=== PATIENT | female | born 1940 | race Caucasian/White ===

== ENCOUNTER 2016-02-19 09:56 | Inpatient (IN) | payer OTHER, MEDICARE ==
[2016-02-19] VITALS (7 sets, daily range): BP systolic 153–192; BP diastolic 74–114; PULSE 82–99; RESP 17–20; TEMP 97.8–99; O2SAT 95–99
[~2016-02-19] VITALS: Ht 162.6 cm; Wt 103.8 kg
[~2016-02-19 09:56] MED LIST: PRED20 PO; VENTAER INH; ZITHTAB PO
[2016-02-19 10:18] LABS: AUTOMATED NEUTROPHIL # 9.8 TH/MM3 (1.8-7.7); BASOPHIL # 0.1 TH/MM3 (0-0.2); BASOPHIL % 0.6 % (0.0-2.0); EOSINOPHIL # 0.1 TH/MM3 (0-0.4); EOSINOPHIL % 1.2 % (0.0-4.0); HEMO FLAGS DIFF FINAL; LYMPH % 13.6 % (9.0-44.0); LYMPHOCYTE # 1.7 TH/MM3 (1.0-4.8); MEAN CELL VOLUME 92.3 FL (80.0-100.0); MEAN CORPUSCULAR HEMOGLOBIN 31.3 PG (27.0-34.0); MONO % 6.6 % (0.0-8.0); PLATELET COUNT 241 TH/MM3 (150-450); RED BLOOD COUNT 4.45 MIL/MM3 (4.00-5.30); RED CELL DISTRIBUTION WIDTH 13.1 % (11.6-17.2); WHITE BLOOD COUNT 12.6 TH/MM3 (4.0-11.0)
[2016-02-19 10:37] LABS: AMPHETAMINE, URINE NEG (NEG); BARBITURATES, URINE NEG (NEG); COCAINE, URINE NEG (NEG)
[2016-02-19 10:38] LABS: ANION GAP 8 MEQ/L (5-15); BLOOD UREA NITROGEN 20 MG/DL (7-18); CHLORIDE 100 MEQ/L (98-107); GLOMERULAR FILTRATION RATE 37 ML/MIN (>89); POTASSIUM 3.7 MEQ/L (3.5-5.1); SODIUM (NA) 138 MEQ/L (136-145)
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
[2016-02-19] MEDS ORDERED: SODIUM CHLOR 0.9% 1000 ML INJ 1,000 ML IV ONE (11:15)
[2016-02-19 19:44] LABS: BACTERIA, URINE RARE /hpf; BLOOD, URINE NEG (NEG); COMMENT (UR) CULT NOT INDICATED; CULTURE IF INDICATED CULT NOT INDICATED; GLUCOSE,URINE NEG (NEG); KETONE, URINE NEG (NEG); MUCUS URINE FEW /lpf (OCC); NITRITE,URINE NEG (NEG); SQUAMOUS EPITHELIAL CELL URINE <1 /hpf (0-5); URINE COLOR YELLOW (YELLW/STRAW)
[2016-02-19] MEDS ORDERED: diphenhydrAMINE HCL 50 MG/ML VIAL IM PRN (21:30)
[2016-02-19] MEDS ORDERED: ALUMINUM/MAGNESIUM/SIMETH 30 ML CUP PO PRN (21:30)
[2016-02-19] MEDS: QUEtiapine FUMARATE 25 MG TAB PO SCH (21:30)
[2016-02-19] MEDS ORDERED: LORazepam 2 MG/ML VIAL - age > 65 yrs IM PRN (21:30)
[2016-02-19] MEDS ORDERED: MAGNESIUM HYDROXIDE SUSP 30 ML CUP PO PRN (21:30)
[2016-02-19] MEDS ORDERED: diphenhydrAMINE HCL 50 MG/ML VIAL - HS PRN IM (21:30)
[2016-02-20 00:03] VITALS: BP 156/69; PULSE 87; RESP 20
[2016-02-20 00:35] VITALS: BP 162/95; PULSE 91; RESP 17; TEMP 97.9; O2SAT 97
[2016-02-20] MEDS: traZODone HCL 50 MG TAB PO PRN (01:27)
[2016-02-20] MEDS: LORazepam 0.5 MG TAB age > 65 yrs PO PRN ×2 (01:27→15:59)
[2016-02-20 06:14] VITALS: BP 186/98; PULSE 89; RESP 16; TEMP 97.1
[2016-02-20 08:25] LABS: ANION GAP 11 MEQ/L (5-15); BICARBONATE 28.3 MEQ/L (21.0-32.0); BLOOD UREA NITROGEN 17 MG/DL (7-18); CHLORIDE 101 MEQ/L (98-107); FREE T4 1.09 NG/DL (0.76-1.46); GLOMERULAR FILTRATION RATE 44 ML/MIN (>89); LDL CHOLESTEROL 96 MG/DL (0-99); POTASSIUM 3.5 MEQ/L (3.5-5.1); SODIUM (NA) 140 MEQ/L (136-145)
[2016-02-20] MEDS: QUEtiapine FUMARATE 25 MG TAB PO SCH ×2 (09:15→21:52)
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
[2016-02-20 10:50] LABS: HEMOGLOBIN A1a 0.6 %; HEMOGLOBIN A1b 0.8 %; HEMOGLOBIN Ao 84.7 %; HEMOGLOBIN F 1.1 %; HEMOGLOBIN LA1C 2.1 %; HEMOGLOBIN P3 4.1 %
[2016-02-20] MEDS ORDERED: cloNIDine HCL 0.1 MG TAB PO PRN (13:30)
[2016-02-20 13:58] VITALS: BP 157/89; PULSE 66; TEMP 98.7; O2SAT 96
--- NOTE | 2016-02-20 15:19 | PD.CONS ---
HPI Service [facility] Consult Requested By Psychiatric services Reason for Consult Assistance with medical management of multiple issues including hypertension Primary Care Physician No Primary Care Physician Diagnoses: History of Present Illness This 75-year-old female patient with past medical history which includes chronic kidney disease, hypertension and arthritis. Patient is currently in inpatient psychiatric center we have been consulted for assistance with medical management including hypertension. Patient appears to be an unreliable historian (somewhat confused and tangential in speech ) therefore information gathered from patient as well as prior computerized charting. Patient's only complaint is that she has, "rattles," in her chest and is having and, "can't breathe." Vital signs are stable and oxygen saturation 96-97% on room air. There are scattered wheezes and bibasilar crackles noted on exam. White blood cell count 12.6 MAXIMUM TEMPERATURE 99.0. And blood pressure is noted to be elevated. Patient reports she takes no home medications. Patient denies nausea vomiting diarrhea constipation fevers chills or chest pain. Review of Systems Constitutional: DENIES: Fever, Chills Respiratory: DENIES: Cough, Shortness of breath Cardiovascular: DENIES: Chest pain Gastrointestinal: DENIES: Abdominal pain, Nausea, Vomiting Other All other systems reviewed and negative except as mentioned above and in history of present illness Past Family Social History Allergies: Coded Allergies: Abilify (Verified Allergy, Severe, 02/19/16) Antivert (Verified Allergy, Severe, 02/19/16) Aspirin (Verified Allergy, Severe, 02/19/16) Flagyl (Verified Allergy, Severe, Diarrhea, 02/19/16) Nonsteroidal Anti-Inflammatory Agts (Verified Allergy, Severe, 02/19/16) Penicillin (Verified Allergy, Severe, REDNESS, SWELLING, 02/19/16) Saccharin (Verified Allergy, Severe, 02/19/16) Sulfa (Verified Allergy, Severe, DISTURBS KIDNEY FUNCTION, 02/19/16) Tetracycline (Verified Allergy, Severe, NAUSEA & VOMITING, 02/19/16) Past Medical History chronic kidney disease, hypertension and arthritis Past Surgical History Appendectomy, bilateral knee replacement, tonsillectomy Reported Medications Denies taking any medications on daily basis Family History Denies family medical history including diabetes hypertension kidney disease heart disease or cancer Social History Patient denies tobacco use or illicit drug use or EtOH use Chart review reports patient quit smoking in 1980 Physical Exam Vital Signs Vital Signs Date Time Temp Pulse Resp B/P Pulse Ox O2 Delivery O2 Flow Rate FiO2 02/20/16 13:58 98.7 66 157/89 96 02/20/16 06:14 97.1 89 16 186/98 02/20/16 00:35 97.9 91 17 162/95 97 02/20/16 00:35 97.9 91 17 162/95 97 02/20/16 00:03 87 20 156/69 02/19/16 22:33 86 19 163/74 95 Room Air 02/19/16 21:14 98.5 88 20 192/89 98 Room Air 02/19/16 18:15 92 18 168/88 Room Air Physical Exam GENERAL: This is an obese, 75-year-old female patient appears to be confused. In no apparent distress. SKIN: No rashes, ecchymoses or lesions. Cool and dry. HEAD: Atraumatic. Normocephalic. No temporal or scalp tenderness. EYES: Extraocular motions intact. No scleral icterus. No injection or drainage. ENT: Nose without bleeding, purulent drainage or septal hematoma. Throat without erythema, tonsillar hypertrophy or exudate. Uvula midline. Airway patent. NECK: Trachea midline. No JVD or lymphadenopathy. Supple, nontender, no meningeal signs. CARDIOVASCULAR: Regular rate and rhythm without murmurs, gallops, or rubs. RESPIRATORY: Scattered wheezes throughout with bibasilar crackles GASTROINTESTINAL: Abdomen soft, non-tender, nondistended. No hepato-splenomegaly , or palpable masses. No guarding. MUSCULOSKELETAL: Trace bilateral edema No calf tenderness. Negative Homans sign bilaterally. NEUROLOGICAL: Awake and alert, but confused. Motor and sensory grossly within normal limits. 4 out of 5 muscle strength in all muscle groups. Tangential speech. Laboratory Laboratory Tests Test 02/20/16 06:32 Sodium Level 140 Potassium Level 3.5 Chloride Level 101 Carbon Dioxide Level 28.3 Anion Gap 11 Blood Urea Nitrogen 17 Creatinine 1.20 Estimat Glomerular Filtration 44 Rate Random Glucose 113 Hemoglobin A1c 5.8 Calcium Level 8.3 Phosphorus Level 3.5 Magnesium Level 2.0 Triglycerides Level 125 Cholesterol Level 167 LDL Cholesterol 96 HDL Cholesterol 46.0 Cholesterol/HDL Ratio 3.63 Vitamin B12 Level GREATER THAN 2000 25-Hydroxy Vitamin D Total 31.2 Free Thyroxine 1.09 Thyroid Stimulating Hormone 1.720 3rd Gen Result Diagram: 02/19/16 1005 02/20/16 0632 Assessment and Plan Assessment and Plan This 75-year-old female patient with past medical history which includes chronic kidney disease, hypertension and arthritis. Patient is currently in inpatient psychiatric center we have been consulted for assistance with medical management including hypertension. Patient appears to be an unreliable historian (somewhat confused and tangential in speech ) therefore information gathered from patient as well as prior computerized charting. Patient's only complaint is that she has, "rattles," in her chest and is having and, "can't breathe." Posttraumatic stress disorder/depression- management per psychiatric team Congestion/shortness of breath- with leukocytosis 12.6 Do nebs every 6 hours while awake and as needed Chest x-ray Patient was discharged from emergency department on 02/17/2016 with a prescription for azithromycin is unclear whether patient has taken this prescription or not Will start azithromycin by mouth Hypertension Clonidine as needed Norvasc 10 mg daily Continue to monitor blood pressure Chronic kidney disease- appears stable for nephrotoxins DVT prophylaxis patient is ambulatory Discussed POC with patient Written by Yazmin Blevins, acting as scribe for Dr. Gordon on 02/20/16 at 15:17. The documentation accurately reflects the work performed [id number] by me on 02/20/16 at 15:17. Yazmin Blevins Feb 20, 2016 15:19 Delgado Gordon MD Feb 21, 2016 16:23
[2016-02-20] MEDS ORDERED: AZITHROMYCIN 250 MG TAB PO ONE (15:30)
[2016-02-20] MEDS: amLODIPine BESYLATE 5 MG TAB PO SCH (15:59)
--- NOTE | 2016-02-20 16:14 | RADRPT ---
EXAM DATE/TIME: 02/20/2016 15:20 [place] COMPARISON: CHEST SINGLE AP, February 12, 2016, 22:19. INDICATIONS : Congestion. MEDICAL HISTORY : None. SURGICAL HISTORY : None. ENCOUNTER: Initial ACUITY: 1 day PAIN SCORE: 0/10 LOCATION: Bilateral chest FINDINGS: The heart is enlarged. The pulmonary vascular pattern is normal. Bibasilar streakiness is noted con sistent with atelectasis and/or developing infiltrates. Clinical correlation is recommended. Degene rative changes and scoliosis of the thoracic spine are noted. Degenerative changes are noted involvi ng the shoulders bilaterally. CONCLUSION: 1. Bibasilar streakiness consistent with atelectasis and/or developing infiltrates. Clinical correla tion is recommended. 2. Cardiomegaly. 3. Degenerative changes and scoliosis of the thoracic spine. 4. Degenerative changes involving the shoulders bilaterally. Yong Alicea MD on February 20, 2016 at 16:02 Board Certified Radiologist. This report was verified electronically.
[2016-02-20] MEDS: diphenhydrAMINE HCL 50 MG CAP PO PRN (18:25)
[2016-02-20 18:31] VITALS: BP 156/80; PULSE 77; RESP 18; TEMP 98.4; O2SAT 96
[2016-02-20] MEDS: RESP: ALBUTEROL 2.5 MG/IPRATROPIUM 0.5 MG NEB (SCH) NEB (21:35)
--- NOTE | 2016-02-20 22:50 | HHI.PR ---
Addendum to Inpatient Note Addendum Reason: Additional Documentation Additional Information A bedbug was found in the patient's belongings and I was asked to come see the bug and correctly identify it and to look at the patient's skin. I examined the bug and it does appear to be a bedbug though the time of expiration is difficult for me to estimate - it does not engorged though at the time of my exam. The patient was seen in her room. She was initially sleeping. When I started asking her about bedbugs, she started to itch her scalp and her chest. She also was noted to be picking at a tiny excoriated lesion on the dorsal surface of her right arm near her wrist. I did look at her arms, face, lower legs, and scalp and do not see anything consistent with bedbug bites. The patient reports that she did have an infestation in her apartment about 6 months to a year ago but she hired a pesticide company that specializes in bedbug treatment to treat her home and she states they go rid of the infestation though it was quite expensive for her and her family. Contact isolation has been ordered for now as a precaution. I will add PRN Benadryl to be given as needed for pruritis and our medical team will continue to follow during this hospitalization. . Mally Rader Feb 20, 2016 22:50
[2016-02-21] MEDS: RESP: ALBUTEROL 2.5 MG/IPRATROPIUM 0.5 MG NEB (PRN) NEB (01:46)
[2016-02-21] MEDS: diphenhydrAMINE HCL 50 MG CAP PO PRN ×2 (03:32→18:36)
[2016-02-21 06:00] VITALS: BP 187/90; PULSE 81; RESP 18; TEMP 96.6; O2SAT 97
[2016-02-21] MEDS: amLODIPine BESYLATE 5 MG TAB PO SCH (09:00)
[2016-02-21] MEDS: QUEtiapine FUMARATE 25 MG TAB PO SCH ×2 (09:00→21:15)
[2016-02-21] MEDS: LORazepam 0.5 MG TAB age > 65 yrs PO PRN (09:11)
[2016-02-21] MEDS: RESP: ALBUTEROL 2.5 MG/IPRATROPIUM 0.5 MG NEB (SCH) NEB ×3 (09:25→20:15)
[2016-02-21] MEDS ORDERED: PNEUMOCOCCAL POLYVALENT INJ 25 MCG/0.5 ML SYR IM ONE (10:00)
[2016-02-21] MEDS ORDERED: INFLUENZA VIRUS VACCINE (QUADRIVALENT) 0.5 ML SYR IM ONE (10:00)
--- NOTE | 2016-02-21 11:03 | HHI.PYPN ---
Subjective Remarks Patient was seen and discussed with the staff electrical engineer. Patient claimed that she has been feeling anxious nervous able to breathe but not as smoothly as she used to. She denied any active auditory or visual hallucinations. She was mildly guarded and suspicious. She denied any suicidal ideation intentions or plan. She was encouraged to participate in all the therapeutic activity on the floor. No side effects were complained she is compliant in taking medication. Review of Systems Psychiatric: COMPLAINS OF: Anxiety, Mood changes, Depression, Delusions Other Review of systems same as that of 02/20/16 Objective Alert: Yes [place]: Person, Place, Situation Mood: Anxious, Depressed Affect: Restricted Memory Intact: Recent (mildly impaired), Comment Hallucinations: Other (patient denies any active auditory or visual hallucinations) Delusions: Yes Delusion Type: Paranoid Suicidal: Ideation (denied any suicidal ideation intentions or plan) Homicidal: Ideation (denies) Insight/Judgement Fair Remarks Attention and concentration improving. Gait normal. Language normal. Fund of knowledge average Vitals/IOs Vital Signs Date Time Temp Pulse Resp B/P Pulse Ox O2 Delivery O2 Flow Rate FiO2 02/21/16 06:00 96.6 81 18 187/90 97 02/19/16 22:33 Room Air Assessment & Plan Problem List: (1) Post-traumatic stress disorder, chronic ICD Code: F43.12 (2) Depression ICD Code: F32.9 Assessment & Plan Estimated LOS: days Justification for Cont. Inpt. Monitoring of the medication and stabilization on the medication Request HC Surrog/Guard Advoc?: No Problem Qualifiers (1) Depression: Lamont Rueda MD Feb 21, 2016 11:03
--- NOTE | 2016-02-21 16:27 | HHI.PR ---
Subjective Remarks Follow for shortness of breath Patient still coughing, shortness of breath better, afebrile. She says that duo nebs are helping. Patient is found to have a bedbug last night, has been complaining of itching. Objective Vitals Vital Signs Date Time Temp Pulse Resp B/P Pulse Ox O2 Delivery O2 Flow Rate FiO2 02/21/16 06:00 96.6 81 18 187/90 97 02/20/16 18:31 98.4 77 18 156/80 96 Result Diagram: 02/19/16 1005 02/20/16 0632 Objective Remarks Not in distress PERRL, pink conjunctiva without injection, anicteric Normal rate and regular rhythm, no murmurs gallops or rubs appreciated. Occasional rhonchi, occasional wheezing, no crackles. Abdomen soft, nontender. Extremities without clubbing, cyanosis, or edema. No rash of generalized distribution. Skin is warm and dry. Moves extremities, awake, alert. Oriented to place and person A/P Assessment and Plan This 75-year-old female patient with past medical history which includes chronic kidney disease, hypertension and arthritis. Patient is currently in inpatient psychiatric center we have been consulted for assistance with medical management including hypertension. Patient appears to be an unreliable historian (somewhat confused and tangential in speech ) therefore information gathered from patient as well as prior computerized charting. Patient's only complaint is that she has, "rattles," in her chest and is having and, "can't breathe." Posttraumatic stress disorder/depression- management per psychiatric team Congestion/shortness of breath- with leukocytosis 12.6 Do nebs every 6 hours while awake and as needed Chest x-ray shows bibasilar streakiness, possible pneumonia versus CHF. She says DuoNeb's has been helping. Continue duo nebs, continue azithromycin, check BNP. Recheck CBC and BMP. Bedbug infestation-witnessed bug infestation personally by me and Shilpi, continue antihistamines as needed. Hypertension Clonidine as needed Norvasc 10 mg daily Continue to monitor blood pressure Chronic kidney disease- appears stable for nephrotoxins DVT prophylaxis patient is ambulatory Discussed POC with patient Delgado Gordon MD Feb 21, 2016 16:27
[2016-02-21] MEDS: AZITHROMYCIN 250 MG TAB PO SCH (17:15)
[2016-02-21 20:06] VITALS: BP 130/80; PULSE 81; RESP 18; TEMP 97.6; O2SAT 97
[2016-02-21] MEDS: diphenhydrAMINE HCL 50 MG CAP - HS PRN PO (21:18)
[2016-02-22] MEDS: RESP: ALBUTEROL 2.5 MG/IPRATROPIUM 0.5 MG NEB (PRN) NEB (04:50)
[2016-02-22] MEDS: ACETAMINOPHEN 325 MG TAB PO PRN (05:29)
[2016-02-22 05:49] VITALS: BP 152/72; PULSE 82; RESP 18; TEMP 98.1; O2SAT 94
[2016-02-22 08:20] LABS: AUTOMATED NEUTROPHIL # 8.2 TH/MM3 (1.8-7.7); BASOPHIL # 0.1 TH/MM3 (0-0.2); BASOPHIL % 0.5 % (0.0-2.0); EOSINOPHIL # 0.4 TH/MM3 (0-0.4); EOSINOPHIL % 3.4 % (0.0-4.0); HEMATOCRIT 37.1 % (35.0-46.0); LYMPH % 15.4 % (9.0-44.0); LYMPHOCYTE # 1.8 TH/MM3 (1.0-4.8); MEAN CELL VOLUME 93.3 FL (80.0-100.0); MEAN CORPUSCULAR HGB CONC 34.3 % (32.0-36.0); MONO % 11.9 % (0.0-8.0); NEUT % 68.8 % (16.0-70.0); PLATELET COUNT 228 TH/MM3 (150-450); RED BLOOD COUNT 3.97 MIL/MM3 (4.00-5.30); RED CELL DISTRIBUTION WIDTH 12.9 % (11.6-17.2); WHITE BLOOD COUNT 11.9 TH/MM3 (4.0-11.0)
[2016-02-22 08:24] LABS: HEMO FLAGS AUTO DIFF
[2016-02-22 08:51] LABS: BICARBONATE 27.2 MEQ/L (21.0-32.0); POTASSIUM 3.7 MEQ/L (3.5-5.1)
[2016-02-22] MEDS: amLODIPine BESYLATE 5 MG TAB PO SCH (08:57)
[2016-02-22] MEDS: QUEtiapine FUMARATE 25 MG TAB PO SCH ×3 (08:58→17:03)
[2016-02-22] MEDS: RESP: ALBUTEROL 2.5 MG/IPRATROPIUM 0.5 MG NEB (SCH) NEB ×3 (09:04→19:43)
[2016-02-22 09:41] LABS: PLATELET ESTIMATE SMEAR NORMAL (NORMAL); PLATELET MORPHOLOGY NORMAL (NORMAL); SCAN/DIFF AUTO DIFF CONFIRMED
--- NOTE | 2016-02-22 10:12 | HHI.PYPN ---
Subjective Remarks Patient was seen and discussed with the staff attorney. Patient reported that she has been sleeping okay. Feels frustrated staying in the room but could be reassured. Patient denied any active auditory or visual hallucinations. Denied any suicidal ideation intentions or plan. No behavior or management problem reported she is compliant in taking medication no side effects were complained. Continue with the same treatment Review of Systems Psychiatric: COMPLAINS OF: Mood changes, Depression Other Review of system same as that of 02/20/16 Objective Alert: Yes [place]: Person, Place, Situation Mood: Anxious, Depressed, Other (frustrated) Affect: Restricted Memory Intact: Recent (mildly impaired), Comment Hallucinations: Other (patient denies any active auditory or visual hallucinations) Delusions: Yes Delusion Type: Paranoid Suicidal: Ideation (denied any suicidal ideation intentions or plan) Homicidal: Ideation (denies) Insight/Judgement Fair to limited Remarks Attention and concentration improving. Language normal gait normal fund of knowledge average Labs Test 02/22/16 07:05 White Blood Count 11.9 TH/MM3 Red Blood Count 3.97 MIL/MM3 Hemoglobin 12.7 GM/DL Hematocrit 37.1 % Mean Corpuscular Volume 93.3 FL Mean Corpuscular Hemoglobin 32.0 PG Mean Corpuscular Hemoglobin 34.3 % Concent Red Cell Distribution Width 12.9 % Platelet Count 228 TH/MM3 Mean Platelet Volume 8.1 FL Neutrophils (%) (Auto) 68.8 % Lymphocytes (%) (Auto) 15.4 % Monocytes (%) (Auto) 11.9 % Eosinophils (%) (Auto) 3.4 % Basophils (%) (Auto) 0.5 % Neutrophils # (Auto) 8.2 TH/MM3 Lymphocytes # (Auto) 1.8 TH/MM3 Monocytes # (Auto) 1.4 TH/MM3 Eosinophils # (Auto) 0.4 TH/MM3 Basophils # (Auto) 0.1 TH/MM3 CBC Comment AUTO DIFF Differential Comment AUTO DIFF CONFIRMED Platelet Estimate NORMAL Platelet Morphology Comment NORMAL Red Cell Morphology Comment NORMAL Sodium Level 136 MEQ/L Potassium Level 3.7 MEQ/L Chloride Level 99 MEQ/L Carbon Dioxide Level 27.2 MEQ/L Anion Gap 10 MEQ/L Blood Urea Nitrogen 17 MG/DL Creatinine 1.24 MG/DL Estimat Glomerular Filtration 42 ML/MIN Rate Random Glucose 122 MG/DL Calcium Level 8.8 MG/DL B-Type Natriuretic Peptide 24 PG/ML Vitals/IOs Vital Signs Date Time Temp Pulse Resp B/P Pulse Ox O2 Delivery O2 Flow Rate FiO2 02/22/16 05:49 98.1 82 18 152/72 94 02/19/16 22:33 Room Air Assessment & Plan Problem List: (1) Post-traumatic stress disorder, chronic ICD Code: F43.12 (2) Depression ICD Code: F32.9 Assessment & Plan Estimated LOS: days Justification for Cont. Inpt. Monitoring of the medication and stabilization on the medication to improve the mood Request HC Surrog/Guard Advoc?: No Problem Qualifiers (1) Depression: Lamont Rueda MD Feb 22, 2016 10:12
--- NOTE | 2016-02-22 14:50 | HHI.PR ---
Subjective Remarks Follow for shortness of breath Cough improving now has occasional dry cough. Shortness of breath better, afebrile. Diminished bilateral bases no wheezes rhonchi or rales appreciated on auscultation Blood pressure remains elevated patient denies headache visual changes Objective Vitals Vital Signs Date Time Temp Pulse Resp B/P Pulse Ox O2 Delivery O2 Flow Rate FiO2 02/22/16 05:49 98.1 82 18 152/72 94 02/21/16 20:06 97.6 81 18 130/80 97 Result Diagram: 02/22/16 0705 02/22/16 0705 Imaging Chest x-ray reviewed by myself as well as Dr. Riely- bibasilar streaking noted Last Impressions Chest X-Ray 02/20/16 0000 Signed Impressions: Service Date/Time: Saturday, February 20, 2016 15:20 - CONCLUSION: 1. Bibasilar streakiness consistent with atelectasis and/or developing infiltrates. Clinical correlation is recommended. 2. Cardiomegaly. 3. Degenerative changes and scoliosis of the thoracic spine. 4. Degenerative changes involving the shoulders bilaterally. Yong Alicea MD Objective Remarks GENERAL: This is an obese, 75-year-old female patient appears to be confused. In no apparent distress. SKIN: No rashes, ecchymoses or lesions. Cool and dry. HEAD: Atraumatic. Normocephalic. No temporal or scalp tenderness. EYES: Extraocular motions intact. No scleral icterus. No injection or drainage. ENT: Nose without bleeding, purulent drainage or septal hematoma. Throat without erythema, tonsillar hypertrophy or exudate. Uvula midline. Airway patent. NECK: Trachea midline. No JVD or lymphadenopathy. Supple, nontender, no meningeal signs. CARDIOVASCULAR: Regular rate and rhythm without murmurs, gallops, or rubs. RESPIRATORY: Diminished bilateral bases no wheezes rhonchi or rales appreciated GASTROINTESTINAL: Abdomen soft, non-tender, nondistended No guarding. MUSCULOSKELETAL: Trace bilateral edema No calf tenderness. Negative Homans sign bilaterally. NEUROLOGICAL: Awake and alert, but confused. Motor and sensory grossly within normal limits. 4 out of 5 muscle strength in all muscle groups. A/P Assessment and Plan This 75-year-old female patient with past medical history which includes chronic kidney disease, hypertension and arthritis. Patient is currently in inpatient psychiatric center we have been consulted for assistance with medical management including hypertension. Posttraumatic stress disorder/depression- management per psychiatric team Congestion/shortness of breath- with leukocytosis improving Bronchitis versus early pneumonia Do nebs every 6 hours while awake and as needed Chest x-ray 02/21/2016 shows bibasilar streakiness Continue duo nebs, continue azithromycin, BNP 24 Bedbug infestation- no further bedbug was identified no evidence of bedbug bites will continue antihistamines as needed for itching. Hypertension- continues to be elevated Clonidine as needed Increase Norvasc to 10 mg daily Continue to monitor blood pressure Chronic kidney disease- appears stable for nephrotoxins DVT prophylaxis patient is ambulatory Discussed POC with patient Written by Yazmin Blevins, acting as scribe for Dr. Riley on 02/22/16 at 14:49. The documentation accurately reflects the work performed [id number] by me on 02/22/16 at 1449 Yazmin Blevins Feb 22, 2016 14:50 Obie Riley MD Feb 22, 2016 15:43
[2016-02-22] MEDS: AZITHROMYCIN 250 MG TAB PO SCH (15:26)
[2016-02-22 20:00] VITALS: BP 145/80; PULSE 99; RESP 17; TEMP 97.4; O2SAT 95
[2016-02-23 06:14] VITALS: BP 147/71; PULSE 90; RESP 18; TEMP 97.6; O2SAT 97
[2016-02-23] MEDS: QUEtiapine FUMARATE 25 MG TAB PO SCH ×3 (09:06→17:14)
[2016-02-23] MEDS: RESP: ALBUTEROL 2.5 MG/IPRATROPIUM 0.5 MG NEB (SCH) NEB ×3 (09:15→19:56)
--- NOTE | 2016-02-23 11:17 | HHI.PYPN ---
Subjective Remarks Patient was seen and discussed with the director of staff development. Patient stays in her room because of her bed bug. She complains of not being able to breed properly patient denied any crying spell or feeling depressed or patient denied any suicidal ideation intentions or plan. Her thoughts were organized. No behavior or management problem reported. Continue with the same treatment Review of Systems Psychiatric: COMPLAINS OF: Mood changes Other Review of systems same as that of 02/20/16 Objective Alert: Yes [place]: Person, Place, Situation Mood: Anxious, Depressed, Other (frustrated) Affect: Restricted Memory Intact: Recent (mildly impaired), Comment Hallucinations: Other (patient denies any active auditory or visual hallucinations) Delusions: Yes Delusion Type: Paranoid Suicidal: Ideation (denied any suicidal ideation intentions or plan) Homicidal: Ideation (denies) Insight/Judgement Fair to limited Vitals/IOs Vital Signs Date Time Temp Pulse Resp B/P Pulse Ox O2 Delivery O2 Flow Rate FiO2 02/23/16 06:14 97.6 90 18 147/71 97 02/19/16 22:33 Room Air Intake and Output 02/22/16 02/22/16 02/23/16 08:00 16:00 00:00 Intake Total 240 ml Balance 240 ml Assessment & Plan Problem List: (1) Post-traumatic stress disorder, chronic ICD Code: F43.12 (2) Depression ICD Code: F32.9 Assessment & Plan Estimated LOS: days Justification for Cont. Inpt. Monitoring of the medication and titrating the medication. Request HC Surrog/Guard Advoc?: No Problem Qualifiers (1) Depression: Lamont Rueda MD Feb 23, 2016 11:17
[2016-02-23] MEDS: AZITHROMYCIN 250 MG TAB PO SCH (15:48)
[2016-02-23 18:34] VITALS: BP 170/81; PULSE 100; RESP 18; TEMP 97.2; O2SAT 95
[2016-02-23 19:55] VITALS: BP 164/66; PULSE 95
[2016-02-23] MEDS: traZODone HCL 50 MG TAB PO PRN (21:16)
[2016-02-23] MEDS: LORazepam 0.5 MG TAB age > 65 yrs PO PRN (21:16)
[2016-02-24 06:05] VITALS: BP 150/87; PULSE 87; RESP 18; TEMP 98.3
[2016-02-24] MEDS: RESP: ALBUTEROL 2.5 MG/IPRATROPIUM 0.5 MG NEB (SCH) NEB ×3 (08:00→21:29)
[2016-02-24] MEDS: QUEtiapine FUMARATE 25 MG TAB PO SCH ×3 (08:30→17:25)
--- NOTE | 2016-02-24 09:47 | HHI.PYPN ---
Subjective Remarks Patient was seen and discussed with the billing and accounting staff assistant. Patient claimed that she has been feeling little better but still has difficulty breathing and feels frustrated. Patient denied any active auditory or visual hallucinations. She is not rambling. No behavior or management problem reported. She is in isolation because of bed bug. Patient denied any crying spell. Denied any suicidal ideation intentions or plan. Continue with the same treatment. Review of Systems Psychiatric: COMPLAINS OF: Mood changes, Depression Other Review of systems same as that of 02/20/16 Objective Alert: Yes [place]: Person, Place, Situation Mood: Anxious, Depressed, Other (frustrated) Affect: Restricted Memory Intact: Recent (mildly impaired), Comment Hallucinations: Other (patient denies any active auditory or visual hallucinations) Delusions: Yes Delusion Type: Paranoid Suicidal: Ideation (denied any suicidal ideation intentions or plan) Homicidal: Ideation (denies) Insight/Judgement Fair Remarks Attention and concentration improving. Gait normal. Language normal. Fund of knowledge average Vitals/IOs Vital Signs Date Time Temp Pulse Resp B/P Pulse Ox O2 Delivery O2 Flow Rate FiO2 02/24/16 06:05 98.3 87 18 150/87 02/23/16 18:34 95 Assessment & Plan Problem List: (1) Post-traumatic stress disorder, chronic ICD Code: F43.12 (2) Depression ICD Code: F32.9 Assessment & Plan Estimated LOS: days Justification for Cont. Inpt. Titrating and monitoring of the medication to stabilize patient's condition Request HC Surrog/Guard Advoc?: No Problem Qualifiers (1) Depression: Lamont Rueda MD Feb 24, 2016 09:47
[2016-02-24] MEDS: AZITHROMYCIN 250 MG TAB PO SCH (16:00)
[2016-02-24 19:44] VITALS: BP 140/70; PULSE 92; RESP 18; TEMP 98.9; O2SAT 95
[2016-02-24] MEDS: LORazepam 0.5 MG TAB age > 65 yrs PO PRN (21:02)
[2016-02-24] MEDS: traZODone HCL 50 MG TAB PO PRN (21:03)
[2016-02-25 05:31] VITALS: BP 155/96; PULSE 90; RESP 18; TEMP 98.5; O2SAT 96
[2016-02-25] MEDS: RESP: ALBUTEROL 2.5 MG/IPRATROPIUM 0.5 MG NEB (SCH) NEB ×3 (07:57→20:56)
--- NOTE | 2016-02-25 08:56 | HHI.PYPN ---
Subjective Remarks Patient was seen and discussed with the staff software engineer. Patient is feeling little better and able to breathe little better. No behavior or management problem reported. Patient tends to isolate and keeps to herself in her room. She was encouraged to participate in all the therapeutic activity on the floor. Patient denied any side effect. She slept fairly well. Denied any suicidal ideation intentions or plan or any auditory or visual hallucinations. Continue with the same treatment Review of Systems Psychiatric: COMPLAINS OF: Mood changes, Depression Other Review of system same as that of 02/20/16 Objective Alert: Yes [place]: Person, Place, Situation Mood: Anxious, Depressed, Other (frustrated) Affect: Restricted Memory Intact: Recent (mildly impaired), Comment Hallucinations: Other (patient denies any active auditory or visual hallucinations) Delusions: Yes Delusion Type: Paranoid Suicidal: Ideation (denied any suicidal ideation intentions or plan) Homicidal: Ideation (denies) Insight/Judgement Fair to limited Remarks Attention and concentration improving gait normal. Language normal. Fund of knowledge average Vitals/IOs Vital Signs Date Time Temp Pulse Resp B/P Pulse Ox O2 Delivery O2 Flow Rate FiO2 02/25/16 05:31 98.5 90 18 155/96 96 Assessment & Plan Problem List: (1) Post-traumatic stress disorder, chronic ICD Code: F43.12 (2) Depression ICD Code: F32.9 Assessment & Plan Estimated LOS: days Justification for Cont. Inpt. Needs to be monitored and titrated the medication prior to discharge to stabilize the patient Request HC Surrog/Guard Advoc?: No Problem Qualifiers (1) Depression: Lamont Rueda MD Feb 25, 2016 08:56
[2016-02-25] MEDS: QUEtiapine FUMARATE 25 MG TAB PO SCH ×3 (09:10→17:15)
[2016-02-25] MEDS: METOPROLOL TARTRATE 25 MG TAB PO SCH ×2 (11:48→20:39)
--- NOTE | 2016-02-25 15:05 | HHI.PR ---
Subjective Remarks Follow-up hypertension. Patient denies headache, dizziness, chest pain shortness breath. States she has sore throat and wants to go to social to get ice cream. Discussed with RN Objective Vitals Vital Signs Date Time Temp Pulse Resp B/P Pulse Ox O2 Delivery O2 Flow Rate FiO2 02/25/16 05:31 98.5 90 18 155/96 96 02/24/16 19:44 98.9 92 18 140/70 95 Result Diagram: 02/22/16 0705 02/22/16 0705 Objective Remarks GENERAL: This is an obese, 75-year-old female patient appears to be confused. In no apparent distress. SKIN: No rashes, ecchymoses or lesions. Cool and dry. HEAD: Atraumatic. Normocephalic. No temporal or scalp tenderness. EYES: Extraocular motions intact. No scleral icterus. No injection or drainage. ENT: Nose without bleeding, purulent drainage or septal hematoma. Throat without erythema, tonsillar hypertrophy or exudate. Uvula midline. Airway patent. No evidence of infection NECK: Trachea midline. No JVD or lymphadenopathy. Supple, nontender, no meningeal signs. CARDIOVASCULAR: Regular rate and rhythm without murmurs, gallops, or rubs. RESPIRATORY: Diminished bilateral bases no wheezes rhonchi or rales appreciated GASTROINTESTINAL: Abdomen soft, non-tender, nondistended No guarding. MUSCULOSKELETAL: Trace bilateral edema No calf tenderness. Negative Homans sign bilaterally. NEUROLOGICAL: Awake and alert, but confused. Motor and sensory grossly within normal limits. 4 out of 5 muscle strength in all muscle groups. A/P Assessment and Plan This 75-year-old female patient with past medical history which includes chronic kidney disease, hypertension and arthritis. Patient is currently in inpatient psychiatric center we have been consulted for assistance with medical management including hypertension. Posttraumatic stress disorder/depression- management per psychiatric team Congestion/shortness of breath- with leukocytosis improving Bronchitis versus early pneumonia Do nebs every 6 hours while awake and as needed Chest x-ray 02/21/2016 shows bibasilar streakiness Continue duo nebs, continue azithromycin, BNP 24 02/24. Clinically improved Bedbug infestation- no further bedbug was identified no evidence of bedbug bites will continue antihistamines as needed for itching. Clinically improved Hypertension- continues to be elevated Clonidine as needed Increase Norvasc to 10 mg daily Continue to monitor blood pressure 02/24. Add Lopressor 25 mg twice a day and monitor response Chronic kidney disease- appears stable for nephrotoxins DVT prophylaxis patient is ambulatory Obie Riley MD Feb 25, 2016 15:05
[2016-02-25] MEDS: AZITHROMYCIN 250 MG TAB PO SCH (17:15)
[2016-02-25] MEDS: LORazepam 0.5 MG TAB age > 65 yrs PO PRN (18:32)
[2016-02-25 19:33] VITALS: BP 144/81; PULSE 68; RESP 18; TEMP 98.2; O2SAT 99
[2016-02-25] MEDS: traZODone HCL 50 MG TAB PO PRN (20:39)
[2016-02-25] MEDS: diphenhydrAMINE HCL 50 MG CAP PO PRN (20:52)
[2016-02-25] MEDS: ACETAMINOPHEN 325 MG TAB PO PRN (20:52)
[2016-02-26] MEDS: RESP: ALBUTEROL 2.5 MG/IPRATROPIUM 0.5 MG NEB (PRN) NEB (00:15)
[2016-02-26 06:14] VITALS: BP 126/68; PULSE 60; RESP 18; TEMP 97.8; O2SAT 98
[2016-02-26] MEDS: RESP: ALBUTEROL 2.5 MG/IPRATROPIUM 0.5 MG NEB (SCH) NEB ×3 (07:39→20:00)
[2016-02-26] MEDS: QUEtiapine FUMARATE 25 MG TAB PO SCH ×3 (08:31→17:03)
[2016-02-26] MEDS: METOPROLOL TARTRATE 25 MG TAB PO SCH ×3 (08:31→21:38)
--- NOTE | 2016-02-26 14:11 | HHI.PYPN ---
Subjective Remarks Patient seen in room with nurse Awilda, patient calm pleasant with me though somewhat superficial in an awake childish with minimization of her behaviors. Otherwise patient does denies suicidality homicidality voices or visions. Throughout continue treatment no change Review of Systems Other No change since 02/19 Objective Alert: Yes [place]: Person, Place, Situation Mood: Anxious, Depressed, Other (frustrated) Affect: Restricted Memory Intact: Recent (mildly impaired), Comment Hallucinations: Other (patient denies any active auditory or visual hallucinations) Delusions: Yes Delusion Type: Paranoid Suicidal: Ideation (denied any suicidal ideation intentions or plan) Homicidal: Ideation (denies) Insight/Judgement Very poor Vitals/IOs Vital Signs Date Time Temp Pulse Resp B/P Pulse Ox O2 Delivery O2 Flow Rate FiO2 02/26/16 06:14 97.8 60 18 126/68 98 Assessment & Plan Problem List: (1) Post-traumatic stress disorder, chronic ICD Code: F43.12 (2) Depression ICD Code: F32.9 Assessment & Plan Estimated LOS: days patient continues somewhat sad though superficial and silly suppressing some of her feelings. For now continue treatment Justification for Cont. Inpt. Patient will decompensate at a lower level of care Discharge Planning To be determined Request HC Surrog/Guard Advoc?: No Problem Qualifiers (1) Depression: Satnam Johnson MD Feb 26, 2016 14:11
[2016-02-26 18:14] VITALS: BP 105/66; PULSE 79; RESP 16; TEMP 98.5; O2SAT 99
[2016-02-26] MEDS: traZODone HCL 50 MG TAB PO PRN (21:38)
[2016-02-27 06:02] VITALS: BP 115/66; PULSE 53; RESP 18; TEMP 97.8; O2SAT 99
[2016-02-27] MEDS: QUEtiapine FUMARATE 25 MG TAB PO SCH ×3 (08:24→17:09)
[2016-02-27] MEDS: METOPROLOL TARTRATE 25 MG TAB PO SCH (08:24)
[2016-02-27] MEDS: RESP: ALBUTEROL 2.5 MG/IPRATROPIUM 0.5 MG NEB (SCH) NEB ×3 (09:40→20:14)
--- NOTE | 2016-02-27 13:27 | HHI.PR ---
Subjective Remarks Follow-up hypertension. Denies headache, dizziness, nausea, chest pain and shortness of breath. Vital signs reviewed episode of bradycardia heart rate 53. EKG reviewed with no QT prolongation. Discussed with RN Objective Vitals Vital Signs Date Time Temp Pulse Resp B/P Pulse Ox O2 Delivery O2 Flow Rate FiO2 02/27/16 06:02 97.8 53 18 115/66 99 02/26/16 18:14 98.5 79 16 105/66 99 Imaging Last Impressions Chest X-Ray 02/20/16 0000 Signed Impressions: Service Date/Time: Saturday, February 20, 2016 15:20 - CONCLUSION: 1. Bibasilar streakiness consistent with atelectasis and/or developing infiltrates. Clinical correlation is recommended. 2. Cardiomegaly. 3. Degenerative changes and scoliosis of the thoracic spine. 4. Degenerative changes involving the shoulders bilaterally. Yong Alicea MD Objective Remarks GENERAL: This is an obese, 75-year-old female patient appears to be confused. In no apparent distress. SKIN: No rashes, ecchymoses or lesions. Cool and dry. HEAD: Atraumatic. Normocephalic. No temporal or scalp tenderness. EYES: Extraocular motions intact. No scleral icterus. No injection or drainage. ENT: Nose without bleeding, purulent drainage or septal hematoma. Throat without erythema, tonsillar hypertrophy or exudate. Uvula midline. Airway patent. No evidence of infection NECK: Trachea midline. No JVD or lymphadenopathy. Supple, nontender, no meningeal signs. CARDIOVASCULAR: Regular rate and rhythm without murmurs, gallops, or rubs. RESPIRATORY: Diminished bilateral bases no wheezes rhonchi or rales appreciated GASTROINTESTINAL: Abdomen soft, non-tender, nondistended No guarding. MUSCULOSKELETAL: Trace bilateral edema No calf tenderness. Negative Homans sign bilaterally. NEUROLOGICAL: Awake and alert, but confused. Motor and sensory grossly within normal limits. 4 out of 5 muscle strength in all muscle groups. Nonfocal A/P Assessment and Plan This 75-year-old female patient with past medical history which includes chronic kidney disease, hypertension and arthritis. Patient is currently in inpatient psychiatric center we have been consulted for assistance with medical management including hypertension. Posttraumatic stress disorder/depression- management per psychiatric team Congestion/shortness of breath- with leukocytosis improving Bronchitis versus early pneumonia Duonebs every 6 hours while awake and as needed Chest x-ray 02/21/2016 shows bibasilar streakiness. BNP 24. Status post Zithromax. Clinically improved. Bedbug infestation- no further bedbug was identified no evidence of bedbug bites will continue antihistamines as needed for itching. Clinically improved Hypertension-improving on Norvasc and Lopressor. Sinus bradycardia on Lopressor. EKG reviewed with no QT prolongation. Asymptomatic. We'll continue to monitor patient also on psychotropics. Chronic kidney disease- appears stable for nephrotoxins DVT prophylaxis patient is ambulatory Discharge Planning Patient medically stable. We'll sign off Obie Riley MD Feb 27, 2016 13:27
[2016-02-27] MEDS ORDERED: METO25TA3 PO (13:28)
[2016-02-27] MEDS ORDERED: AMLO10 PO (13:28)
--- NOTE | 2016-02-27 14:05 | HHI.PYPN ---
Subjective Remarks Patient was seen and case discussed with nursing. Patient is pleasant but confused. Tangential thought process. She took a shower earlier impressed the [facility] asking nurses what she should do in the shower. She is concerned that family does not like her want to speak with her. Insight is poor into admission and denies having had suicidal thoughts. Compliant with medications Objective Alert: Yes [place]: Person, Place, Situation Mood: Anxious, Depressed, Other (frustrated) Affect: Restricted Memory Intact: Recent (mildly impaired), Comment Hallucinations: Other (patient denies any active auditory or visual hallucinations) Delusions: Yes Delusion Type: Paranoid Suicidal: Ideation (denied any suicidal ideation intentions or plan) Homicidal: Ideation (denies) Insight/Judgement Poor Vitals/IOs Vital Signs Date Time Temp Pulse Resp B/P Pulse Ox O2 Delivery O2 Flow Rate FiO2 02/27/16 06:02 97.8 53 18 115/66 99 Assessment & Plan Problem List: (1) Post-traumatic stress disorder, chronic ICD Code: F43.12 (2) Depression ICD Code: F32.9 Assessment & Plan Continue current treatment plan Justification for Cont. Inpt. Patient will decompensate in a less restrictive setting Request HC Surrog/Guard Advoc?: No Problem Qualifiers (1) Depression: Be Torre DO Feb 27, 2016 14:05
--- NOTE | 2016-02-27 14:50 | EKG ---
Date Performed: 02/27/2016 Time Performed: 08:45:47 PTAGE: 75 years EKG: ECTOPIC ATRIAL BRADYCARDIA Since previous tracing, no significant change noted ABNORMAL RHY THM ECG PREVIOUS TRACING : 02/17/2016 12.36 DOCTOR: Manuel Steen Interpretating Date/Time 02/27/2016 14:48:20
[2016-02-27] MEDS: MENTHOL LOZENGE SUCK-ON PRN (21:00)
[2016-02-27 21:22] VITALS: BP 122/65; PULSE 67; RESP 17; TEMP 97.2
[2016-02-28] MEDS: LORazepam 0.5 MG TAB age > 65 yrs PO PRN (01:54)
[2016-02-28] MEDS: ACETAMINOPHEN 325 MG TAB PO PRN (01:55)
[2016-02-28] MEDS: RESP: ALBUTEROL 2.5 MG/IPRATROPIUM 0.5 MG NEB (PRN) NEB ×3 (02:55→07:16)
[2016-02-28] MEDS: MENTHOL LOZENGE SUCK-ON PRN (03:00)
[2016-02-28 05:50] VITALS: BP 149/81; PULSE 59; RESP 18; TEMP 97.4; O2SAT 97
--- NOTE | 2016-02-28 08:38 | HHI.PYPN ---
Subjective Remarks Patient seen in day room with nurse Awilda, chart review, patient calm pleasant this morning did vaguely remember me from eye contact with her 2 days ago, patient compliant medications, does denies suicidality of voices. For now continue treatment Review of Systems Other No change since 02/19 Objective Alert: Yes [place]: Person, Place, Situation Mood: Anxious, Depressed, Other (frustrated) Affect: Restricted Memory Intact: Recent (mildly impaired), Comment Hallucinations: Other (patient denies any active auditory or visual hallucinations) Delusions: Yes Delusion Type: Paranoid Suicidal: Ideation (denied any suicidal ideation intentions or plan) Homicidal: Ideation (denies) Insight/Judgement Poor Vitals/IOs Vital Signs Date Time Temp Pulse Resp B/P Pulse Ox O2 Delivery O2 Flow Rate FiO2 02/28/16 05:50 97.4 59 18 149/81 97 Assessment & Plan Problem List: (1) Post-traumatic stress disorder, chronic ICD Code: F43.12 (2) Depression ICD Code: F32.9 Assessment & Plan Estimated LOS: days patient continue somewhat depressed and isolating, compliant medications, for now continue treatment no change Justification for Cont. Inpt. At this time patient was really decompensate and placed in the lower level of care Discharge Planning To be determined Request HC Surrog/Guard Advoc?: No Problem Qualifiers (1) Depression: Satnam Johnson MD Feb 28, 2016 08:37
[2016-02-28] MEDS: METOPROLOL TARTRATE 25 MG TAB PO SCH ×2 (09:05→20:53)
[2016-02-28] MEDS: QUEtiapine FUMARATE 25 MG TAB PO SCH ×3 (09:06→17:23)
[2016-02-28 18:12] VITALS: BP 124/60; PULSE 57; RESP 17; TEMP 97.6; O2SAT 97
[2016-02-28] MEDS: traZODone HCL 50 MG TAB PO PRN (23:49)
[2016-02-29 06:35] VITALS: BP_SYST 111; BP_SYST 138; BP_DIAS 66; BP_DIAS 74; PULSE 59; PULSE 66; RESP 16; RESP 18; TEMP 97.5; TEMP 97.8; O2SAT 99
[2016-02-29 09:00] VITALS: PULSE 64
[2016-02-29] MEDS: METOPROLOL TARTRATE 25 MG TAB PO SCH ×2 (09:03→17:41)
[2016-02-29] MEDS: QUEtiapine FUMARATE 25 MG TAB PO SCH ×3 (09:03→17:25)
[2016-02-29] MEDS: RESP: ALBUTEROL 2.5 MG/IPRATROPIUM 0.5 MG NEB (PRN) NEB (16:46)
[2016-02-29 17:13] VITALS: BP 132/72; PULSE 70; RESP 18; TEMP 98
[2016-02-29 18:36] VITALS: BP 126/59; PULSE 56; RESP 18; TEMP 98.3; O2SAT 99
--- NOTE | 2016-02-29 19:13 | HHI.PYPN ---
Subjective Remarks Patient seen, chart reviewed, case discussed with staff Patient reports nausea, constant feeling of wanting to vomit, and a sore throat. She says her sleep is good her appetite is good and her Ah and SI are improved She is attending groups and activities and talking to her peers. She is compliant with medications and denies medication side effects Review of Systems Ears, nose, mouth, throat: COMPLAINS OF: Throat pain Gastrointestinal: COMPLAINS OF: Nausea Psychiatric: COMPLAINS OF: Anxiety, Confusion, Mood changes, Depression Other otherwise 10 point ROS is negative Objective Alert: Yes [place]: Person, Place, Situation Mood: Anxious, Depressed, Other (frustrated) Affect: Restricted Memory Intact: Recent (mildly impaired), Comment Hallucinations: Other (patient denies any active auditory or visual hallucinations) Delusions: Yes Delusion Type: Paranoid Suicidal: Ideation (denied any suicidal ideation intentions or plan) Homicidal: Ideation (denies) Insight/Judgement poor Vitals/IOs Vital Signs Date Time Temp Pulse Resp B/P Pulse Ox O2 Delivery O2 Flow Rate FiO2 02/29/16 18:36 98.3 56 18 126/59 99 Assessment & Plan Problem List: (1) Post-traumatic stress disorder, chronic Assessment & Plan: sleep is improving ICD Code: F43.12 (2) Depression Assessment & Plan: improving on meds without side effects ICD Code: F32.9 Assessment & Plan Estimated LOS: days Justification for Cont. Inpt. risk for decompensation Request HC Surrog/Guard Advoc?: No Problem Qualifiers (1) Depression: Lina Lima MD Feb 29, 2016 19:13
[2016-02-29] MEDS: diphenhydrAMINE HCL 50 MG CAP - HS PRN PO (21:36)
[2016-03-01 06:06] VITALS: BP 128/64; PULSE 57; RESP 18; TEMP 97.8; O2SAT 97
[2016-03-01] MEDS: LORazepam 0.5 MG TAB age > 65 yrs PO PRN (06:48)
[2016-03-01] MEDS: MENTHOL LOZENGE SUCK-ON PRN (06:52)
[2016-03-01] MEDS: QUEtiapine FUMARATE 25 MG TAB PO SCH ×3 (09:00→18:00)
[2016-03-01] MEDS: METOPROLOL TARTRATE 25 MG TAB PO SCH ×2 (09:00→21:32)
--- NOTE | 2016-03-01 19:17 | HHI.PYPN ---
Subjective Remarks Patient seen, chart reviewed, case discussed with staff Patient has a rash on her face, and consult to hospitalist was placed nausea improved continues to be up for meals and activities and groups continues to appear to be tolerating meds Mood and anxiety continue to improve Review of Systems Psychiatric: COMPLAINS OF: Anxiety, Confusion, Mood changes, Depression Other otherwise 10 point ROS is negative Objective Alert: Yes [place]: Person, Place, Situation Mood: Anxious, Depressed, Other (frustrated) Affect: Restricted Memory Intact: Recent (mildly impaired), Comment Hallucinations: Other (patient denies any active auditory or visual hallucinations) Delusions: Yes Delusion Type: Paranoid Suicidal: Ideation (denied any suicidal ideation intentions or plan) Homicidal: Ideation (denies) Insight/Judgement poor Vitals/IOs Vital Signs Date Time Temp Pulse Resp B/P Pulse Ox O2 Delivery O2 Flow Rate FiO2 03/01/16 06:06 97.8 57 18 128/64 97 Assessment & Plan Problem List: (1) Post-traumatic stress disorder, chronic ICD Code: F43.12 (2) Depression Assessment & Plan: improving and tolerating meds ICD Code: F32.9 Assessment & Plan Estimated LOS: days Justification for Cont. Inpt. risk of deteriorating Request HC Surrog/Guard Advoc?: No Problem Qualifiers (1) Depression: Lina Lima MD Mar 01, 2016 19:17
[2016-03-01 19:43] VITALS: BP 147/75; PULSE 92; RESP 18; TEMP 97.9
[2016-03-02 06:09] VITALS: BP 113/68; PULSE 57; RESP 16; TEMP 97.9
[2016-03-02] MEDS: QUEtiapine FUMARATE 25 MG TAB PO SCH ×4 (08:09→20:50)
[2016-03-02] MEDS: METOPROLOL TARTRATE 25 MG TAB PO SCH ×2 (08:09→20:50)
--- NOTE | 2016-03-02 11:09 | HHI.PYPN ---
Subjective Remarks Patient was seen and discussed with the staffing operations manager. Patient complains of pain in her hip and feels frustrated for being here she wants to go home as soon as she can but reportedly patient sometimes becomes disorganized and keeps to herself in her room. Patient denied any active auditory or visual hallucinations. Denied any suicidal ideation intentions or plan. She is she was encouraged to participate in all the therapeutic activity. Continue with the same treatment Review of Systems Psychiatric: COMPLAINS OF: Anxiety, Mood changes, Depression Other Review of system same as that of 02/20/16 Objective Alert: Yes [place]: Person, Place, Situation Mood: Anxious, Depressed, Other (frustrated) Affect: Restricted Memory Intact: Recent (mildly impaired), Comment Hallucinations: Other (patient denies any active auditory or visual hallucinations) Delusions: Yes Delusion Type: Other (patient keeps to herself) Suicidal: Ideation (denied any suicidal ideation intentions or plan) Homicidal: Ideation (denies) Insight/Judgement Fair Vitals/IOs Vital Signs Date Time Temp Pulse Resp B/P Pulse Ox O2 Delivery O2 Flow Rate FiO2 03/02/16 06:09 97.9 57 16 113/68 03/01/16 06:06 97 Assessment & Plan Problem List: (1) Post-traumatic stress disorder, chronic ICD Code: F43.12 (2) Depression ICD Code: F32.9 Assessment & Plan Estimated LOS: days Justification for Cont. Inpt. Patient will probably decompensate in a lesser restrictive environment in the lower level of care. And patient needs to be monitored for is for her medication adjustment Request HC Surrog/Guard Advoc?: No Problem Qualifiers (1) Depression: Lamont Rueda MD Mar 02, 2016 11:09
--- NOTE | 2016-03-02 16:37 | HHI.PR ---
Subjective Remarks Reconsult for rash on face Patient noted to have seborrheic dermatitis and T-zone area on the face. Appears to be asymptomatic Patient denies chest pain shortness of breath nausea vomiting diarrhea constipation in fact patient offers no complaints. Objective Vitals Vital Signs Date Time Temp Pulse Resp B/P Pulse Ox O2 Delivery O2 Flow Rate FiO2 03/02/16 06:09 97.9 57 16 113/68 03/01/16 19:43 97.9 92 18 147/75 Objective Remarks GENERAL: This is an obese, 75-year-old female patient appears to be confused. In no apparent distress. SKIN: T-zone of the face noted to have flaking skin with erythematous base consistent with seborrheic dermatitis HEAD: Atraumatic. Normocephalic. No temporal or scalp tenderness. EYES: Extraocular motions intact. No scleral icterus. No injection or drainage. ENT: Nose without bleeding, purulent drainage or septal hematoma. Throat without erythema, tonsillar hypertrophy or exudate. Uvula midline. Airway patent. NECK: Trachea midline. No JVD or lymphadenopathy. Supple, nontender, no meningeal signs. CARDIOVASCULAR: Regular rate and rhythm without murmurs, gallops, or rubs. RESPIRATORY: Diminished bilateral bases GASTROINTESTINAL: Abdomen soft, non-tender, nondistended. No hepato-splenomegaly , or palpable masses. No guarding. MUSCULOSKELETAL: Trace bilateral edema No calf tenderness. Negative Homans sign bilaterally. NEUROLOGICAL: Awake and alert, but confused. Motor and sensory grossly within normal limits. 4 out of 5 muscle strength in all muscle groups. A/P Assessment and Plan This 75-year-old female patient with past medical history which includes chronic kidney disease, hypertension and arthritis. Patient is currently in inpatient psychiatric center we have been consulted for assistance with medical management including hypertension. Posttraumatic stress disorder/depression- management per psychiatric team Seborrheic dermatitis Start low-dose hydrocortisone cream twice a day Congestion/shortness of breath-resolved Bronchitis versus early pneumonia- resolved Bedbug infestation- no further bedbug was identified no evidence of bedbug bites Hypertension- Clonidine as needed Continue Norvasc to 10 mg daily Continue to monitor blood pressure Chronic kidney disease- appears stable avoid nephrotoxins DVT prophylaxis patient is ambulatory Discussed POC with patient Written by Yazmin Blevins, acting as scribe for Dr. Gordon on 03/02/16 at 16:36. The documentation accurately reflects the work performed [id number] by me on 03/02/16 at 16:36 Yazmin Blevins Mar 02, 2016 16:36 Delgado Gordon MD Mar 03, 2016 15:26
[2016-03-02] MEDS: HYDROCORTISONE 0.5% CREAM 30 GM TOPICAL SCH (17:02)
[2016-03-02 18:17] VITALS: BP 127/64; PULSE 58; RESP 12; TEMP 98.1; O2SAT 99
[2016-03-03 05:22] VITALS: BP 146/88; PULSE 53; RESP 16; TEMP 98.2; O2SAT 97
[2016-03-03] MEDS: HYDROCORTISONE 0.5% CREAM 30 GM TOPICAL SCH ×2 (06:00→18:00)
[2016-03-03] MEDS: QUEtiapine FUMARATE 25 MG TAB PO SCH ×4 (09:11→21:45)
[2016-03-03] MEDS: METOPROLOL TARTRATE 25 MG TAB PO SCH ×2 (09:11→21:45)
--- NOTE | 2016-03-03 14:12 | HHI.PR ---
Subjective Remarks Follow up: rash on face face seborrheic dermatitis improving Patient denies chest pain shortness of breath nausea vomiting diarrhea constipation in fact patient offers no complaints. Objective Vitals Vital Signs Date Time Temp Pulse Resp B/P Pulse Ox O2 Delivery O2 Flow Rate FiO2 03/03/16 05:22 98.2 53 16 146/88 97 03/02/16 18:17 98.1 58 12 127/64 99 Objective Remarks GENERAL: This is an obese, 75-year-old female patient appears to be confused. In no apparent distress. SKIN: T-zone of the face noted to have flaking skin with erythematous base consistent with seborrheic dermatitis- improving HEAD: Atraumatic. Normocephalic. No temporal or scalp tenderness. EYES: Extraocular motions intact. No scleral icterus. No injection or drainage. ENT: Nose without bleeding, purulent drainage or septal hematoma. Throat without erythema, tonsillar hypertrophy or exudate. Uvula midline. Airway patent. NECK: Trachea midline. No JVD or lymphadenopathy. Supple, nontender, no meningeal signs. CARDIOVASCULAR: Regular rate and rhythm without murmurs, gallops, or rubs. RESPIRATORY: Diminished bilateral bases GASTROINTESTINAL: Abdomen soft, non-tender, nondistended. No hepato-splenomegaly , or palpable masses. No guarding. MUSCULOSKELETAL: Trace bilateral edema No calf tenderness. Negative Homans sign bilaterally. NEUROLOGICAL: Awake and alert. Motor and sensory grossly within normal limits. 4-5 out of 5 muscle strength in all muscle groups. A/P Assessment and Plan This 75-year-old female patient with past medical history which includes chronic kidney disease, hypertension and arthritis. Patient is currently in inpatient psychiatric center we have been consulted for assistance with medical management including hypertension. Posttraumatic stress disorder/depression- management per psychiatric team Seborrheic dermatitis continue low-dose hydrocortisone cream twice a day for a total of 14 days Congestion/shortness of breath-resolved Bronchitis versus early pneumonia- resolved Bedbug infestation- no further bedbug was identified no evidence of bedbug bites Hypertension- Clonidine as needed Continue Norvasc to 10 mg daily Continue to monitor blood pressure Chronic kidney disease- appears stable avoid nephrotoxins DVT prophylaxis patient is ambulatory Patient appears medically stable will sign off. If further assistance is needed or if patient's condition changes reconsult. Discussed POC with patient Written by Yazmin Blevins, acting as scribe for Dr. Gordon on 03/03/16 at 14:12. The documentation accurately reflects the work performed [id number] by me on 03/03/16 at 14:12 Yazmin Blevins Mar 03, 2016 14:12 Delgado Gordon MD Mar 03, 2016 15:36
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
[2016-03-03 19:30] VITALS: BP 126/73; PULSE 55; RESP 18; TEMP 98.2; O2SAT 99
[2016-03-03] MEDS: ACETAMINOPHEN 325 MG TAB PO PRN (21:45)
[2016-03-04] MEDS: HYDROCORTISONE 0.5% CREAM 30 GM TOPICAL SCH ×2 (05:54→18:00)
[2016-03-04 06:16] VITALS: BP 164/77; PULSE 50; RESP 18; TEMP 97.5; O2SAT 96
[2016-03-04] MEDS: QUEtiapine FUMARATE 25 MG TAB PO SCH ×4 (08:59→21:20)
[2016-03-04] MEDS: METOPROLOL TARTRATE 25 MG TAB PO SCH ×2 (09:00→21:20)
--- NOTE | 2016-03-04 12:36 | HHI.PYPN ---
Subjective Remarks Patient seen and examined with nursing staff. Chart reviewed. Case discussed with nursing staff who reports patient has been pleasant but somewhat somatic, in particular complaining of back pain. For me today, the patient reports that her back pain is improved after she got a shot of some sort of medication yesterday. Today she is complaining of a patch of dry skin in her right preauricular area, and I do see that she has some hydrocortisone cream prescribed for this. Psychiatrically, patient is in good spirits and denies any SI, HI or AVH. She denies any side effects from medications. Review of Systems Other Except as above, no physical complaints today. Objective Alert: Yes [place]: Person, Place Mood: Calm Affect: Blunted Memory Intact: Comment (not assessed) Hallucinations: Other (again denies audiovisual hallucinations) Delusions: No Delusion Type: Other (no evident delusional material) Suicidal: Ideation (Denies SI) Homicidal: Ideation (Denies HI) Insight/Judgement Fair Remarks No motoric abnormalities noted Labs Labs reviewed. No new labs Vitals/IOs Vital Signs Date Time Temp Pulse Resp B/P Pulse Ox O2 Delivery O2 Flow Rate FiO2 03/04/16 06:16 97.5 50 18 164/77 96 Assessment & Plan Problem List: (1) Post-traumatic stress disorder, chronic ICD Code: F43.12 (2) Depression ICD Code: F32.9 Assessment & Plan Continue current psychotropics as ordered. Appreciate hospitalist clinical services consultant input. Continue other medications and care as ordered. Justification for Cont. Inpt. Risk for decompensation Discharge Planning Per Dr. Rueda. 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
[2016-03-04 18:00] VITALS: BP 149/78; PULSE 87; RESP 18; TEMP 97.8; O2SAT 99
[2016-03-05] MEDS: HYDROCORTISONE 0.5% CREAM 30 GM TOPICAL SCH ×2 (06:29→17:46)
[2016-03-05 06:32] VITALS: BP 130/79; PULSE 54; RESP 18; TEMP 97.6; O2SAT 98
[2016-03-05] MEDS: METOPROLOL TARTRATE 25 MG TAB PO SCH ×2 (08:25→21:05)
[2016-03-05] MEDS: QUEtiapine FUMARATE 25 MG TAB PO SCH ×4 (08:25→21:06)
--- NOTE | 2016-03-05 15:24 | HHI.PYPN ---
Subjective Remarks Patient seen and examined and case discussed with nursing staff. Chart reviewed. On my examination today, patient reports she feels "tired. It's boring here." Mood is fair. She denies any AVH. Denies side effects from medications. Review of Systems Other No physical complaints today Objective Alert: Yes [place]: Person, Place Mood: Calm Affect: Blunted (remains a little blunted) Memory Intact: Comment (not formally assessed) Hallucinations: Other (no AVH) Delusions: No Delusion Type: Other (no delusions) Suicidal: Ideation (no SI) Homicidal: Ideation (no HI) Insight/Judgement Fair Remarks No motor abnormalities noted Labs Labs reviewed. No new labs. Vitals/IOs Vital Signs Date Time Temp Pulse Resp B/P Pulse Ox O2 Delivery O2 Flow Rate FiO2 03/05/16 06:32 97.6 54 18 130/79 98 Assessment & Plan Problem List: (1) Post-traumatic stress disorder, chronic ICD Code: F43.12 (2) Depression ICD Code: F32.9 Assessment & Plan Continue current psychotropics as ordered. Continue other medications and care as ordered. Justification for Cont. Inpt. Risk for decompensation Discharge Planning Per Dr. 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
[2016-03-05 20:00] VITALS: BP 178/89; PULSE 84; RESP 18; TEMP 97.2; O2SAT 99
[2016-03-06 05:38] VITALS: BP 130/65; PULSE 53; RESP 16; TEMP 97.8; O2SAT 98
[2016-03-06] MEDS: HYDROCORTISONE 0.5% CREAM 30 GM TOPICAL SCH ×2 (06:12→17:43)
[2016-03-06 06:19] VITALS: BP 130/65; PULSE 53; RESP 16; TEMP 97.8; O2SAT 98
[2016-03-06] MEDS: METOPROLOL TARTRATE 25 MG TAB PO SCH ×2 (09:09→20:41)
[2016-03-06] MEDS: QUEtiapine FUMARATE 25 MG TAB PO SCH ×4 (09:09→20:42)
[2016-03-06] MEDS: ACETAMINOPHEN 325 MG TAB PO PRN (12:22)
[2016-03-06] MEDS: traZODone HCL 50 MG TAB PO PRN (20:42)
[2016-03-06 21:35] VITALS: BP 114/50; PULSE 50; RESP 17; TEMP 98.4; O2SAT 100
[2016-03-07] MEDS: HYDROCORTISONE 0.5% CREAM 30 GM TOPICAL SCH ×2 (06:00→08:42)
[2016-03-07 06:22] VITALS: BP_SYST 158; BP_SYST 161; BP_DIAS 58; BP_DIAS 72; PULSE 81; RESP 18; TEMP 97.4; O2SAT 98
[2016-03-07] MEDS: METOPROLOL TARTRATE 25 MG TAB PO SCH ×2 (08:41→20:25)
[2016-03-07] MEDS: QUEtiapine FUMARATE 25 MG TAB PO SCH ×4 (08:41→20:25)
--- NOTE | 2016-03-07 11:45 | HHI.PYPN ---
Subjective Remarks Patient was seen and discussed with the staff auditor. Patient claimed that she has been feeling somewhat depressed or bored being here. But she has no place to go to she is homeless. She has been sleeping okay. She denied any auditory or visual hallucinations. No side effects were complained. She is compliant in taking medication and participating in all the treatment activity Review of Systems Except as stated in HPI: all other systems reviewed are Neg Psychiatric: COMPLAINS OF: Mood changes, Depression Objective Alert: Yes [place]: Person, Place, Situation Mood: Calm, Depressed Affect: Blunted (remains a little blunted) Memory Intact: Comment (not formally assessed but seems mildly impaired for the recent events) Hallucinations: Other (no AVH) Delusions: No Delusion Type: Other (no delusions) Suicidal: Ideation (no SI) Homicidal: Ideation (no HI) Insight/Judgement Fair to limited Vitals/IOs Vital Signs Date Time Temp Pulse Resp B/P Pulse Ox O2 Delivery O2 Flow Rate FiO2 03/07/16 06:22 97.4 81 18 158/72 98 161/58 Assessment & Plan Problem List: (1) Post-traumatic stress disorder, chronic ICD Code: F43.12 (2) Depression ICD Code: F32.9 Assessment & Plan Estimated LOS: days Justification for Cont. Inpt. 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
[2016-03-07 20:00] VITALS: BP 152/78; PULSE 88; RESP 18; TEMP 97.7
[2016-03-07] MEDS: diphenhydrAMINE HCL 50 MG CAP - HS PRN PO (20:25)
[2016-03-07] MEDS: traZODone HCL 50 MG TAB PO PRN (20:26)
[2016-03-08 05:59] VITALS: BP 145/89; PULSE 52; RESP 16; TEMP 97.2; O2SAT 99
[2016-03-08] MEDS: HYDROCORTISONE 0.5% CREAM 30 GM TOPICAL SCH ×2 (06:00→18:52)
[2016-03-08] MEDS: METOPROLOL TARTRATE 25 MG TAB PO SCH ×2 (08:43→20:30)
[2016-03-08] MEDS: QUEtiapine FUMARATE 25 MG TAB PO SCH ×4 (08:43→20:30)
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
[2016-03-08 18:55] VITALS: BP 130/61; PULSE 54; RESP 16; TEMP 99.1; O2SAT 95
[2016-03-09 05:44] VITALS: BP 139/69; PULSE 50; RESP 16; TEMP 97.4; O2SAT 97
[2016-03-09] MEDS: HYDROCORTISONE 0.5% CREAM 30 GM TOPICAL SCH ×2 (06:11→17:11)
[2016-03-09] MEDS: METOPROLOL TARTRATE 25 MG TAB PO SCH ×2 (09:03→20:41)
[2016-03-09] MEDS: QUEtiapine FUMARATE 25 MG TAB PO SCH ×4 (09:03→20:41)
--- NOTE | 2016-03-09 11:21 | HHI.PYPN ---
Subjective Remarks Patient was seen and discussed with the waitstaff. Patient claimed that she has been feeling better. And now she wants to go to an [facility]. supervisor ship maintenance services are assisting her in finding an appropriate place to stay. No behavior or management problem reported. Continue with the same treatment Review of Systems Except as stated in HPI: all other systems reviewed are Neg Psychiatric: COMPLAINS OF: Mood changes, Depression Objective Alert: Yes [place]: Person, Place, Situation Mood: Calm, Depressed Affect: Blunted (remains a little blunted) Memory Intact: Comment (not formally assessed but seems mildly impaired for the recent events) Hallucinations: Other (no AVH) Delusions: No Delusion Type: Other (no delusions) Suicidal: Ideation (no SI) Homicidal: Ideation (no HI) Insight/Judgement Limited to fair Vitals/IOs Vital Signs Date Time Temp Pulse Resp B/P Pulse Ox O2 Delivery O2 Flow Rate FiO2 03/09/16 05:44 97.4 50 16 139/69 97 Assessment & Plan Problem List: (1) Post-traumatic stress disorder, chronic ICD Code: F43.12 (2) Depression ICD Code: F32.9 Assessment & Plan Estimated LOS: days Justification for Cont. Inpt. 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
[2016-03-09 19:42] VITALS: BP 117/72; PULSE 78; RESP 17; TEMP 98.5; O2SAT 97
[2016-03-10] MEDS: diphenhydrAMINE HCL 50 MG CAP - HS PRN PO (01:29)
[2016-03-10 06:11] VITALS: BP 166/79; PULSE 68; RESP 16; TEMP 97.3; O2SAT 96
[2016-03-10] MEDS: HYDROCORTISONE 0.5% CREAM 30 GM TOPICAL SCH ×2 (06:27→15:59)
[2016-03-10] MEDS: METOPROLOL TARTRATE 25 MG TAB PO SCH ×2 (09:11→21:24)
[2016-03-10] MEDS: QUEtiapine FUMARATE 25 MG TAB PO SCH ×4 (09:11→21:24)
--- NOTE | 2016-03-10 11:32 | HHI.PYPN ---
Subjective Remarks Patient was seen and discussed with the nursing staff development coordinator. Patient reported that she has been doing fine she was somewhat upset about her room getting flooded and she was out of the room for time being but she could be reassured. No behavior or management problem reported. Patient is compliant in taking medication. Patient hopes that she will find an RESIDENTIAL to go to and willing to take the medication and follow-up as an outpatient. No side effects were complained from the medication. Continue with the same treatment Review of Systems Except as stated in HPI: all other systems reviewed are Neg Psychiatric: COMPLAINS OF: Depression Objective Alert: Yes [place]: Person, Place, Situation Mood: Calm, Depressed Affect: Blunted (remains a little blunted) Memory Intact: Comment (not formally assessed but seems mildly impaired for the recent events) Hallucinations: Other (no AVH) Delusions: No Delusion Type: Other (no delusions) Suicidal: Ideation (no SI) Homicidal: Ideation (no HI) Insight/Judgement Limited Vitals/IOs Vital Signs Date Time Temp Pulse Resp B/P Pulse Ox O2 Delivery O2 Flow Rate FiO2 03/10/16 06:11 97.3 68 16 166/79 96 Assessment & Plan Problem List: (1) Post-traumatic stress disorder, chronic ICD Code: F43.12 (2) Depression ICD Code: F32.9 Assessment & Plan Estimated LOS: days Justification for Cont. Inpt. 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
[2016-03-10 19:02] VITALS: BP 118/65; PULSE 49; RESP 17; TEMP 97.4; O2SAT 96
[2016-03-10] MEDS: traZODone HCL 50 MG TAB PO PRN (21:24)
[2016-03-11] MEDS: LORazepam 0.5 MG TAB age > 65 yrs PO PRN (04:08)
[2016-03-11] MEDS: HYDROCORTISONE 0.5% CREAM 30 GM TOPICAL SCH ×2 (06:06→17:20)
[2016-03-11 06:19] VITALS: BP 164/81; PULSE 70; RESP 16; TEMP 98.2; O2SAT 98
[2016-03-11] MEDS: METOPROLOL TARTRATE 25 MG TAB PO SCH ×2 (09:00→20:53)
[2016-03-11] MEDS: QUEtiapine FUMARATE 25 MG TAB PO SCH ×4 (09:00→20:54)
[2016-03-11 19:49] VITALS: BP 146/67; PULSE 68; RESP 16; TEMP 99.4; O2SAT 99
--- NOTE | 2016-03-11 21:53 | HHI.PYPN ---
Subjective Remarks Pt seen and discussed with staff. Pt is agitated and upset because of staff suggesting that she engage in hygiene activities today. She perseverates on this and becomes increasingly agitated. Self -care and insight are poor. No SI/ HI Objective Alert: Yes [place]: Person, Place, Date, Situation Mood: Agitated, Anxious Affect: Labile Memory Intact: Comment (not formally assessed but seems mildly impaired for the recent events) Hallucinations: Other (no AVH) Delusions: No Delusion Type: Other (no delusions) Suicidal: Ideation (no SI) Homicidal: Ideation (no HI) Insight/Judgement poor Vitals/IOs Vital Signs Date Time Temp Pulse Resp B/P Pulse Ox O2 Delivery O2 Flow Rate FiO2 03/11/16 19:49 99.4 68 16 146/67 99 Assessment & Plan Problem List: (1) Post-traumatic stress disorder, chronic ICD Code: F43.12 (2) Depression ICD Code: F32.9 Assessment & Plan Continue current tx plan. Estimated LOS: days Justification for Cont. Inpt. impairment in social functioning and risk of decompensating. 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
[2016-03-12] MEDS: HYDROCORTISONE 0.5% CREAM 30 GM TOPICAL SCH ×2 (06:00→17:13)
[2016-03-12 06:08] VITALS: BP 119/65; PULSE 51; RESP 18; TEMP 97.5
[2016-03-12] MEDS: QUEtiapine FUMARATE 25 MG TAB PO SCH ×4 (09:21→21:18)
[2016-03-12] MEDS: METOPROLOL TARTRATE 25 MG TAB PO SCH ×2 (09:21→21:17)
[2016-03-12] MEDS: LORazepam 0.5 MG TAB age > 65 yrs PO PRN (17:13)
--- NOTE | 2016-03-12 19:09 | HHI.PYPN ---
Subjective Remarks Pt seen and discussed with staff. Pt remains anxious with poor ADLs. She has been isolative to room. No SI/HI. No medications side effects. Objective Alert: Yes [place]: Person, Place, Date, Situation Mood: Anxious Affect: Labile Memory Intact: Comment (fair) Hallucinations: Other (no AVH) Delusions: No Delusion Type: Other (no delusions) Suicidal: Ideation (no SI) Homicidal: Ideation (no HI) Insight/Judgement poor Vitals/IOs Vital Signs Date Time Temp Pulse Resp B/P Pulse Ox O2 Delivery O2 Flow Rate FiO2 03/12/16 06:08 97.5 51 18 119/65 03/11/16 19:49 99 Assessment & Plan Problem List: (1) Post-traumatic stress disorder, chronic ICD Code: F43.12 (2) Depression ICD Code: F32.9 Assessment & Plan Continue current tx plan.Estimated LOS: days Justification for Cont. Inpt. 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
[2016-03-12 19:40] VITALS: BP 122/70; PULSE 100; RESP 18; TEMP 97.3; O2SAT 99
[2016-03-12] MEDS: traZODone HCL 50 MG TAB PO PRN (21:17)
[2016-03-13] MEDS: HYDROCORTISONE 0.5% CREAM 30 GM TOPICAL SCH ×2 (06:17→17:42)
[2016-03-13 06:29] VITALS: BP 113/63; PULSE 80; RESP 17; TEMP 98.1
[2016-03-13] MEDS: METOPROLOL TARTRATE 25 MG TAB PO SCH ×2 (09:04→21:19)
[2016-03-13] MEDS: QUEtiapine FUMARATE 25 MG TAB PO SCH ×4 (09:04→21:19)
--- NOTE | 2016-03-13 11:32 | HHI.PYPN ---
Subjective Remarks Patient was seen and discussed with the staff assistant. No behavior or management problem reported. Patient tends to isolate herself and stays in her room. Patient denied any active auditory or visual hallucinations. But she seems to have problem with her place to stay. And would like to go to an [facility]. Patient denied any suicidal ideation intentions or plan. We will request social security assessor to assist in finding an SHERICE. Continue with the same treatment Review of Systems Except as stated in HPI: all other systems reviewed are Neg Psychiatric: COMPLAINS OF: Anxiety, Mood changes, Depression Objective Alert: Yes [place]: Person, Place, Date, Situation Mood: Anxious, Depressed, Other (worried about future and not having place to go to) Affect: Labile Memory Intact: Comment (fair) Hallucinations: Other (no AVH) Delusions: No Delusion Type: Other (no delusions) Suicidal: Ideation (no SI) Homicidal: Ideation (no HI) Insight/Judgement Limited Remarks Concentration and attention normal. Gait normal. Language normal. Fund of knowledge average Vitals/IOs Vital Signs Date Time Temp Pulse Resp B/P Pulse Ox O2 Delivery O2 Flow Rate FiO2 03/13/16 06:29 98.1 80 17 113/63 03/12/16 19:40 99 Assessment & Plan Problem List: (1) Post-traumatic stress disorder, chronic ICD Code: F43.12 (2) Depression ICD Code: F32.9 Assessment & Plan Estimated LOS: days Justification for Cont. Inpt. 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
[2016-03-13 19:46] VITALS: BP 131/75; PULSE 61; RESP 17; TEMP 98.7; O2SAT 100
[2016-03-13] MEDS: diphenhydrAMINE HCL 50 MG CAP PO PRN (21:19)
[2016-03-13] MEDS: traZODone HCL 50 MG TAB PO PRN (21:19)
[2016-03-14 06:16] VITALS: BP 115/64; PULSE 51; RESP 16; TEMP 97.8; O2SAT 97
[2016-03-14] MEDS: HYDROCORTISONE 0.5% CREAM 30 GM TOPICAL SCH ×2 (06:40→17:55)
[2016-03-14] MEDS: QUEtiapine FUMARATE 25 MG TAB PO SCH ×4 (08:44→20:24)
[2016-03-14] MEDS: METOPROLOL TARTRATE 25 MG TAB PO SCH ×2 (09:00→20:24)
[2016-03-14] MEDS: ACETAMINOPHEN 325 MG TAB PO PRN ×2 (10:01→17:52)
--- NOTE | 2016-03-14 11:59 | HHI.PYPN ---
Subjective Remarks Patient was seen and discussed with the staff toxicologist. Patient reported that she has been having some back pain and feels tired and wants to be left alone. No behavior or management problem reported. Denied any auditory or visual hallucinations or any paranoia or suicidal ideation intentions or plan. Awaiting for an SHERICE. Continue with the same treatment mental health social worker to assist Review of Systems Except as stated in HPI: all other systems reviewed are Neg Psychiatric: COMPLAINS OF: Mood changes, Depression Objective Alert: Yes [place]: Person, Place, Date, Situation Mood: Anxious, Depressed, Other (worried about future and not having place to go to) Affect: Labile Memory Intact: Comment (fair) Hallucinations: Other (no AVH) Delusions: No Delusion Type: Other (no delusions) Suicidal: Ideation (no SI) Homicidal: Ideation (no HI) Insight/Judgement Fair to limited Vitals/IOs Vital Signs Date Time Temp Pulse Resp B/P Pulse Ox O2 Delivery O2 Flow Rate FiO2 03/14/16 06:16 97.8 51 16 115/64 97 Assessment & Plan Problem List: (1) Post-traumatic stress disorder, chronic ICD Code: F43.12 (2) Depression ICD Code: F32.9 Assessment & Plan Estimated LOS: days Justification for Cont. Inpt. 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
[2016-03-14 19:43] VITALS: BP 146/75; PULSE 66; RESP 16; TEMP 98.3; O2SAT 95
[2016-03-15 05:37] VITALS: BP 144/69; PULSE 62; RESP 16; TEMP 97.6; O2SAT 99
[2016-03-15] MEDS: HYDROCORTISONE 0.5% CREAM 30 GM TOPICAL SCH ×2 (06:00→08:49)
[2016-03-15] MEDS: METOPROLOL TARTRATE 25 MG TAB PO SCH ×2 (08:47→21:00)
[2016-03-15] MEDS: QUEtiapine FUMARATE 25 MG TAB PO SCH ×4 (08:48→21:08)
[2016-03-15] MEDS: ACETAMINOPHEN 325 MG TAB PO PRN (11:23)
--- NOTE | 2016-03-15 11:54 | HHI.PYPN ---
Subjective Remarks Patient was seen and discussed with the staff weapons officer. Patient claimed that she has been doing okay. Sometimes she gets confused regarding how she ended up in the hospital and she was explained. She denies any active auditory or visual hallucinations. Denied any paranoid delusion at this time. Denied any suicidal ideation intentions or plan. No behavior or management problem reported. Patient tends to isolate herself and keeps to herself. She was encouraged to participate in all the therapeutic activity. caseworker protective services are looking into finding an appropriate SHERICE for her. Continue with same treatment Review of Systems Except as stated in HPI: all other systems reviewed are Neg Psychiatric: COMPLAINS OF: Anxiety, Confusion, Mood changes, Depression Objective Alert: Yes [place]: Person, Place, Date, Situation Mood: Anxious, Depressed, Other (worried about future and not having place to go to) Affect: Labile Memory Intact: Recent (mildly impaired), Comment (mildly impaired for recent events) Hallucinations: Other (no AVH) Delusions: No Delusion Type: Other (no delusions) Suicidal: Ideation (no SI) Homicidal: Ideation (no HI) Insight/Judgement Limited Vitals/IOs Vital Signs Date Time Temp Pulse Resp B/P Pulse Ox O2 Delivery O2 Flow Rate FiO2 03/15/16 05:37 97.6 62 16 144/69 99 Assessment & Plan Problem List: (1) Post-traumatic stress disorder, chronic ICD Code: F43.12 (2) Depression ICD Code: F32.9 Assessment & Plan Estimated LOS: days Justification for Cont. Inpt. 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
[2016-03-15 18:45] VITALS: BP 112/58; PULSE 59; RESP 16; TEMP 98.1; O2SAT 98
[2016-03-16] MEDS: diphenhydrAMINE HCL 50 MG CAP PO PRN (04:14)
[2016-03-16 06:03] VITALS: BP 131/85; PULSE 65; RESP 20; TEMP 97.9
[2016-03-16] MEDS: ACETAMINOPHEN 325 MG TAB PO PRN ×2 (06:03→08:17)
[2016-03-16] MEDS: QUEtiapine FUMARATE 25 MG TAB PO SCH ×4 (08:18→20:43)
[2016-03-16] MEDS: METOPROLOL TARTRATE 25 MG TAB PO SCH ×2 (08:18→20:43)
--- NOTE | 2016-03-16 10:57 | HHI.PYPN ---
Subjective Remarks Patient was seen and discussed with the staffing branch manager. Patient reported that she has been feeling somewhat hopeful about finding an appropriate place. She is somewhat concerned and worried about her finances but could be reassured. She tends to isolate herself and keeps to herself in her room but no behavior or management problem reported. Denied any suicidal ideation intentions of plan. Denied any active auditory or visual hallucinations. Continue with the same treatment. medical services manager to assist in finding an appropriate place for patient Review of Systems Except as stated in HPI: all other systems reviewed are Neg Psychiatric: COMPLAINS OF: Mood changes, Depression Objective Alert: Yes [place]: Person, Place, Date, Situation Mood: Anxious, Depressed, Other (worried about future and not having place to go to) Affect: Labile Memory Intact: Recent (mildly impaired), Comment (mildly impaired for recent events) Hallucinations: Other (no AVH) Delusions: No Delusion Type: Other (no delusions) Suicidal: Ideation (no SI) Homicidal: Ideation (no HI) Insight/Judgement Limited to fair Vitals/IOs Vital Signs Date Time Temp Pulse Resp B/P Pulse Ox O2 Delivery O2 Flow Rate FiO2 03/16/16 06:03 97.9 65 20 131/85 03/15/16 18:45 98 Assessment & Plan Problem List: (1) Post-traumatic stress disorder, chronic ICD Code: F43.12 (2) Depression ICD Code: F32.9 Assessment & Plan Estimated LOS: days Justification for Cont. Inpt. 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
[2016-03-16 19:20] VITALS: BP 117/77; PULSE 92; RESP 18; TEMP 98.7; O2SAT 95
[2016-03-17] MEDS: ACETAMINOPHEN 325 MG TAB PO PRN ×3 (02:35→09:19)
[2016-03-17 06:21] VITALS: BP 124/67; PULSE 51; RESP 19; TEMP 96.9
[2016-03-17] MEDS: METOPROLOL TARTRATE 25 MG TAB PO SCH ×2 (09:00→20:16)
[2016-03-17] MEDS: QUEtiapine FUMARATE 25 MG TAB PO SCH ×4 (09:18→20:15)
--- NOTE | 2016-03-17 11:25 | HHI.PYPN ---
Subjective Remarks Patient was seen and discussed with the staff toxicologist. Patient denied any active auditory or visual hallucinations. No behavior or management problem reported. Denied any suicidal ideation intentions or plan. director human services are assisting her in finding an appropriate place. Patient is willing to follow-up as an outpatient upon discharge. Review of Systems Except as stated in HPI: all other systems reviewed are Neg Psychiatric: COMPLAINS OF: Confusion, Mood changes, Depression Objective Alert: Yes [place]: Person, Place, Date, Situation Mood: Anxious, Depressed, Other (worried about future and not having place to go to) Affect: Labile Memory Intact: Recent (mildly impaired), Comment (mildly impaired for recent events) Hallucinations: Other (no AVH) Delusions: No Delusion Type: Other (no delusions) Suicidal: Ideation (no SI) Homicidal: Ideation (no HI) Insight/Judgement Limited Vitals/IOs Vital Signs Date Time Temp Pulse Resp B/P Pulse Ox O2 Delivery O2 Flow Rate FiO2 03/17/16 06:21 96.9 51 19 124/67 03/16/16 19:20 95 Assessment & Plan Problem List: (1) Post-traumatic stress disorder, chronic ICD Code: F43.12 (2) Depression ICD Code: F32.9 Assessment & Plan Estimated LOS: days Justification for Cont. Inpt. 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
[2016-03-17 19:46] VITALS: BP 112/64; PULSE 53; RESP 17; TEMP 97; O2SAT 97
[2016-03-17] MEDS: traZODone HCL 50 MG TAB PO PRN (20:17)
[2016-03-18 05:42] VITALS: BP 134/67; PULSE 58; RESP 16; TEMP 97.8; O2SAT 95
[2016-03-18] MEDS: QUEtiapine FUMARATE 25 MG TAB PO SCH ×4 (08:36→23:03)
[2016-03-18] MEDS: METOPROLOL TARTRATE 25 MG TAB PO SCH (09:00)
--- NOTE | 2016-03-18 14:40 | HHI.PYPN ---
Subjective Remarks Patient was seen and case discussed with nursing. Patient is pleasant and cooperative with exam. Says she is taking "a day off." Implying that she signed day in bed. Denies suicidal ideations thought or plan. No psychosis elicited. Patient is feeling depressed because she feels that other patients get preferential treatment Objective Alert: Yes [place]: Person, Place, Date, Situation Mood: Anxious, Depressed, Other (worried about future and not having place to go to) Affect: Labile Memory Intact: Recent (mildly impaired), Comment (mildly impaired for recent events) Hallucinations: Other (no AVH) Delusions: No Delusion Type: Other (no delusions) Suicidal: Ideation (no SI) Homicidal: Ideation (no HI) Insight/Judgement Poor Vitals/IOs Vital Signs Date Time Temp Pulse Resp B/P Pulse Ox O2 Delivery O2 Flow Rate FiO2 03/18/16 05:42 97.8 58 16 134/67 95 Assessment & Plan Problem List: (1) Post-traumatic stress disorder, chronic ICD Code: F43.12 (2) Depression ICD Code: F32.9 Assessment & Plan Continue current treatment plan Justification for Cont. Inpt. 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
[2016-03-18 19:09] VITALS: BP 145/75; PULSE 83; RESP 16; O2SAT 95
[2016-03-18] MEDS ORDERED: PILL SPLITTER OTHER PRN (22:30)
[2016-03-18] MEDS: METOPROLOL TARTRATE 50 MG TAB PO SCH (23:04)
[2016-03-18] MEDS: traZODone HCL 50 MG TAB PO PRN (23:04)
[2016-03-19 05:11] VITALS: BP 127/65; PULSE 56; RESP 16; O2SAT 98
[2016-03-19] MEDS: QUEtiapine FUMARATE 25 MG TAB PO SCH ×4 (09:00→21:10)
[2016-03-19] MEDS: METOPROLOL TARTRATE 50 MG TAB PO SCH ×2 (10:16→21:48)
[2016-03-19 11:58] VITALS: BP 147/75; PULSE 61; RESP 17
--- NOTE | 2016-03-19 13:58 | HHI.PYPN ---
Subjective Remarks Patient was seen and case discussed with nursing. Patient is more oppositional today. She refuses to have her bed claiming there is nothing to do here. Refuses the activity suggested to her. Compliant with her medications. Poor insight into admission and her mental health. Objective Alert: Yes [place]: Person, Place, Date, Situation Mood: Anxious, Depressed, Other (worried about future and not having place to go to) Affect: Labile Memory Intact: Recent (mildly impaired), Comment (mildly impaired for recent events) Hallucinations: Other (no AVH) Delusions: No Delusion Type: Other (no delusions) Suicidal: Ideation (no SI) Homicidal: Ideation (no HI) Insight/Judgement Poor Vitals/IOs Vital Signs Date Time Temp Pulse Resp B/P Pulse Ox O2 Delivery O2 Flow Rate FiO2 03/19/16 11:58 61 17 147/75 03/19/16 05:11 98 03/18/16 05:42 97.8 Assessment & Plan Problem List: (1) Post-traumatic stress disorder, chronic ICD Code: F43.12 (2) Depression ICD Code: F32.9 Assessment & Plan Continue current treatment plan Justification for Cont. Inpt. 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
[2016-03-19 18:52] VITALS: BP 152/72; PULSE 62; RESP 18; O2SAT 95
[2016-03-19 21:53] VITALS: BP 147/65; PULSE 75; RESP 17; TEMP 98.2; O2SAT 95
[2016-03-20 06:26] VITALS: BP 123/71; PULSE 55; RESP 20; TEMP 97.3; O2SAT 97
[2016-03-20] MEDS: METOPROLOL TARTRATE 50 MG TAB PO SCH ×2 (09:00→22:00)
[2016-03-20] MEDS: QUEtiapine FUMARATE 25 MG TAB PO SCH ×4 (09:27→21:07)
--- NOTE | 2016-03-20 12:42 | HHI.PYPN ---
Subjective Remarks Patient was seen and case discussed with nursing. Patient remains seclusive to bed if she has been all weekend just claims she gets out of bed for meals. She was offered various activities but refuses to go to [place]. Patient claims that others treat her differently. Gives vague examples of other patients getting bananas her not getting a banana. Mood is depressed but denies suicidal ideations thought or plan. Compliant with medications. Confused about where she will be discharged Objective Alert: Yes [place]: Person, Place, Date, Situation Mood: Anxious, Depressed, Other (worried about future and not having place to go to) Affect: Labile Memory Intact: Recent (mildly impaired), Comment (mildly impaired for recent events) Hallucinations: Other (no AVH) Delusions: No Delusion Type: Other (no delusions) Suicidal: Ideation (no SI) Homicidal: Ideation (no HI) Insight/Judgement Poor Vitals/IOs Vital Signs Date Time Temp Pulse Resp B/P Pulse Ox O2 Delivery O2 Flow Rate FiO2 03/20/16 06:26 97.3 55 20 123/71 97 Assessment & Plan Problem List: (1) Post-traumatic stress disorder, chronic ICD Code: F43.12 (2) Depression ICD Code: F32.9 Assessment & Plan Continue current treatment plan Justification for Cont. Inpt. 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
[2016-03-20 19:13] VITALS: BP 140/70; PULSE 64; RESP 17; TEMP 98; O2SAT 97
[2016-03-21] MEDS: QUEtiapine FUMARATE 25 MG TAB PO SCH ×2 (08:34→12:58)
[2016-03-21] MEDS: METOPROLOL TARTRATE 50 MG TAB PO SCH (09:00)
--- NOTE | 2016-03-21 11:22 | HHI.DS ---
Psychiatry Discharge Summary Inpatient Psychiatric care?: Yes Advance Directive: No Reason Not Provided: patient refused Mental Health AdvanceDirective: No Health Care Proxy: No Admission Admission Date Feb 19, 2016 at 21:20 Admission Diagnosis: (1) Post-traumatic stress disorder, chronic ICD Code: F43.12 GAF Score: 45 Brief History This is a 75-year-old white female who came to the emergency room not feeling well was not able to breathe and thought that she was going to she was complaining of sore throat and cough she also was depressed anxious and smiling or laughing inappropriately. Her thought processes were disorganized and she was rambling. She did not even remember coming to the hospital in the emergency room. She claimed that she was being treated badly she was afraid of dying and she wanted people to fix her. this morning she claimed that she has been feeling okay. Denied any active suicidal and/or homicidal ideation intentions or plan. Denied any auditory or visual hallucinations. But she has been feeling depressed as she has no contact with her family and she became somewhat tearful when she was talking about family. No behavior or management problem reported. She was willing to take the medication and she remembered that the Zoloft was very effective for her in the past. Tobacco Use In Past 30 Days: No Tobacco Past 30 Days Alcohol Use: Never Hospital Course Patient was started on supportive treatment. Patient remained somewhat isolated and in her room most of the time. But no behavior or management problem reported. Patient denied any suicidal ideation intentions or plan. Denied any auditory or visual hallucinations. She wanted to go back to her apartment and willing to take the medication and follow-up as an outpatient at that point arrangements were made for her to be discharged Results Blood Pressure 140 / 70 Vital Signs Date Time Temp Pulse Resp B/P Pulse Ox O2 Delivery O2 Flow Rate FiO2 03/20/16 19:13 98.0 64 17 140/70 97 Please see the EMR Summary of Major Lab Results Nothing significant Summary of Procedures None Imaging Last Impressions Chest X-Ray 02/20/16 0000 Signed Impressions: Service Date/Time: Saturday, February 20, 2016 15:20 - CONCLUSION: 1. Bibasilar streakiness consistent with atelectasis and/or developing infiltrates. Clinical correlation is recommended. 2. Cardiomegaly. 3. Degenerative changes and scoliosis of the thoracic spine. 4. Degenerative changes involving the shoulders bilaterally. Yong Alicea MD Pending results at discharge: No Medications # of Antipsychotic meds at D/C: 1 Appropriate >1 Antipsych meds?: 2 Approp Antipsych med options 1 - Minimum of three failed multiple trials of monotherapy. Discharge Discharge Date: Mar 21, 2016 Discharge Diagnosis: (1) Post-traumatic stress disorder, chronic Diagnosis: [place] ICD Code: F43.12 Mental Status Exam at Disch Patient was alert oriented 2 cooperative casually dressed. Her speech was clear without any evidence of loose associations or flights of ideas. She denied any suicidal ideation intentions or plan. Denied any active auditory or visual hallucinations. He was willing to take the medication and follow-up as an outpatient and want to go back to her apartment. Pt Condition on Discharge: Stable Discharge Disposition: Discharge Home Discharge Instructions Diet Instructions: As Tolerated, No Restrictions Activities you can perform: Regular-No Restrictions Scheduled Appointment: Trevor Hong Discharge Time <= 30 minutes Discharge/Advance Care Plan Health Problems: (1) Post-traumatic stress disorder, chronic (2) Depression Goals to promote your health * To prevent worsening of your condition and complications * To maintain your health at the optimal level Directions to meet your goals Take your medications as prescribed Follow your dietary instruction Follow activity as directed Keep your appointments as scheduled Take your immunizations and boosters as scheduled If your symptoms worsen call your PCP, if no PCP go to Urgent Care Center or Emergency Room For 25/09 questions related to your inpatient stay or results of tests pending at discharge, please contact Dr. Lamont Rueda at Smoking is Dangerous to Your Health. Avoid second hand smoking Lamont Rueda MD Mar 21, 2016 11:22
[2016-03-21] MEDS ORDERED: QUET1TAB7 PO (11:24)
== END 2016-03-21 15:15 | disposition home or self-care (01) | DRG 882 ==
LOC: NEPC 09:56 → NEDA 21:20 → H260 02-20 00:35
PROVIDERS: ADMIT Psychiatry & Neurology Psychiatry; ATTEND Psychiatry & Neurology Psychiatry
DX: F43.12 Post-traumatic stress disorder, chronic (principal); J18.9 Pneumonia, unspecified organism; F33.2 Major depressive disorder, recurrent severe without psychotic features; R00.1 Bradycardia, unspecified; I12.9 Hypertensive chronic kidney disease with stage 1 through stage 4 chronic kidney disease, or unspecified chronic kidney disease; B88.8 Other specified infestations; J40 Bronchitis, not specified as acute or chronic; F43.9 Reaction to severe stress, unspecified; M19.90 Unspecified osteoarthritis, unspecified site; N18.9 Chronic kidney disease, unspecified; Z96.653 Presence of artificial knee joint, bilateral; H91.91 Unspecified hearing loss, right ear; L21.9 Seborrheic dermatitis, unspecified; Z23 Encounter for immunization
CPT/HCPCS: 71010; 80048; 80061; 80301; 80320; 81001; 82306; 82607; 83036; 83735; 83880; 84100; 84439; 84443; 85025; 90686; 90732; 93005; 94640; 94664; 96360; G0479; J7030; Q0163; Q2038

== ENCOUNTER 2016-03-23 17:31 | Emergency (ER) | payer MEDICARE, OTHER ==
[~2016-03-23] VITALS: Ht 165.1 cm; Wt 95.0 kg
[~2016-03-23 17:31] MED LIST changes: +AMLO10 PO; +METO25TA3 PO; -PRED20 PO; +QUET1TAB7 PO; -VENTAER INH; -ZITHTAB PO
[2016-03-23 17:33] VITALS: BP 146/83; PULSE 67; RESP 15; TEMP 98.2; O2SAT 97
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
[2016-03-23 22:38] VITALS: BP 145/80; PULSE 105; RESP 15; O2SAT 97
[2016-03-23 23:11] LABS: BASOPHIL # 0.1 TH/MM3 (0-0.2); BASOPHIL % 0.5 % (0.0-2.0); EOSINOPHIL # 0.3 TH/MM3 (0-0.4); EOSINOPHIL % 2.1 % (0.0-4.0); HEMATOCRIT 40.3 % (35.0-46.0); HEMO FLAGS DIFF FINAL; LYMPH % 17.5 % (9.0-44.0); LYMPHOCYTE # 2.3 TH/MM3 (1.0-4.8); MEAN CELL VOLUME 91.9 FL (80.0-100.0); MEAN CORPUSCULAR HEMOGLOBIN 31.3 PG (27.0-34.0); NEUT % 68.9 % (16.0-70.0); PLATELET COUNT 197 TH/MM3 (150-450); RED BLOOD COUNT 4.39 MIL/MM3 (4.00-5.30); RED CELL DISTRIBUTION WIDTH 12.3 % (11.6-17.2)
[2016-03-23 23:19] LABS: BLOOD, URINE NEG (NEG); COMMENT (UR) CULTURE INDICATED; CULTURE IF INDICATED CULTURE INDICATED; GLUCOSE,URINE NEG (NEG); HYALINE CAST, URINE 1 /lpf (RARE); KETONE, URINE TRACE mg/dL (NEG); NITRITE,URINE NEG (NEG); PH, URINE 6.5 (5.0-8.5); SQUAMOUS EPITHELIAL CELL URINE <1 /hpf (0-5); URINE COLOR LIGHT-YELLOW (YELLW/STRAW)
[2016-03-23 23:22] LABS: AMPHETAMINE, URINE NEG (NEG); BARBITURATES, URINE NEG (NEG); COCAINE, URINE NEG (NEG)
[2016-03-23 23:25] LABS: ALKALINE PHOSPHATASE 65 U/L (45-117); TOTAL BILIRUBIN ADULT 1.2 MG/DL (0.2-1.0)
[2016-03-23 23:26] LABS: ALT (GPT) 18 U/L (10-53); ANION GAP 12 MEQ/L (5-15); AST (GOT) 34 U/L (15-37); BICARBONATE 22.6 MEQ/L (21.0-32.0); BLOOD UREA NITROGEN 18 MG/DL (7-18); CHLORIDE 100 MEQ/L (98-107); GLOMERULAR FILTRATION RATE 38 ML/MIN (>89); SODIUM (NA) 135 MEQ/L (136-145)
[2016-03-23 23:28] LABS: POTASSIUM 3.8 MEQ/L (3.5-5.1)
[2016-03-23] MEDS ORDERED: CIPROFLOXACIN 400 MG PREMIX 200 ML IV ONE (23:30)
[2016-03-23] MEDS ORDERED: CIPROFLOXACIN 500 MG TAB PO ONE (23:45)
--- NOTE | 2016-03-23 23:57 | RADRPT ---
EXAM DATE/TIME: 03/23/2016 23:41 [place] COMPARISON: CT BRAIN W/O CONTRAST, December 08, 2012, 18:25. INDICATIONS : Altered mental status. RADIATION DOSE: 42.53 CTDIvol (mGy) MEDICAL HISTORY : Hypertension. SURGICAL HISTORY : None. ENCOUNTER: Initial ACUITY: 1 day PAIN SCALE: 0/10 LOCATION: cranial TECHNIQUE: Multiple contiguous axial images were obtained of the head. Using automated exposure control and adj ustment of the mA and/or kV according to patient size, radiation dose was kept as low as reasonably a chievable to obtain optimal diagnostic quality images. FINDINGS: There is no evidence for intracranial hemorrhage, mass effect, mass lesions, or edema. The visualize d bony structures appear intact. Moderate degree of brain atrophy is seen. Moderate periventricular white matter changes are seen nonspecific mostly consistent with chronic small vessel ischemic change s. There are no signs of acute infarction for technique. CONCLUSION: Chronic and small vessel ischemic changes without any evidence for acute hemorrhage o r mass effect. Roque Hunt MD on March 23, 2016 at 23:54 Board Certified Radiologist. This report was verified electronically.
[2016-03-24] MEDS ORDERED: CIPR-9 PO (00:07)
[2016-03-24 05:52] VITALS: BP 144/98; PULSE 98; RESP 15; O2SAT 96
[2016-03-24 09:00] VITALS: BP 130/72; PULSE 76; RESP 16; TEMP 97.8; O2SAT 99
--- NOTE | 2016-03-24 13:23 | MB ---
cc: KARISHMA MORA DATE OF CONSULTATION: 03/24/2016 REASON FOR CONSULTATION: This is a 75-year-old white female known to me from before because she was recently discharged from the inpatient psychiatry please see the old record for the detail. The patient came back to the emergency room for probably urinary tract infection and was talking in a rambling fashion and she was sent to psychiatry for evaluation. She has a history of PTSD and depression and has been taking Seroquel but not sure whether she has been taking it or not we will make sure that she does. She denies any suicidal and/or homicidal ideation, intentions or plans. No behavior or management problem reported. She is pleasant at times because of her age. She has become forgetful and has trouble finding words but other than that she is willing to follow up as an outpatient. MENTAL STATUS EXAM This is a 75-year-old white female who was alert, oriented x2, cooperative, casually dressed. Her speech was at times circumstantial but without any evidence of loose association. Her mood was described as feeling okay and wanting to go home. Her affect was labile. She denied any active and/or passive suicidal and/or homicidal ideation, intentions or plans. Denied any auditory or visual hallucinations. Denies any paranoia at this time she seems to be of low average intelligence with poor recent memory and concentration. Her insight is limited and her judgment seems to be okay on hypothetical situation. Rule out early dementia, history of Posttraumatic stress disorder, at the present time the patient is not [place] ACTable. We will make sure that she followed up as an outpatient. We might suggest maybe home health nurse to visit and follow up with the outpatient psychiatrist. She may continue taking her medication. Karishma Rios /12:22 PM /12:30 PM
== END 2016-03-24 14:27 | disposition home or self-care (01) ==
LOC: NEPC 17:31 → NEPJ 03-24 14:27
DX: F29 Unspecified psychosis not due to a substance or known physiological condition (principal); F43.10 Post-traumatic stress disorder, unspecified; F32.9 Major depressive disorder, single episode, unspecified; I10 Essential (primary) hypertension; N39.0 Urinary tract infection, site not specified
CPT/HCPCS: 70450; 80053; 80307; 80320; 81001; 84443; 85025; 87086

== ENCOUNTER 2016-04-21 14:27 | Emergency (ER) | payer OTHER ==
[~2016-04-21] VITALS: Ht 175.3 cm; Wt 115.0 kg
[~2016-04-21 14:27] MED LIST changes: +CIPR-9 PO
[2016-04-21 14:30] VITALS: BP 130/76; PULSE 84; RESP 16; TEMP 98.2; O2SAT 95
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
[2016-04-21] MEDS ORDERED: ACETAMINOPHEN 500 MG CPLT PO ONE (17:45)
[2016-04-21 18:47] VITALS: BP 164/111; PULSE 55; RESP 17; O2SAT 98
== END 2016-04-21 21:11 | disposition home or self-care (01) ==
LOC: NEPC 14:27
DX: J02.9 Acute pharyngitis, unspecified (principal)
CPT/HCPCS: 87081; 87880; 99283

== ENCOUNTER 2016-06-22 07:16 | Inpatient (IN) | payer OTHER, MEDICARE ==
[~2016-06-22] VITALS: Ht 165.1 cm; Wt 102.2 kg
[2016-06-22 07:22] VITALS: BP 167/85; PULSE 76; RESP 18; TEMP 98; O2SAT 97
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
[2016-06-22 08:01] LABS: AUTOMATED NEUTROPHIL # 10.1 TH/MM3 (1.8-7.7); BASOPHIL # 0.1 TH/MM3 (0-0.2); BASOPHIL % 0.5 % (0.0-2.0); EOSINOPHIL # 0.3 TH/MM3 (0-0.4); HEMO FLAGS DIFF FINAL; LYMPH % 13.1 % (9.0-44.0); LYMPHOCYTE # 1.7 TH/MM3 (1.0-4.8); MEAN CELL VOLUME 87.9 FL (80.0-100.0); MEAN CORPUSCULAR HEMOGLOBIN 30.2 PG (27.0-34.0); MEAN CORPUSCULAR HGB CONC 34.4 % (32.0-36.0); MONO % 7.3 % (0.0-8.0); NEUT % 77.1 % (16.0-70.0); PLATELET COUNT 227 TH/MM3 (150-450); RED BLOOD COUNT 5.23 MIL/MM3 (4.00-5.30); RED CELL DISTRIBUTION WIDTH 13.9 % (11.6-17.2)
[2016-06-22 08:11] LABS: ANION GAP 9 MEQ/L (5-15); BICARBONATE 27.3 MEQ/L (21.0-32.0); BLOOD UREA NITROGEN 22 MG/DL (7-18); CHLORIDE 103 MEQ/L (98-107); GLOMERULAR FILTRATION RATE 37 ML/MIN (>89); MAGNESIUM 2.3 MG/DL (1.5-2.5); POTASSIUM 3.8 MEQ/L (3.5-5.1); SODIUM (NA) 139 MEQ/L (136-145)
--- NOTE | 2016-06-22 09:18 | RADRPT ---
EXAM DATE/TIME: 06/22/2016 08:26 [place] COMPARISON: CT BRAIN W/O CONTRAST, March 23, 2016, 23:41. INDICATIONS : Headache RADIATION DOSE: 38.49 CTDIvol (mGy) MEDICAL HISTORY : Renal failure, chronic. Cardiovascular disease Hypertension. SURGICAL HISTORY : Tonsillectomy. ENCOUNTER: Initial ACUITY: 1 day PAIN SCALE: 4/10 LOCATION: cranial TECHNIQUE: Multiple contiguous axial images were obtained of the head. Using automated exposure control and adj ustment of the mA and/or kV according to patient size, radiation dose was kept as low as reasonably a chievable to obtain optimal diagnostic quality images. FINDINGS: The previously described findings which include generalized atrophy and chronic white matter changes are again noted. The brain is otherwise stable without evidence of acute infarct or hemorrhage. There is no evidence of mass effect or edema. CONCLUSION: Stable evaluation of brain demonstrating atrophic changes and chronic white matter disease but no marilyn dence of acute infarct, hemorrhage, mass or edema. Stanley Kelly MD on June 22, 2016 at 9:14 Board Certified Radiologist. This report was verified electronically.
[2016-06-22 09:32] VITALS: BP 159/77; PULSE 70; RESP 18; O2SAT 97
[2016-06-22] MEDS ORDERED: SODIUM CHLORID 0.9% 500 ML INJ 500 ML IV ONE (10:15)
[2016-06-22 11:08] LABS: BACTERIA, URINE RARE /hpf; BLOOD, URINE NEG (NEG); COMMENT (UR) CULT NOT INDICATED; CULTURE IF INDICATED CULT NOT INDICATED; GLUCOSE,URINE NEG (NEG); HYALINE CAST, URINE 1 /lpf (RARE); KETONE, URINE NEG (NEG); MUCUS URINE FEW /lpf (OCC); NITRITE,URINE NEG (NEG); SQUAMOUS EPITHELIAL CELL URINE 1 /hpf (0-5); URINE COLOR YELLOW (YELLW/STRAW)
[2016-06-22] MEDS ORDERED: ACETAMINOPHEN 500 MG CPLT PO ONE (11:30)
[2016-06-22 18:50] VITALS: BP 160/88; PULSE 87; RESP 18; TEMP 99.1
[2016-06-22] MEDS ORDERED: MAGNESIUM HYDROXIDE SUSP 30 ML CUP PO PRN (20:45)
[2016-06-22] MEDS ORDERED: ALUMINUM/MAGNESIUM/SIMETH 30 ML CUP PO PRN (20:45)
[2016-06-22] MEDS ORDERED: diphenhydrAMINE HCL 50 MG/ML VIAL IM PRN (20:45)
[2016-06-22] MEDS ORDERED: LORazepam 2 MG/ML VIAL IM PRN (20:45)
[2016-06-22] MEDS ORDERED: LORazepam 1 MG TAB PO PRN (20:45)
[2016-06-22 20:47] VITALS: BP 169/100; PULSE 85; RESP 16; TEMP 97.4; O2SAT 95
[2016-06-22] MEDS: risperiDONE 0.5 MG TAB PO SCH (22:00)
[2016-06-22] MEDS: diphenhydrAMINE HCL 50 MG CAP PO PRN (22:01)
[2016-06-23 00:31] LABS: AMPHETAMINE, URINE NEG (NEG); BARBITURATES, URINE NEG (NEG); COCAINE, URINE NEG (NEG)
[2016-06-23 06:06] VITALS: BP 134/80; PULSE 84; RESP 18; TEMP 97; O2SAT 95
[2016-06-23] MEDS: risperiDONE 0.5 MG TAB PO SCH (09:28)
[2016-06-23] MEDS ORDERED: ALUMINUM/MAGNESIUM/SIMETH 30 ML CUP PO PRN (10:00)
[2016-06-23] MEDS ORDERED: MAGNESIUM HYDROXIDE SUSP 30 ML CUP PO PRN (10:00)
[2016-06-23] MEDS ORDERED: hydrOXYzine HCL 50 MG TAB PO PRN (10:00)
[2016-06-23] MEDS ORDERED: diphenhydrAMINE HCL 50 MG CAP PO PRN (10:00)
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
[2016-06-23 11:08] LABS: ANION GAP 8 MEQ/L (5-15); BICARBONATE 27.1 MEQ/L (21.0-32.0); BLOOD UREA NITROGEN 24 MG/DL (7-18); CHLORIDE 103 MEQ/L (98-107); GLOMERULAR FILTRATION RATE 37 ML/MIN (>89); HDL CHOLESTEROL 47.9 MG/DL (40.0-60.0); LDL CHOLESTEROL 150 MG/DL (0-99); POTASSIUM 3.6 MEQ/L (3.5-5.1); SODIUM (NA) 138 MEQ/L (136-145)
[2016-06-23] MEDS: METOPROLOL TARTRATE 25 MG TAB PO SCH ×2 (14:00→20:38)
--- NOTE | 2016-06-23 14:04 | PD.CONS ---
HPI Service [facility] Hospitalists Consult Requested By Psychiatric service Reason for Consult Medical management Primary Care Physician No Primary Care Physician Diagnoses: History of Present Illness This is a 75-year-old female with a past medical history which includes hypertension, chronic kidney disease and arthritis. Patient is currently in inpatient psychiatric center and hospitalist services have been consulted for assistance with medical management patient's chronic kidney disease and hypertension. Patient seen and examined today. Patient complains of pain in bilateral hips. She denies any previous hip surgery or trauma. She has the pain at rest but is worse with movement. She also complains of 6 month history of headache, blurry vision and double vision. She reports that her glasses are no longer working for her. She denies any complaints of fever/chills, nausea/ vomiting, cough, chest pain, dysuria, diarrhea or constipation. She does report occasional shortness of breath which is chronic stating she's had it " all my life". She reports that she takes no home medications as she has no primary care physician. Review of Systems Except as stated in HPI: all other systems reviewed are Neg (10 point review of systems completed and all pertinents negative except as stated in history of present illness) Past Family Social History Allergies: Coded Allergies: Abilify (Verified Allergy, Severe, 03/23/16) Antivert (Verified Allergy, Severe, 03/23/16) Aspirin (Verified Allergy, Severe, 03/23/16) Flagyl (Verified Allergy, Severe, Diarrhea, 03/23/16) Nonsteroidal Anti-Inflammatory Agts (Verified Allergy, Severe, 03/23/16) Penicillin (Verified Allergy, Severe, REDNESS, SWELLING, 03/23/16) Saccharin (Verified Allergy, Severe, 03/23/16) Sulfa (Verified Allergy, Severe, DISTURBS KIDNEY FUNCTION, 03/23/16) Tetracycline (Verified Allergy, Severe, NAUSEA & VOMITING, 03/23/16) Past Medical History Hypertension Chronic kidney disease Depression PTSD Osteoarthritis Past Surgical History Appendectomy Bilateral knee replacements Tonsillectomy Reported Medications Patient denies taking any medications on a daily basis. Active Ordered Medications Current Medications Medications (Trade) Dose Ordered Sig/Monica Route Start Time Stop Time Status Last Admin (Ativan) 1 mg Q6H PRN PO 06/22/16 20:45 06/22/16 22:01 (Ativan Inj) 1 mg Q6H PRN IM 06/22/16 20:45 (Benadryl) 50 mg Q6H PRN PO 06/22/16 20:45 06/22/16 22:01 (Benadryl Inj) 50 mg Q6H PRN IM 06/22/16 20:45 (Tylenol) 650 mg Q4H PRN PO 06/22/16 20:45 (Milk Of Magnesia Liq) 30 ml DAILY PRN PO 06/22/16 20:45 (Mag-Al Plus Susp Liq) 30 ml Q6H PRN PO 06/22/16 20:45 (Benadryl) 50 mg HS PRN PO 06/23/16 10:00 (Tylenol) 650 mg Q4H PRN PO 06/23/16 10:00 (Milk Of Magnesia Liq) 30 ml DAILY PRN PO 06/23/16 10:00 (Mag-Al Plus Susp Liq) 30 ml Q6H PRN PO 06/23/16 10:00 (Atarax) 50 mg Q6H PRN PO 06/23/16 10:00 (risperDAL) 3 mg HS PO 06/23/16 21:00 (Zoloft) 50 mg DAILY PO 06/24/16 09:00 (Desyrel) 100 mg HS PO 06/23/16 21:00 Family History Mother, with cancer when patient was 9 Father, from natural causes at an old age Social History Patient denies any tobacco use or call consumption or illicit drug use. Review of medical record reveals patient quit smoking in 1980. She currently lives alone. Physical Exam Vital Signs Vital Signs Date Time Temp Pulse Resp B/P Pulse Ox O2 Delivery O2 Flow Rate FiO2 06/23/16 06:06 97.0 84 18 134/80 95 06/22/16 20:47 97.4 85 16 169/100 95 06/22/16 18:50 99.1 87 18 160/88 Room Air Physical Exam GENERAL: This is a well-nourished, well-developed patient, in no apparent distress. Awake and alert. SKIN: No rashes, ecchymoses or lesions. Cool and dry. HEAD: Atraumatic. Normocephalic. No temporal or scalp tenderness. EYES: Pupils equal round and reactive. Extraocular motions intact. No scleral icterus. No injection or drainage. ENT: Nose without bleeding, purulent drainage or septal hematoma. Throat without erythema, tonsillar hypertrophy or exudate. Uvula midline. Airway patent. NECK: Trachea midline. No lymphadenopathy. Supple, nontender, no meningeal signs. CARDIOVASCULAR: Regular rate and rhythm without murmurs, gallops, or rubs. RESPIRATORY: Clear to auscultation. Breath sounds equal bilaterally. No wheezes , rales, or rhonchi. GASTROINTESTINAL: Abdomen soft, non-tender, nondistended. No hepato-splenomegaly , or palpable masses. No guarding. MUSCULOSKELETAL: Extremities without clubbing, cyanosis, or edema. No joint tenderness, effusion, or edema noted. No calf tenderness. NEUROLOGICAL: Awake and alert. Cranial nerves II through XII intact. Motor and sensory grossly within normal limits. Five out of 5 muscle strength in all muscle groups. Normal speech. Laboratory Laboratory Tests Test 06/23/16 09:05 Sodium Level 138 Potassium Level 3.6 Chloride Level 103 Carbon Dioxide Level 27.1 Anion Gap 8 Blood Urea Nitrogen 24 Creatinine 1.39 Estimat Glomerular Filtration 37 Rate Random Glucose 246 Calcium Level 8.9 Triglycerides Level 76 Cholesterol Level 213 LDL Cholesterol 150 HDL Cholesterol 47.9 Cholesterol/HDL Ratio 4.44 Result Diagram: 06/22/16 0740 06/23/16 0905 Imaging Last [address] 06/22/16 0000 Signed Impressions: Service Date/Time: , June 22, 2016 08:26 - CONCLUSION: Stable evaluation of brain demonstrating atrophic changes and chronic white matter disease but no evidence of acute infarct, hemorrhage, mass or edema. Stanley Kelly MD Assessment and Plan Assessment and Plan 75-year-old female with a past medical history which includes hypertension, chronic kidney disease and arthritis. Patient is currently in inpatient psychiatric center and hospitalist services have been consulted for assistance with medical management patient's chronic kidney disease and hypertension. //Dementia - Management per psychiatric team //Hypertension - Review of medical records shows patient was previously on Lopressor 25 mg twice a day and Norvasc 10 mg daily. Will resume. - Monitor BP //Leukocytosis - encourage fluids - possibly stress related - UA with only moderate leukocytes and 7 WBCs, culture not indicated - recheck labs in am to monitor //CKD stage III - Baseline appears to be around 1.2 - 1.3 - creatinine improving, 1.41 -> 1.39 - encourage po fluids - avoid nephrotoxic agents - am labs to monitor trend //Intermittant SOB - chronic ppr - O2 sats 95% on RA - patient does not appear to be in any distress - monitor //Dyslipidemia - per ASCVD risk medical customer service representative patient would benefit from statin therapy - will discuss with patient beginning statin - baseline LFTs //Bilateral Hip pain - PT eval/tx //DVT prophylaxis - encourage ambulation Written by Gabi Colon PA-C acting as scribe for Dr. Carbajal on 06/23/16 at 13:58. This note was transcribed by scribe [Gabi Colon PA-C]. I, Dr. Eyad Carbajal personally performed the history, physical exam, and medical decision making; and confirmed the accuracy of the information in the transcribed note. Authenticated by Dr. Eyad Carbajal on 06/23/16 at 22:46. Gabi Colon Jun 23, 2016 14:04 Eyad Carbajal MD Jun 23, 2016 22:46
[2016-06-23 15:00] VITALS: BP 161/75; PULSE 72
[2016-06-23 15:55] LABS: HEMOGLOBIN A1a 1.4 %; HEMOGLOBIN A1b 0.8 %; HEMOGLOBIN Ao 83.9 %; HEMOGLOBIN F 1.1 %; HEMOGLOBIN LA1C 2.5 %; HEMOGLOBIN P3 4.1 %
[2016-06-23 17:49] VITALS: BP 161/82; PULSE 73; RESP 16; TEMP 97.5
[2016-06-23 17:52] VITALS: O2SAT 97
--- NOTE | 2016-06-23 18:32 | EKG ---
Date Performed: 06/22/2016 Time Performed: 07:35:42 PTAGE: 75 years EKG: ECTOPIC ATRIAL RHYTHM POOR R WAVE PROGRESSION IS OLD Compared to prior tracing no significa nt change ABNORMAL ECG NO PREVIOUS TRACING DOCTOR: Nasir Bull Interpretating Date/Time 06/23/2016 18:31:03
[2016-06-23] MEDS: risperiDONE 3 MG TAB PO SCH (20:38)
[2016-06-23] MEDS: traZODone HCL 100 MG TAB PO SCH (20:38)
[2016-06-23] MEDS ORDERED: risperiDONE 0.5 MG TAB PO SCH (21:00)
[2016-06-24 06:42] VITALS: BP 144/71; PULSE 67; RESP 16; TEMP 98.7; O2SAT 95
[2016-06-24] MEDS: SERTRALINE HCL 50 MG TAB PO SCH (08:49)
[2016-06-24] MEDS: METOPROLOL TARTRATE 25 MG TAB PO SCH ×2 (08:49→21:43)
[2016-06-24 09:25] LABS: AUTOMATED NEUTROPHIL # 9.9 TH/MM3 (1.8-7.7); BASOPHIL # 0.1 TH/MM3 (0-0.2); BASOPHIL % 0.6 % (0.0-2.0); EOSINOPHIL # 0.3 TH/MM3 (0-0.4); EOSINOPHIL % 2.2 % (0.0-4.0); HEMATOCRIT 44.3 % (35.0-46.0); HEMO FLAGS DIFF FINAL; LYMPH % 13.4 % (9.0-44.0); LYMPHOCYTE # 1.7 TH/MM3 (1.0-4.8); MEAN CORPUSCULAR HEMOGLOBIN 29.8 PG (27.0-34.0); MEAN CORPUSCULAR HGB CONC 33.9 % (32.0-36.0); MONO % 7.4 % (0.0-8.0); NEUT % 76.4 % (16.0-70.0); PLATELET COUNT 215 TH/MM3 (150-450); RED BLOOD COUNT 5.04 MIL/MM3 (4.00-5.30); RED CELL DISTRIBUTION WIDTH 13.5 % (11.6-17.2); WHITE BLOOD COUNT 12.9 TH/MM3 (4.0-11.0)
[2016-06-24 09:58] LABS: ALKALINE PHOSPHATASE 68 U/L (45-117); ALT (GPT) 17 U/L (10-53); ANION GAP 12 MEQ/L (5-15); AST (GOT) 15 U/L (15-37); BICARBONATE 26.2 MEQ/L (21.0-32.0); BLOOD UREA NITROGEN 22 MG/DL (7-18); CHLORIDE 100 MEQ/L (98-107); FREE T4 0.98 NG/DL (0.76-1.46); GLOMERULAR FILTRATION RATE 37 ML/MIN (>89); POTASSIUM 4.1 MEQ/L (3.5-5.1); SODIUM (NA) 138 MEQ/L (136-145); TOTAL BILIRUBIN ADULT 0.8 MG/DL (0.2-1.0)
--- NOTE | 2016-06-24 14:32 | HHI.PYPN ---
Subjective Remarks This is a request for second opinion. Patient was seen, case discussed with nursing, and admission note reviewed. Patient is alert and oriented 2. Memory is impaired she has poor insight. Per nursing she was upset this morning that there was an explosion in her room. Is grossly disorganized. Compliant with her medications. Denies auditory visual hallucinations Objective Alert: Yes [place]: Person, Place Mood: Calm Affect: Restricted Memory Intact: Comment (impaired) Hallucinations: Auditory (denies) Delusions: Yes Delusion Type: Paranoid (moderates) Suicidal: Ideation (denies) Homicidal: Ideation (denies) Insight/Judgment Poor Labs Test 06/24/16 08:25 White Blood Count 12.9 TH/MM3 Red Blood Count 5.04 MIL/MM3 Hemoglobin 15.0 GM/DL Hematocrit 44.3 % Mean Corpuscular Volume 88.0 FL Mean Corpuscular Hemoglobin 29.8 PG Mean Corpuscular Hemoglobin 33.9 % Concent Red Cell Distribution Width 13.5 % Platelet Count 215 TH/MM3 Mean Platelet Volume 8.3 FL Neutrophils (%) (Auto) 76.4 % Lymphocytes (%) (Auto) 13.4 % Monocytes (%) (Auto) 7.4 % Eosinophils (%) (Auto) 2.2 % Basophils (%) (Auto) 0.6 % Neutrophils # (Auto) 9.9 TH/MM3 Lymphocytes # (Auto) 1.7 TH/MM3 Monocytes # (Auto) 1.0 TH/MM3 Eosinophils # (Auto) 0.3 TH/MM3 Basophils # (Auto) 0.1 TH/MM3 CBC Comment DIFF FINAL Differential Comment Sodium Level 138 MEQ/L Potassium Level 4.1 MEQ/L Chloride Level 100 MEQ/L Carbon Dioxide Level 26.2 MEQ/L Anion Gap 12 MEQ/L Blood Urea Nitrogen 22 MG/DL Creatinine 1.40 MG/DL Estimat Glomerular Filtration 37 ML/MIN Rate Random Glucose 195 MG/DL Calcium Level 9.2 MG/DL Total Bilirubin 0.8 MG/DL Aspartate Amino Transf 15 U/L (AST/SGOT) Alanine Aminotransferase 17 U/L (ALT/SGPT) Alkaline Phosphatase 68 U/L Total Protein 7.3 GM/DL Albumin 3.8 GM/DL Free Thyroxine 0.98 NG/DL Thyroid Stimulating Hormone 2.250 uIU/ML 3rd Gen Vitals/IOs Vital Signs Date Time Temp Pulse Resp B/P Pulse Ox O2 Delivery O2 Flow Rate FiO2 06/24/16 06:42 98.7 67 16 144/71 95 06/22/16 18:50 Room Air Assessment & Plan Problem List: (1) Dementia of Alzheimer's type with behavioral disturbance ICD Code: G30.8 Assessment & Plan I review the first opinion to continue petition. Criteria include lack of self- care at home and psychosis Justification for Cont. Inpt. Patient will decompensate in a less restrictive setting Request HC Surrog/Guard Advoc?: Yes Be Torre DO Jun 24, 2016 14:32
[2016-06-24 18:00] VITALS: BP 162/77; PULSE 62; RESP 16; TEMP 98.7; O2SAT 97
[2016-06-24] MEDS: risperiDONE 3 MG TAB PO SCH (21:43)
[2016-06-24] MEDS: diphenhydrAMINE HCL 50 MG CAP PO PRN (21:43)
[2016-06-24] MEDS: traZODone HCL 100 MG TAB PO SCH (21:43)
[2016-06-25 05:20] VITALS: BP 196/90; PULSE 64; RESP 17; TEMP 98.5; O2SAT 100
[2016-06-25] MEDS: SERTRALINE HCL 50 MG TAB PO SCH (08:38)
[2016-06-25] MEDS: METOPROLOL TARTRATE 25 MG TAB PO SCH ×2 (08:38→21:05)
[2016-06-25 11:00] VITALS: BP 125/59; PULSE 52; RESP 17; O2SAT 97
--- NOTE | 2016-06-25 13:05 | HHI.PYPN ---
Subjective Remarks Patient was seen and case discussed with nursing. Patient is complaining of mild right hip pain. Per nursing assessment talking to herself largely seclusive to room. Patient is alert and oriented 2. Mood is "good." Compliant with medications. Eating and sleeping well per patient Objective Alert: Yes [place]: Person, Place Mood: Calm Affect: Blunted Memory Intact: Comment (not tested) Hallucinations: Auditory (denies) Delusions: Yes Delusion Type: Paranoid (talking to self) Suicidal: Ideation (denies) Homicidal: Ideation (denies) Insight/Judgment Poor Vitals/IOs Vital Signs Date Time Temp Pulse Resp B/P Pulse Ox O2 Delivery O2 Flow Rate FiO2 06/25/16 11:00 52 17 125/59 97 06/25/16 05:20 98.5 06/22/16 18:50 Room Air Assessment & Plan Problem List: (1) Dementia of Alzheimer's type with behavioral disturbance ICD Code: G30.8 Assessment & Plan Continue current treatment plan Justification for Cont. Inpt. Patient will decompensate in a less restrictive setting Request HC Surrog/Guard Advoc?: Yes Be Torre DO Jun 25, 2016 13:05
[2016-06-25] MEDS: ACETAMINOPHEN 325 MG TAB PO PRN (13:08)
--- NOTE | 2016-06-25 15:17 | HHI.PR ---
Subjective Remarks Follow-up of patient with hypertension chronic kidney disease and arthritis. Patient seen and examined today. Patient complains of malodorous discharge from her vagina with itching and intermittent dysuria. She has persistent low back and right-sided hip pain. She denies any f/c, n/v, shortness of breath, chest pain or abdominal pain. Objective Vitals Vital Signs Date Time Temp Pulse Resp B/P Pulse Ox O2 Delivery O2 Flow Rate FiO2 06/25/16 11:00 52 17 125/59 97 06/25/16 05:20 98.5 64 17 196/90 100 06/24/16 18:00 98.7 62 16 162/77 97 Result Diagram: 06/24/1682406/24/16824 Objective Remarks GENERAL: This is a well-nourished, well-developed patient, in no apparent distress. Awake and alert. SKIN: Cool and dry. HEAD: Atraumatic. Normocephalic. . EYES: Extraocular motions intact. No scleral icterus. No injection or drainage. CARDIOVASCULAR: Regular rate and rhythm without murmurs, gallops, or rubs. RESPIRATORY: Clear to auscultation. Breath sounds equal bilaterally. No wheezes , rales, or rhonchi. GASTROINTESTINAL: Abdomen soft, non-tender, nondistended. No hepato-splenomegaly , or palpable masses. No guarding. MUSCULOSKELETAL: Extremities without clubbing, cyanosis, or edema. No joint tenderness, effusion, or edema noted. No calf tenderness. Lower lumbar paraspinal tenderness to palpation. NEUROLOGICAL: Awake and alert. Able to move all 4 extremities. No focal neurologic findings appreciated. Normal speech. Medications and IVs Current Medications Medications (Trade) Dose Ordered Sig/Monica Route Start Time Stop Time Status Last Admin (Ativan) 1 mg Q6H PRN PO 06/22/16 20:45 06/22/16 22:01 (Ativan Inj) 1 mg Q6H PRN IM 06/22/16 20:45 (Benadryl) 50 mg Q6H PRN PO 06/22/16 20:45 06/24/16 21:43 (Benadryl Inj) 50 mg Q6H PRN IM 06/22/16 20:45 (Tylenol) 650 mg Q4H PRN PO 06/22/16 20:45 06/25/16 13:08 (Milk Of Magnesia Liq) 30 ml DAILY PRN PO 06/22/16 20:45 (Mag-Al Plus Susp Liq) 30 ml Q6H PRN PO 06/22/16 20:45 (Benadryl) 50 mg HS PRN PO 06/23/16 10:00 (Tylenol) 650 mg Q4H PRN PO 06/23/16 10:00 (Milk Of Magnesia Liq) 30 ml DAILY PRN PO 06/23/16 10:00 (Mag-Al Plus Susp Liq) 30 ml Q6H PRN PO 06/23/16 10:00 (Atarax) 50 mg Q6H PRN PO 06/23/16 10:00 (risperDAL) 3 mg HS PO 06/23/16 21:00 06/24/16 21:43 (Zoloft) 50 mg DAILY PO 06/24/16 09:00 06/25/16 08:38 (Desyrel) 100 mg HS PO 06/23/16 21:00 06/24/16 21:43 (Lopressor) 25 mg Q12HR PO 06/23/16 14:00 06/25/16 08:38 (Norvasc) 10 mg DAILY PO 06/24/16 09:00 06/25/16 08:38 (Monistat 3 Vag Supp) 200 mg HS VAGINAL 06/25/16 21:00 06/28/16 20:59 A/P Assessment and Plan 75-year-old female with a past medical history which includes hypertension, chronic kidney disease and arthritis. Patient is currently in inpatient psychiatric center and hospitalist services have been consulted for assistance with medical management patient's chronic kidney disease and hypertension. //Dementia - Management per psychiatric team //Hypertension - Review of medical records shows patient was previously on Lopressor 25 mg twice a day and Norvasc 10 mg daily. Continue. - Variations in BP measurement. We will only treat elevations in blood pressure measured with patient sitting. - Monitor BP //Leukocytosis - encourage fluids - possibly stress related - UA with only moderate leukocytes and 7 WBCs, culture not indicated - repeat labs pending //CKD stage III - Baseline appears to be around 1.2 - 1.3 - creatinine stable, 1.41 -> 1.39 -> 1.40 - encourage po fluids - avoid nephrotoxic agents - am labs to monitor trend //Intermittant SOB - chronic ppr - O2 sats 95% on RA - patient does not appear to be in any distress - monitor //Dyslipidemia - per ASCVD risk acting manager patient would benefit from statin therapy - will discuss with patient beginning statin - baseline LFTs WNL //Low back and right hip pain - persistent - PT eval/tx. Appreciate assistance. - Tylenol for pain - Xray L spine ordered //Possible vaginal yeast infection - UA ordered - Begin Monistat treatment - Monitor //DVT prophylaxis - encourage ambulation Discussed with patient, nursing staff and Dr. Carbajal. Gabi Colon Jun 25, 2016 15:17
[2016-06-25 19:15] VITALS: BP 118/72; PULSE 55; RESP 18; TEMP 97.9; O2SAT 94
[2016-06-25 20:40] LABS: AUTOMATED NEUTROPHIL # 7.1 TH/MM3 (1.8-7.7); BASOPHIL # 0.1 TH/MM3 (0-0.2); BASOPHIL % 0.8 % (0.0-2.0); EOSINOPHIL # 0.3 TH/MM3 (0-0.4); EOSINOPHIL % 2.9 % (0.0-4.0); HEMATOCRIT 39.6 % (35.0-46.0); HEMO FLAGS DIFF FINAL; LYMPH % 20.4 % (9.0-44.0); LYMPHOCYTE # 2.3 TH/MM3 (1.0-4.8); MEAN CELL VOLUME 88.1 FL (80.0-100.0); MEAN CORPUSCULAR HEMOGLOBIN 29.5 PG (27.0-34.0); MEAN CORPUSCULAR HGB CONC 33.5 % (32.0-36.0); NEUT % 63.9 % (16.0-70.0); PLATELET COUNT 205 TH/MM3 (150-450); RED CELL DISTRIBUTION WIDTH 13.5 % (11.6-17.2); WHITE BLOOD COUNT 11.2 TH/MM3 (4.0-11.0)
[2016-06-25 21:00] LABS: BICARBONATE 25.9 MEQ/L (21.0-32.0); POTASSIUM 3.9 MEQ/L (3.5-5.1)
[2016-06-25] MEDS: risperiDONE 3 MG TAB PO SCH (21:05)
[2016-06-25] MEDS: diphenhydrAMINE HCL 50 MG CAP PO PRN (21:05)
[2016-06-25] MEDS: traZODone HCL 100 MG TAB PO SCH (21:05)
[2016-06-25] MEDS: MICONAZOLE NITRATE 200 MG VAG SUPP VAGINAL SCH (21:08)
--- NOTE | 2016-06-25 22:13 | RADRPT ---
EXAM DATE/TIME: 06/25/2016 22:05 [place] COMPARISON: No previous studies available for comparison. INDICATIONS : Low back pain. Weakness. MEDICAL HISTORY : None. SURGICAL HISTORY : None. ENCOUNTER: Initial ACUITY: 3 days PAIN SCORE: 7/10 LOCATION: Bilateral Paraspinal FINDINGS: There is moderate severity scoliosis of the lumbar spine convex towards the left, approximately 20. In the lateral projection there is prominent narrowing of the interspaces L1-L2 exam L2-3, L4-5, and L5-S1. Bridging anterior paravertebral ossification is present at L4-5 and nondrinker paravertebral ossification present anteriorly at the other levels. There is grade 1 retrolisthesis of L2 with res pect to L3 and straightening of the curvature at L4 and L5. There is prominent hypertrophic changes seen in the posterior elements from L2-L4. Vertebral body height is maintained. Vascular calcificat ion aorta and iliac vessels. CONCLUSION: Advanced degenerative changes in the interspaces and posterior elements with associated moderate ana rity left lumbar scoliosis and retrolisthesis of L2 with respect to L3. No evidence of compression d eformity. A Humberto Meyer MD on June 25, 2016 at 22:09 Board Certified Radiologist. This report was verified electronically.
[2016-06-26 05:00] VITALS: BP 109/74; PULSE 57; RESP 17; TEMP 97.7; O2SAT 97
[2016-06-26] MEDS: METOPROLOL TARTRATE 25 MG TAB PO SCH ×2 (09:00→21:00)
[2016-06-26] MEDS: SERTRALINE HCL 50 MG TAB PO SCH (09:16)
[2016-06-26] MEDS: ACETAMINOPHEN 325 MG TAB PO PRN ×2 (09:23→18:28)
--- NOTE | 2016-06-26 12:11 | HHI.PYPN ---
Subjective Remarks Pt seen and discussed with nursing staff. Pt has been seclusive to her room and exhibits bizarre behavior at times. She is malodorous and self care is poor. Insight is very poor. No SI/HI. She is compliant with medications. Objective Alert: Yes [place]: Person, Place Mood: Calm Affect: Blunted Memory Intact: Comment (impaired) Hallucinations: Other (none evident) Delusions: Yes Delusion Type: Paranoid Suicidal: Ideation (denies) Homicidal: Ideation (denies) Insight/Judgment poor Labs Test 06/25/16 20:24 White Blood Count 11.2 TH/MM3 Red Blood Count 4.50 MIL/MM3 Hemoglobin 13.3 GM/DL Hematocrit 39.6 % Mean Corpuscular Volume 88.1 FL Mean Corpuscular Hemoglobin 29.5 PG Mean Corpuscular Hemoglobin 33.5 % Concent Red Cell Distribution Width 13.5 % Platelet Count 205 TH/MM3 Mean Platelet Volume 8.1 FL Neutrophils (%) (Auto) 63.9 % Lymphocytes (%) (Auto) 20.4 % Monocytes (%) (Auto) 12.0 % Eosinophils (%) (Auto) 2.9 % Basophils (%) (Auto) 0.8 % Neutrophils # (Auto) 7.1 TH/MM3 Lymphocytes # (Auto) 2.3 TH/MM3 Monocytes # (Auto) 1.3 TH/MM3 Eosinophils # (Auto) 0.3 TH/MM3 Basophils # (Auto) 0.1 TH/MM3 CBC Comment DIFF FINAL Differential Comment Sodium Level 137 MEQ/L Potassium Level 3.9 MEQ/L Chloride Level 102 MEQ/L Carbon Dioxide Level 25.9 MEQ/L Anion Gap 9 MEQ/L Blood Urea Nitrogen 27 MG/DL Creatinine 1.28 MG/DL Estimat Glomerular Filtration 41 ML/MIN Rate Random Glucose 126 MG/DL Calcium Level 8.6 MG/DL Vitals/IOs Vital Signs Date Time Temp Pulse Resp B/P Pulse Ox O2 Delivery O2 Flow Rate FiO2 06/26/16 05:00 97.7 57 17 109/74 97 06/22/16 18:50 Room Air Assessment & Plan Problem List: (1) Dementia of Alzheimer's type with behavioral disturbance ICD Code: G30.8 Assessment & Plan Continue current tx plan. Estimated LOS: days Justification for Cont. Inpt. impairments in self care Request HC Surrog/Guard Advoc?: Yes Kathy Sheppard MD Jun 26, 2016 12:11
[2016-06-26 16:45] LABS: BICARBONATE 27.4 MEQ/L (21.0-32.0)
[2016-06-26 18:00] VITALS: BP 178/58; PULSE 80; RESP 20; TEMP 97.6; O2SAT 94
[2016-06-26] MEDS: traZODone HCL 100 MG TAB PO SCH (20:59)
[2016-06-26] MEDS: risperiDONE 3 MG TAB PO SCH (21:00)
[2016-06-26] MEDS: MICONAZOLE NITRATE 200 MG VAG SUPP VAGINAL SCH (21:00)
[2016-06-27 06:13] VITALS: BP 124/70; PULSE 66; RESP 20; TEMP 98.1; O2SAT 95
[2016-06-27] MEDS: SERTRALINE HCL 50 MG TAB PO SCH (08:56)
[2016-06-27] MEDS: METOPROLOL TARTRATE 25 MG TAB PO SCH ×2 (08:56→20:07)
--- NOTE | 2016-06-27 14:10 | HHI.PYPN ---
Subjective Remarks Patient continues to come across as confused and easily disoriented. She remains rather dysfunctional and is not taking care of her own hygiene. Unable to have a cogent conversation. Review of Systems ROS Limitations: Clinical Condition Objective Alert: Yes [place]: Person, Place Mood: Calm Affect: Blunted Memory Intact: Comment (impaired) Hallucinations: Other (none evident) Delusions: Yes Delusion Type: Paranoid Suicidal: Ideation (denies) Homicidal: Ideation (denies) Insight/Judgment Impaired Labs Test 06/26/16 16:10 Sodium Level 136 MEQ/L Potassium Level 4.0 MEQ/L Chloride Level 102 MEQ/L Carbon Dioxide Level 27.4 MEQ/L Anion Gap 7 MEQ/L Blood Urea Nitrogen 25 MG/DL Creatinine 1.38 MG/DL Estimat Glomerular Filtration 37 ML/MIN Rate Random Glucose 114 MG/DL Calcium Level 8.9 MG/DL Vitals/IOs Vital Signs Date Time Temp Pulse Resp B/P Pulse Ox O2 Delivery O2 Flow Rate FiO2 06/27/16 06:13 98.1 66 20 124/70 95 Assessment & Plan Problem List: (1) Dementia of Alzheimer's type with behavioral disturbance ICD Code: G30.8 Assessment & Plan Estimated LOS: 5 days patient needs more time on current medicines to stabilize emotions and behavior. Justification for Cont. Inpt. Would decompensate at lower level of care. Request HC Surrog/Guard Advoc?: Yes Manuel Marr MD Jun 27, 2016 14:10
--- NOTE | 2016-06-27 16:27 | HHI.PR ---
Subjective Remarks Follow-up of patient with hypertension chronic kidney disease and arthritis. Patient seen today lying in bed. Admits to going outside and engaging in group activity today. Patient has no new complaints. Denies any shortness of breath, chest pain, or headache. Denies fevers, chills, or any changes in bladder or bowels. No further vaginal complaints. Objective Vitals Vital Signs Date Time Temp Pulse Resp B/P Pulse Ox O2 Delivery O2 Flow Rate FiO2 06/27/16 06:13 98.1 66 20 124/70 95 06/26/16 18:00 97.6 80 20 178/58 94 Result Diagram: 06/25/16202306/26/16 1610 Imaging Last Impressions Lumbar Spine X-Ray 06/25/16 0000 Signed Impressions: Service Date/Time: Saturday, June 25, 2016 22:05 - CONCLUSION: Advanced degenerative changes in the interspaces and posterior elements with associated moderate severity left lumbar scoliosis and retrolisthesis of L2 with respect to L3. No evidence of compression deformity. Bindu Meyer MD Head CT 06/22/16 0000 Signed Impressions: Service Date/Time: June 08:26 - CONCLUSION: Stable evaluation of brain demonstrating atrophic changes and chronic white matter disease but no evidence of acute infarct, hemorrhage, mass or edema. Stanley Kelly MD Objective Remarks GENERAL: Well-nourished, well-developed patient in NAD. SKIN: Warm and dry. No rash. HEENT: Normocephalic. Atraumatic. Pupils equal and round. No scleral icterus. No injection or drainage. No nasal bleeding or discharge. Mucous membranes pink and moist. Supple. Trachea midline. CARDIOVASCULAR: Regular rate and rhythm. S1, S2 noted. No murmur appreciated. RESPIRATORY: No accessory muscle use. Clear to auscultation. Breath sounds equal bilaterally. GASTROINTESTINAL: Abdomen soft, non-tender, nondistended. Normoactive bowel sounds x4. MUSCULOSKELETAL: No obvious deformities. Extremities without clubbing, cyanosis , or edema. NEUROLOGICAL: Awake and alert. No obvious cranial nerve deficits. Motor grossly within normal limits. 5/5 muscle strength in bilateral upper and lower extremities. Normal speech. PSYCHIATRIC: Appropriate mood and affect; insight and judgment normal. Urinary Catheter: No Vascular Central Line Catheter: No A/P Assessment and Plan 75-year-old female with a past medical history which includes hypertension, chronic kidney disease and arthritis. Patient is currently in inpatient psychiatric center and hospitalist services have been consulted for assistance with medical management patient's chronic kidney disease and hypertension. Dementia: Management per psychiatric team Hypertension: BP relatively controlled. - Continue Norvasc and Lopressor. Monitor closely. Leukocytosis: WBC 11.2. Encourage fluid intake. UA with only moderate leukocytes and 7 WBCs, culture not indicated. Afebrile. CKD stage III - Baseline appears to be around 1.2 - 1.3. Creatinine 1.38. - Encourage fluid intake. - Avoid nephrotoxic agents Low back and right hip pain, controlled. - PT following. - Tylenol PRN - x-ray L spine results reviewed, advanced degenerative changes in the interspaces and posterior elements with associated moderate severity left lumbar scoliosis and retrolisthesis of L2 with respect to L3. Possible vaginal yeast infection: Patient has been refusing Monistat. No further complaints. DVT prophylaxis: Encourage ambulation Thank you for this consult. Patient stable at this time, will sign off from medical standpoint. Discussed with patient, nursing staff and Dr. Carbajal. Liana Peters Jun 27, 2016 16:27 Liana Peters Jun 27, 2016 16:27
[2016-06-27 20:00] VITALS: BP 203/92; PULSE 76; RESP 16; TEMP 98
[2016-06-27] MEDS: risperiDONE 3 MG TAB PO SCH (20:07)
[2016-06-27] MEDS: traZODone HCL 100 MG TAB PO SCH (20:07)
[2016-06-27] MEDS: ACETAMINOPHEN 325 MG TAB PO PRN (20:08)
[2016-06-27] MEDS: MICONAZOLE NITRATE 200 MG VAG SUPP VAGINAL SCH (20:09)
[2016-06-28 06:00] VITALS: BP 169/82; PULSE 62; RESP 18; TEMP 98.2; O2SAT 95
[2016-06-28] MEDS: SERTRALINE HCL 50 MG TAB PO SCH (08:30)
[2016-06-28] MEDS: METOPROLOL TARTRATE 25 MG TAB PO SCH ×2 (08:30→20:41)
[2016-06-28 18:36] VITALS: BP 156/68; PULSE 59; RESP 20; TEMP 98.4; O2SAT 94
[2016-06-28] MEDS: ACETAMINOPHEN 325 MG TAB PO PRN (20:42)
[2016-06-28] MEDS: risperiDONE 3 MG TAB PO SCH (20:42)
[2016-06-28] MEDS: traZODone HCL 100 MG TAB PO SCH (20:42)
[2016-06-29 06:11] VITALS: BP 135/67; PULSE 54; RESP 18; TEMP 98.1; O2SAT 97
[2016-06-29] MEDS: SERTRALINE HCL 50 MG TAB PO SCH (08:23)
[2016-06-29] MEDS: METOPROLOL TARTRATE 25 MG TAB PO SCH (09:00)
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
[2016-06-29] MEDS ORDERED: METO25TA3 PO (10:16)
[2016-06-29] MEDS ORDERED: RISP3 PO (10:16)
[2016-06-29] MEDS ORDERED: TRAZ50TA12 PO (10:16)
[2016-06-29] MEDS ORDERED: ZOLO50TA PO (10:16)
== END 2016-06-29 11:15 | disposition home or self-care (01) | DRG 57 ==
LOC: NEPC 07:16 → NEDA 19:24 → H260 20:10
PROVIDERS: ADMIT Psychiatry & Neurology Psychiatry; ATTEND Psychiatry & Neurology Psychiatry
DX: G30.9 Alzheimer's disease, unspecified (principal); F02.81 Dementia in other diseases classified elsewhere, unspecified severity, with behavioral disturbance; F20.1 Disorganized schizophrenia; N18.3 Chronic kidney disease, stage 3 (moderate); I12.9 Hypertensive chronic kidney disease with stage 1 through stage 4 chronic kidney disease, or unspecified chronic kidney disease
CPT/HCPCS: 70450; 72100; 80048; 80053; 80061; 80307; 81001; 83036; 83735; 84439; 84443; 85025; 93005; 96374; J7040; Q0163

== ENCOUNTER 2016-07-18 11:51 | Observation (INO) | payer OTHER ==
[~2016-07-18] VITALS: Ht 175.3 cm; Wt 100.5 kg
[~2016-07-18 11:51] MED LIST changes: -AMLO10 PO; -CIPR-9 PO; -QUET1TAB7 PO; +RISP3 PO; +TRAZ50TA12 PO; +ZOLO50TA PO
[2016-07-18 12:02] VITALS: BP 155/104; PULSE 74; RESP 18; TEMP 99.1; O2SAT 95
[2016-07-18] MEDS ORDERED: SODIUM CHLORIDE 0.9% FLUSH 10 ML FLUSH IVF PRN (12:30)
--- NOTE | 2016-07-18 12:30 | PD ---
HPI Chief Complaint: Psychiatric Symptoms Time Seen by Provider: 12:26 Travel History International Travel<30 days: No Contact w/Intl Traveler<30days: No Traveled to known affect area: No History of Present Illness HPI Patient is a 75-year-old female brought in to the emergency department under [facility] due to suicidal ideations and ability to care for herself. Per the [facility] report patient is unable to take her medications on her own, she is not eating due to claims that she doesn't have anything to eat although there is food in her apartment. She did make a statement that she can't live like this any longer and just wants to . Statements were witnessed by a Aleksandra Farrar with [facility]. Patient had a neighbor helping her with her medication administration however her neighbor no longer wants to be responsible for this. Patient currently denies any suicidal ideations. She knows where she is and is oriented to self only. PFSH Past Medical History Arthritis: Yes Asthma: No Autoimmune Disease: No Blood Disorders: No Anxiety: Yes Depression: Yes Heart Rhythm Problems: No Cancer: No Cardiovascular Problems: No High Cholesterol: No Chemotherapy: No Chest Pain: No Congestive Heart Failure: No COPD: No Diabetes: No Diminished Hearing: Yes (R EAR) Endocrine: No Gastrointestinal Disorders: No Glaucoma: No Headaches: No Hypertension: Yes Immune Disorder: No Implanted Vascular Access Dvce: Yes Neurologic: No Psychiatric: Yes (Schizophrenia ) Reproductive: No Immunizations Current: Yes Radiation Therapy: No Renal Failure: Yes Seizures: No Sleep Apnea: No Thyroid Disease: No ?: Not Menopausal: Yes : 0 Para: 0 Miscarriage: 0 : 0 Past Surgical History Appendectomy: Yes Joint Replacement: Yes (knee replacements) Tonsillectomy: Yes Other Surgery: Yes (appendectomy/tonsillectomy) Social History Alcohol Use: No Tobacco Use: No Substance Use: No Allergies-Medications (Allergen,Severity, Reaction): Coded Allergies: Abilify (Verified Allergy, Severe, 07/18/16) Antivert (Verified Allergy, Severe, 07/18/16) Aspirin (Verified Allergy, Severe, 07/18/16) Flagyl (Verified Allergy, Severe, Diarrhea, 07/18/16) Nonsteroidal Anti-Inflammatory Agts (Verified Allergy, Severe, 07/18/16) Penicillin (Verified Allergy, Severe, REDNESS, SWELLING, 07/18/16) Saccharin (Verified Allergy, Severe, 07/18/16) Sulfa (Verified Allergy, Severe, DISTURBS KIDNEY FUNCTION, 07/18/16) Tetracycline (Verified Allergy, Severe, NAUSEA & VOMITING, 07/18/16) Reported Meds & Prescriptions Reported Meds & Active Scripts Active Metoprolol Tartrate 25 Mg Tab 25 Mg PO Q12HR Trazodone (Trazodone HCl) 50 Mg Tab 100 Mg PO HS Zoloft (Sertraline HCl) 50 Mg Tab 50 Mg PO DAILY Risperdal (Risperidone) 3 Mg Tab 3 Mg PO HS Review of Systems Except as stated in HPI: all other systems reviewed are Neg Psychiatric: Positive: Mood Disorder Physical Exam Exam Limitations: Poor Historian Narrative GENERAL: Obese, well-developed, alert elderly female. Resting comfortably in no acute distress. SKIN: Focused skin assessment warm/dry. HEAD: Atraumatic. Normocephalic. EYES: Pupils equal and round. No scleral icterus. No injection or drainage. ENT: No nasal bleeding or discharge. Mucous membranes pink and moist. NECK: Trachea midline. No JVD. CARDIOVASCULAR: Regular rate and rhythm. No murmur appreciated. RESPIRATORY: No accessory muscle use. Clear to auscultation. Breath sounds equal bilaterally. GASTROINTESTINAL: Abdomen soft, non-tender, nondistended. Hepatic and splenic margins not palpable. MUSCULOSKELETAL: No obvious deformities. No clubbing. No cyanosis. No edema. NEUROLOGICAL: Awake and alert. No obvious cranial nerve deficits. Motor grossly within normal limits. Normal speech. PSYCHIATRIC: Appropriate mood and affect; insight and judgment impaired. Data Data Last Documented VS Vital Signs Date Time Temp Pulse Resp B/P Pulse Ox O2 Delivery O2 Flow Rate FiO2 07/18/16 14:38 78 18 148/96 96 Room Air 07/18/16 12:02 99.1 Orders Complete Blood Count With Diff (07/18/16 12:21) Comprehensive Metabolic Panel (07/18/16 12:21) Urinalysis - C+S If Indicated (07/18/16 12:21) Oximetry (07/18/16 12:21) Iv Access Insert/Monitor (07/18/16 12:21) Ecg Monitoring (07/18/16 12:21) Psych Screen (07/18/16 12:21) Sodium Chloride 0.9% Flush (Ns Flush) (07/18/16 12:30) Drug Screen, Random Urine (07/18/16 12:21) Salicylates (Aspirin) (07/18/16 12:21) Tylenol (Acetaminophen) (07/18/16 12:21) Cath For Specimen (07/18/16 13:34) Consult Psychiatry (07/18/16 ) Sodium Chlor 0.9% 1000 Ml Inj (Ns 1000 M (07/18/16 15:15) Potassium Chloride (Kcl) (07/18/16 15:15) Labs Laboratory Tests Test 07/18/16 07/18/16 12:43 14:24 White Blood Count 12.9 TH/MM3 Red Blood Count 5.14 MIL/MM3 Hemoglobin 15.5 GM/DL Hematocrit 44.9 % Mean Corpuscular Volume 87.3 FL Mean Corpuscular Hemoglobin 30.1 PG Mean Corpuscular Hemoglobin 34.5 % Concent Red Cell Distribution Width 13.8 % Platelet Count 227 TH/MM3 Mean Platelet Volume 8.5 FL Neutrophils (%) (Auto) 76.4 % Lymphocytes (%) (Auto) 13.1 % Monocytes (%) (Auto) 7.9 % Eosinophils (%) (Auto) 2.0 % Basophils (%) (Auto) 0.6 % Neutrophils # (Auto) 9.8 TH/MM3 Lymphocytes # (Auto) 1.7 TH/MM3 Monocytes # (Auto) 1.0 TH/MM3 Eosinophils # (Auto) 0.3 TH/MM3 Basophils # (Auto) 0.1 TH/MM3 CBC Comment DIFF FINAL Differential Comment Sodium Level 138 MEQ/L Potassium Level 3.4 MEQ/L Chloride Level 102 MEQ/L Carbon Dioxide Level 28.0 MEQ/L Anion Gap 8 MEQ/L Blood Urea Nitrogen 17 MG/DL Creatinine 1.33 MG/DL Estimat Glomerular Filtration 39 ML/MIN Rate Random Glucose 137 MG/DL Calcium Level 9.1 MG/DL Total Bilirubin 1.0 MG/DL Aspartate Amino Transf 29 U/L (AST/SGOT) Alanine Aminotransferase 20 U/L (ALT/SGPT) Alkaline Phosphatase 86 U/L Total Protein 7.4 GM/DL Albumin 3.7 GM/DL Salicylates Level LESS THAN 1.7 MG/DL Acetaminophen Level LESS THAN 2.0 MCG/ML Urine Color YELLOW Urine Turbidity CLEAR Urine pH 6.5 Urine Specific [place] 1.012 Urine Protein 30 mg/dL Urine Glucose (UA) NEG mg/dL Urine Ketones NEG mg/dL Urine Occult Blood NEG Urine Nitrite NEG Urine Bilirubin NEG Urine Urobilinogen LESS THAN 2.0 MG/DL Urine Leukocyte Esterase NEG Urine RBC 1 /hpf Urine WBC 1 /hpf Urine Squamous Epithelial <1 /hpf Cells Microscopic Urinalysis Comment CULT NOT INDICATED Urine Opiates Screen NEG Urine Barbiturates Screen NEG Urine Amphetamines Screen NEG Urine Benzodiazepines Screen NEG Urine Cocaine Screen NEG Urine Cannabinoids Screen NEG MDM Medical Decision Making Medical Screen Exam Complete: Yes Emergency Medical Condition: Yes Medical Record Reviewed: Yes Interpretation(s) Vital Signs Date Time Temp Pulse Resp B/P Pulse Ox O2 Delivery O2 Flow Rate FiO2 07/18/16 14:38 78 18 148/96 96 Room Air 07/18/16 12:49 96 Room Air 07/18/16 12:02 99.1 74 18 155/104 95 Laboratory Tests Test 07/18/16 07/18/16 12:43 14:24 White Blood Count 12.9 TH/MM3 Red Blood Count 5.14 MIL/MM3 Hemoglobin 15.5 GM/DL Hematocrit 44.9 % Mean Corpuscular Volume 87.3 FL Mean Corpuscular Hemoglobin 30.1 PG Mean Corpuscular Hemoglobin 34.5 % Concent Red Cell Distribution Width 13.8 % Platelet Count 227 TH/MM3 Mean Platelet Volume 8.5 FL Neutrophils (%) (Auto) 76.4 % Lymphocytes (%) (Auto) 13.1 % Monocytes (%) (Auto) 7.9 % Eosinophils (%) (Auto) 2.0 % Basophils (%) (Auto) 0.6 % Neutrophils # (Auto) 9.8 TH/MM3 Lymphocytes # (Auto) 1.7 TH/MM3 Monocytes # (Auto) 1.0 TH/MM3 Eosinophils # (Auto) 0.3 TH/MM3 Basophils # (Auto) 0.1 TH/MM3 CBC Comment DIFF FINAL Differential Comment Sodium Level 138 MEQ/L Potassium Level 3.4 MEQ/L Chloride Level 102 MEQ/L Carbon Dioxide Level 28.0 MEQ/L Anion Gap 8 MEQ/L Blood Urea Nitrogen 17 MG/DL Creatinine 1.33 MG/DL Estimat Glomerular Filtration 39 ML/MIN Rate Random Glucose 137 MG/DL Calcium Level 9.1 MG/DL Total Bilirubin 1.0 MG/DL Aspartate Amino Transf 29 U/L (AST/SGOT) Alanine Aminotransferase 20 U/L (ALT/SGPT) Alkaline Phosphatase 86 U/L Total Protein 7.4 GM/DL Albumin 3.7 GM/DL Salicylates Level LESS THAN 1.7 MG/DL Acetaminophen Level LESS THAN 2.0 MCG/ML Urine Color YELLOW Urine Turbidity CLEAR Urine pH 6.5 Urine Specific [place] 1.012 Urine Protein 30 mg/dL Urine Glucose (UA) NEG mg/dL Urine Ketones NEG mg/dL Urine Occult Blood NEG Urine Nitrite NEG Urine Bilirubin NEG Urine Urobilinogen LESS THAN 2.0 MG/DL Urine Leukocyte Esterase NEG Urine RBC 1 /hpf Urine WBC 1 /hpf Urine Squamous Epithelial <1 /hpf Cells Microscopic Urinalysis Comment CULT NOT INDICATED Vital Signs Date Time Temp Pulse Resp B/P Pulse Ox O2 Delivery O2 Flow Rate FiO2 07/18/16 12:02 99.1 74 18 155/104 95 Differential Diagnosis Mood disorder versus substance abuse versus dementia versus schizophrenia versus urinary tract infection versus self-care deficit versus suicidal ideations Narrative Course Patient is a 75-year-old female with a history of schizophrenia, dementia with Alzheimer's type with behavioral disturbances in the emergency Department under [facility] due to self-care deficit/neglect, patient cannot administer her own medications to herself, she believes there is no food in her home to eat when there actually is, and does not eat consistently. Patient had a neighbor helping her with her medications that neighbor no longer wants the responsibility. Patient has no other support system or family members. Patient presents denying any complaints at this time. She is only oriented to self. She is pleasant, joking. CBC is unremarkable Chemistry with potassium of 3.4, patient will be given oral replacement. Salicylate level and acetaminophen level are negative Urinalysis is unremarkable Urine drug screen is negative. Patient's vital signs have been stable. Patient is medically cleared for psychiatric evaluation however patient needs to be placed in some type of long- term care facility due to the inability to care for herself. [facility] paged for admission, consult placed to psychiatry. Dr. Awad agreed to admit patient under observation for placement. Diagnosis Primary Impression: Dementia of Alzheimer's type with behavioral disturbance Qualified Code: G30.8 - Alzheimer's dementia with behavioral disturbance, unspecified timing of dementia onset Additional Impressions: Noncompliance with medication regimen Self-care deficit in patient living alone Cognitive dysfunction in mental illness Hypokalemia Admitting Information Admitting Physician Requests: Observation Condition: Stable Jo Brown July 18, 2016 12:30
[2016-07-18 12:49] VITALS: O2SAT 96
[2016-07-18 13:02] LABS: AUTOMATED NEUTROPHIL # 9.8 TH/MM3 (1.8-7.7); BASOPHIL # 0.1 TH/MM3 (0-0.2); BASOPHIL % 0.6 % (0.0-2.0); EOSINOPHIL # 0.3 TH/MM3 (0-0.4); HEMATOCRIT 44.9 % (35.0-46.0); HEMO FLAGS DIFF FINAL; LYMPH % 13.1 % (9.0-44.0); LYMPHOCYTE # 1.7 TH/MM3 (1.0-4.8); MEAN CELL VOLUME 87.3 FL (80.0-100.0); MEAN CORPUSCULAR HEMOGLOBIN 30.1 PG (27.0-34.0); MEAN CORPUSCULAR HGB CONC 34.5 % (32.0-36.0); MONO % 7.9 % (0.0-8.0); NEUT % 76.4 % (16.0-70.0); PLATELET COUNT 227 TH/MM3 (150-450); RED BLOOD COUNT 5.14 MIL/MM3 (4.00-5.30); RED CELL DISTRIBUTION WIDTH 13.8 % (11.6-17.2); WHITE BLOOD COUNT 12.9 TH/MM3 (4.0-11.0)
[2016-07-18 13:22] LABS: ALT (GPT) 20 U/L (10-53); ANION GAP 8 MEQ/L (5-15); AST (GOT) 29 U/L (15-37); BLOOD UREA NITROGEN 17 MG/DL (7-18); CHLORIDE 102 MEQ/L (98-107); GLOMERULAR FILTRATION RATE 39 ML/MIN (>89); POTASSIUM 3.4 MEQ/L (3.5-5.1); SODIUM (NA) 138 MEQ/L (136-145)
[2016-07-18 13:23] LABS: ACETAMINOPHEN LESS THAN 2.0 MCG/ML (10.0-30.0)
[2016-07-18 13:26] LABS: ALKALINE PHOSPHATASE 86 U/L (45-117)
[2016-07-18 14:38] VITALS: BP 148/96; PULSE 78; RESP 18; O2SAT 96
[2016-07-18 14:48] LABS: BLOOD, URINE NEG (NEG); GLUCOSE,URINE NEG (NEG); KETONE, URINE NEG (NEG); NITRITE,URINE NEG (NEG); PH, URINE 6.5 (5.0-8.5); SQUAMOUS EPITHELIAL CELL URINE <1 /hpf (0-5); URINE COLOR YELLOW (YELLW/STRAW)
[2016-07-18 14:52] LABS: COMMENT (UR) CULT NOT INDICATED; CULTURE IF INDICATED CULT NOT INDICATED
[2016-07-18 15:12] LABS: AMPHETAMINE, URINE NEG (NEG); BARBITURATES, URINE NEG (NEG); COCAINE, URINE NEG (NEG)
[2016-07-18] MEDS ORDERED: POTASSIUM CHLORIDE 10 MEQ CONTROLLED RELEASE TAB PO ONE (15:15)
[2016-07-18] MEDS ORDERED: SODIUM CHLOR 0.9% 1000 ML INJ 1,000 ML IV ONE (15:15)
[2016-07-18] MEDS ORDERED: DOCUSATE SODIUM 100 MG CAP PO SCH (15:30)
[2016-07-18] MEDS ORDERED: NALOXONE HCL 0.4 MG/ML AMP IV PRN (15:30)
[2016-07-18] MEDS ORDERED: ONDANSETRON HCL 4 MG/2 ML VIAL IVP PRN (15:30)
[2016-07-18] MEDS ORDERED: SODIUM CHLORIDE 0.9% FLUSH 10 ML FLUSH IV FLUSH PRN (15:30)
[2016-07-18] MEDS ORDERED: BISACODYL 10 MG SUPP RECTAL PRN (15:30)
--- NOTE | 2016-07-18 15:37 | HHI.HP ---
[facility] Service [facility] Primary Care Physician No Primary Care Physician Admission Diagnosis Diagnoses: Chief Complaint: [facility] Travel History International Travel<30 Days: No Contact w/Intl Traveler <30 Da: No Traveled to Known Affected Are: No History of Present Illness Patient is a 75-year-old female brought in to the emergency department under [facility] due to suicidal ideations and inability to care for herself. Per the [facility] act report patient is unable to take her medications on her own, she is not eating due to claims that she doesn't have anything to eat although there is food in her apartment. She did make a statement that she can't live like this any longer and just wants to . Statements were witnessed by a Cecilio Farrar with [facility]. Patient had a neighbor helping her with her medication administration however her neighbor no longer wants to be responsible for this. Patient currently denies any suicidal ideations. She knows where she is and is oriented to self only. Seen in her bedroom states she was brought by the Trailer Rental Clerk, answer my questions, is able to walk well. Past Family Social History Past Medical History OA Anxiety disorder Schizophrenia CKD III Past Surgical History Appendectomy Knee arthroplasty Tonsillectomy Reported Medications Reported Meds & Active Scripts Active Metoprolol Tartrate 25 Mg Tab 25 Mg PO Q12HR Trazodone (Trazodone HCl) 50 Mg Tab 100 Mg PO HS Zoloft (Sertraline HCl) 50 Mg Tab 50 Mg PO DAILY Risperdal (Risperidone) 3 Mg Tab 3 Mg PO HS Allergies: Coded Allergies: Abilify (Verified Allergy, Severe, 07/18/16) Antivert (Verified Allergy, Severe, 07/18/16) Aspirin (Verified Allergy, Severe, 07/18/16) Flagyl (Verified Allergy, Severe, Diarrhea, 07/18/16) Nonsteroidal Anti-Inflammatory Agts (Verified Allergy, Severe, 07/18/16) Penicillin (Verified Allergy, Severe, REDNESS, SWELLING, 07/18/16) Saccharin (Verified Allergy, Severe, 07/18/16) Sulfa (Verified Allergy, Severe, DISTURBS KIDNEY FUNCTION, 07/18/16) Tetracycline (Verified Allergy, Severe, NAUSEA & VOMITING, 07/18/16) Active Ordered Medications Current Medications Medications (Trade) Dose Ordered Sig/Monica Route Start Time Stop Time Status Last Admin Sodium Chloride 2 ml 2 ml UNSCH PRN IVF 07/18/16 12:30 (NS 1000 ml Inj) 1,000 ml @ 999 mls/hr BOLUS ONCE IV 07/18/16 15:15 07/18/16 16:15 07/18/16 15:19 Family History Unable to obtain. Social History No Toxic habits. Physical Exam Vital Signs Vital Signs Date Time Temp Pulse Resp B/P Pulse Ox O2 Delivery O2 Flow Rate FiO2 07/18/16 14:38 78 18 148/96 96 Room Air 07/18/16 12:49 96 Room Air 07/18/16 12:02 99.1 74 18 155/104 95 Physical Exam GENERAL: Obese, well-developed, alert elderly female. Resting comfortably in no acute distress. SKIN: Focused skin assessment warm/dry. HEAD: Atraumatic. Normocephalic. EYES: Pupils equal and round. No scleral icterus. No injection or drainage. ENT: No nasal bleeding or discharge. Mucous membranes pink and moist. NECK: Trachea midline. No JVD. CARDIOVASCULAR: Regular rate and rhythm. No murmur appreciated. RESPIRATORY: No accessory muscle use. Clear to auscultation. Breath sounds equal bilaterally. GASTROINTESTINAL: Abdomen soft, non-tender, nondistended. Hepatic and splenic margins not palpable. MUSCULOSKELETAL: No obvious deformities. No clubbing. No cyanosis. No edema. NEUROLOGICAL: Awake and alert. No obvious cranial nerve deficits. Motor grossly within normal limits. Normal speech. PSYCHIATRIC: Appropriate mood and affect; insight and judgment impaired. Laboratory Laboratory Tests Test 07/18/16 07/18/16 12:43 14:24 White Blood Count 12.9 Red Blood Count 5.14 Hemoglobin 15.5 Hematocrit 44.9 Mean Corpuscular Volume 87.3 Mean Corpuscular Hemoglobin 30.1 Mean Corpuscular Hemoglobin 34.5 Concent Red Cell Distribution Width 13.8 Platelet Count 227 Mean Platelet Volume 8.5 Neutrophils (%) (Auto) 76.4 Lymphocytes (%) (Auto) 13.1 Monocytes (%) (Auto) 7.9 Eosinophils (%) (Auto) 2.0 Basophils (%) (Auto) 0.6 Neutrophils # (Auto) 9.8 Lymphocytes # (Auto) 1.7 Monocytes # (Auto) 1.0 Eosinophils # (Auto) 0.3 Basophils # (Auto) 0.1 CBC Comment DIFF FINAL Differential Comment Sodium Level 138 Potassium Level 3.4 Chloride Level 102 Carbon Dioxide Level 28.0 Anion Gap 8 Blood Urea Nitrogen 17 Creatinine 1.33 Estimat Glomerular Filtration 39 Rate Random Glucose 137 Calcium Level 9.1 Total Bilirubin 1.0 Aspartate Amino Transf 29 (AST/SGOT) Alanine Aminotransferase 20 (ALT/SGPT) Alkaline Phosphatase 86 Total Protein 7.4 Albumin 3.7 Salicylates Level LESS THAN 1.7 Acetaminophen Level LESS THAN 2.0 Urine Color YELLOW Urine Turbidity CLEAR Urine pH 6.5 Urine Specific [place] 1.012 Urine Protein 30 Urine Glucose (UA) NEG Urine Ketones NEG Urine Occult Blood NEG Urine Nitrite NEG Urine Bilirubin NEG Urine Urobilinogen LESS THAN 2.0 Urine Leukocyte Esterase NEG Urine RBC 1 Urine WBC 1 Urine Squamous Epithelial <1 Cells Microscopic Urinalysis Comment CULT NOT INDICATED Urine Opiates Screen NEG Urine Barbiturates Screen NEG Urine Amphetamines Screen NEG Urine Benzodiazepines Screen NEG Urine Cocaine Screen NEG Urine Cannabinoids Screen NEG Result Diagram: 07/18/16 1243 07/18/16 1243 Imaging No imaging studies performed. Assessment and Plan Assessment and Plan 1. Multiple admissions due to Dementia of Alzheimer's Disease with behavioral disturbances at this time [facility] due to not possible to take care of herself, will need placement 2. Schizophrenia to continue home medicines 3. Hypertension continue home medicines 4. OA by history 5. Anxiety disorder stable 6. 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 Code Status Full Code. Discussed Condition With Patient and ER Ross Sanders MD July 18, 2016 15:37
[2016-07-18 17:11] VITALS: BP 136/82; PULSE 78; RESP 18; O2SAT 97
[2016-07-18] MEDS: SODIUM CHLORIDE 0.9% FLUSH 10 ML FLUSH IV FLUSH SCH (21:00)
[2016-07-18 21:11] VITALS: BP 183/77; PULSE 69; RESP 17; TEMP 97.6; O2SAT 96
[2016-07-18] MEDS: METOPROLOL TARTRATE 25 MG TAB PO SCH (21:58)
[2016-07-18] MEDS: traZODone HCL 100 MG TAB PO SCH (21:58)
[2016-07-18] MEDS: risperiDONE 3 MG TAB PO SCH (22:19)
[2016-07-19 00:39] VITALS: BP 186/87; PULSE 78; RESP 17; TEMP 97.6; O2SAT 94
[2016-07-19 05:31] VITALS: BP 159/78; PULSE 54; RESP 17; TEMP 98; O2SAT 94
[2016-07-19 08:00] VITALS: BP 142/69; PULSE 65; RESP 20; TEMP 97.9; O2SAT 95
[2016-07-19] MEDS: DOCUSATE SODIUM 100 MG CAP PO SCH ×2 (08:03→20:45)
[2016-07-19] MEDS: SERTRALINE HCL 50 MG TAB PO SCH (08:03)
[2016-07-19] MEDS: SODIUM CHLORIDE 0.9% FLUSH 10 ML FLUSH IV FLUSH SCH ×2 (09:00→20:46)
[2016-07-19] MEDS: METOPROLOL TARTRATE 25 MG TAB PO SCH ×2 (09:30→20:45)
--- NOTE | 2016-07-19 10:46 | HHI.PR ---
Subjective Remarks Follow-up for failure to thrive. RN and sitter at bedside. The patient voices no acute complaints currently. She denies any fever, chills, nausea, vomiting, dysuria. Reportedly she complained of some right hip pain earlier. She states that she ambulates using a cane. She denies any specific suicidal intentions, but does make some vague comments about not understanding why she still alive. She is disoriented to time, but is oriented to self and place. She is asking for some help with her current situation. She does not know what medications she takes at home. Per RN, the patient was disoriented to place earlier today. The patient does not recall that she was admitted in psychiatry recently. Objective Vitals Vital Signs Date Time Temp Pulse Resp B/P Pulse Ox O2 Delivery O2 Flow Rate FiO2 07/19/16 08:00 97.9 65 20 142/69 95 07/19/16 05:31 98.0 54 17 159/78 94 07/19/16 00:39 97.6 78 17 186/87 94 07/18/16 21:11 97.6 69 17 183/77 96 07/18/16 17:11 78 18 136/82 97 Room Air 07/18/16 14:38 78 18 148/96 96 Room Air 07/18/16 12:49 96 Room Air 07/18/16 12:02 99.1 74 18 155/104 95 I/O 07/18/16 07/18/16 07/18/16 07/19/16 07/19/16 07/19/16 07:00 15:00 23:00 07:00 15:00 23:00 Intake Total 240 ml Balance 240 ml Intake Oral 240 ml # Voids 1 2 # Bowel Movements 1 Result Diagram: 07/18/16 1243 07/18/16 1243 Objective Remarks GENERAL: Well-developed well-nourished. In no acute distress. Oriented 2. SKIN: Warm and dry. No lesions noted. HEENT: Normocephalic. Pupils equal and round. Mucous membranes pink and moist. CARDIOVASCULAR: Regular rate and rhythm. No murmur appreciated. RESPIRATORY: No accessory muscle use. Clear to auscultation. Breath sounds equal bilaterally. GASTROINTESTINAL: Abdomen soft, non-tender, nondistended. Bowel sounds x4. MUSCULOSKELETAL: No obvious deformities. No clubbing or cyanosis. No edema. NEUROLOGICAL: Awake and alert. No focal neurological deficits. Moves upper and lower extremities spontaneously. Normal speech. PSYCHIATRIC: Appropriate mood and affect; insight and judgment poor. Denies SI. 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 Needs placement. Psychiatry consulted. PT hollie. Case management consult. Schizophrenia: Continue home Zoloft, Risperdal, trazodone. Hypertension: Chronic, stable. Continue her metoprolol. Leukocytosis: WBCs mildly elevated, persistently elevated dating back to February of last year upon EMR reviewed. Afebrile. UA clear. Watch for further signs of infection. Otherwise outpatient hematology follow-up. CKD III: Chronic. Creatinine 1.33, previously 1.38 on 06/26/16. Hyperkalemia: Mild. Potassium 3.4 yesterday. Received 30 mEq of potassium. DVT prophylaxis: SCDs Discharge Planning The patient is medically clear this time. Follow psychiatric recommendations. Ultimately will need placement for safety. Erik Galaviz July 19, 2016 10:46
[2016-07-19 12:00] VITALS: BP 149/72; PULSE 55; RESP 20; TEMP 97.7; O2SAT 96
[2016-07-19] MEDS: ACETAMINOPHEN 325 MG TAB PO PRN (12:03)
[2016-07-19 13:25] LABS: AUTOMATED NEUTROPHIL # 8.4 TH/MM3 (1.8-7.7); BASOPHIL # 0.1 TH/MM3 (0-0.2); BASOPHIL % 0.5 % (0.0-2.0); EOSINOPHIL # 0.3 TH/MM3 (0-0.4); EOSINOPHIL % 2.9 % (0.0-4.0); HEMATOCRIT 41.5 % (35.0-46.0); HEMO FLAGS DIFF FINAL; LYMPH % 12.7 % (9.0-44.0); LYMPHOCYTE # 1.4 TH/MM3 (1.0-4.8); MEAN CELL VOLUME 87.4 FL (80.0-100.0); MEAN CORPUSCULAR HEMOGLOBIN 29.1 PG (27.0-34.0); MEAN CORPUSCULAR HGB CONC 33.4 % (32.0-36.0); NEUT % 74.9 % (16.0-70.0); PLATELET COUNT 200 TH/MM3 (150-450); RED BLOOD COUNT 4.75 MIL/MM3 (4.00-5.30); RED CELL DISTRIBUTION WIDTH 13.7 % (11.6-17.2); WHITE BLOOD COUNT 11.2 TH/MM3 (4.0-11.0)
[2016-07-19 13:57] LABS: ALKALINE PHOSPHATASE 78 U/L (45-117); ALT (GPT) 15 U/L (10-53); ANION GAP 11 MEQ/L (5-15); AST (GOT) 16 U/L (15-37); BICARBONATE 26.7 MEQ/L (21.0-32.0); BLOOD UREA NITROGEN 15 MG/DL (7-18); CHLORIDE 100 MEQ/L (98-107); GLOMERULAR FILTRATION RATE 44 ML/MIN (>89); POTASSIUM 3.7 MEQ/L (3.5-5.1); SODIUM (NA) 138 MEQ/L (136-145); TOTAL BILIRUBIN ADULT 0.7 MG/DL (0.2-1.0)
--- NOTE | 2016-07-19 14:12 | PD.CONS ---
Provisional Diagnosis Admission Date July 18, 2016 at 18:55 [facility] I. Schizophrenia, Alzheimer's dementia [facility] II. Deferred [facility] III. CKD [facility] V. History of Present Illness Service Psychiatry Consult Requested By Primary Care Physician No Primary Care Physician HPI The patient is a 75-year-old woman, domiciled alone, single, no kids, with psychiatric history of Alzheimer dementia, schizophrenia, numerous hospitalizations, last hospitalization was here in June 2016 under the care of Dr. Marr, documentation review, no previous suicidal attempts, on and off compliant with psychotropics, medical history of CKD II, who was brought in to the emergency department under [employer] act due to suicidal ideations and inability to care for herself. Per the [employer] act report patient is unable to take her medications on her own, she is not eating due to claims that she doesn' t have anything to eat although there is food in her apartment. She did make a statement that she can't live like this any longer and just wants to . Statements were witnessed by a Cecilio Farrar with [facility]. Patient had a neighbor helping her with her medication administration however her neighbor no longer wants to be responsible for this. Patient currently denies any suicidal ideations. She knows where she is and is oriented to self only. On psychiatric evaluation today patient is calm, cooperative and pleasant. Patient says that she doesn't really remember the reason she is in the hospital , but she says she is happy anyway "because I am alive, and I have another opportunity to breath". Patient reports good mood, denies depressive symptoms, she denies hopelessness, she denies helplessness, denies worthlessness, she denies suicidal and homicidal ideation. She denies visual and auditory hallucinations. Patient says that she hasn't been taking her medications religiously "because I forget sometimes". During this evaluation, no paranoia, no delusions, no tangentiality, agitation or aggressive behavior are present. Patient is oriented in person and place, just partially oriented in time. She knows who was the dental laboratory technician, and she has a nurse who was the previous president too. Patient expressed her motivation to continue medical recommendations. She denies the use of alcohol and drugs.. Review of Systems Constitutional: DENIES: Diaphoretic episodes, Fatigue, Fever, Weight gain, Weight loss, Chills, Dizziness, Change in appetite, Night Sweats Endocrine: DENIES: Abnorml menstrual pattern, Heat/cold intolerance, Polydipsia , Polyuria, Polyphagia Eyes: DENIES: Blurred vision, Diplopia, Eye inflammation, Eye pain, Vision loss , Photosensitivity, Double Vision Ears, nose, mouth, throat: DENIES: Tinnitus, Hearing loss, Vertigo, Nasal discharge, Oral lesions, Throat pain, Hoarseness, Ear Pain, Running Nose, Epistaxis, Sinus Pain, Toothache, Odynophagia Respiratory: DENIES: Apneas, Cough, Snoring, Wheezing, Hemoptysis, Sputum production, Shortness of breath Cardiovascular: DENIES: Chest pain, Palpitations, Syncope, Dyspnea on Exertion , PND, Lower Extremity Edema, Orthopnea, Claudication Gastrointestinal: DENIES: Abdominal pain, Black stools, Bloody stools, Constipation, Diarrhea, Nausea, Vomiting, Difficulty Swallowing, Anorexia Genitourinary: DENIES: Abnormal vaginal bleeding, Dysmenorrhea, Dyspareunia, Sexual dysfunction, Urinary frequency, Urinary incontinence, Urgency, Hematuria , Dysuria, Nocturia, Vaginal discharge Musculoskeletal: DENIES: Joint pain, Muscle aches, Stiffness, Joint Swelling, Back pain, Neck pain Integumentary: DENIES: Abnormal pigmentation, Pruritus, Rash, Nail changes, Breast masses, Breast skin changes, Nipple discharge Hematologic/lymphatic: DENIES: Bruising, Lymphadenopathy Immunologic/allergic: DENIES: Eczema, Urticaria Neurologic: DENIES: Abnormal gait, Headache, Localized weakness, Paresthesias, Seizures, Speech Problems, Tremor, Poor Balance Psychiatric: DENIES: Anxiety, Confusion, Mood changes, Depression, Hallucinations, Agitation, Suicidal Ideation, Homicidal Ideation, Delusions Past Family Social History Coded Allergies: Abilify (Verified Allergy, Severe, 07/18/16) Antivert (Verified Allergy, Severe, 07/18/16) Aspirin (Verified Allergy, Severe, 07/18/16) Flagyl (Verified Allergy, Severe, Diarrhea, 07/18/16) Nonsteroidal Anti-Inflammatory Agts (Verified Allergy, Severe, 07/18/16) Penicillin (Verified Allergy, Severe, REDNESS, SWELLING, 07/18/16) Saccharin (Verified Allergy, Severe, 07/18/16) Sulfa (Verified Allergy, Severe, DISTURBS KIDNEY FUNCTION, 07/18/16) Tetracycline (Verified Allergy, Severe, NAUSEA & VOMITING, 07/18/16) Active Scripts Metoprolol Tartrate 25 Mg Tab25 Mg PO Q12HR #60 TAB Prov:Maneul Marr MD 06/29/16 Trazodone 50 Mg [id number] Mg PO HS #30 TAB Prov:Manuel Marr MD 06/29/16 Sertraline (Zoloft)50 Mg Tab50 Mg PO DAILY #30 TAB Prov:Manuel Marr MD 06/29/16 Risperidone (Risperdal)3 Mg Tab3 Mg PO HS #30 TAB Prov:Manuel Marr MD 06/29/16 Current Medications Medications (Trade) Dose Ordered Sig/Monica Route Start Time Stop Time Status Last Admin (NS Flush) 2 ml UNSCH PRN IVF 07/18/16 12:30 (Lopressor) 25 mg Q12HR PO 07/18/16 21:00 07/19/16 09:30 (risperDAL) 3 mg HS PO 07/18/16 21:00 07/18/16 22:19 (Zoloft) 50 mg DAILY PO 07/19/16 09:00 07/19/16 08:03 (Desyrel) 100 mg HS PO 07/18/16 21:00 07/18/16 21:58 (NS Flush) 2 ml UNSCH PRN IV FLUSH 07/18/16 15:30 (NS Flush) 2 ml BID IV FLUSH 07/18/16 21:00 07/19/16 09:00 (Tylenol) 650 mg Q4H PRN PO 07/18/16 15:30 07/19/16 12:03 (Zofran Inj) 4 mg Q6H PRN IVP 07/18/16 15:30 (Dulcolax Supp) 10 mg DAILY PRN RECTAL 07/18/16 15:30 (Narcan Inj) 0.4 mg UNSCH PRN IV 07/18/16 15:30 (Colace) 100 mg Q12H PO 07/19/16 09:00 07/19/16 08:03 Family History Patient denies psychiatric family history Social History Patient was born and raised in [place], she lives alone in [place], she is single, no kids, she is college graduate, supported by [facility]. Patient's Strengths (min. 2) Verbal communicate Physical Exam Vital Signs Vital Signs Date Time Temp Pulse Resp B/P Pulse Ox O2 Delivery O2 Flow Rate FiO2 07/19/16 12:00 97.7 55 20 149/72 96 07/18/16 17:11 Room Air I/O 07/18/16 07/18/16 07/19/16 08:00 16:00 00:00 Intake Total 240 ml Balance 240 ml Mental Status Examination Appearance Overweight woman, [facility], good hygiene, calm, cooperative and pleasant Speech: Unremarkable Orientation: Person, Place, Time (partially) Memory: Impaired (describe) Thought Process: Logical, Goal Directed, Linear Thought Content: Unremarkable Language Fluent and his aunt and his Fund of Knowledge Impaired due to level of dementia Attention and Concentration: Good Suicidal Ideation: No Previous Suicide Attempts: No Homicidal Ideation: No Previous Homicide Attempts: No Insight: Fair Affect: Euthymic Mood: Appropriate Motor Activity: Normal gait Assessment & Plan Problem List: (1) Dementia of Alzheimer's type with behavioral disturbance Assessment & Plan: At the moment of this evaluation the patient does not present any acute, significant or concerning evidence of objective or subjective symptom of depression, anxiety, or psychosis. Patient denies suicidal and homicidal ideation, she denies visual and auditory hallucinations. No aggressive behavior, no agitation, no paranoia, no delusions are present or reported. Patient is just partially oriented in time, seems to be forgetful , with alleged decreased level of functioning, decreased capacity to take care of herself including noncompliant with medications which seems to be secondary to ongoing progressive neurocognitive dysfunction process. Patient does not meet criteria for psychiatric admission at this moment. Agree with continuing Risperdal 3 mg at bedtime, trazodone 50 mg at bedtime and Zoloft 50 mg. extensive support, motivation psycho education provided. hot blast worker intervention for safe discharge. Krause act will be lifted. ICD Code: G30.8 Assessment & Plan Estimated LOS: days Problem Qualifiers (1) Dementia of Alzheimer's type with behavioral disturbance: Qualified Code: G30.8 - Alzheimer's dementia with behavioral disturbance, unspecified timing of dementia onset Jason Granger MD July 19, 2016 14:12
[2016-07-19 16:00] VITALS: BP 123/63; PULSE 55; RESP 20; TEMP 98.7; O2SAT 95
[2016-07-19 20:00] VITALS: BP 175/77; PULSE 55; RESP 20; TEMP 96.3; O2SAT 95
[2016-07-19] MEDS: risperiDONE 3 MG TAB PO SCH (20:45)
[2016-07-19] MEDS: traZODone HCL 100 MG TAB PO SCH (20:45)
[2016-07-20] VITALS (7 sets, daily range): BP systolic 150–179; BP diastolic 61–80; PULSE 43–60; RESP 18–20; TEMP 96.4–97.4; O2SAT 94–98
[2016-07-20] MEDS: SERTRALINE HCL 50 MG TAB PO SCH (09:01)
[2016-07-20] MEDS: METOPROLOL TARTRATE 25 MG TAB PO SCH ×2 (09:01→22:35)
[2016-07-20] MEDS: DOCUSATE SODIUM 100 MG CAP PO SCH ×2 (09:01→22:35)
[2016-07-20] MEDS: SODIUM CHLORIDE 0.9% FLUSH 10 ML FLUSH IV FLUSH SCH ×2 (09:02→22:35)
--- NOTE | 2016-07-20 11:43 | HHI.PR ---
Subjective Remarks Follow up for failure to thrive. The patient is doing well today. She states that they showered her last night. She reports that she's been eating and having bowel movements. She reports that she's been ambulating. She states that she's been taking her medications. Case management requests transfer to [place] pending placement. Objective Vitals Vital Signs Date Time Temp Pulse Resp B/P Pulse Ox O2 Delivery O2 Flow Rate FiO2 07/20/16 08:00 96.6 60 19 153/69 96 07/20/16 04:00 97.3 54 18 179/73 94 07/20/16 00:00 96.4 45 18 150/76 97 07/19/16 20:00 96.3 55 20 175/77 95 07/19/16 16:00 98.7 55 20 123/63 95 07/19/16 12:00 97.7 55 20 149/72 96 I/O 07/19/16 07/19/16 07/19/16 07/20/16 07/20/16 07/20/16 07:00 15:00 23:00 07:00 15:00 23:00 Intake Total 240 ml 480 ml 360 ml 240 ml Balance 240 ml 480 ml 360 ml 240 ml Intake Oral 240 ml 480 ml 360 ml 240 ml # Voids 2 3 1 1 # Bowel Movements 1 0 Result Diagram: 07/19/16 1307 07/19/16 1307 Objective Remarks GENERAL: Well-developed well-nourished. In no acute distress. Oriented 2. SKIN: Warm and dry. No lesions noted. HEENT: Normocephalic. Pupils equal and round. Mucous membranes pink and moist. CARDIOVASCULAR: Regular rate and rhythm. No murmur appreciated. RESPIRATORY: No accessory muscle use. Clear to auscultation. Breath sounds equal bilaterally. GASTROINTESTINAL: Abdomen soft, non-tender, nondistended. Bowel sounds x4. MUSCULOSKELETAL: No obvious deformities. No clubbing or cyanosis. No edema. NEUROLOGICAL: Awake and alert. No focal neurological deficits. Moves upper and lower extremities spontaneously. Normal speech. PSYCHIATRIC: Pleasantly confused mood and affect; insight and judgment poor. 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 Needs placement. PT evaluated the patient, recommended Alzheimer's unit. Case management consulted for discharge planning. Schizophrenia: Psychiatry recommends continuing home medications. Continue home Zoloft, Risperdal, trazodone. Hypertension: Chronic. Some lower heart rate on metoprolol, decreased dose. BP is labile and not well controlled, start amlodipine. Leukocytosis: WBCs mildly elevated, persistently elevated dating back to February of last year upon EMR reviewed. Afebrile. UA clear. Watch for further signs of infection. Otherwise outpatient hematology follow-up. CKD III: Chronic, stable. Creatinine 1.19, previously 1.38 on 06/26/16. Hyperkalemia: Mild. Potassium improved to 3.7 with oral replacement. Resolved. DVT prophylaxis: SCDs Discharge Planning The patient is medically clear this time. Ultimately will need placement for safety. Discussed with Dr. Mcintosh for transfer to [place]. Erik Galaviz July 20, 2016 11:43
[2016-07-20] MEDS ORDERED: PILL SPLITTER OTHER PRN (12:15)
[2016-07-20] MEDS: amLODIPine BESYLATE 5 MG TAB PO SCH (13:33)
[2016-07-20] MEDS: risperiDONE 1 MG TAB PO SCH (22:35)
[2016-07-20] MEDS: traZODone HCL 100 MG TAB PO SCH (22:35)
[2016-07-21] VITALS: BP 165/89; PULSE 68; RESP 20; TEMP 96.8; O2SAT 96
[2016-07-21 04:00] VITALS: BP 157/83; PULSE 62; RESP 20; TEMP 97; O2SAT 96
[2016-07-21 08:00] VITALS: BP 180/95; PULSE 75; RESP 20; TEMP 98.4; O2SAT 93
[2016-07-21] MEDS: SERTRALINE HCL 50 MG TAB PO SCH (08:33)
[2016-07-21] MEDS: METOPROLOL TARTRATE 25 MG TAB PO SCH ×2 (08:34→20:04)
[2016-07-21] MEDS: SODIUM CHLORIDE 0.9% FLUSH 10 ML FLUSH IV FLUSH SCH ×2 (08:34→20:05)
[2016-07-21] MEDS: DOCUSATE SODIUM 100 MG CAP PO SCH ×2 (08:34→20:04)
[2016-07-21] MEDS: amLODIPine BESYLATE 5 MG TAB PO SCH (08:34)
--- NOTE | 2016-07-21 11:48 | HHI.PR ---
Subjective Remarks Follow-up for Alzheimer's disease, hypertension. Patient states she is "scared to ". When I asked her why she states she did not know she was going be transferred over here. Her blood pressure is noted to be elevated but she denies any headache, visual changes, chest pain, or shortness of breath. Denies abdominal pain, nausea, vomiting, or dysuria. Objective Vitals Vital Signs Date Time Temp Pulse Resp B/P Pulse Ox O2 Delivery O2 Flow Rate FiO2 07/21/16 08:00 98.4 75 20 180/95 93 07/21/16 04:00 97.0 62 20 157/83 96 07/21/16 00:00 96.8 68 20 165/89 96 07/20/16 20:00 97.3 56 20 158/73 96 07/20/16 17:00 97.4 54 18 167/80 96 07/20/16 17:00 18 07/20/16 13:37 48 98 07/20/16 12:00 96.4 43 19 157/61 98 I/O 07/20/16 07/20/16 07/20/16 07/21/16 07/21/16 07/21/16 07:00 15:00 23:00 07:00 15:00 23:00 Intake Total 240 ml 480 ml 220 ml Balance 240 ml 480 ml 220 ml Intake Oral 240 ml 480 ml 220 ml # Voids 1 1 1 # Bowel Movements 0 0 Result Diagram: 07/19/16 1307 07/19/16 1307 Objective Remarks GENERAL: Well-nourished, well-developed patient in no apparent distress sitting in recliner. SKIN: Warm and dry. HEAD: Atraumatic. Normocephalic. CARDIOVASCULAR: Regular rate and rhythm. No murmurs. RESPIRATORY: No accessory muscle use. Clear to auscultation. Breath sounds equal bilaterally. GASTROINTESTINAL: Abdomen soft, non-tender, nondistended. MUSCULOSKELETAL: No lower extremity edema bilaterally. NEUROLOGICAL: Awake and alert. Patient is oriented to self and president and knows she is at the hospital, but she does not know the city, state, month, or year. Motor grossly within normal limits. 4/5 muscle strength in bilateral arms. 4+/5 strength B/L legs. Normal speech. PSYCHIATRIC: Appropriate mood and affect. Urinary Catheter: No Vascular Central Line Catheter: No A/P Assessment and Plan 75-year-old female brought in to the emergency department under [employer] Act due to suicidal ideations and inability to care for herself. 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 -Evaluated by psychiatry, Krause act lifted. -PT evaluated the patient, recommends Alzheimer's unit. Case management following. Schizophrenia: Psychiatry recommends continuing home medications. Continue home Zoloft, Risperdal, trazodone. Hypertension: Chronic. BP is labile and not well controlled. -Had a lower heart rate on metoprolol, so dose was decreased from 25 to 12.5 mg q 12 h. -Amlodipine 5 mg daily started on 07/20. Increase dose as needed if BP fails to improved. -Add Clonidine 0.1 q 6h prn SBP >160, DBP >90 Leukocytosis: Improved. WBC 12.9-->11.2. WBC count persistently elevated dating back to February of 2016. Afebrile. UA clear. -Monitor for further signs of infection. Otherwise outpatient hematology follow -up. CKD Stage 3: Chronic, stable. Creatinine 1.19, previously 1.38 when previously discharged on 06/26/16. -Avoid nephrotoxins. Hyperkalemia: Mild 3.4. Resolved with oral replacement. DVT prophylaxis: SCDs Discharge Planning 07/21: I spoke with pillowcase turner Lucas Galaviz today. Patient is to undergo PASRR and CM requests 3008 form needs to be filled out. 3008 filled out to the best of ability at this time. PT still following patient. Rachelle Ingram July 21, 2016 11:48
[2016-07-21 12:00] VITALS: BP 141/74; PULSE 58; RESP 18; TEMP 95.5; O2SAT 92
[2016-07-21 16:00] VITALS: BP 138/77; PULSE 56; RESP 20; TEMP 98.3; O2SAT 93
[2016-07-21 20:00] VITALS: BP 129/79; PULSE 73; RESP 16; TEMP 96.9; O2SAT 94
[2016-07-21] MEDS: risperiDONE 1 MG TAB PO SCH (20:04)
[2016-07-21] MEDS: traZODone HCL 100 MG TAB PO SCH (20:04)
[2016-07-22] VITALS: BP 140/83; PULSE 65; RESP 16; TEMP 96.8; O2SAT 98
[2016-07-22 04:00] VITALS: BP 165/91; PULSE 84; RESP 16; TEMP 97.5; O2SAT 97
[2016-07-22 08:00] VITALS: BP 158/107; PULSE 83; RESP 21; TEMP 97.3; O2SAT 96
[2016-07-22] MEDS: DOCUSATE SODIUM 100 MG CAP PO SCH ×2 (09:00→20:41)
[2016-07-22] MEDS: SODIUM CHLORIDE 0.9% FLUSH 10 ML FLUSH IV FLUSH SCH ×2 (09:02→20:42)
[2016-07-22] MEDS: amLODIPine BESYLATE 5 MG TAB PO SCH (09:03)
[2016-07-22] MEDS: SERTRALINE HCL 50 MG TAB PO SCH (09:04)
[2016-07-22] MEDS: METOPROLOL TARTRATE 25 MG TAB PO SCH ×2 (09:04→20:41)
[2016-07-22 12:00] VITALS: BP 152/77; PULSE 60; RESP 20; TEMP 97.7; O2SAT 95
--- NOTE | 2016-07-22 12:06 | HHI.PR ---
Subjective Remarks Follow-up for Alzheimer's disease, inability to care for self, hypertension. Patient denies any headache, blurred vision, chest pain, or shortness of breath. Objective Vitals Vital Signs Date Time Temp Pulse Resp B/P Pulse Ox O2 Delivery O2 Flow Rate FiO2 07/22/16 08:00 97.3 83 21 158/107 96 07/22/16 04:00 97.5 84 16 165/91 97 07/22/16 00:00 96.8 65 16 140/83 98 07/21/16 20:00 96.9 73 16 129/79 94 07/21/16 16:00 98.3 56 20 138/77 93 I/O 07/21/16 07/21/16 07/21/16 07/22/16 07/22/16 07/22/16 07:00 15:00 23:00 07:00 15:00 23:00 Intake Total 220 ml 600 ml 240 ml 360 ml Balance 220 ml 600 ml 240 ml 360 ml Intake Oral 220 ml 600 ml 240 ml 360 ml # Voids 1 3 3 2 # Bowel Movements 0 0 1 0 Result Diagram: 07/19/16 1307 07/19/16 1307 Objective Remarks GENERAL: Pleasant well-nourished, well-developed patient in no apparent distress sitting in recliner. CARDIOVASCULAR: Regular rate and rhythm. RESPIRATORY: No accessory muscle use. Clear to auscultation. Breath sounds equal bilaterally. GASTROINTESTINAL: Abdomen soft, non-tender, nondistended. NEUROLOGICAL: Awake and alert. Normal speech. PSYCHIATRIC: Appropriate mood and affect. Urinary Catheter: No Vascular Central Line Catheter: No A/P Assessment and Plan 75-year-old female brought in to the emergency department under [employer] Act due to suicidal ideations and inability to care for herself. 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 -Evaluated by psychiatry, Krause act lifted. -PT evaluated the patient, recommends Alzheimer's unit. Case management following. Schizophrenia: Psychiatry recommends continuing home medications. Continue home Zoloft, Risperdal, trazodone. Hypertension: Chronic. BP is labile and not well controlled. -Had a lower heart rate on metoprolol, so dose was decreased from 25 to 12.5 mg q 12 h. -Amlodipine 5 mg daily started on 5/18. BP transiently improved yesterday afternoon/evening, but again is elevated today even after 0900 medications. Patient has only had three days of treatment and drug has likely not reached steady state effect so will continue to monitor for now. If it fails to improve over the next few days, can increase dose. -Clonidine 0.1 q 6h prn SBP >160, DBP >90 Leukocytosis: Improved. WBC 12.9-->11.2. WBC count persistently elevated dating back to February of 2016. Afebrile. UA clear. -Monitor for further signs of infection. Otherwise outpatient hematology follow -up. CKD Stage 3: Chronic, stable. Creatinine 1.19, previously 1.38 when previously discharged on 06/26/16. -Avoid nephrotoxins. -Periodically monitor BMP. Hyperkalemia: Mild 3.4. Resolved with oral replacement. DVT prophylaxis: SCDs Discharge Planning 07/21: I spoke with welfare case worker Lucas Galaviz today. Patient is to undergo PASRR and CM requests 3008 form needs to be filled out. 3008 filled out to the best of ability at this time. PT still following patient. Rachelle Ingram July 22, 2016 12:06
[2016-07-22 16:00] VITALS: BP 153/84; PULSE 59; RESP 20; TEMP 97.5; O2SAT 96
[2016-07-22] MEDS: risperiDONE 1 MG TAB PO SCH (20:41)
[2016-07-22] MEDS: traZODone HCL 100 MG TAB PO SCH (20:41)
[2016-07-22 20:49] VITALS: BP 151/66; PULSE 72; RESP 16; TEMP 99.2; O2SAT 95
[2016-07-23 08:00] VITALS: BP 155/91; PULSE 72; RESP 19; TEMP 97; O2SAT 98
[2016-07-23] MEDS: DOCUSATE SODIUM 100 MG CAP PO SCH ×2 (08:05→20:56)
[2016-07-23] MEDS: SERTRALINE HCL 50 MG TAB PO SCH (08:05)
[2016-07-23] MEDS: amLODIPine BESYLATE 5 MG TAB PO SCH (08:05)
[2016-07-23] MEDS: cloNIDine HCL 0.1 MG TAB PO PRN (08:05)
[2016-07-23] MEDS: SODIUM CHLORIDE 0.9% FLUSH 10 ML FLUSH IV FLUSH SCH ×2 (08:06→20:56)
[2016-07-23] MEDS: METOPROLOL TARTRATE 25 MG TAB PO SCH ×2 (08:06→20:55)
--- NOTE | 2016-07-23 09:26 | HHI.PR ---
Subjective Remarks Follow-up for Alzheimer's dementia, hypertension. Patient states she is scared. No other complaints. Objective Vitals Vital Signs Date Time Temp Pulse Resp B/P Pulse Ox O2 Delivery O2 Flow Rate FiO2 07/22/16 20:49 99.2 72 16 151/66 95 07/22/16 16:00 97.5 59 20 153/84 96 07/22/16 12:00 97.7 60 20 152/77 95 I/O 07/22/16 07/22/16 07/22/16 07/23/16 07/23/16 07/23/16 06:59 14:59 22:59 06:59 14:59 22:59 Intake Total 240 ml 360 ml 300 ml Balance 240 ml 360 ml 300 ml Intake Oral 240 ml 360 ml 300 ml # Voids 2 4 2 # Bowel Movements 0 Result Diagram: 07/19/16 1307 07/19/16 1307 Objective Remarks GENERAL: Pleasant well-nourished, well-developed patient in no apparent distress sitting in recliner. SKIN: Flaky skin to the forehead. CARDIOVASCULAR: Regular rate and rhythm. RESPIRATORY: No accessory muscle use. Clear to auscultation. Breath sounds equal bilaterally. GASTROINTESTINAL: Abdomen soft, non-tender, nondistended. NEUROLOGICAL: Awake and alert. Normal speech. PSYCHIATRIC: Appropriate mood and affect. Urinary Catheter: No Vascular Central Line Catheter: No A/P Assessment and Plan 75-year-old female brought in to the emergency department under [employer] Act due to suicidal ideations and inability to care for herself. 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 -Evaluated by psychiatry, Krause act lifted. -PT evaluated the patient, recommends Alzheimer's unit. Case management following. Schizophrenia: Psychiatry recommends continuing home medications. Continue home Zoloft, Risperdal, trazodone. Hypertension: Chronic. BP is labile and not well controlled. -Had a lower heart rate on metoprolol, so dose was decreased from 25 to 12.5 mg q 12 h. -Amlodipine 5 mg daily started on 07/20. BP transiently improved on night of 07/21 , but has been persistently elevated since, SBP in the 150s. Today is day 4 of treatment with Amlodipine. If BP fails to improve today will increase dose to 10 mg. -Clonidine 0.1 q 6h prn SBP >160, DBP >90. Patient required dose this morning. Leukocytosis: Improved. WBC 12.9-->11.2. WBC count persistently elevated dating back to February of 2016. Afebrile. UA clear. -Monitor for further signs of infection. Otherwise outpatient hematology follow -up. CKD Stage 3: Chronic, stable. Creatinine 1.19, previously 1.38 when previously discharged on 06/26/16. -Avoid nephrotoxins. -Periodically monitor BMP. Hyperkalemia: Mild 3.4. Resolved with oral replacement. DVT prophylaxis: SCDs Discharge Planning 07/21: I spoke with clinical case manager Lucas Galaviz today. Patient is to undergo PASRR and CM requests 3008 form needs to be filled out. 3008 filled out to the best of ability at this time. PT still following patient. Rachelle Ingram July 23, 2016 09:26
[2016-07-23 12:00] VITALS: BP_SYST 142; BP_SYST 94; BP_DIAS 73; BP_DIAS 78; PULSE 52; PULSE 79; RESP 18; RESP 20; TEMP 97.1; TEMP 97.6; O2SAT 96; O2SAT 97
[2016-07-23 16:00] VITALS: BP 158/84; PULSE 65; RESP 20; TEMP 97.5; O2SAT 96
[2016-07-23 20:00] VITALS: BP 182/95; PULSE 84; RESP 19; TEMP 96.9; O2SAT 95
[2016-07-23] MEDS: risperiDONE 1 MG TAB PO SCH (20:55)
[2016-07-23] MEDS: traZODone HCL 100 MG TAB PO SCH (20:55)
[2016-07-24] VITALS: BP 148/83; PULSE 85; RESP 16; TEMP 98; O2SAT 95
[2016-07-24 04:00] VITALS: BP 163/86; PULSE 85; RESP 16; TEMP 98; O2SAT 98
[2016-07-24 08:00] VITALS: BP 183/106; PULSE 94; RESP 20; TEMP 98; O2SAT 96
[2016-07-24] MEDS: ACETAMINOPHEN 325 MG TAB PO PRN ×2 (09:12→21:05)
[2016-07-24] MEDS: amLODIPine BESYLATE 5 MG TAB PO SCH (09:12)
[2016-07-24] MEDS: DOCUSATE SODIUM 100 MG CAP PO SCH ×2 (09:13→21:05)
[2016-07-24] MEDS: METOPROLOL TARTRATE 25 MG TAB PO SCH ×2 (09:13→21:05)
--- NOTE | 2016-07-24 10:00 | HHI.PR ---
Subjective Remarks Follow-up for Alzheimer's dementia, hypertension. Patient again states she is scared because she did not know she would be here this long. She denies any headache. She is noted to have a rash the face but denies any pruritus. Objective Vitals Vital Signs Date Time Temp Pulse Resp B/P Pulse Ox O2 Delivery O2 Flow Rate FiO2 07/24/16 08:00 98.0 94 20 183/106 96 07/24/16 04:00 98.0 85 16 163/86 98 07/24/16 00:00 98.0 85 16 148/83 95 07/23/16 20:00 96.9 84 19 182/95 95 07/23/16 16:00 97.5 65 20 158/84 96 07/23/16 12:00 97.6 52 18 142/78 96 I/O 07/23/16 07/23/16 07/23/16 07/24/16 07/24/16 07/24/16 06:59 14:59 22:59 06:59 14:59 22:59 Intake Total 600 ml Balance 600 ml Intake Oral 600 ml # Voids 2 3 3 # Bowel Movements 0 Objective Remarks GENERAL: Pleasant well-nourished, well-developed patient in no apparent distress sleeping when I enter the room. SKIN: Light erythema to the face with flaking skin. CARDIOVASCULAR: Regular rate and rhythm. RESPIRATORY: No accessory muscle use. Clear to auscultation. Breath sounds equal bilaterally. GASTROINTESTINAL: Abdomen soft, non-tender, nondistended. NEUROLOGICAL: Awake and alert. Normal speech. PSYCHIATRIC: Appropriate mood and affect. Urinary Catheter: No Vascular Central Line Catheter: No A/P Assessment and Plan 75-year-old female brought in to the emergency department under [employer] Act due to suicidal ideations and inability to care for herself. 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 -Evaluated by psychiatry, Krause act lifted. -PT evaluated the patient, recommends Alzheimer's unit. Case management following. Schizophrenia: Psychiatry recommends continuing home medications. Continue home Zoloft, Risperdal, trazodone. Hypertension: Worse. -Had a lower heart rate on metoprolol, so dose was decreased from 25 to 12.5 mg q 12 h. -Amlodipine 5 mg daily started on 07/20. -07/24: BP has failed to improve and has actually worsened requiring prn Clonidine. Will increase Amlodipine dose to 10 mg daily starting this morning. -Clonidine 0.1 q 6h prn SBP >160, DBP >90. Leukocytosis: Improved. WBC 12.9-->11.2. WBC count persistently elevated dating back to February of 2016. Afebrile. UA clear. -Monitor for further signs of infection. Otherwise outpatient hematology follow -up. CKD Stage 3: Chronic, stable. Creatinine 1.19, previously 1.38 when previously discharged on 06/26/16. -Avoid nephrotoxins. -Periodically monitor BMP. Hyperkalemia: Mild 3.4. Resolved with oral replacement. Seborrheic dermatitis: Mild over face. Will order hydrocortisone 1% lotion. DVT prophylaxis: SCDs Discharge Planning 07/21: I spoke with oil field caser Lucas Galaviz today. Patient is to undergo PAS[facility] and CM requests 3008 form needs to be filled out. 3008 filled out to the best of ability at this time. PT still following patient. Rachelle Ingram July 24, 2016 10:00
[2016-07-24 12:00] VITALS: BP 145/89; PULSE 51; RESP 20; TEMP 98.6; O2SAT 96
[2016-07-24] MEDS: SODIUM CHLORIDE 0.9% FLUSH 10 ML FLUSH IV FLUSH SCH ×2 (13:22→21:00)
[2016-07-24] MEDS: SERTRALINE HCL 50 MG TAB PO SCH (13:22)
[2016-07-24 16:00] VITALS: BP 152/96; PULSE 58; RESP 20; TEMP 96.9; O2SAT 95
[2016-07-24 20:00] VITALS: BP 159/78; PULSE 56; RESP 21; TEMP 99; O2SAT 95
[2016-07-24] MEDS: HYDROCORTISONE 1% LOTN 120 ML BTL TOPICAL SCH (21:00)
[2016-07-24] MEDS: risperiDONE 1 MG TAB PO SCH (21:04)
[2016-07-24] MEDS: traZODone HCL 100 MG TAB PO SCH (21:05)
[2016-07-25] VITALS: BP 152/77; PULSE 58; RESP 19; TEMP 98; O2SAT 96
[2016-07-25 04:00] VITALS: BP 175/101; PULSE 64; RESP 19; TEMP 96.1; O2SAT 97
[2016-07-25] MEDS: cloNIDine HCL 0.1 MG TAB PO PRN (04:43)
[2016-07-25 08:00] VITALS: BP 179/83; PULSE 64; RESP 21; TEMP 97.9; O2SAT 94
[2016-07-25] MEDS: HYDROCORTISONE 1% LOTN 120 ML BTL TOPICAL SCH (09:00)
[2016-07-25] MEDS: METOPROLOL TARTRATE 25 MG TAB PO SCH ×2 (09:00→20:24)
[2016-07-25] MEDS: DOCUSATE SODIUM 100 MG CAP PO SCH ×2 (10:01→20:23)
[2016-07-25] MEDS: SERTRALINE HCL 50 MG TAB PO SCH (10:01)
[2016-07-25] MEDS: amLODIPine BESYLATE 5 MG TAB PO SCH (10:02)
--- NOTE | 2016-07-25 10:40 | HHI.PR ---
Subjective Remarks Patient seen and examined today in follow-up on dementia. Patient appears to be doing quite well. She is in good spirits. She does want to go home. Awaiting case management for placement Objective Vitals Vital Signs Date Time Temp Pulse Resp B/P Pulse Ox O2 Delivery O2 Flow Rate FiO2 07/25/16 08:00 97.9 64 21 179/83 94 07/25/16 04:00 96.1 64 19 175/101 97 07/25/16 00:00 98.0 58 19 152/77 96 07/24/16 20:00 99.0 56 21 159/78 95 07/24/16 16:00 96.9 58 20 152/96 95 07/24/16 12:00 98.6 51 20 145/89 96 I/O 07/24/16 07/24/16 07/24/16 07/25/16 07/25/16 07/25/16 07:00 15:00 23:00 07:00 15:00 23:00 Intake Total 890 ml 250 ml Balance 890 ml 250 ml Intake Oral 890 ml 250 ml # Voids 2 2 # Bowel Movements 1 Imaging GENERAL: Well-developed, well-nourished, in no acute distress. alert and orientated HEENT: Head is normocephalic without any lesions or masses noted. Facial features are symmetric. Eyes: Extraocular muscles are intact. Conjunctivae were clear. NECK: Supple without any masses. Trachea midline no deviation. No JVD, CARDIAC: Regular rhythm, regular rate. S1/S2 are heard. No murmurs gallops or rubs. LUNGS: Clear to auscultation bilaterally. No wheeze, rhonchi or rales. No use of accessory muscles on inspiration or expiration. ABDOMEN: Soft, nontender. Nondistended. Bowel sounds heard in all 4 quadrants. No organomegaly or masses. Negative rebound, negative guarding EXTREMITIES: No edema, pulses are equal bilaterally. No cyanosis or clubbing NEUROLOGY: Mood and affect appear appropriate. Cranial nerves II through XII grossly intact. Moving all extremities, speech clear Urinary Catheter: No Vascular Central Line Catheter: No A/P Assessment and Plan 75-year-old female brought in to the emergency department under [employer] Act due to suicidal ideations and inability to care for herself. 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 -Evaluated by psychiatry, Krause act lifted. -PT evaluated the patient, recommends Alzheimer's unit. -Case management for discharge planning. Schizophrenia: -Psychiatry recommends continuing home medications. -Continue home Zoloft, Risperdal, trazodone. Hypertension: -Metoprolol 12.5 mg every 12 hours. Metoprolol was decreased due to bradycardia -Amlodipine 10 mg daily -Start lisinopril 10 mg daily -Clonidine 0.1 mg every 8 hours as needed Leukocytosis: Improved. -Workup was done and did not show any signs of infection, Monitor for further signs of infection. Chronic kidney disease stage III: stable. -Avoid nephrotoxins. -Periodically monitor BMP. Hyperkalemia: Continue monitoring place as needed Seborrheic dermatitis: Improved Discontinue hydrocortisone 1% lotion. DVT prophylaxis: SCDs Discharge Planning Awaiting case management for discharge planning Neal Molina July 25, 2016 10:40
[2016-07-25] MEDS: LISINOPRIL 10 MG TAB PO SCH (15:00)
[2016-07-25 20:00] VITALS: BP 133/75; PULSE 56; RESP 20; TEMP 96.4; O2SAT 97
[2016-07-25] MEDS: traZODone HCL 100 MG TAB PO SCH (20:23)
[2016-07-25] MEDS: risperiDONE 1 MG TAB PO SCH (20:23)
[2016-07-26] VITALS: BP 136/80; PULSE 52; RESP 20; TEMP 95.9; O2SAT 96
[2016-07-26 04:00] VITALS: BP 116/57; PULSE 50; RESP 18; TEMP 96.4; O2SAT 94
[2016-07-26 08:21] LABS: AUTOMATED NEUTROPHIL # 6.8 TH/MM3 (1.8-7.7); BASOPHIL # 0.1 TH/MM3 (0-0.2); BASOPHIL % 0.8 % (0.0-2.0); EOSINOPHIL # 0.5 TH/MM3 (0-0.4); EOSINOPHIL % 5.3 % (0.0-4.0); HEMATOCRIT 40.4 % (35.0-46.0); HEMO FLAGS DIFF FINAL; LYMPH % 16.6 % (9.0-44.0); LYMPHOCYTE # 1.6 TH/MM3 (1.0-4.8); MEAN CORPUSCULAR HEMOGLOBIN 29.8 PG (27.0-34.0); MEAN CORPUSCULAR HGB CONC 33.5 % (32.0-36.0); MONO % 8.1 % (0.0-8.0); NEUT % 69.2 % (16.0-70.0); PLATELET COUNT 212 TH/MM3 (150-450); RED BLOOD COUNT 4.54 MIL/MM3 (4.00-5.30); RED CELL DISTRIBUTION WIDTH 13.2 % (11.6-17.2); WHITE BLOOD COUNT 9.8 TH/MM3 (4.0-11.0)
[2016-07-26 08:31] LABS: POTASSIUM 3.9 MEQ/L (3.5-5.1)
[2016-07-26 08:34] LABS: BICARBONATE 30.9 MEQ/L (21.0-32.0); MAGNESIUM 2.3 MG/DL (1.5-2.5)
[2016-07-26 08:52] VITALS: BP 117/69; PULSE 60; RESP 18; TEMP 97.7; O2SAT 97
[2016-07-26] MEDS: SERTRALINE HCL 50 MG TAB PO SCH (09:00)
--- NOTE | 2016-07-26 09:21 | HHI.PR ---
Subjective Remarks Patient seen and examined today for follow-up on dementia. Patient denies any new complaints. States that she is doing well. Awaiting case management for discharge planning. Patient is walking 300 feet with front wheel walker and 50 feet unaided. Objective Vitals Vital Signs Date Time Temp Pulse Resp B/P Pulse Ox O2 Delivery O2 Flow Rate FiO2 07/26/16 08:52 97.7 60 18 117/69 97 07/26/16 04:00 96.4 50 18 116/57 94 07/26/16 00:00 95.9 52 20 136/80 96 07/25/16 20:00 96.4 56 20 133/75 97 I/O 07/25/16 07/25/16 07/25/16 07/26/16 07/26/16 07/26/16 07:00 15:00 23:00 07:00 15:00 23:00 Intake Total 250 ml 930 ml 480 ml 240 ml Balance 250 ml 930 ml 480 ml 240 ml Intake Oral 250 ml 930 ml 480 ml 240 ml # Voids 2 3 2 1 # Bowel Movements 1 0 0 Result Diagram: 07/26/1635 07/26/16 0735 Objective Remarks GENERAL: Well-developed, well-nourished, in no acute distress. alert HEENT: Head is normocephalic without any lesions or masses noted. Facial features are symmetric. Extraocular muscles are intact. Conjunctivae were clear. NECK: Supple without any masses. Trachea midline no deviation. No JVD, CARDIAC: Regular rhythm, regular rate. S1/S2 are heard. No murmurs gallops or rubs. LUNGS: Clear to auscultation bilaterally. No wheeze, rhonchi or rales. No use of accessory muscles on inspiration or expiration. ABDOMEN: Soft, nontender. Nondistended. Bowel sounds heard in all 4 quadrants. No organomegaly or masses. Negative rebound, negative guarding EXTREMITIES: No edema, pulses are equal bilaterally. No cyanosis or clubbing NEUROLOGY: Mood and affect appear appropriate. Cranial nerves II through XII grossly intact. Moving all extremities, speech is clear Urinary Catheter: No Vascular Central Line Catheter: No A/P Assessment and Plan 75-year-old female brought in to the emergency department under [employer] Act due to suicidal ideations and inability to care for herself. 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 -Evaluated by psychiatry, Krause act lifted. -PT evaluated the patient, recommends Alzheimer's unit. -Case management for discharge planning. Schizophrenia: -Psychiatry recommends continuing home medications. -Continued home Zoloft, Risperdal, trazodone. Hypertension: -Discontinue Metoprolol 12.5 mg every 12 hour due to bradycardia -Amlodipine 10 mg daily -Lisinopril 10 mg daily -Clonidine 0.1 mg every 8 hours as needed Leukocytosis: Improved. -Workup was done and did not show any signs of infection, Monitor for further signs of infection. Chronic kidney disease stage III: stable. -Avoid nephrotoxins. -Periodically monitor BMP. Hyperkalemia: Continue monitoring place as needed Seborrheic dermatitis: Improved Discontinued hydrocortisone 1% lotion. DVT prophylaxis: SCDs Discharge Planning Awaiting case management for discharge planning Neal Molina July 26, 2016 09:21
[2016-07-26] MEDS: LISINOPRIL 10 MG TAB PO SCH (09:27)
[2016-07-26] MEDS: DOCUSATE SODIUM 100 MG CAP PO SCH ×2 (09:27→20:58)
[2016-07-26] MEDS: amLODIPine BESYLATE 5 MG TAB PO SCH (09:28)
[2016-07-26 12:33] VITALS: BP 142/69; PULSE 78; RESP 18; TEMP 98.4; O2SAT 92
[2016-07-26 16:07] VITALS: BP 145/72; PULSE 79; RESP 18; TEMP 96.4; O2SAT 92
[2016-07-26 20:00] VITALS: BP 151/90; PULSE 79; RESP 20; RESP 22; TEMP 98.4; O2SAT 95
[2016-07-26] MEDS: traZODone HCL 100 MG TAB PO SCH (20:58)
[2016-07-26] MEDS: risperiDONE 1 MG TAB PO SCH (20:58)
[2016-07-27] VITALS: BP 127/67; PULSE 61; RESP 20; TEMP 95.6; O2SAT 95
[2016-07-27 04:00] VITALS: BP 140/70; PULSE 73; RESP 18; TEMP 97.7; O2SAT 96
[2016-07-27 08:30] VITALS: BP 162/81; PULSE 83; RESP 18; TEMP 98.4; O2SAT 93
[2016-07-27] MEDS: amLODIPine BESYLATE 5 MG TAB PO SCH (09:25)
[2016-07-27] MEDS: SERTRALINE HCL 50 MG TAB PO SCH (09:25)
[2016-07-27] MEDS: DOCUSATE SODIUM 100 MG CAP PO SCH ×2 (09:25→20:48)
[2016-07-27] MEDS: LISINOPRIL 10 MG TAB PO SCH ×2 (09:25→20:48)
--- NOTE | 2016-07-27 11:27 | HHI.PR ---
Subjective Remarks Patient seen and examined today in follow-up on dementia. Patient denies any new complaints. Patient continues to do well. Making case management for discharge planning to Alzheimer's [facility] Objective Vitals Vital Signs Date Time Temp Pulse Resp B/P Pulse Ox O2 Delivery O2 Flow Rate FiO2 07/27/16 04:00 97.7 73 18 140/70 96 07/27/16 00:00 95.6 61 20 127/67 95 07/27/16 00:00 95.6 61 20 127/67 95 07/26/16 20:00 98.4 79 20 151/90 95 07/26/16 20:00 98.4 79 22 151/90 95 07/26/16 16:07 96.4 79 18 145/72 92 07/26/16 12:33 98.4 78 18 142/69 92 I/O 07/26/16 07/26/16 07/26/16 07/27/16 07/27/16 07/27/16 06:59 14:59 22:59 06:59 14:59 22:59 Intake Total 240 ml 820 ml 480 ml Balance 240 ml 820 ml 480 ml Intake Oral 240 ml 820 ml 480 ml # Voids 1 4 4 # Bowel Movements 0 1 0 Result Diagram: 07/26/1635 07/26/16 0735 Objective Remarks GENERAL: Well-developed, well-nourished, in no acute distress. alert HEENT: Head is normocephalic without any lesions or masses noted. Facial features are symmetric. Extraocular muscles are intact. Conjunctivae were clear. NECK: Supple without any masses. Trachea midline no deviation. No JVD, CARDIAC: Regular rhythm, regular rate. S1/S2 are heard. No murmurs gallops or rubs. LUNGS: Clear to auscultation bilaterally. No wheeze, rhonchi or rales. No use of accessory muscles on inspiration or expiration. ABDOMEN: Soft, nontender. Nondistended. Bowel sounds heard in all 4 quadrants. No organomegaly or masses. Negative rebound, negative guarding EXTREMITIES: No edema, pulses are equal bilaterally. No cyanosis or clubbing NEUROLOGY: Mood and affect appear appropriate. Cranial nerves II through XII grossly intact. Moving all extremities, speech is clear Urinary Catheter: No Vascular Central Line Catheter: No A/P Assessment and Plan 75-year-old female brought in to the emergency department under [employer] Act due to suicidal ideations and inability to care for herself. 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 -Evaluated by psychiatry, Krause act lifted. -PT evaluated the patient, recommends Alzheimer's unit. -Case management for discharge planning. Schizophrenia: -Psychiatry recommends continuing home medications. -Continued home Zoloft, Risperdal, trazodone. Hypertension: -Amlodipine 10 mg daily, -Lisinopril 10 mg daily, increase to twice daily -Clonidine 0.1 mg every 8 hours as needed Leukocytosis: Improved. -Workup was done and did not show any signs of infection, Monitor for further signs of infection. Chronic kidney disease stage III: stable. -Avoid nephrotoxins. -Periodically monitor BMP. Hyperkalemia: Continue monitoring place as needed Seborrheic dermatitis: Improved Discontinued hydrocortisone 1% lotion. DVT prophylaxis: SCDs Discharge Planning Awaiting case management for discharge planning Neal Molina July 27, 2016 11:27
[2016-07-27 20:00] VITALS: BP 151/77; PULSE 80; RESP 22; TEMP 96.9; O2SAT 97
[2016-07-27] MEDS: risperiDONE 1 MG TAB PO SCH (20:48)
[2016-07-27] MEDS: traZODone HCL 100 MG TAB PO SCH (20:48)
[2016-07-28 08:00] VITALS: BP 175/85; PULSE 78; RESP 18; TEMP 97.6; O2SAT 96
[2016-07-28] MEDS: SERTRALINE HCL 50 MG TAB PO SCH (09:00)
[2016-07-28] MEDS: DOCUSATE SODIUM 100 MG CAP PO SCH ×2 (09:52→20:53)
[2016-07-28] MEDS: LISINOPRIL 10 MG TAB PO SCH (09:52)
[2016-07-28] MEDS: amLODIPine BESYLATE 5 MG TAB PO SCH (09:53)
--- NOTE | 2016-07-28 11:10 | HHI.PR ---
Subjective Remarks Patient seen and examined today for follow-up on dementia. Patient denies any new complaints. She is sitting and breakfast. No change in clinical status Objective Vitals Vital Signs Date Time Temp Pulse Resp B/P Pulse Ox O2 Delivery O2 Flow Rate FiO2 07/28/16 08:00 97.6 78 18 175/85 96 07/27/16 20:00 96.9 80 22 151/77 97 I/O 07/27/16 07/27/16 07/27/16 07/28/16 07/28/16 07/28/16 07:00 15:00 23:00 07:00 15:00 23:00 Intake Total 480 ml 800 ml 240 ml Balance 480 ml 800 ml 240 ml Intake Oral 480 ml 800 ml 240 ml # Voids 4 6 2 # Bowel Movements 0 1 Result Diagram: 07/26/1635 07/26/16734 Objective Remarks GENERAL: Well-developed, well-nourished, in no acute distress. alert HEENT: Head is normocephalic without any lesions or masses noted. Facial features are symmetric. Extraocular muscles are intact. Conjunctivae were clear. NECK: Supple without any masses. Trachea midline no deviation. No JVD, CARDIAC: Regular rhythm, regular rate. S1/S2 are heard. No murmurs gallops or rubs. LUNGS: Clear to auscultation bilaterally. No wheeze, rhonchi or rales. No use of accessory muscles on inspiration or expiration. ABDOMEN: Soft, nontender. Nondistended. Bowel sounds heard in all 4 quadrants. No organomegaly or masses. Negative rebound, negative guarding EXTREMITIES: No edema, pulses are equal bilaterally. No cyanosis or clubbing NEUROLOGY: Mood and affect appear appropriate. Cranial nerves II through XII grossly intact. Moving all extremities, speech is clear Urinary Catheter: No Vascular Central Line Catheter: No A/P Assessment and Plan 75-year-old female brought in to the emergency department under [employer] Act due to suicidal ideations and inability to care for herself. 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 -Evaluated by psychiatry, Krause act lifted. -PT evaluated the patient, recommends Alzheimer's unit. -Case management for discharge planning. Schizophrenia: -Psychiatry recommends continuing home medications. -Continued home Zoloft, Risperdal, trazodone. Hypertension: -Amlodipine 10 mg daily, -Lisinopril 20 mg twice daily -Clonidine 0.1 mg every 8 hours as needed Leukocytosis: Improved. -Workup was done and did not show any signs of infection, Monitor for further signs of infection. Chronic kidney disease stage III: stable. -Avoid nephrotoxins. -Periodically monitor BMP. Hyperkalemia: Continue monitoring place as needed Seborrheic dermatitis: Improved Discontinued hydrocortisone 1% lotion. DVT prophylaxis: SCDs Discharge Planning Awaiting case management for discharge planning Neal Molina July 28, 2016 11:10 Flex Weston DO July 28, 2016 13:31
[2016-07-28 20:00] VITALS: BP 103/87; PULSE 79; RESP 20; TEMP 98.6; O2SAT 97
[2016-07-28] MEDS: risperiDONE 1 MG TAB PO SCH (20:53)
[2016-07-28] MEDS: LISINOPRIL 20 MG TAB PO SCH (20:53)
[2016-07-28] MEDS: traZODone HCL 100 MG TAB PO SCH (20:53)
[2016-07-29 08:00] VITALS: BP 132/81; PULSE 76; RESP 17; TEMP 98.1; O2SAT 95
--- NOTE | 2016-07-29 09:22 | HHI.PR ---
Subjective Remarks Patient seen and examined today for follow-up on dementia. Patient denies any new complaints. She is laying in bed asking for her breakfast. Objective Vitals Vital Signs Date Time Temp Pulse Resp B/P Pulse Ox O2 Delivery O2 Flow Rate FiO2 07/29/16 08:00 98.1 76 17 132/81 95 07/28/16 20:00 98.6 79 20 103/87 97 I/O 07/28/16 07/28/16 07/28/16 07/29/16 07/29/16 07/29/16 07:00 15:00 23:00 07:00 15:00 23:00 Intake Total 240 ml 1460 ml 240 ml 240 ml Balance 240 ml 1460 ml 240 ml 240 ml Intake Oral 240 ml 1460 ml 240 ml 240 ml # Voids 2 3 3 2 # Bowel Movements 1 Result Diagram: 07/26/1635 07/26/1635 Objective Remarks GENERAL: Well-developed, well-nourished, in no acute distress. alert HEENT: Head is normocephalic without any lesions or masses noted. Facial features are symmetric. Extraocular muscles are intact. Conjunctivae were clear. NECK: Supple without any masses. Trachea midline no deviation. No JVD, CARDIAC: Regular rhythm, regular rate. S1/S2 are heard. No murmurs gallops or rubs. LUNGS: Clear to auscultation bilaterally. No wheeze, rhonchi or rales. No use of accessory muscles on inspiration or expiration. ABDOMEN: Soft, nontender. Nondistended. Bowel sounds heard in all 4 quadrants. No organomegaly or masses. Negative rebound, negative guarding EXTREMITIES: No edema, pulses are equal bilaterally. No cyanosis or clubbing NEUROLOGY: Mood and affect appear appropriate. Cranial nerves II through XII grossly intact. Moving all extremities, speech is clear Urinary Catheter: No Vascular Central Line Catheter: No A/P Assessment and Plan 75-year-old female brought in to the emergency department under [employer] Act due to suicidal ideations and inability to care for herself. 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 -Evaluated by psychiatry, Krause act lifted. -PT evaluated the patient, recommends Alzheimer's unit. -Case management for discharge planning. Schizophrenia: Treated -Psychiatry recommends continuing home medications. -Continued home Zoloft, Risperdal, trazodone. Hypertension: Stable -Amlodipine 10 mg daily, -Lisinopril 20 mg twice daily -Clonidine 0.1 mg every 8 hours as needed Leukocytosis: Resolved. -Workup was done and did not show any signs of infection, Monitor for further signs of infection. Chronic kidney disease stage III: stable. -Avoid nephrotoxins. -Periodically monitor BMP. Hyperkalemia: Resolved Continue monitoring place as needed Seborrheic dermatitis: Resolved Discontinued hydrocortisone 1% lotion. DVT prophylaxis: SCDs Discharge Planning Awaiting case management for discharge planning Neal Molina July 29, 2016 09:22
[2016-07-29] MEDS: LISINOPRIL 20 MG TAB PO SCH ×2 (10:06→20:41)
[2016-07-29] MEDS: amLODIPine BESYLATE 5 MG TAB PO SCH (10:06)
[2016-07-29] MEDS: DOCUSATE SODIUM 100 MG CAP PO SCH ×2 (10:07→20:41)
[2016-07-29] MEDS: SERTRALINE HCL 50 MG TAB PO SCH (10:12)
[2016-07-29 20:00] VITALS: BP 151/85; PULSE 68; RESP 21; TEMP 96.7; O2SAT 95
[2016-07-29] MEDS: risperiDONE 1 MG TAB PO SCH (20:41)
[2016-07-29] MEDS: traZODone HCL 100 MG TAB PO SCH (20:41)
[2016-07-29] MEDS: ACETAMINOPHEN 325 MG TAB PO PRN (20:42)
[2016-07-29] MEDS: cloNIDine HCL 0.1 MG TAB PO PRN (20:54)
[2016-07-30 08:44] VITALS: BP 138/79; PULSE 71; RESP 18; TEMP 97.6; O2SAT 96
[2016-07-30] MEDS: SERTRALINE HCL 50 MG TAB PO SCH (09:00)
[2016-07-30] MEDS: DOCUSATE SODIUM 100 MG CAP PO SCH ×2 (09:36→20:30)
[2016-07-30] MEDS: amLODIPine BESYLATE 5 MG TAB PO SCH (09:37)
[2016-07-30] MEDS: LISINOPRIL 20 MG TAB PO SCH ×2 (09:37→20:30)
[2016-07-30] MEDS: ACETAMINOPHEN 325 MG TAB PO PRN (12:27)
--- NOTE | 2016-07-30 12:50 | HHI.PR ---
Subjective Remarks Patient seen today for follow-up on dementia. Patient was sleeping upon entering the room. Nursing staff not indicate any new complaints or any new concerns Objective Vitals Vital Signs Date Time Temp Pulse Resp B/P Pulse Ox O2 Delivery O2 Flow Rate FiO2 07/30/16 08:44 97.6 71 18 138/79 96 07/29/16 21:42 16 07/29/16 20:00 96.7 68 21 151/85 95 I/O 07/29/16 07/29/16 07/29/16 07/30/16 07/30/16 07/30/16 07:00 15:00 23:00 07:00 15:00 23:00 Intake Total 240 ml 760 ml 240 ml Balance 240 ml 760 ml 240 ml Intake Oral 240 ml 760 ml 240 ml # Voids 2 1 2 # Bowel Movements 0 0 Result Diagram: 07/26/1635 07/26/1635 Objective Remarks GENERAL: Well-developed, well-nourished, in no acute distress. Patient sleeping Urinary Catheter: No Vascular Central Line Catheter: No A/P Assessment and Plan 75-year-old female brought in to the emergency department under [employer] Act due to suicidal ideations and inability to care for herself. 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 -Evaluated by psychiatry, Krause act lifted. -PT evaluated the patient, recommends Alzheimer's unit. -Case management for discharge planning. Schizophrenia: Treated -Psychiatry recommends continuing home medications. -Continued home Zoloft, Risperdal, trazodone. Hypertension: Stable -Amlodipine 10 mg daily, -Lisinopril 20 mg twice daily -Clonidine 0.1 mg every 8 hours as needed Leukocytosis: Resolved. -Workup was done and did not show any signs of infection, Monitor for further signs of infection. Chronic kidney disease stage III: stable. -Avoid nephrotoxins. -Periodically monitor BMP. Hyperkalemia: Resolved Continue monitoring place as needed Seborrheic dermatitis: Resolved Discontinued hydrocortisone 1% lotion. DVT prophylaxis: SCDs Discharge Planning Awaiting case management for discharge planning Neal Molina July 30, 2016 12:50
[2016-07-30 20:00] VITALS: BP 170/61; PULSE 80; RESP 24; TEMP 97.4; O2SAT 95
[2016-07-30] MEDS: traZODone HCL 100 MG TAB PO SCH (20:29)
[2016-07-30] MEDS: cloNIDine HCL 0.1 MG TAB PO PRN (20:29)
[2016-07-30] MEDS: risperiDONE 1 MG TAB PO SCH (20:29)
[2016-07-31] MEDS: ACETAMINOPHEN 325 MG TAB PO PRN ×2 (05:25→09:02)
[2016-07-31 08:00] VITALS: BP 120/77; PULSE 66; RESP 18; TEMP 97.7; O2SAT 97
[2016-07-31] MEDS: SERTRALINE HCL 50 MG TAB PO SCH (09:02)
[2016-07-31] MEDS: LISINOPRIL 20 MG TAB PO SCH ×2 (09:02→21:13)
[2016-07-31] MEDS: amLODIPine BESYLATE 5 MG TAB PO SCH (09:02)
[2016-07-31] MEDS: DOCUSATE SODIUM 100 MG CAP PO SCH ×2 (09:02→21:13)
--- NOTE | 2016-07-31 10:01 | HHI.PR ---
Subjective Remarks Patient seen and examined today for follow-up on dementia. Patient denies any new complaints. Nursing staff indicates that the patient is sitting on a daily basis that she does not want to live anymore. Objective Vitals Vital Signs Date Time Temp Pulse Resp B/P Pulse Ox O2 Delivery O2 Flow Rate FiO2 07/31/16 08:00 97.7 66 18 120/77 97 07/31/16 06:25 16 07/30/16 20:00 97.4 80 24 170/61 95 I/O 07/30/16 07/30/16 07/30/16 07/31/16 07/31/16 07/31/16 07:00 15:00 23:00 07:00 15:00 23:00 Intake Total 240 ml 1040 ml 480 ml Balance 240 ml 1040 ml 480 ml Intake Oral 240 ml 1040 ml 480 ml # Voids 2 5 2 # Bowel Movements 0 1 0 Objective Remarks GENERAL: Well-developed, well-nourished, in no acute distress. Patient sleeping HEENT: Head is normocephalic without any lesions or masses noted. Facial features are symmetric. Extraocular muscles are intact. Conjunctivae were clear. NECK: Supple without any masses. Trachea midline no deviation. No JVD, CARDIAC: Regular rhythm, regular rate. S1/S2 are heard. No murmurs gallops or rubs. LUNGS: Clear to auscultation bilaterally. No wheeze, rhonchi or rales. No use of accessory muscles on inspiration or expiration. ABDOMEN: Soft, nontender. Nondistended. Bowel sounds heard in all 4 quadrants. No organomegaly or masses. Negative rebound, negative guarding EXTREMITIES: No edema, pulses are equal bilaterally. No cyanosis or clubbing NEUROLOGY: Mood and affect appear appropriate. Cranial nerves II through XII grossly intact. Moving all extremities, speech is clear Urinary Catheter: No Vascular Central Line Catheter: No A/P Assessment and Plan 75-year-old female brought in to the emergency department under [employer] Act due to suicidal ideations and inability to care for herself. 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 -Evaluated by psychiatry, Krause act lifted. -PT evaluated the patient, recommends Alzheimer's unit. -Case management for discharge planning. -Reconsult psychiatry for evaluation of her thoughts of not wanting to live Schizophrenia: Treated -Psychiatry recommends continuing home medications. -Continued home Zoloft, Risperdal, trazodone. Hypertension: -Amlodipine 10 mg daily, -Lisinopril 20 mg twice daily -Clonidine 0.1 mg every 8 hours as needed Leukocytosis: Resolved. -Workup was done and did not show any signs of infection, Monitor for further signs of infection. Chronic kidney disease stage III: stable. -Avoid nephrotoxins. -Periodically monitor BMP. Hyperkalemia: Resolved Continue monitoring place as needed Seborrheic dermatitis: Resolved Discontinued hydrocortisone 1% lotion. DVT prophylaxis: SCDs Discharge Planning Awaiting case management for discharge planning Neal Molina July 31, 2016 10:01
[2016-07-31 20:00] VITALS: BP 129/61; PULSE 67; RESP 19; TEMP 97; O2SAT 97
[2016-07-31] MEDS: risperiDONE 1 MG TAB PO SCH (21:13)
[2016-07-31] MEDS: traZODone HCL 100 MG TAB PO SCH (21:13)
[2016-08-01 08:00] VITALS: BP 174/90; PULSE 80; RESP 16; TEMP 96.2; O2SAT 95
[2016-08-01] MEDS: LISINOPRIL 20 MG TAB PO SCH (08:07)
[2016-08-01] MEDS: amLODIPine BESYLATE 5 MG TAB PO SCH (08:07)
[2016-08-01] MEDS: SERTRALINE HCL 50 MG TAB PO SCH (08:08)
[2016-08-01] MEDS: DOCUSATE SODIUM 100 MG CAP PO SCH (08:08)
--- NOTE | 2016-08-01 11:18 | HHI.PYPN ---
Subjective Remarks Patient seen for psychiatric evaluation in [place], she is found sleeping in her bed, easily arousable, reports depressed mood, she says that she has been feeling very lonely, low level of energy, and having frequent suicidal thoughts. Patient says that she wants to , but she doesn't endorse any further plan. Patient also seems to be paranoid with nurses, estate in the nurses are hiding her breakfast and her food "maybe they're poisoning it", she denies visual and auditory hallucinations. Patient is partially oriented, she says that we are in 1999, somewhere in September, but she knows that wearing [place] , and she knows that the rn case manager hospice is Donavon Trnavin. Review of Systems Constitutional: DENIES: Diaphoretic episodes, Fatigue, Fever, Weight gain, Weight loss, Chills, Dizziness, Change in appetite, Night Sweats Eyes: DENIES: Blurred vision, Diplopia, Eye inflammation, Eye pain, Vision loss , Photosensitivity, Double Vision Ears, nose, mouth, throat: DENIES: Tinnitus, Hearing loss, Vertigo, Nasal discharge, Oral lesions, Throat pain, Hoarseness, Ear Pain, Running Nose, Epistaxis, Sinus Pain, Toothache, Odynophagia Respiratory: DENIES: Apneas, Cough, Snoring, Wheezing, Hemoptysis, Sputum production, Shortness of breath Cardiovascular: DENIES: Chest pain, Palpitations, Syncope, Dyspnea on Exertion , PND, Lower Extremity Edema, Orthopnea, Claudication Gastrointestinal: DENIES: Abdominal pain, Black stools, Bloody stools, Constipation, Diarrhea, Nausea, Vomiting, Difficulty Swallowing, Anorexia Genitourinary: DENIES: Abnormal vaginal bleeding, Dysmenorrhea, Dyspareunia, Sexual dysfunction, Urinary frequency, Urinary incontinence, Urgency, Hematuria , Dysuria, Nocturia, Vaginal discharge Integumentary: DENIES: Abnormal pigmentation, Pruritus, Rash, Nail changes, Breast masses, Breast skin changes, Nipple discharge Hematologic/lymphatic: DENIES: Bruising, Lymphadenopathy Immunologic/allergic: DENIES: Eczema, Urticaria Neurologic: DENIES: Abnormal gait, Headache, Localized weakness, Paresthesias, Seizures, Speech Problems, Tremor, Poor Balance Psychiatric: COMPLAINS OF: Depression, Suicidal Ideation Objective Alert: Yes [place]: Person, Place Mood: Depressed Affect: Flat, Blunted Memory Intact: Immediate Hallucinations: Other Delusions: Yes Delusion Type: Paranoid Suicidal: Ideation (patient expressed suicidal ideation, no plan) Homicidal: Ideation (denies HI) Insight/Judgment Poor Vitals/IOs Vital Signs Date Time Temp Pulse Resp B/P Pulse Ox O2 Delivery O2 Flow Rate FiO2 08/01/16 08:00 96.2 80 16 174/90 95 Intake and Output 07/31/16 07/31/16 08/01/16 08:00 16:00 00:00 Intake Total 480 ml 360 ml 240 ml Balance 480 ml 360 ml 240 ml Assessment & Plan Problem List: (1) Dementia of Alzheimer's type with behavioral disturbance Assessment & Plan: Patient endorses symptomatology of depression, suicidal ideation, no specific plan. Patient also seems to be paranoid, internally stimulated. We'll increase the Zoloft 100 mg. Patient will be Krause acted and transferred to med psych. Case was discussed with nurse in charge and PA. ICD Code: G30.8 Assessment & Plan Estimated LOS: days Justification for Cont. Inpt. Patient shows symptomatology of depression, suicidal ideation, also increase paranoia, needs psychiatric hospitalization for stabilization safety. Problem Qualifiers (1) Dementia of Alzheimer's type with behavioral disturbance: Qualified Code: G30.8 - Alzheimer's dementia with behavioral disturbance, unspecified timing of dementia onset Jason Granger MD August 01, 2016 11:18
[2016-08-01] MEDS ORDERED: LISI-515 PO (12:33)
[2016-08-01] MEDS ORDERED: CLON.1 PO (12:33)
[2016-08-01] MEDS ORDERED: AMLO5 PO (12:33)
[2016-08-01] MEDS ORDERED: ZOLO50TA PO (12:34)
--- NOTE | 2016-08-01 12:36 | HHI.DCPOC ---
Discharge Care Plan Diagnosis: (1) Dementia of Alzheimer's type with behavioral disturbance (2) Self-care deficit in patient living alone (3) Hypertension (4) Hypokalemia Goals to Promote Your Health * To prevent worsening of your condition and complications * To maintain your health at the optimal level Directions to Meet Your Goals Take your medications as prescribed Follow your dietary instruction Follow activity as directed Keep your appointments as scheduled Take your immunizations and boosters as scheduled If your symptoms worsen call your PCP, if no PCP go to Urgent Care Center or Emergency Room Smoking is Dangerous to Your Health. Avoid second hand smoke Call the 24-hour hour crisis hotline for domestic abuse at Rachelle Ingram August 01, 2016 12:35
--- NOTE | 2016-08-01 12:41 | HHI.PR ---
Objective Vitals Vital Signs Date Time Temp Pulse Resp B/P Pulse Ox O2 Delivery O2 Flow Rate FiO2 08/01/16 08:00 96.2 80 16 174/90 95 07/31/16 20:00 97.0 67 19 129/61 97 I/O 07/31/16 07/31/16 07/31/16 08/01/16 08/01/16 08/01/16 07:00 15:00 23:00 07:00 15:00 23:00 Intake Total 480 ml 360 ml 240 ml 120 ml Balance 480 ml 360 ml 240 ml 120 ml Intake Oral 480 ml 360 ml 240 ml 120 ml # Voids 2 3 2 1 # Bowel Movements 0 1 Objective Remarks Rachelle Ingram August 01, 2016 12:41 RESPIRATORY: No accessory muscle use. Clear to auscultation. Breath sounds equal bilaterally. GASTROINTESTINAL: Abdomen soft, non-tender, nondistended. NEUROLOGICAL: Awake and alert. Normal speech. PSYCHIATRIC: Appropriate mood and affect. A/P Assessment and Plan 75-year-old female brought in to the emergency department under Krause Act due to suicidal ideations and inability to care for herself. 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 -Evaluated by psychiatry, Krause act lifted. -PT evaluated the patient, recommends Alzheimer's unit. Case management following. Schizophrenia: Psychiatry recommends continuing home medications. Continue home Zoloft, Risperdal, trazodone. Hypertension: Worse. -Had a lower heart rate on metoprolol, so dose was decreased from 25 to 12.5 mg q 12 h. -Amlodipine 5 mg daily started on 07/20. -07/24: BP has failed to improve and has actually worsened requiring prn Clonidine. Will increase Amlodipine dose to 10 mg daily starting this morning. -Clonidine 0.1 q 6h prn SBP >160, DBP >90. Leukocytosis: Improved. WBC 12.9-->11.2. WBC count persistently elevated dating back to February of 2016. Afebrile. UA clear. -Monitor for further signs of infection. Otherwise outpatient hematology follow -up. CKD Stage 3: Chronic, stable. Creatinine 1.19, previously 1.38 when previously discharged on 06/26/16. -Avoid nephrotoxins. -Periodically monitor BMP. Hyperkalemia: Mild 3.4. Resolved with oral replacement. Seborrheic dermatitis: Mild over face. Will order hydrocortisone 1% lotion. DVT prophylaxis: SCDs Discharge Planning 07/21: I spoke with case preparer and liner Lucas Galaviz today. Patient is to undergo PASRR and CM requests 3008 form needs to be filled out. 3008 filled out to the best of ability at this time. PT still following patient. Rachelle Ingram August 01, 2016 12:41
[2016-08-01 14:54] VITALS: BP 140/82
--- NOTE | 2016-08-01 15:00 | HHI.DS ---
Discharge Summary Admission Date July 18, 2016 at 18:55 Discharge Date: August 01, 2016 Admitting Diagnosis Dementia of Alzheimer's type with behavioral disturbance. (1) Dementia of Alzheimer's type with behavioral disturbance ICD Code: G30.8 Diagnosis: Principal (2) Self-care deficit in patient living alone ICD Code: R46.89 Diagnosis: Principal (3) Noncompliance with medication regimen ICD Code: Z91.14 Diagnosis: Principal (4) Hypokalemia ICD Code: E87.6 Diagnosis: Principal (5) Hypertension ICD Code: I10 Diagnosis: Principal Procedures None Brief History - From Admission Patient is a 75-year-old female brought in to the emergency department under Krause act due to suicidal ideations and inability to care for herself. Per the Krause act report patient is unable to take her medications on her own, she is not eating due to claims that she doesn't have anything to eat although there is food in her apartment. She did make a statement that she can't live like this any longer and just wants to . Statements were witnessed by a Cecilio Farrar with [facility]. Patient had a neighbor helping her with her medication administration however her neighbor no longer wants to be responsible for this. Patient currently denies any suicidal ideations. She knows where she is and is oriented to self only. Patient states she was brought by the Station Engineer Chief, answer my questions, is able to walk well. PE at Discharge GENERAL: Pleasant well-nourished, well-developed patient in no apparent distress. CARDIOVASCULAR: Regular rate and rhythm. RESPIRATORY: No accessory muscle use. Clear to auscultation. Breath sounds equal bilaterally. GASTROINTESTINAL: Abdomen soft, non-tender, nondistended. MUSCULOSKELETAL: 2+ right DP pulse. BACK: Tender over right SI region. Negative SLR bilaterally. NEUROLOGICAL: Awake and alert. Normal speech. PSYCHIATRIC: Appropriate mood and affect. Gen: Appears comfortable HEENT: Unremarkable NEURO: No gross deficits PSYCH: Calm Pt update on day of discharge Patient c/o pain in her right buttocks. This is chronic. Denies suicidal or homicidal ideations. The patient denied any suicidal ideation. She was resting comfortably. She does recall talking with the psychiatrist she thought it was a good conversation. Hospital Course Patient was admitted on 07/18/16 for Alzheimer's disease with behavioral disturbance, inability to care for self, medication non-compliance. She had presented under Krause act. She was evaluated by psychiatry, Krause act lifted, and continued on psychiatric medications for schizophrenia, Alzheimer's. Patient had some uncontrolled hypertension which has improved on current regimen. Leukocytosis resolved; workup did not show any signs of infection. Patient has chronic kidney disease which has remained stable. Patient had mild hypokalemia which has resolved. Seborrheic dermatitis was treated with hydrocortisone. PT evaluated the patient, recommended Alzheimer's unit. Psychiatry was reconsulted yesterday as patient was making suicidal statements. I spoke with Dr. Granger, psychiatrist today who states patient is vaguely suicidal and paranoid. He requested BA be written (which Dr. Weston has completed) and patient be discharged and he will admit to psych unit. The patient voiced suicidal ideation and was evaluated by psychiatry who recommended the patient be Krause acted and transferred over to the main hospital 's psychiatric unit. A Krause act form was filled out and arrangements for discharge were made. The patient denied any out right suicidal intention but she did have changes in mood as well as questionable insight that it was deemed best to have the patient stabilized from a psychiatric standpoint. Pt Condition on Discharge: Stable Discharge Disposition: Disc to Psych Care Fac Discharge Time: <= 30 minutes Discharge Instructions DIET: Follow Instructions for: Heart Healthy Diet Activities you can perform: Regular-No Restrictions Follow up Referrals: PCP Follow-up - 1 Week New Medications: Amlodipine (Norvasc) 5 Mg Tab 10 MG PO DAILY Blood Pressure Management #30 TAB Clonidine (Catapres) 0.1 Mg Tab 0.1 MG PO Q8HR PRN SBP>160, DBP>90 #30 TAB Lisinopril (Lisinopril) 20 Mg Tab 20 MG PO BID Blood Pressure Management #60 TAB Sertraline (Zoloft) 50 Mg Tab 100 MG PO DAILY Depression Control #60 TAB Continued Medications: Risperidone (Risperdal) 3 Mg Tab 3 MG PO HS #30 TAB Trazodone (Trazodone) 50 Mg Tab 100 MG PO HS #30 TAB Discontinued Medications: Metoprolol Tartrate (Metoprolol Tartrate) 25 Mg Tab 25 MG PO Q12HR #60 TAB Sertraline (Zoloft) 50 Mg Tab 50 MG PO DAILY #[address] Weston has also evaluated the patient today. The exam, history, and the medical decision-making described in the above note were completed with the assistance of the mid-level provider. I reviewed and agree with the findings presented. I attest that I had a [id number] encounter with the patient on the same day, and personally performed and documented my assessment and findings in the medical record. Rachelle Ingram August 01, 2016 15:00 Flex Weston DO August 01, 2016 18:40
[2016-08-02] MEDS ORDERED: SERTRALINE HCL 50 MG TAB PO SCH (09:00)
== END 2016-08-01 15:35 ==
LOC: NEPC 11:51 → NEDA 15:31 → INTOOBSV 15:31 → NEDA 18:55 → UNDOADMIN 18:55 → N05B 20:29 → NEDA 20:29 → UNDODISIN 07-20 15:45 → PH5A 07-20 16:54 → N05B 07-20 16:54 → UNDODISIN 08-01 15:35
PROVIDERS: ADMIT Hospitalist; ATTEND Hospitalist
DX: R45.851 Suicidal ideations (principal); F20.9 Schizophrenia, unspecified; Z79.899 Other long term (current) drug therapy; G30.8 Other Alzheimer's disease; Z91.14 Patient's other noncompliance with medication regimen; F02.81 Dementia in other diseases classified elsewhere, unspecified severity, with behavioral disturbance; E87.6 Hypokalemia; R62.7 Adult failure to thrive; E66.9 Obesity, unspecified; I12.9 Hypertensive chronic kidney disease with stage 1 through stage 4 chronic kidney disease, or unspecified chronic kidney disease; N18.3 Chronic kidney disease, stage 3 (moderate); R46.89 Other symptoms and signs involving appearance and behavior
CPT/HCPCS: 80048; 80053; 80307; 81001; 83735; 85025; 96360; 96361; 97110; 97116; 97163; 99284; G0378; G8987; G8988; J7030; P9612; 99281

== ENCOUNTER 2016-08-01 13:00 | Inpatient (IN) | payer OTHER, MEDICARE ==
[~2016-08-01] VITALS: Ht 167.6 cm; Wt 99.8 kg
[~2016-08-01 13:00] MED LIST changes: +AMLO5 PO; +CLON.1 PO; +LISI-515 PO
[2016-08-01 17:02] VITALS: BP 146/72; PULSE 94; RESP 18; TEMP 98.3; O2SAT 97
[2016-08-01] MEDS: risperiDONE 3 MG TAB PO SCH (21:11)
[2016-08-01] MEDS: clonazePAM 0.5 MG TAB PO SCH (21:11)
[2016-08-02 05:55] VITALS: BP 142/65; PULSE 69; RESP 17; TEMP 98.1; O2SAT 95
[2016-08-02] MEDS: clonazePAM 0.5 MG TAB PO SCH ×2 (09:12→21:32)
[2016-08-02] MEDS ORDERED: INFLUENZA VIRUS VACCINE (QUADRIVALENT) 0.5 ML SYR IM ONE (10:00)
[2016-08-02] MEDS ORDERED: PNEUMOCOCCAL POLYVALENT INJ 25 MCG/0.5 ML SYR IM ONE (10:00)
--- NOTE | 2016-08-02 13:38 | HHI.HP ---
Provisional Diagnosis Admission Date August 01, 2016 at 13:00 Aragon I. 1. Dementia, likely of the Alzheimer type with behavioral disturbance Aragon II. Deferred Aragon V. GAF is 30 presently Certification of Person's Competence To Provide Express and Informed Consent I have personally examined Natalya Dalton , a person being served at [facility] on, August 02, 2016 13:38. Express and informed consent means consent voluntarily given in writing, by a competent person, after sufficient explanation and disclosure of the subject matter involved to enable the person to make a knowing and willful decision without any element of force, fraud, deceit, duress, or other form of constraint or coercion. This person is 18 years of age or older, is not now known to be incompetent to consent to treatment with a guardian advocate, and does not have a health care surrogate or proxy currently making medical treatment decisions. I have found this person to be one of the following: [] Competent to provide express and informed consent, as defined above, for voluntary admission to this facility and is competent to provide express and informed consent for treatment. He/she has the consistent capacity to make well reasoned, willful, and knowing decisions concerning his or her medical or mental health treatment. The person fully and consistently understands the purpose of the admission for examination/placement and is fully capable of personally exercising all rights assured [place] [x] Incompetent to provide express and informed consent to voluntary admission, and this is incompetent to provide express and informed consent to treatment. The person must be transferred to involuntary status and a petition for a guardian advocate filed with the Circuit Court. [] Refusing to provide express and informed consent to voluntary admission but is competent to provide express and informed consent for treatment. The person must be discharged or transferred to involuntary status. Form shall be completed within 24 hours of a person's arrival at the receiving facility and filed in the clinical record of each person: 1. Admitted on a voluntary basis 2. Permitted to provide express and informed consent to his/her own treatment 3. Allowed to transfer from involuntary to voluntary status 4. Prior to permitting a person to consent to his or her own treatment after having been previously found incompetent to consent to treatment. History of Present Illness Capacity: Lacks Capacity HPI Ms. Dalton is a 75-year-old female with a history of dementia who presented initially under a Krause act alleging functional decline and further alleging that the patient made statements that she wanted to . Patient was evaluated by Dr. Granger, who lifted the Krause act, and the patient was subsequently medically admitted, although it appears this may have been primarily for placement. Patient was placed under a new Krause act by Dr. Weston and subsequently admitted to the inpatient psychiatric unit. Reviewing the electronic medical record, I note the patient was admitted psychiatrically most recently under Dr. Marr in June of this year and was released by the court at that time. Patient seen and examined with nurse. Chart reviewed. Case discussed with nurse on the inpatient psychiatric unit. On my examination today, the patient presents as quite confused, see full mental status testing below. She is unsure how she came to be in the hospital. She says "I just want my life back. Every time [facility] sends me money I get close to $800. It seems like everything has been taken away." When I ask her to expound upon this thought, she is unable to explain how she thinks that things are being taken away. She does say that she feels "like I'm being utilized," and it is unclear from context if this is psychotic in nature. She denies any audiovisual hallucinations. She denies any suicidal or homicidal ideation but it is not clear that she is reliable to contract for safety. She denies any low mood or anxiety. No hypomanic or manic symptoms. She describes her sleep and appetite as "as good as I can. I had a nice life." Psychiatric interview is somewhat limited because of patient's degree of cognitive impairment. Past psychiatric history: Patient is likely an unreliable historian. The patient is unsure of psychiatric diagnosis. Chart suggests a history of dementia and psychosis. Patient is not currently under the care of a psychiatrist by her report. She does have a history of psychiatric admissions, most recently last month. She denies a history of suicide attempts. Reviewing the electronic medical record, I see no obvious source of collateral information at this time and the patient is unable to provide me with any contact information. Review of Systems ROS Limitations: Poor Historian Except as stated in HPI: all other systems reviewed are Neg Past Psych History Psychological trauma history No reported trauma history to me. Violence risk - others (6 mos) Suspect lower imminent risk. Denies HI. Violence risk - self (6 mos) Concern for elevated risk secondary to self-neglect. Substance Abuse History Drugs/Alcohol past 12 months Patient denies any abuse of drugs or alcohol. Past Family Social History Coded Allergies: Abilify (Verified Allergy, Severe, 07/18/16) Antivert (Verified Allergy, Severe, 07/18/16) Aspirin (Verified Allergy, Severe, 07/18/16) Flagyl (Verified Allergy, Severe, Diarrhea, 07/18/16) Nonsteroidal Anti-Inflammatory Agts (Verified Allergy, Severe, 07/18/16) Penicillin (Verified Allergy, Severe, REDNESS, SWELLING, 07/18/16) Saccharin (Verified Allergy, Severe, 07/18/16) Sulfa (Verified Allergy, Severe, DISTURBS KIDNEY FUNCTION, 07/18/16) Tetracycline (Verified Allergy, Severe, NAUSEA & VOMITING, 07/18/16) Past Medical History See electronic medical record. Includes a history of hypertension. Active Scripts Sertraline (Zoloft)50 Mg [id number] Mg PO DAILY #60 TAB Prov:Rachelle Ingram 08/01/16 Lisinopril 20 Mg Tab20 Mg PO BID #60 TAB Prov:Rachelle Ingram 08/01/16 Clonidine (Catapres)0.1 Mg Tab0.1 Mg PO Q8HR PRN (SBP>160, DBP>90) #30 TAB Prov:Rachelle Ingram 08/01/16 Amlodipine (Norvasc)5 Mg Tab10 Mg PO DAILY #30 TAB Prov:Rachelle Ingram 08/01/16 Trazodone 50 Mg Ois205 Mg PO HS #30 TAB Prov:Manuel Marr MD 06/29/16 Risperidone (Risperdal)3 Mg Tab3 Mg PO HS #30 TAB Prov:Manuel Marr MD 06/29/16 Discontinued Scripts Metoprolol Tartrate 25 Mg Tab25 Mg PO Q12HR #60 TAB Prov:Manuel Marr MD 06/29/16 Sertraline (Zoloft)50 Mg Tab50 Mg PO DAILY #30 TAB Prov:Manuel Marr MD 06/29/16 Current Medications Medications (Trade) Dose Ordered Sig/Monica Route Start Time Stop Time Status Last Admin (KlonoPIN) 0.5 mg BID PO 08/01/16 21:00 08/02/16 09:12 (risperDAL) 3 mg HS PO 08/01/16 21:00 08/01/16 21:11 Family History Patient denies a family history of mental illness. Social History Patient remembers attending college but does not recall what she studied. She can't remember whether she worked or not. She says that she is single and has no children. Social history is limited because of degree of cognitive impairment, which seems to impinge upon autobiographical details. Patient's Strengths (min. 2) In a monitored setting. Verbally fluent. Physical Exam Physical examination completed on the medical floor by the hospitalist. On my examination today, the patient appears to be in no acute physical distress. She is somewhat generally tremulous but no dystonias or dyskinesias are noted. Laboratories and vital signs reviewed: Vital Signs Vital Signs Date Time Temp Pulse Resp B/P Pulse Ox O2 Delivery O2 Flow Rate FiO2 08/02/16 05:55 98.1 69 17 142/65 95 I/O 08/01/16 08/01/16 08/02/16 08:00 16:00 00:00 Intake Total 870 ml Balance 870 ml Lab Results Item Value Date Time White Blood Count 9.8 TH/MM3 07/26/16 0735 Hemoglobin 13.5 GM/DL 07/26/16 0735 Platelet Count 212 TH/MM3 07/26/16 0735 Sodium Level 141 MEQ/L 07/26/16 0735 Potassium Level 3.9 MEQ/L 07/26/16 0735 Chloride Level 102 MEQ/L 07/26/16 0735 Carbon Dioxide Level 30.9 MEQ/L 07/26/16 0735 Blood Urea Nitrogen 18 MG/DL 07/26/16 0735 Creatinine 1.20 MG/DL H 07/26/16 0735 Hemoglobin A1c 6.0 % 06/23/16 0905 Aspartate Amino Transf (AST/SGOT) 16 U/L 07/19/16 1307 Alanine Aminotransferase (ALT/SGPT) 15 U/L 07/19/16 1307 Alkaline Phosphatase 78 U/L 07/19/16 1307 Thyroid Stimulating Hormone 3rd Gen 2.250 uIU/ML 06/24/16 0825 Urine Opiates Screen NEG 07/18/16 1424 Urine Barbiturates Screen NEG 07/18/16 1424 Urine Benzodiazepines Screen NEG 07/18/16 1424 Urine Amphetamines Screen NEG 07/18/16 1424 Urine Cocaine Screen NEG 07/18/16 1424 Urine Cannabinoids Screen NEG 07/18/16 1424 Ethyl Alcohol Level LESS THAN 3 MG/DL 06/22/[address] obtained the end of June was read as atrophy with chronic small vessel disease. Mental Status Examination Patient is in hospital gown. She is somewhat disheveled. She is awake and alert and oriented to person only. Registration is 3 out of 3 but recall is 03 at 5 minutes. She is able to spell the word world forwards but not backwards. She is able to name 2 items and repeat a phrase. Her proverb interpretation is concrete. Motor exam as above. Speech is within normal limits for rate, tone and volume. Language is somewhat vague and fund of knowledge seems decreased for age. Mood is reportedly fair but affect is somewhat anxious seeming. Thought process somewhat scattered, not inconsistent with her dementia diagnosis. Associations somewhat loose. No eliel delusional material but see above regarding feelings of being utilized. Denies audiovisual hallucinations. Denies suicidal or homicidal ideation, but it is not clear that the patient is reliable contract for safety. Insight and judgment are poor. Previous Suicide Attempts: No Previous Homicide Attempts: No Assessment & Plan Problem List: (1) Dementia of Alzheimer's type with behavioral disturbance ICD Code: G30.8 Assessment & Plan This is a 75-year-old female with psychiatric history as detailed above who presents in transfer from the medical floor under a Krause act. On my examination today, the patient presents as fairly confused. Concern for significant functional impairment as a consequence of dementia. Patient requires psychiatric hospitalization at this time for safety, observation and stabilization. Admit inpatient. Involuntary status. I've completed first opinion. Consult for second opinion. Request healthcare surrogate and guardian advocate. Consult to the hospitalist. Continue antihypertensives. Physical therapy consult. Falls precautions. Occupational therapy consultation for ADL assessment. Continue Risperdal 3 mg at bedtime and Klonopin 0.5 mg twice daily as ordered. Low-dose Ativan as needed for anxiety, Benadryl as needed for EPS, melatonin as needed for sleep. Vitals every shift. Counselor to see. Disposition planning. Estimated length of stay: 3-4 weeks as patient will likely require placement. Discharge Planning Likely requires placement Request HC Surrog/Guard Advoc?: Yes Problem Qualifiers (1) Dementia of Alzheimer's type with behavioral disturbance: Qualified Code: G30.8 - Alzheimer's dementia with behavioral disturbance, unspecified timing of dementia onset Emerson Waterman MD August 02, 2016 13:38
[2016-08-02] MEDS ORDERED: LORazepam 2 MG/ML VIAL IM PRN (14:00)
[2016-08-02] MEDS ORDERED: diphenhydrAMINE HCL 50 MG/ML VIAL IM PRN (14:00)
[2016-08-02] MEDS ORDERED: ALUMINUM/MAGNESIUM/SIMETH 30 ML CUP PO PRN (14:00)
[2016-08-02] MEDS ORDERED: MAGNESIUM HYDROXIDE SUSP 30 ML CUP PO PRN (14:00)
[2016-08-02] MEDS ORDERED: LORazepam 0.5 MG TAB PO PRN (14:00)
[2016-08-02] MEDS ORDERED: diphenhydrAMINE HCL 50 MG CAP PO PRN (14:00)
[2016-08-02] MEDS ORDERED: MELATONIN 5 MG TAB PO PRN (14:15)
[2016-08-02 20:00] VITALS: BP 135/77; PULSE 99; RESP 18; TEMP 96.8
[2016-08-02] MEDS: risperiDONE 3 MG TAB PO SCH (21:32)
[2016-08-03 05:18] VITALS: BP 118/64; PULSE 69; RESP 18; TEMP 99; O2SAT 98
--- NOTE | 2016-08-03 08:38 | PD.CONS ---
Provisional Diagnosis Admission Date August 01, 2016 at 13:00 [place] I. 1. 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 Deferred [place] V. GAF is 30 presently History of Present Illness Service Psychiatry Consult Requested By Dr. waterman Reason for Consult Second opinion Krause act Primary Care Physician Unknown HPI Ms. Dalton is a 75-year-old female with a history of dementia who presented initially under a Krause act alleging functional decline and further alleging that the patient made statements that she wanted to . Patient was evaluated by Dr. Granger, who lifted the [employer] act, and the patient was subsequently medically admitted, although it appears this may have been primarily for placement. Patient was placed under a new Krause act by Dr. Weston and subsequently admitted to the inpatient psychiatric unit. Reviewing the electronic medical record, I note the patient was admitted psychiatrically most recently under Dr. Marr in June of this year and was released by the court at that time. Patient seen and examined with nurse. Chart reviewed. Case discussed with nurse on the inpatient psychiatric unit. On my examination today, the patient presents as quite confused, see full mental status testing below. She is unsure how she came to be in the hospital. She says "I just want my life back. Every time [employer] sends me money I get close to $800. It seems like everything has been taken away." When I ask her to expound upon this thought, she is unable to explain how she thinks that things are being taken away. She does say that she feels "like I'm being utilized," and it is unclear from context if this is psychotic in nature. She denies any audiovisual hallucinations. She denies any suicidal or homicidal ideation but it is not clear that she is reliable to contract for safety. She denies any low mood or anxiety. No hypomanic or manic symptoms. She describes her sleep and appetite as "as good as I can. I had a nice life." Psychiatric interview is somewhat limited because of patient's degree of cognitive impairment. Past psychiatric history: Patient is likely an unreliable historian. The patient is unsure of psychiatric diagnosis. Chart suggests a history of dementia and psychosis. Patient is not currently under the care of a psychiatrist by her report. She does have a history of psychiatric admissions, most recently last month. She denies a history of suicide attempts. Reviewing the electronic medical record, I see no obvious source of collateral information at this time and the patient is unable to provide me with any contact information. 08/03/16 Above note dictated by Dr. Waterman reviewed and agreed with. Patient seen on unit. Patient calm cooperative though diffusely confused to place time and situation. She also somewhat disheveled in appearance. Dr. Waterman first opinion petition supporting [employer] act. I agree. Patient meets criteria for involuntary psychiatric hospitalization under the [employer] act. Thus I will cosign second opinion petition supporting [employer] act Past Family Social History Coded Allergies: Abilify (Verified Allergy, Severe, 07/18/16) Antivert (Verified Allergy, Severe, 07/18/16) Aspirin (Verified Allergy, Severe, 07/18/16) Flagyl (Verified Allergy, Severe, Diarrhea, 07/18/16) Nonsteroidal Anti-Inflammatory Agts (Verified Allergy, Severe, 07/18/16) Penicillin (Verified Allergy, Severe, REDNESS, SWELLING, 07/18/16) Saccharin (Verified Allergy, Severe, 07/18/16) Sulfa (Verified Allergy, Severe, DISTURBS KIDNEY FUNCTION, 07/18/16) Tetracycline (Verified Allergy, Severe, NAUSEA & VOMITING, 07/18/16) Active Scripts Sertraline (Zoloft)50 Mg [id number] Mg PO DAILY #60 TAB Prov:Rachelle Ingram 08/01/16 Lisinopril 20 Mg Tab20 Mg PO BID #60 TAB Prov:Rachelle Ingram 08/01/16 Clonidine (Catapres)0.1 Mg Tab0.1 Mg PO Q8HR PRN (SBP>160, DBP>90) #30 TAB Prov:Rachelle Ingram 08/01/16 Amlodipine (Norvasc)5 Mg Tab10 Mg PO DAILY #30 TAB Prov:Rachelle Ingram 08/01/16 Trazodone 50 Mg [id number] Mg PO HS #30 TAB Prov:Manuel Marr MD 06/29/16 Risperidone (Risperdal)3 Mg Tab3 Mg PO HS #30 TAB Prov:Manuel Marr MD 06/29/16 Discontinued Scripts Metoprolol Tartrate 25 Mg Tab25 Mg PO Q12HR #60 TAB Prov:Manuel Marr MD 06/29/16 Sertraline (Zoloft)50 Mg Tab50 Mg PO DAILY #30 TAB Prov:Maneul Marr MD 06/29/16 Current Medications Medications (Trade) Dose Ordered Sig/Monica Route Start Time Stop Time Status Last Admin (KlonoPIN) 0.5 mg BID PO 08/01/16 21:00 08/02/16 21:32 (risperDAL) 3 mg HS PO 08/01/16 21:00 08/02/16 21:32 (Ativan) 0.5 mg Q12H PRN PO 08/02/16 14:00 (Ativan Inj) 0.5 mg Q12H PRN IM 08/02/16 14:00 (Benadryl) 25 mg Q6H PRN PO 08/02/16 14:00 (Benadryl Inj) 25 mg Q6H PRN IM 08/02/16 14:00 (Tylenol) 650 mg Q4H PRN PO 08/02/16 14:00 (Milk Of Magnesia Liq) 30 ml DAILY PRN PO 08/02/16 14:00 (Mag-Al Plus Susp Liq) 30 ml Q6H PRN PO 08/02/16 14:00 (Prinivil) 20 mg DAILY PO 08/03/16 09:00 (Norvasc) 10 mg DAILY PO 08/03/16 09:00 (Melatonin) 5 mg HS PRN PO 08/02/16 14:15 Patient's Strengths (min. 2) In a monitored setting. Verbally fluent. Physical Exam Vital Signs Vital Signs Date Time Temp Pulse Resp B/P Pulse Ox O2 Delivery O2 Flow Rate FiO2 08/03/16 05:18 99.0 69 18 118/64 98 I/O 08/02/16 08/02/16 08/03/16 08:00 16:00 00:00 Intake Total 840 ml 480 ml Balance 840 ml 480 ml Mental Status Examination Speech: Unremarkable, Slow Orientation: Person Memory: Impaired (describe) Thought Process: Linear Thought Content: Unremarkable Language Poor Fund of Knowledge Poor Hallucination Type: None (denies) Attention and Concentration: Other (poor) Suicidal Ideation: No (denies) Previous Suicide Attempts: No Homicidal Ideation: No (denies) Previous Homicide Attempts: No Insight: Poor Judgment: Poor Affect: Other (decreased range intensity) Mood: Euthymic (somewhat restricted) Motor Activity: Normal gait Assessment & Plan Problem List: (1) Dementia of Alzheimer's type with behavioral disturbance ICD Code: G30.8 Assessment & Plan Estimated LOS: days Request HC Surrog/Guard Advoc?: Yes Problem Qualifiers (1) Dementia of Alzheimer's type with behavioral disturbance: Qualified Code: G30.8 - Alzheimer's dementia with behavioral disturbance, unspecified timing of dementia onset Satnam Johnson MD Aug 03, 2016 08:38
[2016-08-03] MEDS: clonazePAM 0.5 MG TAB PO SCH ×2 (10:08→21:48)
[2016-08-03] MEDS: LISINOPRIL 20 MG TAB PO SCH (10:08)
[2016-08-03] MEDS: ACETAMINOPHEN 325 MG TAB PO PRN ×2 (10:13→21:49)
[2016-08-03 12:24] LABS: BICARBONATE 26.8 MEQ/L (21.0-32.0); POTASSIUM 4.4 MEQ/L (3.5-5.1)
--- NOTE | 2016-08-03 16:21 | PD.CONS ---
HPI Service [facility] Hospitalists Consult Requested By Psychiatric services Reason for Consult Medical management Primary Care Physician Unknown Diagnoses: History of Present Illness Written by Gabi Colon PA-C acting as scribe for Dr. Castanon on 08/03/16 at 16 :12. This is a 75-year-old female with a past medical history significant for hypertension, dementia, chronic kidney disease stage III, osteoarthritis and PTSD who was admitted to the psychiatric unit under Krause act for suicidal ideation. Hospitalist services were consulted for medical management. Patient is a very poor historian. As a result, the majority of her history is obtained from review of the medical record. At present, her only complaint is right- sided back and hip pain which is relieved with Tylenol. She denies any complaints of her, chills, nausea, vomiting, cough, shortness of breath, chest pain, abdominal pain, dysuria or diarrhea. Review of Systems Except as stated in HPI: all other systems reviewed are Neg Past Family Social History Allergies: Coded Allergies: Abilify (Verified Allergy, Severe, 07/18/16) Antivert (Verified Allergy, Severe, 07/18/16) Aspirin (Verified Allergy, Severe, 07/18/16) Flagyl (Verified Allergy, Severe, Diarrhea, 07/18/16) Nonsteroidal Anti-Inflammatory Agts (Verified Allergy, Severe, 07/18/16) Penicillin (Verified Allergy, Severe, REDNESS, SWELLING, 07/18/16) Saccharin (Verified Allergy, Severe, 07/18/16) Sulfa (Verified Allergy, Severe, DISTURBS KIDNEY FUNCTION, 07/18/16) Tetracycline (Verified Allergy, Severe, NAUSEA & VOMITING, 07/18/16) Past Medical History Dementia Hypertension Chronic kidney disease, stage III Depression PTSD Osteoarthritis Past Surgical History Bilateral knee replacements Tonsillectomy Appendectomy Reported Medications Sertraline (Zoloft)50 Mg [id number] Mg PO DAILY #60 TAB Prov:Rachelle Ingram 08/01/16 Lisinopril 20 Mg Tab20 Mg PO BID #60 TAB Prov:Rachelle Ingram 08/01/16 Clonidine (Catapres)0.1 Mg Tab0.1 Mg PO Q8HR PRN (SBP>160, DBP>90) #30 TAB Prov:Rachelle Ingram 08/01/16 Amlodipine (Norvasc)5 Mg Tab10 Mg PO DAILY #30 TAB Prov:Rachelle Ingram 08/01/16 Trazodone 50 Mg [id number] Mg PO HS #30 TAB Prov:Manuel Marr MD 06/29/16 Risperidone (Risperdal)3 Mg Tab3 Mg PO HS #30 TAB Prov:Manuel Marr MD 06/29/16 Active Ordered Medications Current Medications Medications (Trade) Dose Ordered Sig/Monica Route Start Time Stop Time Status Last Admin (KlonoPIN) 0.5 mg BID PO 08/01/16 21:00 08/03/16 10:08 (risperDAL) 3 mg HS PO 08/01/16 21:00 08/02/16 21:32 (Ativan) 0.5 mg Q12H PRN PO 08/02/16 14:00 (Ativan Inj) 0.5 mg Q12H PRN IM 08/02/16 14:00 (Benadryl) 25 mg Q6H PRN PO 08/02/16 14:00 (Benadryl Inj) 25 mg Q6H PRN IM 08/02/16 14:00 (Tylenol) 650 mg Q4H PRN PO 08/02/16 14:00 08/03/16 10:13 (Milk Of Magnesia Liq) 30 ml DAILY PRN PO 08/02/16 14:00 (Mag-Al Plus Susp Liq) 30 ml Q6H PRN PO 08/02/16 14:00 (Prinivil) 20 mg DAILY PO 08/03/16 09:00 08/03/16 10:08 (Norvasc) 10 mg DAILY PO 08/03/16 09:00 08/03/16 10:08 (Melatonin) 5 mg HS PRN PO 08/02/16 14:15 Family History Mother, of cancer when the patient was 9 Father, from natural causes at an old age Social History Patient denies any tobacco use, alcohol consumption or illicit drug use. Physical Exam Vital Signs Vital Signs Date Time Temp Pulse Resp B/P Pulse Ox O2 Delivery O2 Flow Rate FiO2 08/03/16 05:18 99.0 69 18 118/64 98 08/02/16 20:00 96.8 99 18 135/77 Physical Exam GENERAL: This is a well-nourished, well-developed patient, in no apparent distress. Awake and alert. Confused. SKIN: No rashes, ecchymoses or lesions. Cool and dry. HEAD: Atraumatic. Normocephalic. No temporal or scalp tenderness. EYES: Pupils equal round and reactive. Extraocular motions intact. No scleral icterus. No injection or drainage. ENT: Nose without bleeding, purulent drainage or septal hematoma. Throat without erythema, tonsillar hypertrophy or exudate. Uvula midline. Airway patent. NECK: Trachea midline. No lymphadenopathy. Supple, nontender, no meningeal signs. CARDIOVASCULAR: Regular rate and rhythm without murmurs, gallops, or rubs. RESPIRATORY: Clear to auscultation. Breath sounds equal bilaterally. No wheezes , rales, or rhonchi. GASTROINTESTINAL: Abdomen soft, non-tender, nondistended. No hepato-splenomegaly , or palpable masses. No guarding. MUSCULOSKELETAL: Extremities without clubbing, cyanosis, or edema. No joint tenderness, effusion, or edema noted. No calf tenderness. NEUROLOGICAL: Awake and alert. Able to move all extremities. No focal neurologic findings appreciated. Normal speech. Laboratory Laboratory Tests Test 08/03/16 11:20 Sodium Level 140 Potassium Level 4.4 Chloride Level 104 Carbon Dioxide Level 26.8 Anion Gap 9 Blood Urea Nitrogen 26 Creatinine 1.13 Estimat Glomerular Filtration 47 Rate Random Glucose 120 Calcium Level 8.8 Result Diagram: 08/03/16 1120 Assessment and Plan Assessment and Plan 75-year-old female with a past medical history significant for hypertension, dementia, chronic kidney disease stage III, osteoarthritis and PTSD who was admitted to the psychiatric unit under Krause act for suicidal ideation. Hospitalist services were consulted for medical management. Dementia/Depression/Suicidal ideation - Management per psychiatric team Hypertension - Controlled - Continue home antihypertensive medications CKD stage III - Baseline appears to be around 1.2 - 1.3 - creatinine currently below baseline at 1.13 - encourage po fluids - avoid nephrotoxic agents Degenerative disc disease lumbar spine and chronic back pain - Tylenol when necessary DVT prophylaxis - encourage ambulation Thank you very kindly for this consultation. Patient appears medically stable at this time. We'll sign off and please reconsult if needed. This note was transcribed by CLEMENT Garner I, Dr. Kolby Castanon personally performed the history, physical exam, and medical decision making; and confirmed the accuracy of the information in the transcribed note. Authenticated by Dr. Kolby Castanon on 08/03/16 at 22:20. Gabi Colon Aug 03, 2016 16:21 Enrique Castaonn DO Aug 03, 2016 22:21
--- NOTE | 2016-08-03 16:35 | HHI.PYPN ---
Subjective Remarks Patient seen and examined. Chart reviewed. Case d/w RN. On my examination today, patient describes her mood as "scared and yucky." Remains very confused with prominent word-finding difficulties. She says that she needs to "break in the ability to be anymore." Unclear what this might mean. She says that she is in need of psychiatric help, and in particular psychiatric medication, but when I ask what symptom she needs treated or what medication she might need, she cannot say. She denies AVH. Denies SI/HI. No physical complaints. Cannot provide any contact info for possible HCS. Review of Systems ROS Limitations: Poor Historian Except as stated in HPI: all other systems reviewed are Neg Objective Alert: Yes [place]: Person, Place ([place]) Mood: Other (Dysphoric) Affect: Blunted Memory Intact: Comment (Impaired on clinical exam.) Hallucinations: Other (Denies AVH) Delusions: No Delusion Type: Other (No delusions) Suicidal: Ideation (Denies SI) Homicidal: Ideation (Denies HI) Insight/Judgment Poor Remarks No abnormal motor movement noted. Speech rambling with prominent WFD. Grooming and hygiene fair at best. Labs Test 08/03/16 11:20 Sodium Level 140 MEQ/L Potassium Level 4.4 MEQ/L Chloride Level 104 MEQ/L Carbon Dioxide Level 26.8 MEQ/L Anion Gap 9 MEQ/L Blood Urea Nitrogen 26 MG/DL Creatinine 1.13 MG/DL Estimat Glomerular Filtration 47 ML/MIN Rate Random Glucose 120 MG/DL Calcium Level 8.8 MG/DL Labs reviewed. Decreased GFR stable. Vitals/IOs Vital Signs Date Time Temp Pulse Resp B/P Pulse Ox O2 Delivery O2 Flow Rate FiO2 08/03/16 05:18 99.0 69 18 118/64 98 Intake and Output 08/02/16 08/02/16 08/03/16 08:00 16:00 00:00 Intake Total 840 ml 480 ml Balance 840 ml 480 ml Assessment & Plan Problem List: (1) Dementia of Alzheimer's type with behavioral disturbance ICD Code: G30.8 Assessment & Plan Continue Risperdal and Klonopin as ordered. Awaiting HCS/GA for further med management, although patient is presently calm. Hospitalist tax credit leasing consultant input appreciated. Continue to monitor on inpatient unit. Continue other meds and care as ordered. Justification for Cont. Inpt. High risk for decompensation in less restrictive environment. Discharge Planning Likely requires placement. Request HC Surrog/Guard Advoc?: Yes Problem Qualifiers (1) Dementia of Alzheimer's type with behavioral disturbance: Qualified Code: G30.8 - Alzheimer's dementia with behavioral disturbance, unspecified timing of dementia onset Emerson Waterman MD Aug 03, 2016 16:35
[2016-08-03 18:00] VITALS: BP 129/81; PULSE 66; RESP 18; TEMP 97.5; O2SAT 95
[2016-08-03] MEDS: risperiDONE 3 MG TAB PO SCH (21:48)
[2016-08-04 06:00] VITALS: BP 114/64; PULSE 86; RESP 17; TEMP 98.2
[2016-08-04] MEDS: LISINOPRIL 20 MG TAB PO SCH (10:19)
[2016-08-04] MEDS: clonazePAM 0.5 MG TAB PO SCH ×2 (10:19→21:58)
[2016-08-04] MEDS: ACETAMINOPHEN 325 MG TAB PO PRN (10:24)
--- NOTE | 2016-08-04 17:48 | HHI.PYPN ---
Subjective Remarks Patient seen and examined. Chart reviewed. Case discussed with nursing staff. On my examination today, the patient is fixated on having difficulty breathing through her nose. She does not appear to be in any sort of respiratory distress, and nursing staff assures me that the patient is saturating well. I suspect that she may simply be experiencing some nasal congestion, and I asked if she has tried to breathe through her mouth, which she has not done. She is able to breathe easily through her mouth. Denies AVH. No SI or HI. No side effects from medications. Review of Systems ROS Limitations: Poor Historian Except as stated in HPI: all other systems reviewed are Neg Objective Alert: Yes [place]: Person, Place Mood: Calm Affect: Blunted Memory Intact: Comment (remains somewhat impaired on clinical exam) Hallucinations: Other (Denies AVH) Delusions: No Delusion Type: Other (no delusional beliefs) Suicidal: Ideation (no SI) Homicidal: Ideation (no HI) Insight/Judgment Poor Remarks No motor abnormalities noted. Labs Labs reviewed. Vitals/IOs Vital Signs Date Time Temp Pulse Resp B/P Pulse Ox O2 Delivery O2 Flow Rate FiO2 08/04/16 06:00 98.2 86 17 114/64 08/03/16 18:00 95 Intake and Output 08/03/16 08/03/16 08/04/16 08:00 16:00 00:00 Intake Total 1560 ml 1200 ml Balance 1560 ml 1200 ml Assessment & Plan Problem List: (1) Dementia of Alzheimer's type with behavioral disturbance ICD Code: G30.8 Assessment & Plan Continue Risperdal and Klonopin as ordered. I will add some saline nasal mist. Continue to monitor on the inpatient unit. Continue other medications and care as ordered. Justification for Cont. Inpt. High risk for decompensation in a less restrictive environment. Discharge Planning Likely requires placement Request HC Surrog/Guard Advoc?: Yes Problem Qualifiers (1) Dementia of Alzheimer's type with behavioral disturbance: Qualified Code: G30.8 - Alzheimer's dementia with behavioral disturbance, unspecified timing of dementia onset Emerson Waterman MD Aug 04, 2016 17:48
[2016-08-04 19:31] VITALS: BP 113/60; PULSE 71; RESP 16; TEMP 98.5; O2SAT 95
[2016-08-04] MEDS: risperiDONE 3 MG TAB PO SCH (21:58)
[2016-08-05 05:41] VITALS: BP 145/68; PULSE 76; RESP 18; TEMP 97.5; O2SAT 96
[2016-08-05] MEDS: clonazePAM 0.5 MG TAB PO SCH ×2 (09:00→20:59)
[2016-08-05] MEDS: LISINOPRIL 20 MG TAB PO SCH (09:01)
[2016-08-05] MEDS: ACETAMINOPHEN 325 MG TAB PO PRN (11:46)
--- NOTE | 2016-08-05 14:14 | HHI.PYPN ---
Subjective Remarks Pt seen and discussed with staff. She has been seclusive and irritable. She complains about having to use walker. She is cooperative with medications. No reported side effects. No SI/HI Objective Alert: Yes [place]: Person, Place Mood: Calm, Other (irritable) Affect: Other (bizarre stare) Memory Intact: Comment (remains impaired on clinical exam) Hallucinations: Other (Denies AVH) Delusions: No Delusion Type: Other (no delusional beliefs) Suicidal: Ideation (no SI) Homicidal: Ideation (no HI) Insight/Judgment poor Vitals/IOs Vital Signs Date Time Temp Pulse Resp B/P Pulse Ox O2 Delivery O2 Flow Rate FiO2 08/05/16 13:33 16 08/05/16 05:41 97.5 76 145/68 96 Intake and Output 08/04/16 08/04/16 08/05/16 08:00 16:00 00:00 Intake Total 240 ml Balance 240 ml Assessment & Plan Problem List: (1) Dementia of Alzheimer's type with behavioral disturbance ICD Code: G30.8 Assessment & Plan Continue current tx plan. Estimated LOS: days Justification for Cont. Inpt. risk of decompensation Request HC Surrog/Guard Advoc?: Yes Problem Qualifiers (1) Dementia of Alzheimer's type with behavioral disturbance: Qualified Code: G30.8 - Alzheimer's dementia with behavioral disturbance, unspecified timing of dementia onset Kathy Sheppard MD Aug 05, 2016 14:14
[2016-08-05 18:00] VITALS: BP 130/63; PULSE 68; RESP 18; TEMP 99.2; O2SAT 96
[2016-08-05] MEDS: risperiDONE 3 MG TAB PO SCH (20:59)
[2016-08-06 05:59] VITALS: BP 147/65; PULSE 69; RESP 16; TEMP 97.3; O2SAT 96
[2016-08-06] MEDS: LISINOPRIL 20 MG TAB PO SCH (10:24)
[2016-08-06] MEDS: clonazePAM 0.5 MG TAB PO SCH ×2 (10:24→21:13)
[2016-08-06] MEDS: ACETAMINOPHEN 325 MG TAB PO PRN (10:29)
--- NOTE | 2016-08-06 12:16 | HHI.PYPN ---
Subjective Remarks Pt seen and discussed with staff. She remains confused but has not been agitated. She has been using walker despite insistence that she does not need it. She has been spending most of day in bed in room. No SI/HI. Compliant with medications and tolerating without side effects. Objective Alert: Yes [place]: Person, Place Mood: Calm Affect: Flat Memory Intact: Comment (remains impaired on clinical exam) Hallucinations: Other (Denies AVH) Delusions: No Delusion Type: Other (no delusional beliefs) Suicidal: Ideation (no SI) Homicidal: Ideation (no HI) Insight/Judgment poor Vitals/IOs Vital Signs Date Time Temp Pulse Resp B/P Pulse Ox O2 Delivery O2 Flow Rate FiO2 08/06/16 05:59 97.3 69 16 147/65 96 Intake and Output 08/05/16 08/05/16 08/06/16 08:00 16:00 00:00 Intake Total 360 ml 480 ml 990 ml Balance 360 ml 480 ml 990 ml Assessment & Plan Problem List: (1) Dementia of Alzheimer's type with behavioral disturbance ICD Code: G30.8 Assessment & Plan continue current tx plan. Estimated LOS: days Justification for Cont. Inpt. risk of decompensation Request HC Surrog/Guard Advoc?: Yes Problem Qualifiers (1) Dementia of Alzheimer's type with behavioral disturbance: Qualified Code: G30.8 - Alzheimer's dementia with behavioral disturbance, unspecified timing of dementia onset Kathy Sheppard MD Aug 06, 2016 12:16
[2016-08-06 18:55] VITALS: BP 134/81; PULSE 91; RESP 16; TEMP 97.2
[2016-08-06] MEDS: risperiDONE 3 MG TAB PO SCH (21:13)
[2016-08-07] MEDS: ACETAMINOPHEN 325 MG TAB PO PRN ×3 (02:46→16:45)
[2016-08-07 06:10] VITALS: BP 153/76; PULSE 71; RESP 18; TEMP 97.6; O2SAT 96
[2016-08-07] MEDS: LISINOPRIL 20 MG TAB PO SCH (10:10)
[2016-08-07] MEDS: clonazePAM 0.5 MG TAB PO SCH ×2 (10:10→20:34)
[2016-08-07 11:49] VITALS: BP 130/98; PULSE 96
--- NOTE | 2016-08-07 13:27 | RADRPT ---
EXAM DATE/TIME: 08/07/2016 12:57 [facility] COMPARISON: PELVIS AP ONLY, April 11, 2015, 22:26. INDICATIONS : Fall, low back pain. MEDICAL HISTORY : None. SURGICAL HISTORY : None. ENCOUNTER: Initial ACUITY: 1 day PAIN SCORE: 10/10 LOCATION: pelvis low back FINDINGS: A single frontal view of the pelvis demonstrates no evidence of fracture. The bony pelvic ring is in tact. Bony mineralization is normal. Multilevel degenerative spondylosis of the visualized lower shelly mbar spine. Mild SI joint degenerative change. Sacral arches are intact. The soft tissues are intact. CONCLUSION: 1. No acute fracture or dislocation. Consider MRI examination if patient is unable to bear weight. Johnny Williamson MD on August 07, 2016 at 13:23 Board Certified Radiologist. This report was verified electronically.
--- NOTE | 2016-08-07 13:33 | RADRPT ---
EXAM DATE/TIME: 08/07/2016 12:58 [facility] COMPARISON: SPINE LUMBAR LTD (AP & LAT), June 25, 2016, 22:05. INDICATIONS : Fall, low back pain. MEDICAL HISTORY : None. SURGICAL HISTORY : None. ENCOUNTER: Initial ACUITY: 1 day PAIN SCORE: 10/10 LOCATION: low back FINDINGS: Two view examination was performed. There are five non-rib bearing vertebral bodies. Vertebral body heights are intact without evidence for acute bony fracture. Redemonstration of scoliosis of the lumb ar spine convex towards the left. Redemonstration of moderate to severe multilevel degenerative spond ylosis and multilevel facet arthropathy most prominently at L1-2, L2-3, L4-5 and L5-S1. Stable 5 mm, grade 1, retrolisthesis of L2 on L3. The sacral arches are intact. Aortic and splenic artery calcific ations. Soft tissues otherwise unremarkable. CONCLUSION: 1. Stable left lumbar scoliosis and associated advanced degenerative spondylosis of the lumbar spine with Grade 1 retrolisthesis of L2 on L3. 2. No acute fracture or subluxation. Johnny Williamson MD on August 07, 2016 at 13:25 Board Certified Radiologist. This report was verified electronically.
[2016-08-07 13:47] VITALS: BP 140/76; PULSE 91
--- NOTE | 2016-08-07 14:40 | HHI.PYPN ---
Subjective Remarks Patient seen and examined with nurse. Chart reviewed. Case discussed with nursing staff. I was notified by the nursing staff that the patient was found sitting in front of the toilet. I obtained x-rays of the lumbar spine and pelvis, which were negative for fracture. Patient has been noted to bear weight following this episode without issue. On my examination today, the patient presents as somewhat oddly related. Affect is likewise odd, and she has an inscrutable grin on her face throughout the interview. She tells me, a propos of nothing, "I'm a regular person." No physical complaints following the toilet incident. No side effects from medications. Presently calm. Review of Systems ROS Limitations: Poor Historian Except as stated in HPI: all other systems reviewed are Neg Objective Alert: Yes [place]: Person, Place Mood: Calm Affect: Other (odd) Memory Intact: Comment (Not formally assessed) Hallucinations: Other (No AVH) Delusions: No Delusion Type: Other (No eliel delusional material) Suicidal: Ideation (no SI) Homicidal: Ideation (no HI) Insight/Judgment Poor Remarks No abnormal motor movements noted. Thought process slightly scattered. Labs Labs reviewed. No new labs. Last Impressions Pelvis X-Ray 08/07/16 0000 Signed Impressions: Service Date/Time: Sunday, August 07, 2016 12:57 - CONCLUSION: 1. No acute fracture or dislocation. Consider MRI examination if patient is unable to bear weight. Johnny Williamson MD Lumbar Spine X-Ray 08/07/16 0000 Signed Impressions: Service Date/Time: Sunday, August 07, 2016 12:58 - CONCLUSION: 1. Stable left lumbar scoliosis and associated advanced degenerative spondylosis of the lumbar spine with Grade 1 retrolisthesis of L2 on L3. 2. No acute fracture or subluxation. Johnny Williamson MD Vitals/IOs Vital Signs Date Time Temp Pulse Resp B/P Pulse Ox O2 Delivery O2 Flow Rate FiO2 08/07/16 11:49 96 130/98 08/07/16 06:10 97.6 18 96 Intake and Output 08/06/16 08/06/16 08/07/16 08:00 16:00 00:00 Intake Total 360 ml 1320 ml 630 ml Balance 360 ml 1320 ml 630 ml Assessment & Plan Problem List: (1) Dementia of Alzheimer's type with behavioral disturbance ICD Code: G30.8 Assessment & Plan Continue Risperdal and Klonopin as ordered. Fall precautions already in place. Continue to monitor on the inpatient unit. Continue other medications and care as ordered. Justification for Cont. Inpt. High risk for decompensation in a less restrictive environment. Discharge Planning Pending outcome of [facility], but patient likely requires placement. Request HC Surrog/Guard Advoc?: Yes Problem Qualifiers (1) Dementia of Alzheimer's type with behavioral disturbance: Qualified Code: G30.8 - Alzheimer's dementia with behavioral disturbance, unspecified timing of dementia onset Emerson Waterman MD Aug 07, 2016 14:40
[2016-08-07 17:00] VITALS: BP 124/68; PULSE 91
[2016-08-07] MEDS: risperiDONE 3 MG TAB PO SCH (20:34)
[2016-08-08 05:49] VITALS: BP 114/63; PULSE 89; RESP 16; TEMP 97.5; O2SAT 94
[2016-08-08] MEDS: clonazePAM 0.5 MG TAB PO SCH ×2 (09:29→21:20)
[2016-08-08] MEDS: LISINOPRIL 20 MG TAB PO SCH (09:29)
[2016-08-08] MEDS: ACETAMINOPHEN 325 MG TAB PO PRN ×3 (09:33→21:20)
--- NOTE | 2016-08-08 11:28 | PD.TTN ---
Present for Treatment Team Treatment Team Staff: Provider (Dr. Waterman), Nurse (Lisa), Psych Therapist (Albertina), Occupational Therapist (Bobby) Patient Problems 1. Discharge planning 2. Medication compliance 3. Knowledge deficit 4. Lack of coping skills Progress Toward Goals Provider Input: Patient has been medication compliant with no side effects. Patient still has minor delusions but minor behavioral issues on the unit. Patient does have bizzare affect. Nurse Input: Patient has incongruent affect and is easily redirectable. Patient had been having some minor behavioral issues, such as being difficult with staff. No aggressive behavior Psych Therapist Input: Patient is confused and oriented x3. Patient has no insight for admission or psychiatric issues. Patient focused on living independently but it is noted that patient is not capable of caring for herself. Patient makes vague suicidal states such as "I just want my life to end." though she denies having a plan due to denominational affliations. Occupational Therapist Input: Patient attends group sometimes. Albertina Chris [facility] Aug 08, 2016 11:28
--- NOTE | 2016-08-08 12:04 | HHI.PYPN ---
Subjective Remarks Patient seen and examined. Chart reviewed. Case discussed in treatment team with nurse, counselor and occupational therapist. On my examination today, patient continues to display an odd, somewhat inappropriate affect. She denies SI/HI/AVH. Some ongoing word-finding difficulties. No side effects from medications. Complaints of mild, generalized myalgias, otherwise no physical complaints. Review of Systems ROS Limitations: Poor Historian Except as stated in HPI: all other systems reviewed are Neg Objective Alert: Yes [place]: Person, Place Mood: Calm Affect: Other (somewhat odd and inappropriate.) Memory Intact: Comment (Not formally assessed) Hallucinations: Other (Denies AVH) Delusions: No Delusion Type: Other (No delusions) Suicidal: Ideation (Denies SI) Homicidal: Ideation (Denies HI) Insight/Judgment Poor Remarks No abnormal motor movements noted. No hand tremor, no cog-wheeling. No evident physical distress. TP somewhat circumstantial. Labs Labs reviewed. Vitals/IOs Vital Signs Date Time Temp Pulse Resp B/P Pulse Ox O2 Delivery O2 Flow Rate FiO2 08/08/16 05:49 97.5 89 16 114/63 94 Intake and Output 08/07/16 08/07/16 08/08/16 08:00 16:00 00:00 Intake Total 60 ml 1080 ml 720 ml Balance 60 ml 1080 ml 720 ml Assessment & Plan Problem List: (1) Dementia of Alzheimer's type with behavioral disturbance ICD Code: G30.8 Assessment & Plan Continue Risperdal and Klonopin as ordered. Could consider titration of Risperdal pending outcome of [address]. I did consider that odd affect could be related to EPS, but patient has no other signs of parkinsonism. Continue to monitor on inpatient unit. PT recommending a lumbar corset, which I have ordered. Symptomatic tx for myalgias and will follow. Continue other medications and care as ordered. Justification for Cont. Inpt. High risk for decompensation in a less restrictive environment. Discharge Planning Likely requires placement. Request HC Surrog/Guard Advoc?: Yes Problem Qualifiers (1) Dementia of Alzheimer's type with behavioral disturbance: Qualified Code: G30.8 - Alzheimer's dementia with behavioral disturbance, unspecified timing of dementia onset Emerson Waterman MD Aug 08, 2016 12:04
[2016-08-08] MEDS: SODIUM CHLORIDE 0.65% NASAL SPRAY 45 ML BTL EACH NARE PRN (13:58)
[2016-08-08 18:02] VITALS: BP 111/59; PULSE 78; RESP 17; TEMP 97.7; O2SAT 97
[2016-08-08] MEDS: risperiDONE 3 MG TAB PO SCH (21:20)
[2016-08-09 05:30] VITALS: BP 121/61; PULSE 80; RESP 18; TEMP 98.1; O2SAT 99
[2016-08-09] MEDS: ACETAMINOPHEN 325 MG TAB PO PRN (06:23)
[2016-08-09] MEDS: LISINOPRIL 20 MG TAB PO SCH (09:58)
[2016-08-09] MEDS: clonazePAM 0.5 MG TAB PO SCH ×2 (09:58→20:30)
--- NOTE | 2016-08-09 15:13 | HHI.PYPN ---
Subjective Remarks Patient seen and examined. Chart reviewed. Case discussed with nursing staff. On my examination today, the patient remains somewhat oddly related. She insists that she has family members in [place] who are looking for her, although it is not clear how she has come by this information and she reports to have no means of contacting them. She says "I'm not just a little Natalya. I' ve got thousands of friends. They're looking for me." Denies side effects from medications. No physical complaints. Review of Systems ROS Limitations: Poor Historian Except as stated in HPI: all other systems reviewed are Neg Objective Alert: Yes [place]: Person, Place Mood: Calm Affect: Other (remains somewhat odd and inappropriate.) Memory Intact: Comment (Not formally assessed) Hallucinations: Other (Denies AVH) Delusions: No Delusion Type: Other (no delusional material) Suicidal: Ideation (no SI) Homicidal: Ideation (no HI) Insight/Judgment Poor Remarks No motor abnormalities noted Labs Labs reviewed Vitals/IOs Vital Signs Date Time Temp Pulse Resp B/P Pulse Ox O2 Delivery O2 Flow Rate FiO2 08/09/16 05:30 98.1 80 18 121/61 99 Assessment & Plan Problem List: (1) Dementia of Alzheimer's type with behavioral disturbance ICD Code: G30.8 Assessment & Plan Continue Risperdal and Klonopin as ordered. Awaiting possible appointment of a guardian advocate at [employer] court tomorrow for further medication adjustments. Continue to monitor on the inpatient unit. Continue other medications and care as ordered. Justification for Cont. Inpt. High risk for decompensation in a less restrictive environment. Discharge Planning Pending outcome of [facility] court. Likely requires placement if retained. Request HC Surrog/Guard Advoc?: Yes Problem Qualifiers (1) Dementia of Alzheimer's type with behavioral disturbance: Qualified Code: G30.8 - Alzheimer's dementia with behavioral disturbance, unspecified timing of dementia onset Emerson Waterman MD Aug 09, 2016 15:13
[2016-08-09 19:48] VITALS: BP 120/67; PULSE 75; RESP 17; TEMP 97.3
[2016-08-09] MEDS: risperiDONE 3 MG TAB PO SCH (20:30)
[2016-08-10 05:00] VITALS: BP 136/75; PULSE 84; RESP 16; TEMP 98.6; O2SAT 99
[2016-08-10] MEDS: clonazePAM 0.5 MG TAB PO SCH ×2 (08:18→20:42)
[2016-08-10] MEDS: LISINOPRIL 20 MG TAB PO SCH (08:18)
--- NOTE | 2016-08-10 10:54 | HHI.PYPN ---
Subjective Remarks Patient seen and examined. Chart reviewed. Case discussed with nursing staff who reports that the patient required much prompting this morning to take a shower. For me today, the patient remains somewhat oddly related. She says that she wants to go to stay at [facility]. She reiterates her beliefs that she has "100s" of people looking for her. No side effects from medications. No physical complaints. Review of Systems ROS Limitations: Psychotic, Poor Historian Except as stated in HPI: all other systems reviewed are Neg Objective Alert: Yes [place]: Person, Place Mood: Calm Affect: Blunted (odd, somewhat inappropriate) Memory Intact: Comment (Not formally assessed) Hallucinations: Other (No AVH) Delusions: Yes Delusion Type: Other (as above. Believes hundreds of people are looking for her.) Suicidal: Ideation (no SI) Homicidal: Ideation (no HI) Insight/Judgment poor Remarks No motor abnormalities noted. Thought process somewhat scattered. Grooming and hygiene poor. Labs Labs reviewed. Vitals/IOs Vital Signs Date Time Temp Pulse Resp B/P Pulse Ox O2 Delivery O2 Flow Rate FiO2 08/10/16 05:00 98.6 84 16 136/75 99 Intake and Output 08/09/16 08/09/16 08/10/16 08:00 16:00 00:00 Intake Total 1129 ml 870 ml Balance 1129 ml 870 ml Assessment & Plan Problem List: (1) Dementia of Alzheimer's type with behavioral disturbance ICD Code: G30.8 Assessment & Plan Patient's case was presented to the [place] [facility] and the patient was retained on the inpatient psychiatric unit and appointed a [facility] guardian. Now that we have a GA, titrate Risperdal to 2mg BID to manage psychotic symptoms, which may stem either from history of psychotic disorder or dementia. Continue Klonopin as ordered. Obtain consents for as needed psychotropics. Continue to monitor on the inpatient unit. Continue other medications and care as ordered. Justification for Cont. Inpt. Impairment in self-care. Impairment in reality construction. Medication changes in process. High risk for decompensation and a less restrictive environment. Discharge Planning Case discussed with counselor. Now that the patient has been retained on the unit, we will begin looking in earnest for placement for this patient. Request HC Surrog/Guard Advoc?: Yes Problem Qualifiers (1) Dementia of Alzheimer's type with behavioral disturbance: Qualified Code: G30.8 - Alzheimer's dementia with behavioral disturbance, unspecified timing of dementia onset Emerson Waterman MD Aug 10, 2016 10:54
[2016-08-10] MEDS: ACETAMINOPHEN 325 MG TAB PO PRN ×2 (16:57→20:42)
[2016-08-10 18:00] VITALS: BP 128/82; PULSE 109; RESP 19; TEMP 98.8; O2SAT 98
[2016-08-10] MEDS: risperiDONE 1 MG TAB PO SCH (20:41)
[2016-08-11 05:00] VITALS: BP 152/78; PULSE 70; RESP 16; TEMP 97.9; O2SAT 95
[2016-08-11] MEDS: clonazePAM 0.5 MG TAB PO SCH ×2 (09:23→21:13)
[2016-08-11] MEDS: risperiDONE 1 MG TAB PO SCH ×2 (09:23→21:13)
[2016-08-11] MEDS: LISINOPRIL 20 MG TAB PO SCH (09:23)
--- NOTE | 2016-08-11 13:09 | HHI.PYPN ---
Subjective Remarks Patient seen and examined with nurse. Chart reviewed. Case discussed with nursing staff. On my examination today, patient remains confused as previously. She is trying to get back to [place] she says but has gotten lost. I explained that she is presently in [place]. She asks me "how do I get back to being Natalya Dalton?" Denies side effects from medications. No physical complaints. Review of Systems ROS Limitations: Poor Historian Except as stated in HPI: all other systems reviewed are Neg Objective Alert: Yes [place]: Person, Place Mood: Calm Affect: Blunted Memory Intact: Comment (Impaired on clinical exam) Hallucinations: Other (No AVH) Delusions: No Delusion Type: Other (No eliel delusions today) Suicidal: Ideation (no SI) Homicidal: Ideation (no HI) Insight/Judgment Poor Remarks No motoric abnormalities Labs Labs reviewed Vitals/IOs Vital Signs Date Time Temp Pulse Resp B/P Pulse Ox O2 Delivery O2 Flow Rate FiO2 08/11/16 05:00 97.9 70 16 152/78 95 Intake and Output 08/10/16 08/10/16 08/11/16 08:00 16:00 00:00 Intake Total 1440 ml 2910 ml Balance 1440 ml 2910 ml Assessment & Plan Problem List: (1) Dementia of Alzheimer's type with behavioral disturbance ICD Code: G30.8 Assessment & Plan Continue Risperdal and Klonopin as ordered. Continue to monitor on the inpatient unit. Continue other medications and care as ordered. Justification for Cont. Inpt. High risk for decompensation in a less restrictive environment. Discharge Planning Placement Request HC Surrog/Guard Advoc?: Yes Problem Qualifiers (1) Dementia of Alzheimer's type with behavioral disturbance: Qualified Code: G30.8 - Alzheimer's dementia with behavioral disturbance, unspecified timing of dementia onset Emerson Waterman MD Aug 11, 2016 13:09
[2016-08-11 18:00] VITALS: BP 102/76; PULSE 67; RESP 18; TEMP 98.5; O2SAT 96
[2016-08-11] MEDS: SODIUM CHLORIDE 0.65% NASAL SPRAY 45 ML BTL EACH NARE PRN (21:29)
[2016-08-11] MEDS: ACETAMINOPHEN 325 MG TAB PO PRN (21:30)
[2016-08-12 05:51] VITALS: BP 134/64; PULSE 58; RESP 17; TEMP 97.2; O2SAT 96
[2016-08-12] MEDS: clonazePAM 0.5 MG TAB PO SCH ×2 (09:55→21:46)
[2016-08-12] MEDS: LISINOPRIL 20 MG TAB PO SCH (09:55)
[2016-08-12] MEDS: risperiDONE 1 MG TAB PO SCH ×2 (09:55→21:46)
[2016-08-12] MEDS: ACETAMINOPHEN 325 MG TAB PO PRN ×2 (09:56→17:11)
[2016-08-12] MEDS: SODIUM CHLORIDE 0.65% NASAL SPRAY 45 ML BTL EACH NARE PRN ×2 (09:57→17:11)
--- NOTE | 2016-08-12 13:52 | HHI.PYPN ---
Subjective Remarks Patient was seen and case discussed with nursing. Patient continues to have poor insight into her admission. Thought processes disorganized. Some paranoia thinking that people are controlling her life. Alert and oriented 2. Perseverative on the comfort of her back brace. Compliant with medications Objective Alert: Yes [place]: Person, Place Mood: Calm Affect: Restricted Memory Intact: Comment (Impaired on clinical exam) Hallucinations: Other (No AVH) Delusions: No Delusion Type: Other (No eliel delusions today) Suicidal: Ideation (no SI) Homicidal: Ideation (no HI) Insight/Judgment Poor Vitals/IOs Vital Signs Date Time Temp Pulse Resp B/P Pulse Ox O2 Delivery O2 Flow Rate FiO2 08/12/16 05:51 97.2 58 17 134/64 96 Intake and Output 08/11/16 08/11/16 08/12/16 08:00 16:00 00:00 Intake Total 480 ml 1680 ml 1080 ml Balance 480 ml 1680 ml 1080 ml Assessment & Plan Problem List: (1) Dementia of Alzheimer's type with behavioral disturbance ICD Code: G30.8 Assessment & Plan Continue current treatment plan Justification for Cont. Inpt. Patient will decompensate in a less restrictive setting Request HC Surrog/Guard Advoc?: Yes Problem Qualifiers (1) Dementia of Alzheimer's type with behavioral disturbance: Qualified Code: G30.8 - Alzheimer's dementia with behavioral disturbance, unspecified timing of dementia onset Be Torre DO Aug 12, 2016 13:52
[2016-08-12 18:00] VITALS: BP 121/58; PULSE 71; RESP 16; TEMP 98.9; O2SAT 98
[2016-08-13 06:38] VITALS: BP 148/71; PULSE 75; RESP 18; TEMP 97.5; O2SAT 100
[2016-08-13] MEDS: risperiDONE 1 MG TAB PO SCH ×2 (10:06→20:42)
[2016-08-13] MEDS: LISINOPRIL 20 MG TAB PO SCH (10:06)
[2016-08-13] MEDS: ACETAMINOPHEN 325 MG TAB PO PRN ×2 (10:07→14:24)
[2016-08-13] MEDS: clonazePAM 0.5 MG TAB PO SCH ×2 (10:07→20:43)
[2016-08-13] MEDS: SODIUM CHLORIDE 0.65% NASAL SPRAY 45 ML BTL EACH NARE PRN (10:08)
--- NOTE | 2016-08-13 12:43 | HHI.PYPN ---
Subjective Remarks Patient was seen and case discussed with nursing. Patient pretends to be hard of hearing today. Feeling "badly." Denies suicidal ideation intent or plan. Behaving well on the unit and compliant with medications. Doing well per nursing Objective Alert: Yes [place]: Person, Place Mood: Calm Affect: Restricted Memory Intact: Comment (Impaired on clinical exam) Hallucinations: Other (No AVH) Delusions: No Delusion Type: Other (No eliel delusions today) Suicidal: Ideation (no SI) Homicidal: Ideation (no HI) Insight/Judgment Poor Vitals/IOs Vital Signs Date Time Temp Pulse Resp B/P Pulse Ox O2 Delivery O2 Flow Rate FiO2 08/13/16 06:38 97.5 75 18 148/71 100 Intake and Output 08/12/16 08/12/16 08/13/16 08:00 16:00 00:00 Intake Total 0 ml 840 ml 840 ml Balance 0 ml 840 ml 840 ml Assessment & Plan Problem List: (1) Dementia of Alzheimer's type with behavioral disturbance ICD Code: G30.8 Assessment & Plan Continue current treatment plan Justification for Cont. Inpt. Patient will decompensate in a less restrictive setting Request HC Surrog/Guard Advoc?: Yes Problem Qualifiers (1) Dementia of Alzheimer's type with behavioral disturbance: Qualified Code: G30.8 - Alzheimer's dementia with behavioral disturbance, unspecified timing of dementia onset Be Torre DO Aug 13, 2016 12:42
[2016-08-13 20:00] VITALS: BP 111/56; PULSE 63; RESP 15; TEMP 97.9
[2016-08-14 05:56] VITALS: BP 98/51; PULSE 79; RESP 16; TEMP 97.9; O2SAT 98
[2016-08-14] MEDS: risperiDONE 1 MG TAB PO SCH ×2 (09:42→21:28)
[2016-08-14] MEDS: clonazePAM 0.5 MG TAB PO SCH ×2 (09:42→21:27)
[2016-08-14] MEDS: LISINOPRIL 20 MG TAB PO SCH (09:42)
--- NOTE | 2016-08-14 15:14 | HHI.PYPN ---
Subjective Remarks Patient seen and examined with nurse. Chart reviewed. Case discussed with nursing staff who reports patient has been no behavioral problem. On my examination today, the patient remains fairly vague historian. She tells me "I' ve been lost for a while. Even I didn't know." Rambles about Tylenol briefly. I try to inquire if she has any pain because of this content, but she cannot say. She does not appear to be in any physical distress. No side effects from medications. No new physical complaints. Review of Systems ROS Limitations: Poor Historian Except as stated in HPI: all other systems reviewed are Neg Objective Alert: Yes [place]: Person, Place Mood: Calm Affect: Blunted Memory Intact: Comment (remains impaired) Hallucinations: Other (No AVH) Delusions: No Delusion Type: Other (no delusional material) Suicidal: Ideation (no SI) Homicidal: Ideation (no HI) Insight/Judgment Poor Remarks No motor abnormalities noted Labs Labs reviewed Vitals/IOs Vital Signs Date Time Temp Pulse Resp B/P Pulse Ox O2 Delivery O2 Flow Rate FiO2 08/14/16 05:56 97.9 79 16 98/51 98 Intake and Output 08/13/16 08/13/16 08/14/16 08:00 16:00 00:00 Intake Total 1440 ml 1080 ml Balance 1440 ml 1080 ml Assessment & Plan Problem List: (1) Dementia of Alzheimer's type with behavioral disturbance ICD Code: G30.8 Assessment & Plan Continue current psychotropics as ordered. Continue to monitor on the inpatient unit. Check an updated set of basic laboratories. Continue other medications and care as ordered. Justification for Cont. Inpt. High risk for decompensation in a less restrictive environment. Discharge Planning Placement. Request HC Surrog/Guard Advoc?: Yes Problem Qualifiers (1) Dementia of Alzheimer's type with behavioral disturbance: Qualified Code: G30.8 - Alzheimer's dementia with behavioral disturbance, unspecified timing of dementia onset Emerson Waterman MD Aug 14, 2016 15:14
[2016-08-14 18:20] VITALS: BP 122/61; PULSE 80; RESP 16; TEMP 97.9; O2SAT 99
[2016-08-14] MEDS: ACETAMINOPHEN 325 MG TAB PO PRN (21:34)
[2016-08-15 06:17] VITALS: BP 125/63; PULSE 79; RESP 16; TEMP 97.8; O2SAT 97
[2016-08-15 08:02] LABS: AUTOMATED NEUTROPHIL # 4.3 TH/MM3 (1.8-7.7); BASOPHIL # 0.1 TH/MM3 (0-0.2); EOSINOPHIL # 0.4 TH/MM3 (0-0.4); EOSINOPHIL % 5.6 % (0.0-4.0); HEMATOCRIT 40.1 % (35.0-46.0); HEMO FLAGS DIFF FINAL; LYMPH % 21.9 % (9.0-44.0); LYMPHOCYTE # 1.5 TH/MM3 (1.0-4.8); MEAN CELL VOLUME 88.5 FL (80.0-100.0); MEAN CORPUSCULAR HEMOGLOBIN 30.8 PG (27.0-34.0); MEAN CORPUSCULAR HGB CONC 34.8 % (32.0-36.0); MONO % 9.5 % (0.0-8.0); PLATELET COUNT 209 TH/MM3 (150-450); RED BLOOD COUNT 4.53 MIL/MM3 (4.00-5.30); RED CELL DISTRIBUTION WIDTH 13.4 % (11.6-17.2); WHITE BLOOD COUNT 6.9 TH/MM3 (4.0-11.0)
[2016-08-15 08:24] LABS: ANION GAP 5 MEQ/L (5-15); AST (GOT) 20 U/L (15-37); BICARBONATE 31.1 MEQ/L (21.0-32.0); BLOOD UREA NITROGEN 28 MG/DL (7-18); CHLORIDE 102 MEQ/L (98-107); GLOMERULAR FILTRATION RATE 39 ML/MIN (>89); POTASSIUM 4.1 MEQ/L (3.5-5.1); SODIUM (NA) 138 MEQ/L (136-145)
[2016-08-15 08:28] LABS: ALKALINE PHOSPHATASE 63 U/L (45-117); ALT (GPT) 15 U/L (10-53)
[2016-08-15] MEDS: clonazePAM 0.5 MG TAB PO SCH ×2 (09:29→20:38)
[2016-08-15] MEDS: risperiDONE 1 MG TAB PO SCH ×2 (09:30→20:38)
[2016-08-15] MEDS: LISINOPRIL 20 MG TAB PO SCH (09:30)
[2016-08-15] MEDS: ACETAMINOPHEN 325 MG TAB PO PRN (09:36)
--- NOTE | 2016-08-15 10:40 | PD.TTN ---
Present for Treatment Team Treatment Team Staff: Provider (Dr. Waterman), Nurse (Linda), Psych Therapist (Albertina ), Occupational Therapist (Morris) Patient Problems 1. Discharge planning 2. Medication compliance 3. Knowledge deficit 4. Lack of coping skills Progress Toward Goals Provider Input: No medication adjustment and patient is at baseline. Patient complains of some hip pain and is otherwise no behavioral issues and is seclusive to self. Nurse Input: Patient is appropriately taking care of herself, such as bathing, and taking meals. Patient is seculsive to bedrooms and has been medication compliant. Psych Therapist Input: Patient is observed to have limited memory and nonverbal at times. Patient is seculsive and is noticed be sitting her Emily chair most of the time. Patient is plesant and placement is needed to be found for patient. Occupational Therapist Input: It is noted that patient is not attending groups and is staying seculsive to bedroom. Albertina Chris RMI Aug 15, 2016 10:40
--- NOTE | 2016-08-15 12:58 | HHI.PYPN ---
Subjective Remarks Patient seen and examined. Chart reviewed. Case discussed in treatment team with nurse, counselor and occupational therapist. Per nursing staff, the patient has been seclusive to room but has been medication compliant and attending to basic ADLs. Occupational therapist reports that the patient is not participating in groups. Counselor has initiated a referral to several placement facilities and is awaiting word back. On my examination today, the patient is a fairly vague historian. She continues to articulate the belief that her friends from [place] are looking for her, although this does not seem to be functionally impairing. No physical complaints. No side effects from medications. Review of Systems ROS Limitations: Poor Historian Except as stated in HPI: all other systems reviewed are Neg Objective Alert: Yes [place]: Person, Place Mood: Calm Affect: Blunted Memory Intact: Comment (impaired) Hallucinations: Other (no audiovisual hallucinations) Delusions: Yes (Possible) Delusion Type: Other (has conviction that friends from [place] are looking for her but cannot state any evidence for this belief) Suicidal: Ideation (no SI) Homicidal: Ideation (no HI) Insight/Judgment Poor Remarks No motor abnormalities noted. Thought process somewhat circumstantial. Labs Test 08/15/16 07:25 White Blood Count 6.9 TH/MM3 Red Blood Count 4.53 MIL/MM3 Hemoglobin 13.9 GM/DL Hematocrit 40.1 % Mean Corpuscular Volume 88.5 FL Mean Corpuscular Hemoglobin 30.8 PG Mean Corpuscular Hemoglobin 34.8 % Concent Red Cell Distribution Width 13.4 % Platelet Count 209 TH/MM3 Mean Platelet Volume 8.7 FL Neutrophils (%) (Auto) 62.0 % Lymphocytes (%) (Auto) 21.9 % Monocytes (%) (Auto) 9.5 % Eosinophils (%) (Auto) 5.6 % Basophils (%) (Auto) 1.0 % Neutrophils # (Auto) 4.3 TH/MM3 Lymphocytes # (Auto) 1.5 TH/MM3 Monocytes # (Auto) 0.7 TH/MM3 Eosinophils # (Auto) 0.4 TH/MM3 Basophils # (Auto) 0.1 TH/MM3 CBC Comment DIFF FINAL Differential Comment Sodium Level 138 MEQ/L Potassium Level 4.1 MEQ/L Chloride Level 102 MEQ/L Carbon Dioxide Level 31.1 MEQ/L Anion Gap 5 MEQ/L Blood Urea Nitrogen 28 MG/DL Creatinine 1.32 MG/DL Estimat Glomerular Filtration 39 ML/MIN Rate Random Glucose 106 MG/DL Calcium Level 9.0 MG/DL Total Bilirubin 1.0 MG/DL Aspartate Amino Transf 20 U/L (AST/SGOT) Alanine Aminotransferase 15 U/L (ALT/SGPT) Alkaline Phosphatase 63 U/L Total Protein 6.8 GM/DL Albumin 3.5 GM/DL Labs reviewed. CBC unremarkable. Modest decrement in patient's GFR. Vitals/IOs Vital Signs Date Time Temp Pulse Resp B/P Pulse Ox O2 Delivery O2 Flow Rate FiO2 08/15/16 06:17 97.8 79 16 125/63 97 Intake and Output 08/14/16 08/14/16 08/15/16 08:00 16:00 00:00 Intake Total 120 ml 870 ml Balance 120 ml 870 ml Assessment & Plan Problem List: (1) Dementia of Alzheimer's type with behavioral disturbance ICD Code: G30.8 Assessment & Plan Continue Risperdal 2mg BID as ordered. Patient does articulate belief regarding friends looking for her that may be delusional in nature, but this does not seem terribly functionally impairing. The patient has been spending a lot of time in her room and seems a little subdued on exam although not frankly sedated or overmedicated. Still, I will try to taper her Klonopin to see if this will increase her activity level as we do not want her to get deconditioned from spending too much time in bed. Encourage fluids and recheck a BUN/creatinine in 2 days. Continue to monitor on the inpatient unit. Continue other medications and care as ordered. Justification for Cont. Inpt. Medication changes and process. High risk for decompensation in a less restrictive environment. Discharge Planning Placement Request HC Surrog/Guard Advoc?: Yes Problem Qualifiers (1) Dementia of Alzheimer's type with behavioral disturbance: Qualified Code: G30.8 - Alzheimer's dementia with behavioral disturbance, unspecified timing of dementia onset Emerson Waterman MD Aug 15, 2016 12:58
[2016-08-15] MEDS ORDERED: PILL SPLITTER OTHER PRN (14:45)
[2016-08-15 17:42] VITALS: BP 143/71; PULSE 88; RESP 16; TEMP 97.4; O2SAT 97
[2016-08-16 05:16] VITALS: BP 105/52; PULSE 82; RESP 18; TEMP 98.3; O2SAT 96
[2016-08-16 08:25] VITALS: BP 124/66; PULSE 104; RESP 18; O2SAT 99
[2016-08-16] MEDS: risperiDONE 1 MG TAB PO SCH ×2 (08:35→20:25)
[2016-08-16] MEDS: LISINOPRIL 20 MG TAB PO SCH (08:35)
[2016-08-16] MEDS: clonazePAM 0.5 MG TAB PO SCH ×2 (08:35→20:25)
[2016-08-16] MEDS: ACETAMINOPHEN 325 MG TAB PO PRN (08:35)
--- NOTE | 2016-08-16 13:20 | HHI.PYPN ---
Subjective Remarks Patient seen and examined with nurse. Chart reviewed. Case discussed with nursing staff. On my examination today, the patient presents as perhaps slightly more interactive since tapering Klonopin dose. No exacerbation of anxiety. Speech remains rambling and the patient remains confused. She tells a story about her clothes that is difficult to understand. No side effects from medications. No physical complaints. Review of Systems ROS Limitations: Poor Historian Except as stated in HPI: all other systems reviewed are Neg Objective Alert: Yes [place]: Person, Place Mood: Calm Affect: Blunted Memory Intact: Comment (remains impaired) Hallucinations: Other (no audiovisual hallucinations) Delusions: No (Possible) Delusion Type: Other (None elicited today) Suicidal: Ideation (no SI) Homicidal: Ideation (no HI) Insight/Judgment Poor Remarks No motor abnormalities noted. Labs Labs reviewed Vitals/IOs Vital Signs Date Time Temp Pulse Resp B/P Pulse Ox O2 Delivery O2 Flow Rate FiO2 08/16/16 08:25 104 18 124/66 99 08/16/16 05:16 98.3 Intake and Output 08/15/16 08/15/16 08/16/16 08:00 16:00 00:00 Intake Total 360 ml 820 ml Balance 360 ml 820 ml Assessment & Plan Problem List: (1) Dementia of Alzheimer's type with behavioral disturbance ICD Code: G30.8 Assessment & Plan Continue current psychotropics as ordered. Follow-up BUN/creatinine ordered for tomorrow. Continue to monitor on the inpatient unit. Continue other medications and care as ordered. Justification for Cont. Inpt. Impairment in self-care. High risk for decompensation in a less restrictive setting. Discharge Planning Placement Request HC Surrog/Guard Advoc?: Yes Problem Qualifiers (1) Dementia of Alzheimer's type with behavioral disturbance: Qualified Code: G30.8 - Alzheimer's dementia with behavioral disturbance, unspecified timing of dementia onset Emerson Waterman MD Aug 16, 2016 13:20
[2016-08-16 18:00] VITALS: BP 104/78; PULSE 82; RESP 18; TEMP 98.2; O2SAT 98
[2016-08-17 05:54] VITALS: BP 156/66; PULSE 63; RESP 16; TEMP 97.9; O2SAT 98
[2016-08-17] MEDS: LISINOPRIL 20 MG TAB PO SCH (09:19)
[2016-08-17] MEDS: clonazePAM 0.5 MG TAB PO SCH ×2 (09:20→20:39)
[2016-08-17] MEDS: risperiDONE 1 MG TAB PO SCH ×2 (09:20→20:38)
[2016-08-17] MEDS: ACETAMINOPHEN 325 MG TAB PO PRN (09:23)
--- NOTE | 2016-08-17 16:53 | HHI.PYPN ---
Subjective Remarks Patient seen and examined with nurse. Chart reviewed. Case discussed with nursing staff who reports that the patient said that she was hearing a voice telling her not to nap. On my examination today, the patient does seem a little more frankly psychotic. She tells me with a smile on her face that "all I have his fear and depression and crying." She does not verbalize any suicidal ideation but does say "I will be in days." She continues to ruminate on the people that she knows in [place]. No side effects from medications. No physical complaints. Review of Systems ROS Limitations: Psychotic, Poor Historian Except as stated in HPI: all other systems reviewed are Neg Objective Alert: Yes [place]: Person, Place Mood: Depressed Affect: Other (smiling, inconsistent with stated mood) Memory Intact: Comment (impaired) Hallucinations: Other (no AVH to me) Delusions: Yes Delusion Type: Paranoid Suicidal: Ideation (no suicidal ideation but see above) Homicidal: Ideation (no HI) Insight/Judgment Poor Remarks No motor abnormalities noted. Thought process somewhat circumstantial, at times tangential. Speech remarkable for ongoing word finding difficulties. Labs Test 08/17/16 10:11 Blood Urea Nitrogen 31 MG/DL Creatinine 1.28 MG/DL BUN/Creatinine Ratio 24 RATIO Labs reviewed. Creatinine stable. Vitals/IOs Vital Signs Date Time Temp Pulse Resp B/P Pulse Ox O2 Delivery O2 Flow Rate FiO2 08/17/16 05:54 97.9 63 16 156/66 98 Intake and Output 08/16/16 08/16/16 08/17/16 08:00 16:00 00:00 Intake Total 240 ml 240 ml 720 ml Balance 240 ml 240 ml 720 ml Assessment & Plan Problem List: (1) Dementia of Alzheimer's type with behavioral disturbance ICD Code: G30.8 Assessment & Plan Titrate Risperdal to 3mg BID to target psychotic symptoms. Continue Klonopin as ordered. Continue to monitor on inpatient unit. Continue other medications and care as ordered. Justification for Cont. Inpt. Medication changes in process. Impairment in self-care. High risk for decompensation in a less restrictive environment. Discharge Planning Placement following psychiatric stabilization. Request HC Surrog/Guard Advoc?: Yes Problem Qualifiers (1) Dementia of Alzheimer's type with behavioral disturbance: Qualified Code: G30.8 - Alzheimer's dementia with behavioral disturbance, unspecified timing of dementia onset Emerson Waterman MD Aug 17, 2016 16:53
[2016-08-17 18:09] VITALS: BP 98/58; PULSE 66; RESP 17; TEMP 98.8; O2SAT 97
[2016-08-18 05:54] VITALS: BP 117/62; PULSE 74; RESP 16; TEMP 99.1; O2SAT 96
[2016-08-18] MEDS: risperiDONE 1 MG TAB PO SCH ×2 (10:30→22:04)
[2016-08-18] MEDS: LISINOPRIL 20 MG TAB PO SCH (10:38)
[2016-08-18] MEDS: clonazePAM 0.5 MG TAB PO SCH ×2 (10:38→22:04)
--- NOTE | 2016-08-18 15:24 | HHI.PYPN ---
Subjective Remarks Patient seen and examined with nurse. Chart reviewed. PO intake somewhat poor x 2 days. Case discussed with nursing staff who reports that the patient was screaming for help overnight although nothing was wrong and this seemed to have a psychotic basis. On my examination today, the patient makes no mention of this episode overnight. She remains somewhat confused but is presently calm. Some ongoing bizarre ideation. Denies side effects from medications. No physical complaints. Review of Systems ROS Limitations: Poor Historian Except as stated in HPI: all other systems reviewed are Neg Objective Alert: Yes [place]: Person, Place Mood: Calm Affect: Flat Memory Intact: Comment (remains impaired) Hallucinations: Other (no AVH) Delusions: Yes Delusion Type: Paranoid Suicidal: Ideation (no SI) Homicidal: Ideation (no HI) Insight/Judgment Poor Remarks No motoric abnormalities noted Labs Labs reviewed Vitals/IOs Vital Signs Date Time Temp Pulse Resp B/P Pulse Ox O2 Delivery O2 Flow Rate FiO2 08/18/16 05:54 99.1 74 16 117/62 96 Intake and Output 08/17/16 08/17/16 08/18/16 08:00 16:00 00:00 Intake Total 240 ml 60 ml 480 ml Balance 240 ml 60 ml 480 ml Assessment & Plan Problem List: (1) Dementia of Alzheimer's type with behavioral disturbance ICD Code: G30.8 Assessment & Plan Continue Risperdal and low-dose Klonopin as ordered. It is possible that the Klonopin is disinhibiting the patient somewhat, to consider discontinuing Klonopin. Consult to the tram operator given recent poor PO intake. Continue to monitor on the inpatient unit. Continue other medications and care as ordered. Justification for Cont. Inpt. High risk for decompensation in a less restrictive environment. Discharge Planning Placement Request HC Surrog/Guard Advoc?: Yes Problem Qualifiers (1) Dementia of Alzheimer's type with behavioral disturbance: Qualified Code: G30.8 - Alzheimer's dementia with behavioral disturbance, unspecified timing of dementia onset Emerson Waterman MD Aug 18, 2016 15:24
[2016-08-18] MEDS: ACETAMINOPHEN 325 MG TAB PO PRN (16:14)
[2016-08-18 18:13] VITALS: BP 127/65; PULSE 81; RESP 17; TEMP 98.8; O2SAT 98
[2016-08-19 05:59] VITALS: BP 135/67; PULSE 60; RESP 16; TEMP 97.6; O2SAT 98
[2016-08-19] MEDS: LISINOPRIL 20 MG TAB PO SCH (08:21)
[2016-08-19] MEDS: clonazePAM 0.5 MG TAB PO SCH ×2 (08:21→21:24)
[2016-08-19] MEDS: risperiDONE 1 MG TAB PO SCH ×2 (08:21→21:24)
--- NOTE | 2016-08-19 12:41 | HHI.PYPN ---
Subjective Remarks Patient was seen and case discussed with nursing. Patient is pleasant and cooperative with exam. She is alert and oriented 2. Remains grossly disorganized. Behaving well on the unit and tolerating her medications well. No reports of patient screaming or asking for help like yesterday Objective Alert: Yes [place]: Person, Place Mood: Calm Affect: Blunted Memory Intact: Comment (remains impaired) Hallucinations: Other (no AVH) Delusions: Yes Delusion Type: Paranoid Suicidal: Ideation (no SI) Homicidal: Ideation (no HI) Insight/Judgment Poor Vitals/IOs Vital Signs Date Time Temp Pulse Resp B/P Pulse Ox O2 Delivery O2 Flow Rate FiO2 08/19/16 05:59 97.6 60 16 135/67 98 Intake and Output 08/18/16 08/18/16 08/19/16 08:00 16:00 00:00 Intake Total 1440 ml 720 ml Balance 1440 ml 720 ml Assessment & Plan Problem List: (1) Dementia of Alzheimer's type with behavioral disturbance ICD Code: G30.8 Assessment & Plan Continue current treatment plan Justification for Cont. Inpt. Patient will decompensate in a less restrictive setting Request HC Surrog/Guard Advoc?: Yes Problem Qualifiers (1) Dementia of Alzheimer's type with behavioral disturbance: Qualified Code: G30.8 - Alzheimer's dementia with behavioral disturbance, unspecified timing of dementia onset Be Torre DO Aug 19, 2016 12:41
[2016-08-19 18:27] VITALS: BP 130/60; PULSE 95; RESP 17; TEMP 97.1; O2SAT 98
[2016-08-19] MEDS: ACETAMINOPHEN 325 MG TAB PO PRN (21:25)
[2016-08-20 06:49] VITALS: BP 110/57; PULSE 62; RESP 16; TEMP 97.8; O2SAT 99
[2016-08-20] MEDS: clonazePAM 0.5 MG TAB PO SCH ×2 (08:06→21:04)
[2016-08-20] MEDS: risperiDONE 1 MG TAB PO SCH ×2 (08:06→21:04)
[2016-08-20] MEDS: LISINOPRIL 20 MG TAB PO SCH (08:06)
[2016-08-20] MEDS: ACETAMINOPHEN 325 MG TAB PO PRN ×2 (08:07→21:04)
--- NOTE | 2016-08-20 12:53 | HHI.PYPN ---
Subjective Remarks Patient was seen and case discussed with nursing. She is complaining of back pain and it is unclear if it is somatic in origin. Behaving well on the unit, compliant with medications. Eating and sleeping well Objective Alert: Yes [place]: Person, Place Mood: Anxious Affect: Blunted Memory Intact: Comment (remains impaired) Hallucinations: Other (no AVH) Delusions: Yes Delusion Type: Paranoid Suicidal: Ideation (no SI) Homicidal: Ideation (no HI) Insight/Judgment Poor Vitals/IOs Vital Signs Date Time Temp Pulse Resp B/P Pulse Ox O2 Delivery O2 Flow Rate FiO2 08/20/16 06:49 97.8 62 16 110/57 99 Intake and Output 08/19/16 08/19/16 08/20/16 08:00 16:00 00:00 Intake Total 360 ml 600 ml Balance 360 ml 600 ml Assessment & Plan Problem List: (1) Dementia of Alzheimer's type with behavioral disturbance ICD Code: G30.8 Assessment & Plan Lidocaine patch Justification for Cont. Inpt. Patient will decompensate in a less restrictive setting Request HC Surrog/Guard Advoc?: Yes Problem Qualifiers (1) Dementia of Alzheimer's type with behavioral disturbance: Qualified Code: G30.8 - Alzheimer's dementia with behavioral disturbance, unspecified timing of dementia onset Be Torre DO Aug 20, 2016 12:53
[2016-08-20] MEDS: LIDOCAINE HCL 5% PATCH T-DERMAL SCH (13:22)
[2016-08-20 18:00] VITALS: BP 120/59; PULSE 83; RESP 16; TEMP 96.9; O2SAT 98
[2016-08-21 06:21] VITALS: BP 156/81; PULSE 67; RESP 16; TEMP 97.4; O2SAT 98
[2016-08-21] MEDS: REMOVE OLD LIDOCAINE PATCH T-DERMAL SCH (09:00)
[2016-08-21] MEDS: risperiDONE 1 MG TAB PO SCH ×2 (09:32→21:04)
[2016-08-21] MEDS: LISINOPRIL 20 MG TAB PO SCH (09:32)
[2016-08-21] MEDS: clonazePAM 0.5 MG TAB PO SCH ×2 (09:34→21:04)
[2016-08-21] MEDS: LIDOCAINE HCL 5% PATCH T-DERMAL SCH (09:35)
[2016-08-21] MEDS: ACETAMINOPHEN 325 MG TAB PO PRN (09:41)
--- NOTE | 2016-08-21 13:25 | HHI.PYPN ---
Subjective Remarks Patient seen and examined with nurse. Chart reviewed. Case discussed with nursing staff reports that the patient remains somewhat bizarre but no real behavioral problem. Behavioral health photo lab technician informs me that the patient has had an episode of diarrhea with some blood. I have ordered a C. difficile PCR. On my examination today, the patient remains fairly disorganized. She continues to perseverate on the family that she believes that she has in [place]. At one point while perseverating on family in [place] she says "I could just kill myself" but then seems to immediately have forgotten she said this. When I ask if she has entertained thoughts of suicide, she says, "no, never!" She then denies SI, intent or plan. No side effects from medications. Complains of left thigh pain. Review of Systems ROS Limitations: Psychotic, Poor Historian Except as stated in HPI: all other systems reviewed are Neg Objective Alert: Yes [place]: Person, Place Mood: Anxious Affect: Blunted Memory Intact: Comment (impaired) Hallucinations: Other (None) Delusions: Yes Delusion Type: Paranoid (bizarre) Suicidal: Ideation (See above.) Homicidal: Ideation (no HI) Insight/Judgment Poor Remarks No motor abnormalities noted. Thought process remains a little circumstantial/ tangential. Grooming and hygiene fair at best. Labs Labs reviewed. Vitals/IOs Vital Signs Date Time Temp Pulse Resp B/P Pulse Ox O2 Delivery O2 Flow Rate FiO2 08/21/16 06:21 97.4 67 16 156/81 98 Intake and Output 08/20/16 08/20/16 08/21/16 08:00 16:00 00:00 Intake Total 2280 ml 720 ml Output Total 2 ml Balance 2278 ml 720 ml Assessment & Plan Problem List: (1) Dementia of Alzheimer's type with behavioral disturbance ICD Code: G30.8 Assessment & Plan No evidence of any suicidal behavior despite extended observation on the inpatient unit. Continue current psychotropics as ordered. Check a C. difficile PCR. Check a CBC and a CMP in the morning. Continue to monitor on the inpatient unit. Continue other medications and care as ordered. Justification for Cont. Inpt. High risk for decompensation in a less restrictive environment. Discharge Planning Placement Request HC Surrog/Guard Advoc?: Yes Problem Qualifiers (1) Dementia of Alzheimer's type with behavioral disturbance: Qualified Code: G30.8 - Alzheimer's dementia with behavioral disturbance, unspecified timing of dementia onset Emerson Waterman MD Aug 21, 2016 13:25
[2016-08-21 19:00] VITALS: BP 151/70; PULSE 111; RESP 16; TEMP 98; O2SAT 98
[2016-08-21 19:45] LABS: C. DIFF EPI 027 PRESUMPTIVE NEGATIVE (NEGATIVE); C. DIFF TOXIN PCR NEGATIVE (NEGATIVE)
[2016-08-22 06:00] VITALS: BP 118/65; PULSE 94; RESP 18; TEMP 98.8
[2016-08-22] MEDS: risperiDONE 1 MG TAB PO SCH ×2 (08:45→20:59)
[2016-08-22] MEDS: ACETAMINOPHEN 325 MG TAB PO PRN (08:45)
[2016-08-22] MEDS: LISINOPRIL 20 MG TAB PO SCH (08:45)
[2016-08-22] MEDS: clonazePAM 0.5 MG TAB PO SCH ×2 (08:45→20:59)
[2016-08-22] MEDS: REMOVE OLD LIDOCAINE PATCH T-DERMAL SCH (08:47)
[2016-08-22] MEDS: LIDOCAINE HCL 5% PATCH T-DERMAL SCH (08:47)
[2016-08-22 10:03] LABS: AUTOMATED NEUTROPHIL # 10.7 TH/MM3 (1.8-7.7); BASOPHIL # 0.1 TH/MM3 (0-0.2); BASOPHIL % 0.4 % (0.0-2.0); EOSINOPHIL # 0.2 TH/MM3 (0-0.4); EOSINOPHIL % 1.4 % (0.0-4.0); HEMATOCRIT 37.9 % (35.0-46.0); HEMO FLAGS DIFF FINAL; LYMPH % 8.4 % (9.0-44.0); LYMPHOCYTE # 1.1 TH/MM3 (1.0-4.8); MEAN CELL VOLUME 88.8 FL (80.0-100.0); MEAN CORPUSCULAR HEMOGLOBIN 30.1 PG (27.0-34.0); MEAN CORPUSCULAR HGB CONC 33.9 % (32.0-36.0); MONO % 7.8 % (0.0-8.0); PLATELET COUNT 191 TH/MM3 (150-450); RED BLOOD COUNT 4.27 MIL/MM3 (4.00-5.30)
[2016-08-22 10:28] LABS: ANION GAP 12 MEQ/L (5-15); AST (GOT) 14 U/L (15-37); BICARBONATE 21.9 MEQ/L (21.0-32.0); BLOOD UREA NITROGEN 35 MG/DL (7-18); CHLORIDE 102 MEQ/L (98-107); GLOMERULAR FILTRATION RATE 34 ML/MIN (>89); POTASSIUM 4.2 MEQ/L (3.5-5.1); SODIUM (NA) 136 MEQ/L (136-145)
[2016-08-22 10:34] LABS: ALKALINE PHOSPHATASE 63 U/L (45-117); ALT (GPT) 15 U/L (10-53); TOTAL BILIRUBIN ADULT 0.8 MG/DL (0.2-1.0)
--- NOTE | 2016-08-22 15:17 | HHI.PYPN ---
Subjective Remarks Patient seen and examined with nurse. Chart reviewed. Case discussed in treatment team. Per nursing staff, no behavioral problem, worked with physical therapy, no reported ongoing diarrhea. On my examination today, patient remains somewhat odd and anxious. Remains confused as at baseline. She is upset to have to wear the lumbar corset. She denies SI/HI on direct questioning. No side effects from medications. No physical complaints. Review of Systems ROS Limitations: Poor Historian Except as stated in HPI: all other systems reviewed are Neg Objective Alert: Yes [place]: Person, Place Mood: Anxious Affect: Blunted Memory Intact: Comment (remains impaired) Hallucinations: Other (no AVH) Delusions: Yes Delusion Type: Paranoid (some ongoing bizarre ideation at times) Suicidal: Ideation (denies suicidal ideation) Homicidal: Ideation (denies homicidal ideation) Insight/Judgment Chronically poor Remarks No motor abnormalities noted Labs Test 08/21/16 08/22/16 16:30 08:36 Stool C. difficile Toxin (PCR) NEGATIVE Stl C. difficile Toxin PRESUMPTIVE Epiderm 027 NEGATIVE White Blood Count 13.0 TH/MM3 Red Blood Count 4.27 MIL/MM3 Hemoglobin 12.9 GM/DL Hematocrit 37.9 % Mean Corpuscular Volume 88.8 FL Mean Corpuscular Hemoglobin 30.1 PG Mean Corpuscular Hemoglobin 33.9 % Concent Red Cell Distribution Width 13.0 % Platelet Count 191 TH/MM3 Mean Platelet Volume 9.8 FL Neutrophils (%) (Auto) 82.0 % Lymphocytes (%) (Auto) 8.4 % Monocytes (%) (Auto) 7.8 % Eosinophils (%) (Auto) 1.4 % Basophils (%) (Auto) 0.4 % Neutrophils # (Auto) 10.7 TH/MM3 Lymphocytes # (Auto) 1.1 TH/MM3 Monocytes # (Auto) 1.0 TH/MM3 Eosinophils # (Auto) 0.2 TH/MM3 Basophils # (Auto) 0.1 TH/MM3 CBC Comment DIFF FINAL Differential Comment Sodium Level 136 MEQ/L Potassium Level 4.2 MEQ/L Chloride Level 102 MEQ/L Carbon Dioxide Level 21.9 MEQ/L Anion Gap 12 MEQ/L Blood Urea Nitrogen 35 MG/DL Creatinine 1.52 MG/DL Estimat Glomerular Filtration 34 ML/MIN Rate Random Glucose 212 MG/DL Calcium Level 8.4 MG/DL Total Bilirubin 0.8 MG/DL Aspartate Amino Transf 14 U/L (AST/SGOT) Alanine Aminotransferase 15 U/L (ALT/SGPT) Alkaline Phosphatase 63 U/L Total Protein 6.2 GM/DL Albumin 3.2 GM/DL Labs reviewed. C. difficile PCR negative. GFR remains decreased, fairly stable. Mild leukocytosis noted. Vitals/IOs Vital Signs Date Time Temp Pulse Resp B/P Pulse Ox O2 Delivery O2 Flow Rate FiO2 08/22/16 06:00 98.8 94 18 118/65 08/21/16 19:00 98 Intake and Output 08/21/16 08/21/16 08/22/16 08:00 16:00 00:00 Intake Total 720 ml Balance 720 ml Assessment & Plan Problem List: (1) Dementia of Alzheimer's type with behavioral disturbance ICD Code: G30.8 Assessment & Plan Continue current psychotropics as ordered. Consult to the hospitalist to evaluate for mild leukocytosis. Recheck CBC and BMP in the morning. Continue other medications and care as ordered. Justification for Cont. Inpt. High risk for decompensation in a less restrictive environment. Discharge Planning Placement, hopefully by the end of the week Request HC Surrog/Guard Advoc?: Yes Problem Qualifiers (1) Dementia of Alzheimer's type with behavioral disturbance: Qualified Code: G30.8 - Alzheimer's dementia with behavioral disturbance, unspecified timing of dementia onset Emerson Waterman MD Aug 22, 2016 15:16
[2016-08-22 19:50] VITALS: BP 107/57; PULSE 76; RESP 18; TEMP 96.9
[2016-08-23 05:59] VITALS: BP 135/76; PULSE 76; RESP 18; TEMP 98.2
[2016-08-23] MEDS: REMOVE OLD LIDOCAINE PATCH T-DERMAL SCH (09:00)
[2016-08-23] MEDS: LIDOCAINE HCL 5% PATCH T-DERMAL SCH (09:00)
[2016-08-23] MEDS: risperiDONE 1 MG TAB PO SCH ×2 (09:10→22:37)
[2016-08-23] MEDS: LISINOPRIL 20 MG TAB PO SCH (09:11)
[2016-08-23] MEDS: clonazePAM 0.5 MG TAB PO SCH ×2 (09:11→22:36)
[2016-08-23 09:19] LABS: POTASSIUM 4.3 MEQ/L (3.5-5.1)
[2016-08-23 09:29] LABS: AUTOMATED NEUTROPHIL # 7.4 TH/MM3 (1.8-7.7); BASOPHIL # 0.1 TH/MM3 (0-0.2); BASOPHIL % 0.8 % (0.0-2.0); EOSINOPHIL # 0.3 TH/MM3 (0-0.4); HEMO FLAGS DIFF FINAL; LYMPH % 16.5 % (9.0-44.0); LYMPHOCYTE # 1.8 TH/MM3 (1.0-4.8); MEAN CELL VOLUME 89.4 FL (80.0-100.0); MEAN CORPUSCULAR HEMOGLOBIN 30.2 PG (27.0-34.0); MEAN CORPUSCULAR HGB CONC 33.8 % (32.0-36.0); MONO % 9.8 % (0.0-8.0); NEUT % 69.9 % (16.0-70.0); PLATELET COUNT 209 TH/MM3 (150-450); RED BLOOD COUNT 4.59 MIL/MM3 (4.00-5.30); RED CELL DISTRIBUTION WIDTH 13.2 % (11.6-17.2); WHITE BLOOD COUNT 10.6 TH/MM3 (4.0-11.0)
--- NOTE | 2016-08-23 10:46 | HHI.PR ---
Subjective Remarks Reconsulted for leukocytosis Patient seen and examined today. Reports she is doing well. States she's been hydrating eating, drinking, and going to the day room walking with her walker. Denies pain and discomfort. Denies SOB/ dyspnea. Denies chest pain, palpitations, headaches, dizziness. Denies fevers, chills, n/v/d. Denies hematuria, dysuria. Objective Vitals Vital Signs Date Time Temp Pulse Resp B/P Pulse Ox O2 Delivery O2 Flow Rate FiO2 08/23/16 05:59 98.2 76 18 135/76 08/22/16 19:50 96.9 76 18 107/57 I/O 08/22/16 08/22/16 08/22/16 08/23/16 08/23/16 08/23/16 06:59 14:59 22:59 06:59 14:59 22:59 Intake Total 240 ml Balance 240 ml Intake Oral 240 ml # Voids 2 4 # Bowel Movements 1 Result Diagram: 08/23/16 0701 08/23/16 0701 Objective Remarks GENERAL: This is an obese, well-developed patient, in no apparent distress. SKIN: Warm and dry. HEENT: Normocephalic. Pupils equal round and reactive. Nose without bleeding. Airway patent. NECK: Trachea midline. No JVD. Supple. CARDIOVASCULAR: Regular rate and rhythm without murmurs, gallops, or rubs. RESPIRATORY: Clear to auscultation. Breath sounds equal bilaterally. No wheezes , rales, or rhonchi. GASTROINTESTINAL: Abdomen soft, non-tender, nondistended. Bowel Sounds normoactive x4. MUSCULOSKELETAL: Extremities without clubbing, cyanosis, trace bilateral edema. NEUROLOGICAL: Awake and alert. Oriented to place, person. Moves all extremities. Normal speech. A/P Problem List: (1) Dementia of Alzheimer's type with behavioral disturbance ICD Code: G30.8 Status: Acute (2) Hypertension ICD Code: I10 Status: Acute (3) Leukocytosis ICD Code: D72.829 Status: Acute Assessment and Plan 75-year-old female with a past medical history significant for hypertension, dementia, chronic kidney disease stage III, osteoarthritis and PTSD who was admitted to the psychiatric unit under [place] act for suicidal ideation. Hospitalist services were consulted for medical management. Reconsult for leukocytosis - Check UA, negative C. difficile - Repeat CBC 10.6 from 13.0 - Possible reactive leukocytosis or medication related. - Patient denies any fevers, chills, cough, dysuria. Dementia/Depression/Suicidal ideation - Management per psychiatric team Hypertension - Controlled - Continue home antihypertensive medications CKD stage III - Baseline appears to be around 1.2 - 1.3 - avoid nephrotoxic agents Degenerative disc disease lumbar spine and chronic back pain - Tylenol when necessary DVT prophylaxis - encourage ambulation Discussed with patient, nursing Stable from Hospitalist standpoint. We will sign off. Reconsult as needed. Clear for medical discharge Problem Qualifiers (1) Dementia of Alzheimer's type with behavioral disturbance: Qualified Code: G30.8 - Alzheimer's dementia with behavioral disturbance, unspecified timing of dementia onset Paulette Abdalla Aug 23, 2016 10:46
--- NOTE | 2016-08-23 11:03 | HHI.PR ---
Objective Vitals Vital Signs Date Time Temp Pulse Resp B/P Pulse Ox O2 Delivery O2 Flow Rate FiO2 08/23/16 05:59 98.2 76 18 135/76 08/22/16 19:50 96.9 76 18 107/57 I/O 08/22/16 08/22/16 08/22/16 08/23/16 08/23/16 08/23/16 07:00 15:00 23:00 07:00 15:00 23:00 Intake Total 240 ml Balance 240 ml Intake Oral 240 ml # Voids 2 4 # Bowel Movements 1 Result Diagram: 08/23/1670008/23/16700 Paulette Abdalla [facility] Aug 23, 2016 11:03
--- NOTE | 2016-08-23 14:26 | HHI.PYPN ---
Subjective Remarks Patient seen and examined with nurse. Chart reviewed. Case discussed with nursing staff. On my examination today, the patient remained somewhat oddly related and vague. She says "it's hard to figure out about all these things that are going on. People are different." She struggles to be more specific. Denies SI/HI. No side effects from medications. No physical complaints. Review of Systems ROS Limitations: Poor Historian Except as stated in HPI: all other systems reviewed are Neg Objective Alert: Yes [place]: Person, Place Mood: Calm Affect: Blunted Memory Intact: Comment (impaired on clinical exam) Hallucinations: Other (no AVH) Delusions: No Delusion Type: Other (no delusions) Suicidal: Ideation (denies SI) Homicidal: Ideation (denies HI) Insight/Judgment Poor Remarks No motor abnormalities noted. Labs Test 08/23/16 07:01 White Blood Count 10.6 TH/MM3 Red Blood Count 4.59 MIL/MM3 Hemoglobin 13.9 GM/DL Hematocrit 41.0 % Mean Corpuscular Volume 89.4 FL Mean Corpuscular Hemoglobin 30.2 PG Mean Corpuscular Hemoglobin 33.8 % Concent Red Cell Distribution Width 13.2 % Platelet Count 209 TH/MM3 Mean Platelet Volume 10.0 FL Neutrophils (%) (Auto) 69.9 % Lymphocytes (%) (Auto) 16.5 % Monocytes (%) (Auto) 9.8 % Eosinophils (%) (Auto) 3.0 % Basophils (%) (Auto) 0.8 % Neutrophils # (Auto) 7.4 TH/MM3 Lymphocytes # (Auto) 1.8 TH/MM3 Monocytes # (Auto) 1.0 TH/MM3 Eosinophils # (Auto) 0.3 TH/MM3 Basophils # (Auto) 0.1 TH/MM3 CBC Comment DIFF FINAL Differential Comment Sodium Level 135 MEQ/L Potassium Level 4.3 MEQ/L Chloride Level 102 MEQ/L Carbon Dioxide Level 22.0 MEQ/L Anion Gap 11 MEQ/L Blood Urea Nitrogen 35 MG/DL Creatinine 1.38 MG/DL Estimat Glomerular Filtration 37 ML/MIN Rate Random Glucose 100 MG/DL Calcium Level 9.5 MG/DL Labs reviewed. Leukocytosis resolved. Renal function stable. Vitals/IOs Vital Signs Date Time Temp Pulse Resp B/P Pulse Ox O2 Delivery O2 Flow Rate FiO2 6/21/17 05:59 98.2 76 18 135/76 08/21/16 19:00 98 Assessment & Plan Problem List: (1) Dementia of Alzheimer's type with behavioral disturbance ICD Code: G30.8 Assessment & Plan Continue current psychiatric medications as ordered. Continue to monitor on the inpatient unit. Continue other medications and care as ordered. Justification for Cont. Inpt. High risk for decompensation in a less restrictive environment. Discharge Planning Placement, hopefully by the end of the week. Case discussed with counselor. Request HC Surrog/Guard Advoc?: Yes Problem Qualifiers (1) Dementia of Alzheimer's type with behavioral disturbance: Qualified Code: G30.8 - Alzheimer's dementia with behavioral disturbance, unspecified timing of dementia onset Emerson Waterman MD Aug 23, 2016 14:26
[2016-08-23 18:00] VITALS: BP 153/70; PULSE 93; RESP 18; TEMP 97.6; O2SAT 96
[2016-08-23] MEDS: ACETAMINOPHEN 325 MG TAB PO PRN (22:46)
[2016-08-24 05:11] VITALS: BP 145/63; PULSE 92; RESP 18; TEMP 98
[2016-08-24] MEDS: LIDOCAINE HCL 5% PATCH T-DERMAL SCH (09:00)
[2016-08-24] MEDS: REMOVE OLD LIDOCAINE PATCH T-DERMAL SCH (09:00)
[2016-08-24] MEDS: risperiDONE 1 MG TAB PO SCH ×2 (09:21→20:49)
[2016-08-24] MEDS: LISINOPRIL 20 MG TAB PO SCH (09:22)
[2016-08-24] MEDS: clonazePAM 0.5 MG TAB PO SCH ×2 (09:22→20:50)
--- NOTE | 2016-08-24 13:44 | HHI.PYPN ---
Subjective Remarks Patient seen and examined. Chart reviewed. Case discussed with nursing staff. Reportedly, nursing staff overnight auscultated an irregular heartbeat. On my examination today, the patient denies any chest pain, shortness of breath or palpitations. I reviewed old EKG from previous admission and this was read as ectopic atrial rhythm. Patient remains confused but calm. Denies SI/HI. No side effects from medications. Complains of some chronic low-back pain, Lidoderm patch was not available this morning from the pharmacy. No other physical complaints. Review of Systems ROS Limitations: Poor Historian Except as stated in HPI: all other systems reviewed are Neg Objective Alert: Yes [place]: Person, Place Mood: Calm Affect: Blunted Memory Intact: Comment (remains impaired) Hallucinations: Other (no AVH) Delusions: No Delusion Type: Other (no delusional material today) Suicidal: Ideation (denies suicidal ideation) Homicidal: Ideation (denies homicidal ideation) Insight/Judgment Poor Remarks No motor abnormalities noted. Labs Labs reviewed Vitals/IOs Vital Signs Date Time Temp Pulse Resp B/P Pulse Ox O2 Delivery O2 Flow Rate FiO2 08/24/16 05:11 98.0 92 18 145/63 08/23/16 18:00 96 Intake and Output 08/23/16 08/23/16 08/24/16 08:00 16:00 00:00 Intake Total 720 ml 1090 ml Balance 720 ml 1090 ml Assessment & Plan Problem List: (1) Dementia of Alzheimer's type with behavioral disturbance ICD Code: G30.8 Assessment & Plan Continue Risperdal and Klonopin as ordered. I will check an EKG. Continue to monitor on the inpatient unit. Continue other medications and care as ordered. Justification for Cont. Inpt. High risk for decompensation in a less restrictive environment. Discharge Planning Placement. Counselor is hopeful that the patient will be accepted by facility by the end of the week. Request HC Surrog/Guard Advoc?: Yes Problem Qualifiers (1) Dementia of Alzheimer's type with behavioral disturbance: Qualified Code: G30.8 - Alzheimer's dementia with behavioral disturbance, unspecified timing of dementia onset Emerson Waterman MD Aug 24, 2016 13:44
[2016-08-24 18:00] VITALS: BP 133/71; PULSE 81; RESP 20; TEMP 98; O2SAT 97
[2016-08-24] MEDS: ACETAMINOPHEN 325 MG TAB PO PRN (19:06)
[2016-08-25 06:22] VITALS: BP 97/51; PULSE 100; RESP 16; TEMP 97.6; O2SAT 94
[2016-08-25 06:25] LABS: BLOOD, URINE NEG (NEG); COMMENT (UR) CULT NOT INDICATED; CULTURE IF INDICATED CULT NOT INDICATED; GLUCOSE,URINE NEG (NEG); KETONE, URINE NEG (NEG); MUCUS URINE FEW /lpf (OCC); NITRITE,URINE NEG (NEG); PH, URINE 5.5 (5.0-8.5); URINE COLOR LIGHT-YELLOW (YELLW/STRAW)
[2016-08-25] MEDS: REMOVE OLD LIDOCAINE PATCH T-DERMAL SCH (09:00)
[2016-08-25] MEDS: risperiDONE 1 MG TAB PO SCH (10:38)
[2016-08-25] MEDS: clonazePAM 0.5 MG TAB PO SCH (10:38)
[2016-08-25] MEDS: LISINOPRIL 20 MG TAB PO SCH (10:38)
[2016-08-25] MEDS: LIDOCAINE HCL 5% PATCH T-DERMAL SCH (10:43)
[2016-08-25] MEDS ORDERED: RISP1 PO (13:39)
[2016-08-25] MEDS ORDERED: LIDO5DIS5 T-DERMAL (13:39)
[2016-08-25] MEDS ORDERED: CLON.5 PO (13:39)
[2016-08-25] MEDS ORDERED: LISI-515 PO (13:39)
[2016-08-25] MEDS ORDERED: AMLO10 PO (13:39)
--- NOTE | 2016-08-25 13:39 | HHI.DS ---
Psychiatry Discharge Summary Inpatient Psychiatric care?: Yes Advance Directive: No Reason Not Provided: Due to Patient Condition Mental Health AdvanceDirective: No Health Care Proxy: No Admission Admission Date August 01, 2016 at 13:00 Admission Diagnosis: (1) Dementia of Alzheimer's type with behavioral disturbance ICD Code: G30.8 Brief History Ms. Dalton is a 75-year-old female with a history of dementia who presented initially under a Krause act alleging functional decline and further alleging that the patient made statements that she wanted to . Patient was evaluated by Dr. Granger, who lifted the Krause act, and the patient was subsequently medically admitted, although it appears this may have been primarily for placement. Patient was placed under a new Krause act by Dr. Weston and subsequently admitted to the inpatient psychiatric unit. Reviewing the electronic medical record, I note the patient was admitted psychiatrically most recently under Dr. Marr in June of this year and was released by the court at that time. Patient seen and examined with nurse. Chart reviewed. Case discussed with nurse on the inpatient psychiatric unit. On my examination today, the patient presents as quite confused, see full mental status testing below. She is unsure how she came to be in the hospital. She says "I just want my life back. Every time [facility] sends me money I get close to $800. It seems like everything has been taken away." When I ask her to expound upon this thought, she is unable to explain how she thinks that things are being taken away. She does say that she feels "like I'm being utilized," and it is unclear from context if this is psychotic in nature. She denies any audiovisual hallucinations. She denies any suicidal or homicidal ideation but it is not clear that she is reliable to contract for safety. She denies any low mood or anxiety. No hypomanic or manic symptoms. She describes her sleep and appetite as "as good as I can. I had a nice life." Psychiatric interview is somewhat limited because of patient's degree of cognitive impairment. Past psychiatric history: Patient is likely an unreliable historian. The patient is unsure of psychiatric diagnosis. Chart suggests a history of dementia and psychosis. Patient is not currently under the care of a psychiatrist by her report. She does have a history of psychiatric admissions, most recently last month. She denies a history of suicide attempts. Reviewing the electronic medical record, I see no obvious source of collateral information at this time and the patient is unable to provide me with any contact information. Tobacco Use In Past 30 Days: No Tobacco Past 30 Days Alcohol Use: Never Hospital Course Patient was admitted to a locked, inpatient psychiatric unit. A general medical consultation was obtained. Appropriate precautions were in place throughout patient's hospital stay. Patient was seen and examined on the unit by psychiatry and also visited by counselor. Psychotropic medications were adjusted. Patient tolerated medications well without side effects. There was no evidence of any suicidality or homicidality on the inpatient unit. Patient remained in good behavioral control and was medication compliant. Counselor has arranged for disposition to assisted living level of care. On the day of discharge: Patient seen and examined. Chart reviewed. Case discussed with nursing staff. On my examination today, the patient presents at her confused baseline. She is calm and cooperative with examination. Mood is stable, no depressive or hypomanic/manic symptoms. Denies audiovisual hallucinations. No evident delusional material. Denies suicidal or homicidal ideation, intent or plan. No side effects from medications. After weighing the relevant factors and based on the available evidence, I director general that the patient is at low imminent risk of harm to self or others from a mental illness as defined under the Krause act and her level of function is adequate for planned level of outpatient care. There is a component of chronic risk related to the unpredictability secondary to her dementia but this risk would not be further ameliorated by a longer inpatient psychiatric hospital stay. The patient has maximized benefit from this inpatient psychiatric hospital stay. She will be discharged today to assisted living with psychiatric follow-up as arranged by counselor. Patient is also follow-up with primary care. Patient to return to the psychiatric emergency room for any concerning psychiatric symptoms. Results Blood Pressure 97 / 51 Vital Signs Date Time Temp Pulse Resp B/P Pulse Ox O2 Delivery O2 Flow Rate FiO2 08/25/16 ~2:00pm 98.8 76 19 133/76 96 Laboratory Tests Test 08/23/16 08/25/16 07:01 06:00 Monocytes (%) (Auto) 9.8 % (0.0-8.0) Monocytes # (Auto) 1.0 TH/MM3 (0-0.9) Sodium Level 135 MEQ/L (136-145) Blood Urea Nitrogen 35 MG/DL (7-18) Creatinine 1.38 MG/DL (0.50-1.00) Estimat Glomerular Filtration 37 ML/MIN (>89) Rate Urine Mucus FEW /lpf (OCC) Summary of Procedures None done Imaging Last Impressions Pelvis X-Ray 08/07/16 0000 Signed Impressions: Service Date/Time: Sunday, August 07, 2016 12:57 - CONCLUSION: 1. No acute fracture or dislocation. Consider MRI examination if patient is unable to bear weight. Johnny Williamson MD Lumbar Spine X-Ray 08/07/16 0000 Signed Impressions: Service Date/Time: Sunday, August 07, 2016 12:58 - CONCLUSION: 1. Stable left lumbar scoliosis and associated advanced degenerative spondylosis of the lumbar spine with Grade 1 retrolisthesis of L2 on L3. 2. No acute fracture or subluxation. Johnny Williamson MD Pending results at discharge: No Medications # of Antipsychotic meds at D/C: 1 Approp Antipsych med options 1 - Minimum of three failed multiple trials of monotherapy. 2 - Documented plan to taper to monotherapy due to previous use of multiple meds OR cross-taper in progress at D/C. 3 - Documentation of augmentation of Clozapine. 4 - Justification other than those listed in allowable values 1-3, document here : Discharge Discharge Date: Aug 25, 2016 Discharge Diagnosis: (1) Dementia of Alzheimer's type with behavioral disturbance Diagnosis: Principal (behavioral disturbance resolved) ICD Code: G30.8 Mental Status Exam at Disch Patient is in hospital gown. She is somewhat disheveled but maintaining basic hygiene. She is awake and alert and oriented to person and location at least. Memory remains impaired as at baseline. No abnormal motor movements noted. Speech is within normal limits for rate, tone and volume. Mood stable, affect somewhat blunted. Thought process somewhat tangential consistent with dementia diagnosis. No delusional material elicited. Denies audiovisual hallucinations. Denies suicidal or homicidal ideation, intent or plan. Insight and judgment are chronically poor. Pt Condition on Discharge: Stable Discharge Disposition: Discharge Home Discharge Instructions Diet Instructions: Heart Healthy Diet Activities you can perform: Weight Bearing as Megha Scheduled Appointment: as per counselor's notes New Medications: Amlodipine (Norvasc) 10 Mg Tab 10 MG PO DAILY Blood Pressure Management Days 15 Ref 1 TAB Clonazepam (Klonopin) 0.5 Mg Tab 0.25 MG PO BID Mental Health Days 15 Ref 1 TAB Lidocaine (Lidoderm) 5 % Adh..patch 1 PATCH T-DERMAL DAILY Pain Management Days 15 Ref 1 PATCH Lisinopril (Lisinopril) 20 Mg Tab 20 MG PO DAILY Blood Pressure Management Days 15 Ref 1 TAB Risperidone (Risperdal) 1 Mg Tab 3 MG PO BID Mental Health Days 15 Ref 1 TAB Continued Medications: Lisinopril (Lisinopril) 20 Mg Tab 20 MG PO BID Blood Pressure Management #60 TAB Discontinued Medications: Amlodipine (Norvasc) 5 Mg Tab 10 MG PO DAILY Blood Pressure Management #30 TAB Clonidine (Catapres) 0.1 Mg Tab 0.1 MG PO Q8HR PRN SBP>160, DBP>90 #30 TAB Risperidone (Risperdal) 3 Mg Tab 3 MG PO HS #30 TAB Sertraline (Zoloft) 50 Mg Tab 100 MG PO DAILY Depression Control #60 TAB Trazodone (Trazodone) 50 Mg Tab 100 MG PO HS #30 TAB Discharge Time <= 30 minutes Discharge/Advance Care Plan Health Problems: (1) Dementia of Alzheimer's type with behavioral disturbance Goals to promote your health * To prevent worsening of your condition and complications * To maintain your health at the optimal level Directions to meet your goals Take your medications as prescribed Follow your dietary instruction Follow activity as directed Keep your appointments as scheduled Take your immunizations and boosters as scheduled If your symptoms worsen call your PCP, if no PCP go to Urgent Care Center or Emergency Room For 25/09 questions related to your inpatient stay or results of tests pending at discharge, please contact Dr. Emerson Waterman at Smoking is Dangerous to Your Health. Avoid second hand smoking Problem Qualifiers (1) Dementia of Alzheimer's type with behavioral disturbance: Qualified Code: G30.8 - Alzheimer's dementia with behavioral disturbance, unspecified timing of dementia onset Emerson Waterman MD Aug 25, 2016 13:39
--- NOTE | 2016-08-25 16:14 | EKG ---
Date Performed: 08/24/2016 Time Performed: 14:26:45 PTAGE: 75 years EKG: Sinus rhythm WITH FIRST DEGREE AV BLOCK POSSIBLE ANTERIOR MYOCARDIAL INFARCTION , OF INDETERMINATE AGE ABNORMAL E CG Compared to prior tracing no significant change PREVIOUS TRACING : 06/22/2016 07.35 DOCTOR: Norberto Gaspar Interpretating Date/Time 08/25/2016 16:13:17
== END 2016-08-25 16:45 | disposition home or self-care (01) | DRG 57 ==
LOC: H250 13:00
PROVIDERS: ADMIT Psychiatry & Neurology Psychiatry; ATTEND Psychiatry & Neurology Psychiatry
DX: G30.9 Alzheimer's disease, unspecified (principal); F02.81 Dementia in other diseases classified elsewhere, unspecified severity, with behavioral disturbance; R45.851 Suicidal ideations; N18.3 Chronic kidney disease, stage 3 (moderate); I12.9 Hypertensive chronic kidney disease with stage 1 through stage 4 chronic kidney disease, or unspecified chronic kidney disease; M19.90 Unspecified osteoarthritis, unspecified site; F43.10 Post-traumatic stress disorder, unspecified; F32.9 Major depressive disorder, single episode, unspecified; Z96.653 Presence of artificial knee joint, bilateral; M51.36 Other intervertebral disc degeneration, lumbar region; G89.29 Other chronic pain; M54.9 Dorsalgia, unspecified; D72.829 Elevated white blood cell count, unspecified; I49.9 Cardiac arrhythmia, unspecified; F29 Unspecified psychosis not due to a substance or known physiological condition; R19.7 Diarrhea, unspecified
CPT/HCPCS: 72100; 72170; 80048; 80053; 81001; 82565; 84520; 85025; 87493; 93005; L0627

== ENCOUNTER 2017-04-13 05:11 | Inpatient (IN) | payer MEDICARE, MEDICAID ==
[~2017-04-13] VITALS: Ht 172.7 cm; Wt 116.0 kg
[2017-04-13] VITALS (20 sets, daily range): BP systolic 50–185; BP diastolic 29–146; PULSE 94–147; RESP 16–27; TEMP 97.5–101.3; O2SAT 92–99
[~2017-04-13 05:11] MED LIST changes: +AMLO10 PO; -AMLO5 PO; -CLON.1 PO; +CLON.5 PO; +LIDO1ADH4 T-DERMAL; -METO25TA3 PO; +RISP1 PO; -RISP3 PO; -TRAZ50TA12 PO; -ZOLO50TA PO
[2017-04-13] MEDS ORDERED: LEVOFLOXACIN 750 MG PREMIX INJ 150 ML IV ONE (05:15)
[2017-04-13] MEDS ORDERED: ACETAMINOPHEN 650 MG SUPP RECTAL ONE (05:15)
[2017-04-13] MEDS ORDERED: VANCOMYCIN INJ 1,000 MG in SODIUM CHLOR 0.9% 250 ML INJ 250 ML IV ONE (05:15)
[2017-04-13] MEDS ORDERED: SODIUM CHLOR 0.9% 1000 ML INJ 1,000 ML IV ONE ×3 (05:15→06:15)
[2017-04-13] MEDS ORDERED: DILTIAZEM INJ 125 MG in SODIUM CHLORIDE 0.9% INJ 100 ML IV PRN (05:30)
[2017-04-13] MEDS ORDERED: DILTIAZEM HCL 25 MG/5 ML VIAL IV ONE (05:30)
[2017-04-13 05:44] LABS: AUTOMATED NEUTROPHIL # 27.7 TH/MM3 (1.8-7.7); BASOPHIL % 0.1 % (0.0-2.0); EOSINOPHIL % 0.1 % (0.0-4.0); HEMATOCRIT 37.8 % (35.0-46.0); HEMOGLOBIN 12.9 GM/DL (11.6-15.3); LYMPH % 4.1 % (9.0-44.0); LYMPHOCYTE # 1.3 TH/MM3 (1.0-4.8); MEAN CELL VOLUME 89.6 FL (80.0-100.0); MEAN CORPUSCULAR HEMOGLOBIN 30.6 PG (27.0-34.0); MEAN CORPUSCULAR HGB CONC 34.1 % (32.0-36.0); MEAN PLATELET VOLUME 9.5 FL (7.0-11.0); MONOCYTE # 3.3 TH/MM3 (0-0.9); NEUT % 85.7 % (16.0-70.0); PLATELET COUNT 274 TH/MM3 (150-450); RED BLOOD COUNT 4.22 MIL/MM3 (4.00-5.30); RED CELL DISTRIBUTION WIDTH 13.4 % (11.6-17.2); WHITE BLOOD COUNT 32.4 TH/MM3 (4.0-11.0)
[2017-04-13 05:53] LABS: INTERNATIONAL NORMALIZED RATIO 1.3 RATIO; PROTHROMBIN TIME - PATIENT 13.6 SEC (9.8-11.6)
[2017-04-13 06:13] LABS: ALBUMIN 1.8 GM/DL (3.4-5.0); BICARBONATE 20.1 MEQ/L (21.0-32.0); CALCIUM 7.3 MG/DL (8.5-10.1); CALCIUM-PROTEIN CORRECTED 8.3 MG/DL (8.5-10.1); CREATININE 5.23 MG/DL (0.50-1.00); MAGNESIUM 2.2 MG/DL (1.5-2.5); TOTAL BILIRUBIN ADULT 0.6 MG/DL (0.2-1.0); TOTAL PROTEIN 5.2 GM/DL (6.4-8.2); TROPONIN I 0.17 NG/ML (0.02-0.05)
[2017-04-13] MEDS ORDERED: methylPREDNISolone SOD SUCC 125 MG/2 ML VIAL IV PUSH ONE (06:15)
--- NOTE | 2017-04-13 06:16 | RADRPT ---
EXAM DATE/TIME: 04/13/2017 05:47 [facility] COMPARISON: CHEST SINGLE AP, February 20, 2016, 15:20. INDICATIONS : Fever and shortness of breath. MEDICAL HISTORY : None. SURGICAL HISTORY : None. ENCOUNTER: Initial ACUITY: 1 day PAIN SCORE: Non-responsive. LOCATION: chest FINDINGS: A single view of the chest demonstrates cardiomegaly. Mild basilar airspace disease. No effusion or p neumothorax. CONCLUSION: 1. Mild basilar opacity, probably dependent in basilar atelectasis. Cardiomegaly is stable. Derrick Mattson MD on April 13, 2017 at 6:13 Board Certified Radiologist. This report was verified electronically.
--- NOTE | 2017-04-13 06:28 | PD ---
HPI . Fever Chief Complaint: Fever Time Seen by Provider: 05:15 Travel History International Travel<30 days: No Contact w/Intl Traveler<30days: No Traveled to known affect area: No History of Present Illness HPI 76-year-old female with history of dementia presents from care home with fever, elevated white blood cell count, multiple status, hypotension, tachycardia as per communication from EMS. Patient is nonverbal is therefore a noncontributory historian. Patient is reportedly a full CODE STATUS PFSH Past Medical History Narrative Medical Past medical history reviewed Arthritis: No Asthma: No Autoimmune Disease: No Blood Disorders: No Anxiety: Yes Depression: Yes Heart Rhythm Problems: No High Cholesterol: No Chemotherapy: Yes Chest Pain: No Congestive Heart Failure: No COPD: No Cerebrovascular Accident: No Dementia: Yes Diabetes: No Diminished Hearing: Yes (R EAR) Gastrointestinal Disorders: No GERD: No Glaucoma: No Headaches: No Hiatal Hernia: No Hypertension: Yes Implanted Vascular Access Dvce: Yes Kidney Stones: No Medical other: Yes (esbl, osteoarthritis, ptsd) Psychiatric: Yes (Yes - Schizophrenia) Reproductive: No Immunizations Current: Yes Migraines: No Radiation Therapy: No Renal Failure: No Seizures: No Sickle Cell Disease: No Sleep Apnea: No Thyroid Disease: No Ulcer: No Menopausal: Yes : 0 Para: 0 Miscarriage: 0 : 0 Past Surgical History Abdominal Surgery: No AICD: No Appendectomy: Yes Arteriovenous Shunt: No Cardiac Surgery: No Ear Surgery: No Endocrine Surgery: No Eye Surgery: No Genitourinary Surgery: No Gynecologic Surgery: No Insulin Pump: No Joint Replacement: Yes (Bilateral Knees) Oral Surgery: No Pacemaker: No Thoracic Surgery: No Tonsillectomy: Yes Social History Alcohol Use: No Tobacco Use: No Substance Use: No Allergies-Medications (Allergen,Severity, Reaction): Coded Allergies: Sulfa (Sulfonamide Antibiotics) (Unverified Allergy, Severe, DISTURBS KIDNEY FUNCTION, 10/17/16) aripiprazole (Unverified Allergy, Severe, 10/17/16) aspirin (Unverified Allergy, Severe, 10/17/16) diclofenac (Unverified Allergy, Severe, 10/17/16) doxycycline (Unverified Allergy, Severe, NAUSEA & VOMITING, 10/17/16) etodolac (Unverified Allergy, Severe, 10/17/16) flurbiprofen (Unverified Allergy, Severe, 10/17/16) ibuprofen (Unverified Allergy, Severe, 10/17/16) indomethacin (Unverified Allergy, Severe, 10/17/16) ketoprofen (Unverified Allergy, Severe, 10/17/16) ketorolac (Unverified Allergy, Severe, 10/17/16) meclizine (Unverified Allergy, Severe, 10/17/16) metronidazole (Unverified Allergy, Severe, Diarrhea, 10/17/16) minocycline (Unverified Allergy, Severe, NAUSEA & VOMITING, 10/17/16) naproxen (Unverified Allergy, Severe, 10/17/16) oxaprozin (Unverified Allergy, Severe, 10/17/16) penicillin G (Unverified Allergy, Severe, REDNESS, SWELLING, 10/17/16) saccharin (Unverified Allergy, Severe, 10/17/16) tigecycline (Unverified Allergy, Severe, NAUSEA & VOMITING, 10/17/16) Reported Meds & Prescriptions Reported Meds & Active Scripts Active Risperdal (Risperidone) 1 Mg Tab 3 Mg PO BID 15 Days Lisinopril 20 Mg Tab 20 Mg PO DAILY 15 Days Lidoderm (Lidocaine) 5 % Adh..patch 1 Patch T-DERMAL DAILY 15 Days Klonopin (Clonazepam) 0.5 Mg Tab 0.25 Mg PO BID 15 Days Norvasc (Amlodipine Besylate) 10 Mg Tab 10 Mg PO DAILY 15 Days Lisinopril 20 Mg Tab 20 Mg PO BID Narrative Medication Allergies and medications reviewed Review of Systems ROS Limitations: Altered Mental Status, Poor Historian Physical Exam Exam Limitations: Altered Mental Status, Poor Historian Narrative GENERAL: Awake, nonverbal, blood pressure 200/100, tachycardia at 150 bpm irregularly irregular rhythm on secured entrance monitor SKIN: Warm and dry. No diaphoresis cyanosis pallor or mottling. No rashes HEAD: Atraumatic. Normocephalic. EYES: Pupils equal and round. No scleral icterus. No injection or drainage. ENT: No nasal bleeding or discharge. Mucous membranes pink and moist. NECK: Trachea midline. No JVD. CARDIOVASCULAR: Tachycardia and irregularly irregular. Pulses 2+ equal bilateral 4. Good capillary refill, good perfusion, extremities warm no mottling no cyanosis RESPIRATORY: No accessory muscle use. Clear to auscultation. Breath sounds equal bilaterally. GASTROINTESTINAL: Abdomen soft, non-tender, nondistended. Hepatic and splenic margins not palpable. MUSCULOSKELETAL: Extremities without clubbing, cyanosis, or edema. No obvious deformities. NEUROLOGICAL: Awake and profoundly confused, not following commands. PSYCHIATRIC: Nonverbal Data Data Last Documented VS Vital Signs Date Time Temp Pulse Resp B/P (MAP) Pulse Ox O2 Delivery O2 Flow Rate FiO2 04/13/17 06:01 101.3 112 26 67/29 (42) 95 Nasal Cannula 2.00 Orders Orders Sepsis Workup Initiated (04/13/17 ) Electrocardiogram (04/13/17 05:15) Complete Blood Count With Diff (04/13/17 05:15) Comprehensive Metabolic Panel (04/13/17 05:15) Prothrombin Time / Inr (Pt) (04/13/17 05:15) Act Partial Throm Time (Ptt) (04/13/17 05:15) Lactic Acid Sepsis Protocol (04/13/17 05:15) Magnesium (Mg) (04/13/17 05:15) Ckmb (Isoenzyme) Profile (04/13/17 05:15) Troponin I (04/13/17 05:15) Urinalysis - C+S If Indicated (04/13/17 05:15) Influenzae A/B Antigen (04/13/17 05:15) Blood Culture (04/13/17 05:15) Chest, Single Ap (04/13/17 05:15) Arterial Blood Gas (Abg) (04/13/17 05:15) Blood Glucose (04/13/17 05:15) Ecg Monitoring (04/13/17 05:15) Iv Access Insert/Monitor (04/13/17 05:15) Oximetry (04/13/17 05:15) Oxygen Administration (04/13/17 05:15) Acetaminophen Supp (Tylenol Supp) (04/13/17 05:15) Vancomycin Inj (Vancomycin Inj) (04/13/17 05:15) Levofloxacin 750 Mg Premix Inj (Levaquin (04/13/17 05:15) Insert Temp Sensing Meraz Cath (04/13/17 05:15) Sodium Chlor 0.9% 1000 Ml Inj (Ns 1000 M (04/13/17 05:15) B-Type Natriuretic Peptide (04/13/17 05:15) Diltiazem Inj (Cardizem Inj) (04/13/17 05:30) Vital Signs (Adult) Q15MX4,Q4H (04/13/17 05:28) Blood Tester / Telemetry LACHELLE.Q8H (04/13/17 05:28) Cardiac Rhythm LACHELLE.Q8H (04/13/17 05:28) Notify Dr: Other (04/13/17 05:28) Diltiazem Inj (Cardizem Inj) (04/13/17 05:30) C Diff Toxin Pcr (04/13/17 05:36) Sodium Chlor 0.9% 1000 Ml Inj (Ns 1000 M (04/13/17 06:00) Methylprednisolone So Succ Inj (Solumedr (04/13/17 06:15) Sodium Chlor 0.9% 1000 Ml Inj (Ns 1000 M (04/13/17 06:15) CKMB (04/13/17 05:20) CKMB% (04/13/17 05:20) Calcium Gluconate Inj (Calcium Gluconate (04/13/17 06:30) Labs Laboratory Tests Test 04/13/17 05:20 04/13/17 05:40 White Blood Count 32.4 TH/MM3 Red Blood Count 4.22 MIL/MM3 Hemoglobin 12.9 GM/DL Hematocrit 37.8 % Mean Corpuscular Volume 89.6 FL Mean Corpuscular Hemoglobin 30.6 PG Mean Corpuscular Hemoglobin Concent 34.1 % Red Cell Distribution Width 13.4 % Platelet Count 274 TH/MM3 Mean Platelet Volume 9.5 FL Neutrophils (%) (Auto) 85.7 % Lymphocytes (%) (Auto) 4.1 % Monocytes (%) (Auto) 10.0 % Eosinophils (%) (Auto) 0.1 % Basophils (%) (Auto) 0.1 % Neutrophils # (Auto) 27.7 TH/MM3 Lymphocytes # (Auto) 1.3 TH/MM3 Monocytes # (Auto) 3.3 TH/MM3 Eosinophils # (Auto) 0.0 TH/MM3 Basophils # (Auto) 0.0 TH/MM3 CBC Comment AUTO DIFF Prothrombin Time 13.6 SEC Prothromb Time International Ratio 1.3 RATIO Activated Partial Thromboplast Time 26.8 SEC Blood Gas Puncture Site LT BRACHIAL Blood Gas Patient Temperature 98.6 Blood Gas HCO3 20 mmol/L Blood Gas Base Excess -4.2 mmol/L Blood Gas Oxygen Saturation 95 % Arterial Blood pH 7.40 Arterial Blood Partial Pressure CO2 33 mmHg Arterial Blood Partial Pressure O2 88 mmHG Arterial Blood Oxygen Content 16.6 Vol % Arterial Blood Carboxyhemoglobin 1.0 % Arterial Blood Methemoglobin 0.8 % Blood Gas Hemoglobin 12.4 G/DL Oxygen Delivery Device NASAL CANNULA Blood Gas Liter Flow 2 L/M Blood Urea Nitrogen 95 MG/DL Creatinine 5.23 MG/DL Random Glucose 118 MG/DL Total Protein 5.2 GM/DL Albumin 1.8 GM/DL Calcium Level 7.3 MG/DL Magnesium Level 2.2 MG/DL Alkaline Phosphatase 65 U/L Aspartate Amino Transf (AST/SGOT) 42 U/L Alanine Aminotransferase (ALT/SGPT) 10 U/L Total Bilirubin 0.6 MG/DL Sodium Level 140 MEQ/L Potassium Level 5.1 MEQ/L Chloride Level 108 MEQ/L Carbon Dioxide Level 20.1 MEQ/L Anion Gap 12 MEQ/L Estimat Glomerular Filtration Rate 8 ML/MIN Lactic Acid Level 1.8 mmol/L Protein Corrected Calcium 8.3 MG/DL Total Creatine Kinase 691 U/L Troponin I 0.17 NG/ML MDM Medical Decision Making Medical Screen Exam Complete: Yes Emergency Medical Condition: Yes Medical Record Reviewed: Yes Differential Diagnosis Sepsis, intrafibrillation with RVR, urinary tract infection, hypocalcemia Narrative Course Sepsis protocol initiated at patient's presentation by EMS. Patient responding well to antiarrhythmics, IV fluids, IV antibiotics, antipyretics, calcium supplementation EKG: Atrial fibrillation with RVR at 1 53 bpm Chest x-ray no acute infiltrates Laboratory examinations were reviewed, patient has notable hypocalcemia, supplemented ABG reviewed. Patient to be admitted to the intensive care unit Diagnosis Primary Impression: Sepsis Qualified Codes: A41.9 - Sepsis, unspecified organism Admitting Information Admitting Physician Requests: Admit Bryan Cunningham MD Apr 13, 2017 06:28
[2017-04-13 06:30] LABS: BACTERIA, URINE MANY /hpf; BILIRUBIN, URINE SMALL (NEG); BLOOD, URINE SMALL (NEG); GLUCOSE,URINE NEG (NEG); HYALINE CAST, URINE 28 /lpf (RARE); KETONE, URINE NEG (NEG); MUCUS URINE FEW /lpf (OCC); NITRITE,URINE NEG (NEG); RENAL EPITHELIAL CELLS 1 /hpf; TRANSITIONAL EPI CELLS, URINE 1 /hpf; URINE LEUKOCYTE ESTERASE LARGE (NEG); WHITE BLOOD CELL CLUMPS MANY
[2017-04-13] MEDS ORDERED: CALCIUM GLUCONATE 10% 1 GM/10 ML VIAL IV PUSH ONE (06:30)
[2017-04-13 06:32] LABS: BANDS 20 % (0-6); LYMPHOCYTES 3 % (9-44); METAMYELOCYTES 7 % (0-1); MONOCYTES 10 % (0-8); NEUTROPHIL # MANUAL DIFF 28.2 TH/MM3 (1.8-7.7); POLYS (SEG NEUTROPHILS) 60 % (16-70)
[2017-04-13 06:33] LABS: TOXIC GRANULATION 1+ (NORMAL); TOXIC VACUOLATION PRESENT (NONE SEEN)
[2017-04-13] MEDS ORDERED: TRAM50 PO (06:35)
[2017-04-13] MEDS ORDERED: MILKSUS PO (06:35)
[2017-04-13] MEDS ORDERED: LISI-515 PO (06:35)
[2017-04-13] MEDS ORDERED: DULO-39 PO (06:35)
[2017-04-13] MEDS ORDERED: CLON.5 PO (06:35)
[2017-04-13] MEDS ORDERED: TYLE325T PO (06:35)
[2017-04-13] MEDS ORDERED: RISP1 PO (06:35)
[2017-04-13 06:40] LABS: URINE COLOR DARK-BROWN (YELLW/STRAW)
[2017-04-13] MEDS ORDERED: MAGNESIUM HYDROXIDE SUSP 30 ML CUP PO PRN (07:00)
[2017-04-13] MEDS ORDERED: MISCELLANEOUS NURSING INFORMATION XX SCH (07:00)
[2017-04-13] MEDS ORDERED: ONDANSETRON HCL 4 MG/2 ML VIAL IV PUSH PRN (07:00)
[2017-04-13] MEDS ORDERED: CHLORHEXIDINE GLUCONATE 2 % 1 PACK (2 CLOTHS) TOP PRN (07:00)
[2017-04-13] MEDS ORDERED: RESP: ALBUTEROL 2.5 MG/IPRATROPIUM 0.5 MG NEB (PRN) INH (07:00)
[2017-04-13] MEDS ORDERED: Vancomycin Consult Pharmacy 1 EA OTHER SCH (07:00)
[2017-04-13] MEDS ORDERED: DEXTROSE 50% IN WATER 50 ML VIAL(D50) IV PUSH PRN (07:00)
[2017-04-13] MEDS: SODIUM CHLOR 0.9% 1000 ML INJ 1,000 ML IV SCH ×4 (07:22→23:11)
[2017-04-13] MEDS: metroNIDAZOLE 500 MG INJ 100 ML IV SCH ×3 (07:22→21:56)
[2017-04-13] MEDS ORDERED: [UNRECOGNIZED DRUG - REMARK] OTHER SCH (07:30)
[2017-04-13] MEDS ORDERED: VANCOMYCIN 500 MG/NS 100 ML IV ONE ×2 (08:00)
[2017-04-13] MEDS ORDERED: TERBUTALINE INJ 1 MG/ML AMP SQ PRN (08:15)
[2017-04-13] MEDS ORDERED: ALBUMIN 5% INJ 500 ML IV ONE ×2 (08:48→09:00)
--- NOTE | 2017-04-13 08:54 | HHI.HP ---
[facility] Service Critical Care Medicine Primary Care Physician Unknown Admission Diagnosis Sepsis Diagnosis: Chief Complaint: altered mental status Travel History International Travel<30 Days: No Contact w/Intl Traveler <30 Da: No Traveled to Known Affected Are: No History of Present Illness this is a 76yF with history of end-stage dementia with behavioral component who presented from SNF with fever, leukocytosis, hypotension and tachycardia. On my evaluation, she is unable to provide a history. It is unclear to me what her baseline mental status is. In the ER, she is febrile to 101.3, wbc 32k, Cr 5.23 / BUN 95. trop 0.17, ck 691. She was found to be in atrial fibrillation with rapid ventricular response and was initially started on diltiazem infusion, but she became significantly hypotensive with sbp 60s. She has received 5L NS iv bolus. she is oligoanuric. u/a is significant for large LE, +wbc, many bacteria. I performed bedside critical care echocardiography which demonstrated hyperdynamic LV function, completely collapsed IVC and severely underfilled LV with an LV cavity that almost completely obliterated in systole. no pericardial effusion. Review of Systems ROS Limitations: Clinical Condition, Altered Mental Status, Poor Historian Past Family Social History Allergies: Coded Allergies: Sulfa (Sulfonamide Antibiotics) (Unverified Allergy, Severe, DISTURBS KIDNEY FUNCTION, 10/17/16) aripiprazole (Unverified Allergy, Severe, 10/17/16) aspirin (Unverified Allergy, Severe, 10/17/16) diclofenac (Unverified Allergy, Severe, 10/17/16) doxycycline (Unverified Allergy, Severe, NAUSEA & VOMITING, 10/17/16) etodolac (Unverified Allergy, Severe, 10/17/16) flurbiprofen (Unverified Allergy, Severe, 10/17/16) ibuprofen (Unverified Allergy, Severe, 10/17/16) indomethacin (Unverified Allergy, Severe, 10/17/16) ketoprofen (Unverified Allergy, Severe, 10/17/16) ketorolac (Unverified Allergy, Severe, 10/17/16) meclizine (Unverified Allergy, Severe, 10/17/16) metronidazole (Unverified Allergy, Severe, Diarrhea, 10/17/16) minocycline (Unverified Allergy, Severe, NAUSEA & VOMITING, 10/17/16) naproxen (Unverified Allergy, Severe, 10/17/16) oxaprozin (Unverified Allergy, Severe, 10/17/16) penicillin G (Unverified Allergy, Severe, REDNESS, SWELLING, 10/17/16) saccharin (Unverified Allergy, Severe, 10/17/16) tigecycline (Unverified Allergy, Severe, NAUSEA & VOMITING, 10/17/16) Past Medical History unobtainable from the patient due to her clinical condition. per chart review: Anxiety Depression Dementia: prior psychiatric notes reference with behavioral component. right ear diminished hearing hypertension prior notes indicated ESBL organisms, but I cannot find any documented micro report detailing organism and sensitivities. osteoarthritis PTSD Schizophrenia Past Surgical History unobtainable from the patient due to her clinical condition. per chart review: appendectomy bilateral total knee arthroplasty tonsillectomy Reported Medications unobtainable from the patient due to her clinical condition. per chart review: Lisinopril 20 Mg Tab 20 Mg PO DAILY 15 Days Lidoderm (Lidocaine) 5 % Adh..patch 1 Patch T-DERMAL DAILY 15 Days Norvasc (Amlodipine Besylate) 10 Mg Tab 10 Mg PO DAILY 15 Days Ultram (Tramadol HCl) 50 Mg Tab 50 Mg PO Q12 PRN Tylenol (Acetaminophen) 325 Mg Tab 500 Mg PO TID Risperdal (Risperidone) 1 Mg Tab 1 Mg PO Q12HR Milk of Magnesia Liq (Magnesium Hydroxide) 400 Mg/5 Ml Susp 30 Ml PO Q6H PRN Lisinopril 20 Mg Tab 20 Mg PO DAILY Klonopin (Clonazepam) 0.5 Mg Tab 0.5 Mg PO DAILY PRN Duloxetine DR (Duloxetine HCl) 40 Mg Capdr 40 Mg PO HS Active Ordered Medications See MAR Family History unobtainable from the patient due to her clinical condition. unlikely to be contributory to her acute illness. Social History unobtainable from the patient due to her clinical condition. per chart review: denied tob, etoh, doa. Physical Exam Vital Signs Vital Signs Date Time Temp Pulse Resp B/P (MAP) Pulse Ox O2 Delivery O2 Flow Rate FiO2 04/13/17 08:34 04/13/17 08:33 109 21 78/36 (50) 98 Nasal Cannula 2.00 04/13/17 07:47 104 22 52/33 (39) 99 Nasal Cannula 2.00 04/13/17 07:36 98.8 129 22 78/38 (51) 96 Nasal Cannula 2.00 04/13/17 07:04 120 219/159 04/13/17 06:46 92 04/13/17 06:28 99.5 113 26 185/146 (159) 92 Nasal Cannula 2.00 04/13/17 06:01 101.3 112 26 67/29 (42) 95 Nasal Cannula 2.00 04/13/17 05:51 97 Nasal Cannula 2.00 04/13/17 05:50 101.1 138 26 50/30 (37) 97 04/13/17 05:29 146 16 158/100 (119) 97 04/13/17 05:29 97 Nasal Cannula 2.00 04/13/17 05:14 147 16 Physical Exam gen: frail elderly female, lying in bed, tracks with eyes, moans. states "make it go away" heent: perrl. mucous membranes dry neck: flat neck veins. trachea midline. chest: equal chest rise. 2L nc. clear to auscultation cv: tachycardic rate, irregularly irregular rhythm. afib by tele. hypotensive, sbp 60s. abd: soft, nontender, nondistended. no guarding. extr: no peripheral edema. distal pulses 1+. warm and well perfused. neuro: RASS -2. tracks with eyes. does not follow commands. moves all extremities spontaneously. withdraws to pain. does not answer questions. only states "make it go away". Laboratory Laboratory Tests Test 04/13/17 05:20 04/13/17 05:40 White Blood Count 32.4 Red Blood Count 4.22 Hemoglobin 12.9 Hematocrit 37.8 Mean Corpuscular Volume 89.6 Mean Corpuscular Hemoglobin 30.6 Mean Corpuscular Hemoglobin Concent 34.1 Red Cell Distribution Width 13.4 Platelet Count 274 Mean Platelet Volume 9.5 Neutrophils (%) (Auto) 85.7 Lymphocytes (%) (Auto) 4.1 Monocytes (%) (Auto) 10.0 Eosinophils (%) (Auto) 0.1 Basophils (%) (Auto) 0.1 Neutrophils # (Auto) 27.7 Lymphocytes # (Auto) 1.3 Monocytes # (Auto) 3.3 Eosinophils # (Auto) 0.0 Basophils # (Auto) 0.0 CBC Comment AUTO DIFF Differential Total Cells Counted 100 Neutrophils % (Manual) 60 Band Neutrophils % 20 Lymphocytes % 3 Monocytes % 10 Neutrophils # (Manual) 28.2 Metamyelocytes 7 Differential Comment FINAL DIFF MANUAL Toxic Granulation 1+ Toxic Vacuolation PRESENT Platelet Estimate NORMAL Platelet Morphology Comment NORMAL Red Cell Morphology Comment NORMAL Prothrombin Time 13.6 Prothromb Time International Ratio 1.3 Activated Partial Thromboplast Time 26.8 Blood Gas Puncture Site LT BRACHIAL Blood Gas Patient Temperature 98.6 Blood Gas HCO3 20 Blood Gas Base Excess -4.2 Blood Gas Oxygen Saturation 95 Arterial Blood pH 7.40 Arterial Blood Partial Pressure CO2 33 Arterial Blood Partial Pressure O2 88 Arterial Blood Oxygen Content 16.6 Arterial Blood Carboxyhemoglobin 1.0 Arterial Blood Methemoglobin 0.8 Blood Gas Hemoglobin 12.4 Oxygen Delivery Device NASAL CANNULA Blood Gas Liter Flow 2 Blood Urea Nitrogen 95 Creatinine 5.23 Random Glucose 118 Total Protein 5.2 Albumin 1.8 Calcium Level 7.3 Magnesium Level 2.2 Alkaline Phosphatase 65 Aspartate Amino Transf (AST/SGOT) 42 Alanine Aminotransferase (ALT/SGPT) 10 Total Bilirubin 0.6 Sodium Level 140 Potassium Level 5.1 Chloride Level 108 Carbon Dioxide Level 20.1 Anion Gap 12 Estimat Glomerular Filtration Rate 8 Lactic Acid Level 1.8 Protein Corrected Calcium 8.3 Total Creatine Kinase 691 Creatine Kinase MB 3.7 Creatine Kinase MB % 0.5 Troponin I 0.17 B-Type Natriuretic Peptide 121 Urine Color DARK-BROWN Urine Turbidity CLOUDY Urine pH 5.0 Urine Specific Combs 1.022 Urine Protein 30 Urine Glucose (UA) NEG Urine Ketones NEG Urine Occult Blood SMALL Urine Nitrite NEG Urine Bilirubin SMALL Urine Urobilinogen 2.0 Urine Leukocyte Esterase LARGE Urine RBC 50 Urine WBC Urine WBC Clumps MANY Urine Transitional Epithelial Cells 1 Urine Renal Epithelial Cells 1 Urine Bacteria MANY Urine Hyaline Casts 28 Urine Mucus FEW Microscopic Urinalysis Comment CATH-CULTURE IND Date/Time Source Procedure Growth Status 04/13/17 05:25 Blood Peripheral Aerobic Blood Culture Pending Received 04/13/17 05:25 Blood Peripheral Anaerobic Blood Culture Pending Received 04/13/17 05:32 Nasal Washing Influenza Types A,B Antigen (JUAN) - Final NEGATIVE FOR FLU A AND B ANTIGEN.... Complete 04/13/17 05:40 Urine Catheterized Urine Urine Culture Pending Received Result Diagram: 04/13/17 0520 04/13/17 0520 Imaging Last Impressions Chest X-Ray 04/13/17 0515 Signed Impressions: Service Date/Time: Thursday, April 13, 2017 05:47 - CONCLUSION: 1. Mild basilar opacity, probably dependent in basilar atelectasis. Cardiomegaly is stable. Derrick Mattson MD Renal Ultrasound 04/13/17 0000 Signed Impressions: Service Date/Time: Thursday, April 13, 2017 07:52 - CONCLUSION: Negative for obstruction. Bladder decompressed by Calles. Jayson Cain MD FACR Septic Shock Reassessment Septic shock perfusion: reassessment completed Caprini VTE Risk Assessment Caprini VTE Risk Assessment: Mod/High Risk (score >= 2) Caprini Risk Assessment Model Point Value = 1 Point Value = 2 Point Value = 3 Point Value = 5 Age 41-60 Minor surgery BMI > 25 kg/m2 Swollen legs Varicose veins or History of unexplained or recurrent spontaneous Oral contraceptives or hormone replacement Sepsis (< 1 month) Serious lung disease, including pneumonia (< 1 month) Abnormal pulmonary function Acute myocardial infarction Congestive heart failure (< 1 month) History of inflammatory bowel disease Medical patient at bed rest Age 61-74 Arthroscopic surgery Major open surgery (> 45 min) Laparoscopic surgery (> 45 min) Malignancy Confined to bed (> 72 hours) Immobilizing plaster cast Central venous access Age >= 75 History of VTE Family history of VTE Factor V Leiden Prothrombin [id number] Lupus anticoagulant Anticardiolipin antibodies Elevated serum homocysteine Heparin-induced thrombocytopenia Other congenital or acquired thrombophilia Stroke (< 1 month) Elective arthroplasty Hip, pelvis, or leg fracture Acute spinal cord injury (< 1 month) Prophylaxis Regimen Total Risk Factor Score Risk Level Prophylaxis Regimen 0-1 Low Early ambulation 2 Moderate Order ONE of the following: *Sequential Compression Device (SCD) *Heparin 5000 units SQ BID 3-4 Higher Order ONE of the following medications: *Heparin 5000 units SQ TID *Enoxaparin/Lovenox 40 mg SQ daily (WT < 150 kg, CrCl > 30 mL/min) *Enoxaparin/Lovenox 30 mg SQ daily (WT < 150 kg, CrCl > 10-29 mL/min) *Enoxaparin/Lovenox 30 mg SQ BID (WT < 150 kg, CrCl > 30 mL/min) AND/OR *Sequential Compression Device (SCD) 5 or more Highest Order ONE of the following medications: *Heparin 5000 units SQ TID (Preferred with Epidurals) *Enoxaparin/Lovenox 40 mg SQ daily (WT < 150 kg, CrCl > 30 mL/min) *Enoxaparin/Lovenox 30 mg SQ daily (WT < 150 kg, CrCl > 10-29 mL/min) *Enoxaparin/Lovenox 30 mg SQ BID (WT < 150 kg, CrCl > 30 mL/min) AND *Sequential Compression Device (SCD) Assessment and Plan Assessment and Plan Assessment: 76yF with end-stage dementia with behavioral features and possible other [place] 1 psych disorders who presents with septic shock, likely from urinary origin, and significant acute kidney injury. Unclear what her baseline mental status is, although metabolic encephalopathy from septic shock as well as uremia could play a significant role in this. She is protecting her airway. ongoing significant ivf resuscitation for shock. start vasopressors. unknown if afib is new or old, but likely due to catecholamine response to septic shock. Very critically ill. No family listed and a friend is listed, but no contact number is given. Poor prognosis given age and significant comorbidities. Neuro: metabolic encephalopathy uremia end-stage dementia ?schizophrenia - q1h neuro checks - avoid long-acting sedatives resp: - wean o2 by nc for goal spo2 > 90% - aggressive pulmonary toilet cv: Septic Shock elevated troponin/Type II NSTEMI secondary to demand ischemia Atrial fibrillation with rapid ventricular response - trend cardiac enzymes - likely combination of demand ischemia with poor renal clearance - unlikely to be ACS - phenylephrine for goal map > 65 mmHg (will attempt to use phenylephrine to mitigate tachycardic response) - hold diltiazem given hypotension. hyperdynamic LV- does not need digoxin at this time - mivf @ 150 cc/hr. have given additional 2L NS bolus and 500cc 5% albumin. IVC now less collapsable on recheck (~90 minutes later) and although LV cavity still empty in systole, now improved filling in diastole suggestive of very low SVR (distributive shock state). - thyroid function tests. Renal: Acute Kidney Injury Uremia Urinary Tract Infection - urine lytes, eos - renal ultrasound - calles - q1h uop - likely secondary to septic shock. FEN/GI: acute protein calorie malnutrition - moderate hyperkalemia hypocalcemia - NPO given altered mental status - replace calcium - daily bmp - check phos level - may need to give kayexalate if no improvement in hyperkalemia Heme/ID: Septic Shock Urinary Tract Infection - pcn allergy noted. - vancomycin, aztreonam, flagyl for empiric coverage. received 1 dose levaquin in ER. ?history of ESBL organisms, but unable to locate this data. will attempt to find micro reports. given urinary origin, will hold on double coverage for pseudomonas unless we find documented resistant organisms. - blood, urine cultures. will narrow abx based on culture data - daily cbc Endocrine: hyperglycemia of critical illness - q6h ssi, med scale Prophylaxis - SCDs - SQH Lines: - piv's - calles - may likely require central venous access: will hold for now and obtain more information. Dispo: admit to ICU. critically ill. Will consult palliative care as the patient has an overall poor prognosis, and we want to ensure we are doing things that the patient would want. Critical care time: 80 minutes, exclusive of separately billable procedures. frequent re-evaluations needed. serial repeat bedside echocardiograms. Jean Murillo MD Apr 13, 2017 08:54
[2017-04-13] MEDS: AZTREONAM INJ 1,000 MG in SODIUM CHLORIDE 0.9% INJ 100 ML IV SCH ×3 (08:58→21:57)
[2017-04-13] MEDS ORDERED: SODIUM CHLOR 0.9% 1000 ML INJ 2,000 ML IV ONE (09:00)
[2017-04-13] MEDS: DOCUSATE SODIUM 50 MG/SENNA 8.6 MG TAB PO SCH ×2 (09:00→21:00)
[2017-04-13] MEDS: PHENYLEPHRINE INJ 40 MG in DEXTROSE 5% IN WATE 500 ML INJ 496 ML IV PRN ×10 (09:24→21:00)
--- NOTE | 2017-04-13 10:16 | RADRPT ---
EXAM DATE/TIME: 04/13/2017 07:52 [place] COMPARISON: No previous studies available for comparison. INDICATIONS : Increased BUN/Creatinine. MEDICAL HISTORY : Hearing loss. Dementia. Hypertension. Schizophrenia. Depression. Anxiety. Arthritis. PTSD. SURGICAL HISTORY : Tonsillectomy. Bilateral knee replacements. ENCOUNTER: Initial ACUITY: 1 day PAIN SCORE: Nonresponsive. LOCATION: Bilateral flank MEASUREMENTS: RIGHT KIDNEY: 10.4 x 5.9 x 5 cm LEFT KIDNEY: 9 x 5 x 5 cm FINDINGS: RIGHT KIDNEY: Renal cortex is normal in thickness and echotexture. No hydronephrosis, stone, or mass. LEFT KIDNEY: Renal cortex is normal in thickness and echotexture. No hydronephrosis, stone, or mass. BLADDER: Bladder decompressed by Meraz. CONCLUSION: Negative for obstruction. Bladder decompressed by Meraz. Jayson Cain MD FACR on April 13, 2017 at 10:13 Board Certified Radiologist. This report was verified electronically.
[2017-04-13] MEDS: RESP: ALBUTEROL 2.5 MG/IPRATROPIUM 0.5 MG NEB (SCH) INH ×3 (10:47→20:43)
[2017-04-13 11:09] LABS: CREATININE, RANDOM URINE 177.8 MG/DL
[2017-04-13] MEDS: HEPARIN SODIUM - SQ 10,000 UNITS/ML VIAL SQ SCH ×2 (12:05→21:57)
[2017-04-13] MEDS: INSULIN NovoLIN REGULAR SUPPLEMENTAL SCALE SQ SCH ×2 (12:07→17:26)
[2017-04-13] MEDS ORDERED: CALCIUM GLUCONATE INJ 3 GM in SODIUM CHLORIDE 0.9% INJ 100 ML IV ONE (12:30)
--- NOTE | 2017-04-13 13:09 | PD.CONS ---
Consult Service Palliative Care Consult Requested By Dr. Murillo . Primary Care Physician Unknown . Reason for Consultation a. To assist with evaluation and management of symptoms including: Dyspnea , pain b. To assist medical decision maker(s) with: better understanding of current medical conditions; weighing benefits/burdens of medical treatment options; making medical treatment decisions. . HPI History of Present Illness This 76-year-old female, with a past history of Alzheimer's dementia, morbid obesity, chronic pain, PTSD, and schizophrenia, was brought to the emergency department early in the morning of this consultation from her skilled nursing because of fever. The patient has had multiple hospitalizations at this facility in multiple emergency department visits over the last 14 years. The patient was admitted for delirium in 2005, a cement surgeries in 2006 2007, for a GI bleed and confusion in 2013, under a [place] Act for dementia and behavioral disturbance in 2014, again for psychiatric issues in 2015, and twice in 2017 for inability to care for herself and having psychotic symptoms. The patient has been a long- time skilled nursing resident over the past year or so. She was noted to have fever at the skilled nursing, and was sent to the hospital. Findings in the emergency department included: * Lethargy, nonverbal * Temp 101.3, pulse 112, respirations 26, blood pressure 67/29, oxygen saturation 95% on 2 L * White count 32.4, hemoglobin 12.9 * Sodium 140, creatinine 5.23, albumin 1.8 * Troponin 0.17 * Chest x-ray with basilar atelectasis * Renal ultrasound essentially negative * Urinalysis consistent with UTI Cultures were obtained, antibiotics were initiated, and resuscitation was started. She was admitted to [facility], and pressors were required to keep her pressure in the 90s. Palliative Care was consulted to assist with symptom management, and to try to identify decision makers and enter into discussions with them regarding the patient's illnesses, prognosis, and the benefits and burdens of the various treatment choices. . Function/Cognitive Trajectory The patient was a long-time skilled nursing resident, reportedly nonambulatory and nonverbal. . Review of Systems ROS Limitations: Altered Mental Status (information only from hospital records) Constitutional: COMPLAINS OF: Fever Endocrine: DENIES: Polyuria Eyes: DENIES: Eye inflammation Ears, nose, mouth, throat: DENIES: Epistaxis Respiratory: COMPLAINS OF: Shortness of breath (some tachypnea) Cardiovascular: DENIES: Syncope Gastrointestinal: DENIES: Diarrhea, Vomiting Genitourinary: DENIES: Hematuria Musculoskeletal: COMPLAINS OF: Joint pain (history of chronic knee pain) Integumentary: DENIES: Rash Hematologic/Lymphatics: DENIES: Bruising Immunologic/Allergic: DENIES: Urticaria Neurologic: DENIES: Seizures Psychiatric: COMPLAINS OF: Confusion, Depression Past Family Social History Coded Allergies: Sulfa (Sulfonamide Antibiotics) (Unverified Allergy, Severe, DISTURBS KIDNEY FUNCTION, 10/17/16) aripiprazole (Unverified Allergy, Severe, 10/17/16) aspirin (Unverified Allergy, Severe, 10/17/16) diclofenac (Unverified Allergy, Severe, 10/17/16) doxycycline (Unverified Allergy, Severe, NAUSEA & VOMITING, 10/17/16) etodolac (Unverified Allergy, Severe, 10/17/16) flurbiprofen (Unverified Allergy, Severe, 10/17/16) ibuprofen (Unverified Allergy, Severe, 10/17/16) indomethacin (Unverified Allergy, Severe, 10/17/16) ketoprofen (Unverified Allergy, Severe, 10/17/16) ketorolac (Unverified Allergy, Severe, 10/17/16) meclizine (Unverified Allergy, Severe, 10/17/16) metronidazole (Unverified Allergy, Severe, Diarrhea, 10/17/16) minocycline (Unverified Allergy, Severe, NAUSEA & VOMITING, 10/17/16) naproxen (Unverified Allergy, Severe, 10/17/16) oxaprozin (Unverified Allergy, Severe, 10/17/16) penicillin G (Unverified Allergy, Severe, REDNESS, SWELLING, 10/17/16) saccharin (Unverified Allergy, Severe, 10/17/16) tigecycline (Unverified Allergy, Severe, NAUSEA & VOMITING, 10/17/16) Past Medical History * Alzheimer's dementia, end-stage * Psychiatric diagnoses including PTSD and schizophrenia * Chronic knee pain * Morbid obesity * Degenerative joint disease * Anemia * Hypertension * Depression * Type 2 diabetes * Hearing loss . Past Surgical History * Appendectomy * Tonsillectomy * Left total knee replacement 2006 * Right total knee replacement 2007 * I&D of arm abscess 2014 * Oral surgery . Reported Medications Reported Meds & Active Scripts Active Lisinopril 20 Mg Tab 20 Mg PO DAILY 15 Days Lidoderm (Lidocaine) 5 % Adh..patch 1 Patch T-DERMAL DAILY 15 Days Norvasc (Amlodipine Besylate) 10 Mg Tab 10 Mg PO DAILY 15 Days Reported Ultram (Tramadol HCl) 50 Mg Tab 50 Mg PO Q12 PRN Tylenol (Acetaminophen) 325 Mg Tab 500 Mg PO TID Risperdal (Risperidone) 1 Mg Tab 1 Mg PO Q12HR Milk of Magnesia Liq (Magnesium Hydroxide) 400 Mg/5 Ml Susp 30 Ml PO Q6H PRN Lisinopril 20 Mg Tab 20 Mg PO DAILY Klonopin (Clonazepam) 0.5 Mg Tab 0.5 Mg PO DAILY PRN Duloxetine DR (Duloxetine HCl) 40 Mg Capdr 40 Mg PO HS . Current Medications Medications (Trade) Dose Ordered Sig/Monica Route Start Time Stop Time Status Last Admin Aztreonam 1000 mg/ Sodium Chloride 100 ml @ 200 mls/hr Q8H IV 04/13/17 07:00 04/13/17 08:58 Metronidazole 100 ml @ 100 mls/hr Q6H IV 04/13/17 08:00 04/13/17 07:22 Pharmacy Profile Note 0 ml @ 0 mls/hr UNSCH OTHER 04/13/17 07:00 (D50w (Vial) Inj) 25 ml UNSCH PRN IV PUSH 04/13/17 07:00 (NovoLIN R SUPPLEMENTAL SCALE) 1 Q6HR SQ 04/13/17 12:00 04/13/17 12:07 (Duoneb Neb) 1 ampule Q6HR NEB INH 04/13/17 10:00 04/13/17 10:47 (Duoneb Neb) 1 ampule Q2HR NEB PRN INH 04/13/17 07:00 Sodium Chloride 1,000 ml @ 150 mls/hr Q6H40M IV 04/13/17 06:49 04/13/17 07:22 (Zofran Inj) 4 mg Q6H PRN IV PUSH 04/13/17 07:00 (Heparin Inj) 5,000 units Q12H SQ 04/13/17 09:00 04/13/17 12:05 Miscellaneous Information 1 Q361D XX 04/13/17 07:00 04/13/17 07:00 (Chlorhexidine 2% Cloth) 3 pack Taper DAILY@04 TOP 04/14/17 04:00 04/10/18 03:59 (Chlorhexidine 2% Cloth) 3 pack UNSCH PRN TOP 04/13/17 07:00 (Aileen-Colace) 1 tab BID PO 04/13/17 09:00 (Milk Of Magnesia Liq) 30 ml Q12H PRN PO 04/13/17 07:00 ([facility]) 1 ea UNSCH OTHER 04/13/17 07:30 Phenylephrine HCl 40 mg/Dextrose 500 ml @ 30 mls/hr TITRATE PRN IV 04/13/17 09:00 04/13/17 12:38 (Brethine Inj) 1 mg UNSCH PRN SQ 04/13/17 08:15 Calcium Gluconate 3 gm/Sodium Chloride 130 ml @ 120 mls/hr ONCE ONCE IV 04/13/17 12:30 04/13/17 13:34 04/13/17 12:19 Family History Parents reportedly of "old age" and no other information is available. . Substance Use Tobacco: Quit in 1980 Alcohol: None for many years Prescription med abuse: None Illicits: None . Psychosocial History The patient was originally from [facility], but has lived in this area for many years. She was never and had no children, and lived alone until her dementia progressed to the point where she was placed in the skilled nursing. 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 . Spiritual/Cultural Factors The patient has a Ep[employer]op[employer] background . Living Will: Copy in medical record Health Care Surrogate: Copy in medical record Date completed: 2013 . Health Care Surrogate(s): Primary is Bhavik Dalton - her half-brother - and secondary is Benjamin Dalton . Documented care wishes: The patient has a living will from 2013 with typical language regarding terminality and end-stage conditions. . Family/friends goals: The patient's HCS/brother Bhavik reports that he had had discussions with the patient many times in past years and that she would not want to be "kept alive on machines" or to have her life prolonged when she had an advanced or end- stage condition. He requests DNR status and no escalation of care. . Ethical and Legal Issues There are no ethical issues that would impact her care or decision-making at this time. Patient lacks capacity for decision-making, and she will not regain that capacity. She has designated her brother Bhavik as primary and also Benjamin Downinge Sha as secondary HCS. . Physical Exam Vital Signs Date Time Temp Pulse Resp B/P (MAP) Pulse Ox O2 Delivery O2 Flow Rate FiO2 04/13/17 12:38 114 103/59 04/13/17 12:00 97.5 112 24 95/59 (71) 98 04/13/17 12:00 116 04/13/17 12:00 114 95/60 04/13/17 11:45 112 95/59 04/13/17 11:20 113 92/62 04/13/17 11:15 114 88/60 04/13/17 11:10 116 96/57 04/13/17 11:05 117 96/58 04/13/17 11:00 116 95/60 04/13/17 10:48 97 Nasal Cannula 2.00 04/13/17 10:45 110 87/52 04/13/17 10:40 110 87/52 04/13/17 10:35 108 96/54 04/13/17 10:30 108 93/51 04/13/17 10:25 108 89/51 04/13/17 10:20 112 99/54 04/13/17 10:15 110 94/54 04/13/17 10:10 106 87/52 04/13/17 10:05 102 88/50 04/13/17 10:00 106 85/52 04/13/17 09:55 106 78/57 04/13/17 09:50 100 75/50 04/13/17 09:45 104 61/43 04/13/17 09:40 104 62/39 04/13/17 09:35 104 64/36 04/13/17 09:30 94 04/13/17 09:30 104 61/41 04/13/17 09:24 108 64/41 04/13/17 09:15 108 75/45 04/13/17 09:00 102 04/13/17 08:34 04/13/17 08:33 109 21 78/36 (50) 98 Nasal Cannula 2.00 04/13/17 08:30 97.5 102 22 69/36 (47) 95 04/13/17 07:47 104 22 52/33 (39) 99 Nasal Cannula 2.00 04/13/17 07:36 98.8 129 22 78/38 (51) 96 Nasal Cannula 2.00 04/13/17 07:04 120 219/159 04/13/17 06:46 92 04/13/17 06:28 99.5 113 26 185/146 (159) 92 Nasal Cannula 2.00 04/13/17 06:01 101.3 112 26 67/29 (42) 95 Nasal Cannula 2.00 04/13/17 05:51 97 Nasal Cannula 2.00 04/13/17 05:50 101.1 138 26 50/30 (37) 97 04/13/17 05:29 146 16 158/100 (119) 97 04/13/17 05:29 97 Nasal Cannula 2.00 04/13/17 05:14 147 16 04/13/17 04/14/17 19:00 07:00 Intake Total 3300 ml Balance 3300 ml IV Total 3300 ml Exam CONSTITUTIONAL/GENERAL: This is an elderly, weak, obese patient, in no apparent distress. Mumbles occasionally TUBES/LINES/DRAINS: Peripheral IV, SCDs, nasal oxygen SKIN: No jaundice, rashes, or lesions. Ecchymoses on upper extremities. No wounds seen anteriorly. Skin temperature appropriate. Not diaphoretic. HEAD: Atraumatic. Normocephalic. EYES: Pupils equal and round. No scleral icterus. No injection or drainage. Fundi not examined. ENT: Hearing grossly normal. Nose without bleeding or purulent drainage. NECK: Trachea midline. Supple, nontender. No palpable thyroid enlargement or nodularity. CARDIOVASCULAR: Regular rate and rhythm without murmurs, gallops, or rubs. No JVD. Peripheral pulses symmetric. RESPIRATORY/CHEST: Symmetric, unlabored respirations. Scattered rhonchi, and a couple rales at the bases. GASTROINTESTINAL: Abdomen soft, non-tender, nondistended. No hepato-splenomegaly , or palpable masses. No guarding. Bowel sounds present. GENITOURINARY: Without palpable bladder distension. Meraz catheter in place. MUSCULOSKELETAL: Extremities without clubbing, cyanosis, or edema. No joint tenderness or effusion noted. No calf tenderness. No mottling or clubbing. LYMPHATICS: No palpable cervical or supraclavicular adenopathy. NEUROLOGICAL: Appears awake, tracks me intermittently, does not follow simple commands, moves arms occasionally PSYCHIATRIC: No obvious anxiety/depression. no apparent hallucinations or other psychotic thought process. . Diagnostic Tests Laboratory Laboratory Tests Test 04/13/17 05:20 04/13/17 05:40 04/13/17 10:23 04/13/17 10:25 White Blood Count 32.4 TH/MM3 (4.0-11.0) Red Blood Count 4.22 MIL/MM3 (4.00-5.30) Hemoglobin 12.9 GM/DL (11.6-15.3) Hematocrit 37.8 % (35.0-46.0) Mean Corpuscular Volume 89.6 FL (80.0-100.0) Mean Corpuscular Hemoglobin 30.6 PG (27.0-34.0) Mean Corpuscular Hemoglobin Concent 34.1 % (32.0-36.0) Red Cell Distribution Width 13.4 % (11.6-17.2) Platelet Count 274 TH/MM3 (150-450) Mean Platelet Volume 9.5 FL (7.0-11.0) Neutrophils (%) (Auto) 85.7 % (16.0-70.0) Lymphocytes (%) (Auto) 4.1 % (9.0-44.0) Monocytes (%) (Auto) 10.0 % (0.0-8.0) Eosinophils (%) (Auto) 0.1 % (0.0-4.0) Basophils (%) (Auto) 0.1 % (0.0-2.0) Neutrophils # (Auto) 27.7 TH/MM3 (1.8-7.7) Lymphocytes # (Auto) 1.3 TH/MM3 (1.0-4.8) Monocytes # (Auto) 3.3 TH/MM3 (0-0.9) Eosinophils # (Auto) 0.0 TH/MM3 (0-0.4) Basophils # (Auto) 0.0 TH/MM3 (0-0.2) CBC Comment AUTO DIFF Differential Total Cells Counted 100 Neutrophils % (Manual) 60 % (16-70) Band Neutrophils % 20 % (0-6) Lymphocytes % 3 % (9-44) Monocytes % 10 % (0-8) Neutrophils # (Manual) 28.2 TH/MM3 (1.8-7.7) Metamyelocytes 7 % (0-1) Differential Comment FINAL DIFF MANUAL Toxic Granulation 1+ (NORMAL) Toxic Vacuolation PRESENT (NONE SEEN) Platelet Estimate NORMAL (NORMAL) Platelet Morphology Comment NORMAL (NORMAL) Red Cell Morphology Comment NORMAL (NORMAL) Prothrombin Time 13.6 SEC (9.8-11.6) Prothromb Time International Ratio 1.3 RATIO Activated Partial Thromboplast Time 26.8 SEC (24.3-30.1) Blood Gas Puncture Site LT BRACHIAL Blood Gas Patient Temperature 98.6 Blood Gas HCO3 20 mmol/L (22-26) Blood Gas Base Excess -4.2 mmol/L (-2-2) Blood Gas Oxygen Saturation 95 % (90-100) Arterial Blood pH 7.40 (7.380-7.420) Arterial Blood Partial Pressure CO2 33 mmHg (38-42) Arterial Blood Partial Pressure O2 88 mmHG (61-120) Arterial Blood Oxygen Content 16.6 Vol % (12.0-20.0) Arterial Blood Carboxyhemoglobin 1.0 % (0-4) Arterial Blood Methemoglobin 0.8 % (0-2) Blood Gas Hemoglobin 12.4 G/DL (12.0-16.0) Oxygen Delivery Device NASAL CANNULA Blood Gas Liter Flow 2 L/M Blood Urea Nitrogen 95 MG/DL (7-18) Creatinine 5.23 MG/DL (0.50-1.00) Random Glucose 118 MG/DL (74-106) Total Protein 5.2 GM/DL (6.4-8.2) Albumin 1.8 GM/DL (3.4-5.0) Calcium Level 7.3 MG/DL (8.5-10.1) Magnesium Level 2.2 MG/DL (1.5-2.5) Alkaline Phosphatase 65 U/L (45-117) Aspartate Amino Transf (AST/SGOT) 42 U/L (15-37) Alanine Aminotransferase (ALT/SGPT) 10 U/L (10-53) Total Bilirubin 0.6 MG/DL (0.2-1.0) Sodium Level 140 MEQ/L (136-145) Potassium Level 5.1 MEQ/L (3.5-5.1) Chloride Level 108 MEQ/L (98-107) Carbon Dioxide Level 20.1 MEQ/L (21.0-32.0) Anion Gap 12 MEQ/L (5-15) Estimat Glomerular Filtration Rate 8 ML/MIN (>89) Lactic Acid Level 1.8 mmol/L (0.4-2.0) Protein Corrected Calcium 8.3 MG/DL (8.5-10.1) Total Creatine Kinase 691 U/L (26-192) Creatine Kinase MB 3.7 NG/ML (0.5-3.6) Creatine Kinase MB % 0.5 % (0.0-4.0) Troponin I 0.17 NG/ML (0.02-0.05) B-Type Natriuretic Peptide 121 PG/ML (0-100) Urine Color DARK-BROWN (YELLW/STRAW) Urine Turbidity CLOUDY (CLEAR) Urine pH 5.0 (5.0-8.5) Urine Specific Goth[place] 1.022 (1.002-1.035) Urine Protein 30 mg/dL (NEG-TRACE) Urine Glucose (UA) NEG mg/dL (NEG) Urine Ketones NEG mg/dL (NEG) Urine Occult Blood SMALL (NEG) Urine Nitrite NEG (NEG) Urine Bilirubin SMALL (NEG) Urine Urobilinogen 2.0 MG/DL (LESS THAN Urine Leukocyte Esterase LARGE (NEG) Urine RBC 50 /hpf (0-3) Urine WBC /hpf (0-5) Urine WBC Clumps MANY (NONE) Urine Transitional Epithelial Cells 1 /hpf (NONE) Urine Renal Epithelial Cells 1 /hpf (NONE) Urine Bacteria MANY /hpf (NONE) Urine Hyaline Casts 28 /lpf (RARE) Urine Mucus FEW /lpf (OCC) Microscopic Urinalysis Comment CATH-CULTURE IND Urine Eosinophils NONE SEEN /HPF (NONE SEEN) Urine Random Creatinine 177.8 MG/DL Urine Random Sodium 14 MEQ/L Result Diagram: 04/13/17 0520 04/13/17 0520 Microbiology Microbiology Date/Time Source Procedure Growth Status 04/13/17 05:25 Blood Peripheral Aerobic Blood Culture Pending Received 04/13/17 05:25 Blood Peripheral Anaerobic Blood Culture Pending Received 04/13/17 05:20 Blood Peripheral Aerobic Blood Culture Pending Received 04/13/17 05:20 Blood Peripheral Anaerobic Blood Culture Pending Received 04/13/17 05:32 Nasal Washing Influenza Types A,B Antigen (JAUN) - Final NEGATIVE FOR FLU A AND B ANTIGEN.... Complete 04/13/17 05:40 Urine Catheterized Urine Urine Culture Pending Received Imaging Last Impressions Chest X-Ray 04/13/17 0515 Signed Impressions: Service Date/Time: Thursday, April 13, 2017 05:47 - CONCLUSION: 1. Mild basilar opacity, probably dependent in basilar atelectasis. Cardiomegaly is stable. Derrick Mattson MD Renal Ultrasound 04/13/17 0000 Signed Impressions: Service Date/Time: Thursday, April 13, 2017 07:52 - CONCLUSION: Negative for obstruction. Bladder decompressed by Meraz. Jayson Cain MD FACR Patient/Family Conference Present at Family Conference: Patient's brother Bhavik by telephone . Family Conference Time (mins): 36 Family Conference Location: Telephone Issues Discussed: * Palliative care role, purpose, approach * Additional medical, psychosocial, and spiritual history * Patients general health, functional status, and cognitive changes in the months leading up to the current hospitalization * Patient/family understanding of the current medical problems * Patient/family understanding of prognosis * Patients goals of care as best understood from advance directives and/or conversations and/or values * Current medical treatment options and benefits/burdens of those options * Likely scenarios comparing ongoing aggressive care with a transition to comfort measures only * Questions answered to the best of my ability * Palliative care contact information provided . Assessment and Plan Disease Oriented Problem List: (1) sepsis, septic shock, UTI (2) psychiatric illness, PTSD, schizophrenia (3) chronic knee pain (4) morbid obesity (5) anemia (6) depression (7) type 2 diabetes (8) hearing loss (9) hypertension (10) degenerative joint disease Symptom Scale: (1) pain 0-10 Scale: Unable to quantify (bedbound status likely has musculoskeletal pain , history of chronic pain) (2) encephalopathy 0-10 Scale: Unable to quantify Pertinent Non-Medical Issues Psychosocial: Originally from [place], never , no children. 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 She has designated her brother Bhavik as primary and also Benjamin Dalton as secondary HCS. Ethical issues impacting care: None . Important Contacts Brother: Bhavik Dalton [phone] Secondary HCS: Benjamin Katelin Sha [phone] . Prognosis The patient's prognosis is quite poor. She has end-stage dementia and now septic shock. She is appropriate for hospice services if the goals become completely comfort oriented. . Code Status: No Code Plan * DO NOT RESUSCITATE * GOALS: The patient's HCS/brother Bhavik reports that he had had discussions with the patient many times in past years and that she would not want to be "kept alive on machines" or to have her life prolonged when she had an advanced or end-stage condition. He requests DNR status and no escalation of care. * No escalation of care per request of healthcare surrogate. * DECISION-MAKING: Patient lacks capacity for decision-making, and she will not regain that capacity. She has designated her brother Bhavik as primary and also Benjamin Dalton as secondary HCS. * SYMPTOMS: Comfort medication orders have been entered to manage dyspnea and/ or pain as they arise. * The patient is appropriate for hospice services if she survives this hospitalization to return to her skilled nursing. * Palliative Care will continue to follow the patient during this hospitalization. . Time Spent Total Floor Time (mins): 79 Face to Face Time (mins): 16 >50% Counseling/Coord of Care: Yes (d/w Dr. Murillo and with RN) Thank you for the opportunity to participate in the care of Ms. Dalton. Attestation To help prompt me to consider important information that might be impacting today's encounter and assessment, information from prior notes written by myself or my colleagues may have been "brought forward" into today's note. My signature on this note, however, is an attestation that I personally performed the exam, history, and/or decision-making noted today, and, unless otherwise indicated, the interactions with patient, family, and staff as well as the review of records all occurred today. I also attest that the listed assessment and stated plan reflect my best clinical judgment today based on the combination of historical information, prior notes, and today's exam/ interactions. When time spent is documented, it refers only to time spent today by the signer, or if indicated, combined time spent today by collaborating physician/nurse practitioner. Cynthia Graves MD Apr 13, 2017 13:09
[2017-04-13] MEDS ORDERED: MORPHINE SULFATE 4 MG/ML INJ IV PUSH PRN (13:15)
[2017-04-13] MEDS ORDERED: LORazepam 2 MG/ML VIAL IV PUSH PRN (13:15)
--- NOTE | 2017-04-13 14:16 | EKG ---
Date Performed: 04/13/2017 Time Performed: 05:20:00 PTAGE: 76 years EKG: ATRIAL FIBRILLATION WITH RAPID VENTRICULAR RESPONSE MARKED LEFT AXIS DEVIATION POSSIBLE ANT ERIOR MYOCARDIAL INFARCTION POSSIBLE INFERIOR MYOCARDIAL INFARCTION ABNORMAL ECG Compared to PREVIOUS TRACING , the patient has devloped atrial fibrillation with a rapid ventricular response. There has been an overall reduction in voltage and an exacerbation of pulmonary disease and /or pericardial effusion should be excluded clinically. PREVIOUS TRACIN08/24/2016 14.26 DOCTOR: Shilpi Cr Interpretating Date/Time 04/13/2017 14:15:38
[2017-04-13 14:50] LABS: TROPONIN I 0.08 NG/ML (0.02-0.05)
[2017-04-13 17:20] LABS: BICARBONATE 15.2 MEQ/L (21.0-32.0); CALCIUM 7.9 MG/DL (8.5-10.1); CREATININE 4.46 MG/DL (0.50-1.00)
[2017-04-13 21:53] LABS: PHOSPHORUS 4.2 MG/DL (2.5-4.9)
[2017-04-13 22:04] LABS: FREE T4 1.11 NG/DL (0.76-1.46); TROPONIN I 0.03 NG/ML (0.02-0.05)
[2017-04-14] VITALS (14 sets, daily range): BP systolic 103–128; BP diastolic 57–74; PULSE 123–150; RESP 20–36; TEMP 98.2–99.1; O2SAT 96–99
[2017-04-14] MEDS: PHENYLEPHRINE INJ 40 MG in DEXTROSE 5% IN WATE 500 ML INJ 496 ML IV PRN ×6 (00:14→19:19)
[2017-04-14] MEDS: SODIUM CHLOR 0.9% 1000 ML INJ 1,000 ML IV SCH ×4 (00:24→22:00)
[2017-04-14] MEDS: metroNIDAZOLE 500 MG INJ 100 ML IV SCH ×4 (00:39→20:03)
[2017-04-14 03:04] LABS: HEMOGLOBIN 13.3 GM/DL (11.6-15.3); MEAN CELL VOLUME 90.4 FL (80.0-100.0); MEAN CORPUSCULAR HEMOGLOBIN 30.8 PG (27.0-34.0); MEAN CORPUSCULAR HGB CONC 34.1 % (32.0-36.0); PLATELET COUNT 266 TH/MM3 (150-450); RED BLOOD COUNT 4.31 MIL/MM3 (4.00-5.30); RED CELL DISTRIBUTION WIDTH 13.9 % (11.6-17.2); WHITE BLOOD COUNT 35.9 TH/MM3 (4.0-11.0)
[2017-04-14] MEDS: RESP: ALBUTEROL 2.5 MG/IPRATROPIUM 0.5 MG NEB (SCH) INH ×4 (03:21→20:24)
[2017-04-14] MEDS: CHLORHEXIDINE GLUCONATE 2 % 1 PACK (2 CLOTHS) TOP SCH ×2 (04:00→19:26)
[2017-04-14 04:06] LABS: BICARBONATE 15.2 MEQ/L (21.0-32.0); CALCIUM 7.2 MG/DL (8.5-10.1); CREATININE 2.97 MG/DL (0.50-1.00); TROPONIN I 0.03 NG/ML (0.02-0.05)
[2017-04-14 04:22] LABS: CALCIUM-PROTEIN CORRECTED 8.2 MG/DL (8.5-10.1); TOTAL PROTEIN 5.2 GM/DL (6.4-8.2)
[2017-04-14] MEDS ORDERED: AMIODARONE INJ 150 MG in DEXTROSE 5% IN WATER 100ML INJ 100 ML IV ONE ×2 (04:34)
[2017-04-14] MEDS ORDERED: SODIUM CHLOR 0.9% 1000 ML INJ 1,000 ML IV ONE ×2 (04:45)
[2017-04-14] MEDS ORDERED: metroNIDAZOLE 500 MG INJ 100 ML IV SCH (04:45)
[2017-04-14] MEDS ORDERED: ALBUMIN 5% INJ 250 ML IV ONE (04:45)
[2017-04-14] MEDS ORDERED: VANCOMYCIN 500 MG VIAL (FOR ORAL USE ONLY) PO SCH (04:45)
[2017-04-14] MEDS: AMIODARONE INJ 450 MG in DEXTROSE 5% IN WATE(EXCEL) INJ 241 ML IV PRN ×2 (05:01)
[2017-04-14] MEDS: INSULIN NovoLIN REGULAR SUPPLEMENTAL SCALE SQ SCH ×5 (06:00→23:56)
[2017-04-14] MEDS: VANCOMYCIN 25 MG/ML SUSP 100 ML BOTTLE PO SCH ×5 (06:15→20:04)
[2017-04-14] MEDS: AZTREONAM INJ 1,000 MG in SODIUM CHLORIDE 0.9% INJ 100 ML IV SCH ×3 (06:16→22:36)
[2017-04-14] MEDS: DOCUSATE SODIUM 50 MG/SENNA 8.6 MG TAB PO SCH ×2 (08:37→19:26)
[2017-04-14] MEDS: HEPARIN SODIUM - SQ 10,000 UNITS/ML VIAL SQ SCH ×2 (08:49→20:04)
[2017-04-14] MEDS ORDERED: VANCOMYCIN 25 MG/ML SUSP 100 ML BOTTLE PO SCH (09:00)
--- NOTE | 2017-04-14 09:59 | HHI.CCPN ---
Subjective Remarks/Hospital Course Hospital Course: this is a 76yF with history of end-stage dementia with behavioral component who presented from SNF with fever, leukocytosis, hypotension and tachycardia. On my evaluation, she is unable to provide a history. It is unclear to me what her baseline mental status is. In the ER, she is febrile to 101.3, wbc 32k, Cr 5.23 / BUN 95. trop 0.17, ck 691. She was found to be in atrial fibrillation with rapid ventricular response and was initially started on diltiazem infusion, but she became significantly hypotensive with sbp 60s. She has received 5L NS iv bolus. she is oligoanuric. u/a is significant for large LE, +wbc, many bacteria. I performed bedside critical care echocardiography which demonstrated hyperdynamic LV function, completely collapsed IVC and severely underfilled LV with an LV cavity that almost completely obliterated in systole. no pericardial effusion. subjective: 04/14: clinically not much improvement. wbc still uptrending. c. diff +. added PO vanc this AM. still tachycardic, afib RVR. remains on vasopressors. family wishes the patient to be DNR. Objective Vital Signs Date Time Temp Pulse Resp B/P (MAP) Pulse Ox O2 Delivery O2 Flow Rate FiO2 04/14/17 08:10 97 Nasal Cannula 1.00 04/14/17 06:34 112/56 04/14/17 06:00 123 04/14/17 04:00 98.6 22 Intake and Output 04/14/17 04/14/17 04/15/17 08:00 16:00 00:00 Intake Total 240 ml Output Total 1050 ml Balance -810 ml Result Diagram: 04/14/17 0243 04/14/17 0243 Other Results Microbiology Date/Time Source Procedure Growth Status 04/13/17 05:32 Nasal Washing Influenza Types A,B Antigen (JUAN) - Final NEGATIVE FOR FLU A AND B ANTIGEN.... Complete Imaging Last Impressions Chest X-Ray 04/13/17 0515 Signed Impressions: Service Date/Time: Thursday, April 13, 2017 05:47 - CONCLUSION: 1. Mild basilar opacity, probably dependent in basilar atelectasis. Cardiomegaly is stable. Derrick Mattson MD Renal Ultrasound 04/13/17 0000 Signed Impressions: Service Date/Time: Thursday, April 13, 2017 07:52 - CONCLUSION: Negative for obstruction. Bladder decompressed by Calles. Jayson Cain MD FACR Objective Remarks gen: frail elderly female, lying in bed, tracks with eyes, does not follow commands. heent: perrl. mucous membranes moist neck: flat neck veins. trachea midline. chest: equal chest rise. 2L nc. clear to auscultation cv: tachycardic rate, irregularly irregular rhythm. afib by tele. phenylephrine at 70 mcg/min. abd: soft, nontender, nondistended. no guarding. extr: no peripheral edema. distal pulses 1+. warm and well perfused. neuro: RASS -1. tracks with eyes. does not follow commands. moves all extremities spontaneously. withdraws to pain. does not answer questions. A/P Assessment and Plan Assessment: 76yF with end-stage dementia with behavioral features and possible other [place] 1 psych disorders who presents with septic shock secondary to c. diff colitis, urinary tract infection. GLORIA improving. afib remains a problem. remains in shock on vasopressors with rising wbc. family wishes dnr, which is appropriate. remains critically ill. Neuro: metabolic encephalopathy uremia end-stage dementia ?schizophrenia - neuro checks - avoid long-acting sedatives resp: - wean o2 by nc for goal spo2 > 90% - aggressive pulmonary toilet cv: Septic Shock - persistent elevated troponin/Type II NSTEMI secondary to demand ischemia Atrial fibrillation with rapid ventricular response - phenylephrine for goal map > 65 mmHg (will attempt to use phenylephrine to mitigate tachycardic response) - one-time dose digoxin 0.25mg iv x 1 - start low-dose diltiazem 30mg po q6h - midodrine 10mg po q8h - add hydrocortisone 50mg iv q6h for presumed adrenal insufficiency - decrease mivf to 75 cc/hr. - thyroid function tests wnl. - amiodarone drip. start 400mg po bid. stop drip after 24h. Renal: Acute Kidney Injury- improving. Uremia Urinary Tract Infection - FENa consistent with pre-renal from septic shock. improving. - enal ultrasound without evidence of hydronephrosis - calles - q1h uop FEN/GI: acute protein calorie malnutrition - moderate hyperkalemia hypocalcemia - speech eval, advance diet per their recommendations. - replace calcium - daily bmp Heme/ID: Septic Shock Urinary Tract Infection C. Diff colitis - pcn allergy noted. - vancomycin, aztreonam, flagyl for empiric coverage. received 1 dose levaquin in ER. ?history of ESBL organisms, but unable to locate this data. - add PO vanc - f/u culture data. - blood, urine cultures. will narrow abx based on culture data - daily cbc Endocrine: hyperglycemia of critical illness - q6h ssi, med scale Prophylaxis - SCDs - SQH Lines: - piv's - calles Dispo: remain in ICU. critically ill. palliative care involved: plan for no escalation of care, DNR status, and likely hospice upon hospital discharge or sooner if clinical course declines. Jean Murillo MD Apr 14, 2017 09:59
[2017-04-14] MEDS ORDERED: MAGNESIUM SULFATE 1 GM PREMIX 100 ML IV ONE (10:00)
[2017-04-14] MEDS ORDERED: DIGOXIN 0.5 MG/2 ML VIAL IV PUSH ONE (10:00)
[2017-04-14] MEDS: MIDODRINE 5 MG TAB PO SCH ×2 (10:22→19:21)
[2017-04-14] MEDS ORDERED: CALCIUM GLUCONATE INJ 2 GM in SODIUM CHLORIDE 0.9% INJ 100 ML IV ONE (11:00)
[2017-04-14] MEDS: HYDROCORTISONE SOD SUCCINATE 100 MG VIAL IV PUSH SCH ×3 (13:27→23:57)
[2017-04-14] MEDS: DILTIAZEM HCL 30 MG TAB PO SCH ×3 (13:28→23:57)
[2017-04-14] MEDS: AMIODARONE 200 MG TAB PO SCH (20:03)
[2017-04-15] VITALS (14 sets, daily range): BP systolic 99–139; BP diastolic 58–68; PULSE 117–145; RESP 27–31; TEMP 98.2–98.6; O2SAT 96–100
[2017-04-15] MEDS: metroNIDAZOLE 500 MG INJ 100 ML IV SCH ×4 (00:14→20:52)
[2017-04-15] MEDS: MIDODRINE 5 MG TAB PO SCH ×3 (00:15→18:23)
[2017-04-15] MEDS: VANCOMYCIN 25 MG/ML SUSP 100 ML BOTTLE PO SCH ×5 (00:25→20:53)
[2017-04-15] MEDS: AMIODARONE INJ 450 MG in DEXTROSE 5% IN WATE(EXCEL) INJ 241 ML IV PRN ×2 (02:17)
[2017-04-15] MEDS: RESP: ALBUTEROL 2.5 MG/IPRATROPIUM 0.5 MG NEB (SCH) INH ×4 (03:13→19:51)
[2017-04-15 05:11] LABS: HEMATOCRIT 40.2 % (35.0-46.0); HEMOGLOBIN 13.3 GM/DL (11.6-15.3); MEAN CELL VOLUME 90.4 FL (80.0-100.0); MEAN CORPUSCULAR HGB CONC 33.2 % (32.0-36.0); MEAN PLATELET VOLUME 9.2 FL (7.0-11.0); PLATELET COUNT 296 TH/MM3 (150-450); RED BLOOD COUNT 4.44 MIL/MM3 (4.00-5.30); RED CELL DISTRIBUTION WIDTH 14.3 % (11.6-17.2); WHITE BLOOD COUNT 43.3 TH/MM3 (4.0-11.0)
[2017-04-15 05:34] LABS: BICARBONATE 13.3 MEQ/L (21.0-32.0); CALCIUM 7.6 MG/DL (8.5-10.1); CREATININE 2.32 MG/DL (0.50-1.00)
[2017-04-15] MEDS: INSULIN NovoLIN REGULAR SUPPLEMENTAL SCALE SQ SCH ×2 (06:00→12:00)
[2017-04-15] MEDS: HYDROCORTISONE SOD SUCCINATE 100 MG VIAL IV PUSH SCH ×3 (06:03→18:23)
[2017-04-15] MEDS: DILTIAZEM HCL 30 MG TAB PO SCH ×3 (06:03→18:25)
[2017-04-15] MEDS: AZTREONAM INJ 1,000 MG in SODIUM CHLORIDE 0.9% INJ 100 ML IV SCH (06:03)
[2017-04-15] MEDS ORDERED: DIGOXIN 0.5 MG/2 ML VIAL IV PUSH ONE (08:15)
--- NOTE | 2017-04-15 08:18 | HHI.CCPN ---
Subjective Remarks/Hospital Course Hospital Course: this is a 76yF with history of end-stage dementia with behavioral component who presented from SNF with fever, leukocytosis, hypotension and tachycardia. On my evaluation, she is unable to provide a history. It is unclear to me what her baseline mental status is. In the ER, she is febrile to 101.3, wbc 32k, Cr 5.23 / BUN 95. trop 0.17, ck 691. She was found to be in atrial fibrillation with rapid ventricular response and was initially started on diltiazem infusion, but she became significantly hypotensive with sbp 60s. She has received 5L NS iv bolus. she is oligoanuric. u/a is significant for large LE, +wbc, many bacteria. I performed bedside critical care echocardiography which demonstrated hyperdynamic LV function, completely collapsed IVC and severely underfilled LV with an LV cavity that almost completely obliterated in systole. no pericardial effusion. subjective: 04/14: clinically not much improvement. wbc still uptrending. c. diff +. added PO vanc this AM. still tachycardic, afib RVR. remains on vasopressors. family wishes the patient to be DNR. 04/15: wbc still uptrending. still on vasopressors. still afib rvr. Objective Vital Signs Date Time Temp Pulse Resp B/P (MAP) Pulse Ox O2 Delivery O2 Flow Rate FiO2 04/15/17 07:41 96 21 04/15/17 06:00 140 04/15/17 04:00 98.4 28 99/59 (72) 04/14/17 19:00 Room Air 04/14/17 08:10 1.00 Intake and Output 04/15/17 04/15/17 04/16/17 08:00 16:00 00:00 Intake Total 940 ml Output Total 450 ml Balance 490 ml Result Diagram: 04/15/17 0415 04/15/17 0415 Other Results Microbiology Date/Time Source Procedure Growth Status 04/13/17 05:32 Nasal Washing Influenza Types A,B Antigen (JUAN) - Final NEGATIVE FOR FLU A AND B ANTIGEN.... Complete Imaging Last Impressions Chest X-Ray 04/13/17 0515 Signed Impressions: Service Date/Time: Thursday, April 13, 2017 05:47 - CONCLUSION: 1. Mild basilar opacity, probably dependent in basilar atelectasis. Cardiomegaly is stable. Derrick Mattson MD Renal Ultrasound 04/13/17 0000 Signed Impressions: Service Date/Time: Thursday, April 13, 2017 07:52 - CONCLUSION: Negative for obstruction. Bladder decompressed by Calles. Jayson Cain MD FACR Objective Remarks gen: frail elderly female, lying in bed, tracks with eyes, does not follow commands. heent: perrl. mucous membranes moist neck: flat neck veins. trachea midline. chest: equal chest rise. room air. clear to auscultation cv: tachycardic rate, irregularly irregular rhythm. afib by tele. phenylephrine at 10 mcg/min. abd: soft, nontender, nondistended. no guarding. extr: no peripheral edema. distal pulses 1+. warm and well perfused. neuro: RASS -1. tracks with eyes. does not follow commands. moves all extremities spontaneously. withdraws to pain. does not answer questions. A/P Assessment and Plan Assessment: 76yF with end-stage dementia with behavioral features and possible other [place] 1 psych disorders who presents with septic shock secondary to c. diff colitis, urinary tract infection. GLORIA improving. afib remains a problem. remains in shock on vasopressors with rising wbc. family wishes dnr, which is appropriate. remains critically ill. Neuro: metabolic encephalopathy uremia end-stage dementia ?schizophrenia - neuro checks - avoid long-acting sedatives resp: - wean o2 by nc for goal spo2 > 90% - aggressive pulmonary toilet cv: Septic Shock - persistent elevated troponin/Type II NSTEMI secondary to demand ischemia Atrial fibrillation with rapid ventricular response Intravascular volume depletion - phenylephrine for goal map > 65 mmHg (will attempt to use phenylephrine to mitigate tachycardic response) - one-time dose digoxin 0.25mg iv x 1 again today. - low-dose diltiazem 30mg po q6h - midodrine 10mg po q8h - hydrocortisone 50mg iv q6h for presumed adrenal insufficiency - continue mivf to 75 cc/hr. - 500cc 5% albumin iv x 1. still appears dry, although up 20kg from admission weight. shock state persists, along with diarrhea losses which are significant. - thyroid function tests wnl. - amiodarone drip. start 400mg po bid. stop drip after 24h. Renal: Acute Kidney Injury- improving. Uremia Urinary Tract Infection - FENa consistent with pre-renal from septic shock. improving. - renal ultrasound without evidence of hydronephrosis - calles - q1h uop FEN/GI: acute protein calorie malnutrition - moderate hyperkalemia hypocalcemia - speech eval, advance diet per their recommendations. - replace calcium - daily bmp Heme/ID: Septic Shock Urinary Tract Infection C. Diff colitis - pcn allergy noted. - vancomycin, aztreonam, flagyl for empiric coverage. received 1 dose levaquin in ER. ?history of ESBL organisms, but unable to locate this data. - PO vanc - f/u culture data. - blood, urine cultures. will narrow abx based on culture data - daily cbc Endocrine: hyperglycemia of critical illness - q6h ssi, med scale Prophylaxis - SCDs - SQH Lines: - piv's - calles Dispo: remain in ICU. critically ill. palliative care involved: plan for no escalation of care, DNR status, and likely hospice upon hospital discharge or sooner if clinical course declines. Jean Murillo MD Apr 15, 2017 08:18
[2017-04-15] MEDS ORDERED: ALBUMIN 5% INJ 500 ML IV ONE (09:00)
[2017-04-15] MEDS: DOCUSATE SODIUM 50 MG/SENNA 8.6 MG TAB PO SCH ×2 (09:00→20:07)
[2017-04-15] MEDS: HEPARIN SODIUM - SQ 10,000 UNITS/ML VIAL SQ SCH ×2 (09:59→20:53)
[2017-04-15] MEDS: AMIODARONE 200 MG TAB PO SCH ×2 (09:59→20:53)
[2017-04-15] MEDS: SODIUM CHLOR 0.9% 1000 ML INJ 1,000 ML IV SCH (12:58)
[2017-04-15] MEDS ORDERED: VANCOMYCIN INJ 2,000 MG in SODIUM CHLORID 0.9% 500 ML INJ 500 ML IV ONE (13:00)
[2017-04-15] MEDS ORDERED: ASP: Documented allergy to Penicillins or Cephalosporins ONE (13:45)
[2017-04-15] MEDS ORDERED: ASP: Documented ESBL, MDR A baumannii or P. aeruginosa ONE (13:45)
[2017-04-15] MEDS: ERTAPENEM 1,000 MG/NS 100 ML IV SCH ×2 (14:00)
[2017-04-16] VITALS (14 sets, daily range): BP systolic 119–151; BP diastolic 62–96; PULSE 108–137; RESP 22–28; TEMP 97.7–98.6; O2SAT 94–97
[2017-04-16] MEDS: HYDROCORTISONE SOD SUCCINATE 100 MG VIAL IV PUSH SCH ×5 (00:11→23:23)
[2017-04-16] MEDS: DILTIAZEM HCL 30 MG TAB PO SCH ×5 (00:11→23:24)
[2017-04-16] MEDS: MIDODRINE 5 MG TAB PO SCH ×3 (01:42→17:05)
[2017-04-16] MEDS: metroNIDAZOLE 500 MG INJ 100 ML IV SCH ×4 (01:42→20:01)
[2017-04-16] MEDS: CHLORHEXIDINE GLUCONATE 2 % 1 PACK (2 CLOTHS) TOP SCH (03:20)
[2017-04-16] MEDS: RESP: ALBUTEROL 2.5 MG/IPRATROPIUM 0.5 MG NEB (SCH) INH ×4 (04:44→21:20)
[2017-04-16] MEDS: SODIUM CHLOR 0.9% 1000 ML INJ 1,000 ML IV SCH ×2 (05:50→17:04)
[2017-04-16] MEDS: INSULIN NovoLIN REGULAR SUPPLEMENTAL SCALE SQ SCH ×5 (05:50→23:24)
[2017-04-16 06:48] LABS: HEMATOCRIT 39.7 % (35.0-46.0); HEMOGLOBIN 13.4 GM/DL (11.6-15.3); MEAN CELL VOLUME 89.7 FL (80.0-100.0); MEAN CORPUSCULAR HEMOGLOBIN 30.2 PG (27.0-34.0); MEAN CORPUSCULAR HGB CONC 33.7 % (32.0-36.0); MEAN PLATELET VOLUME 8.9 FL (7.0-11.0); PLATELET COUNT 291 TH/MM3 (150-450); RED BLOOD COUNT 4.43 MIL/MM3 (4.00-5.30); RED CELL DISTRIBUTION WIDTH 14.3 % (11.6-17.2); WHITE BLOOD COUNT 48.4 TH/MM3 (4.0-11.0)
[2017-04-16 07:09] LABS: BICARBONATE 15.4 MEQ/L (21.0-32.0); CALCIUM 7.8 MG/DL (8.5-10.1); CREATININE 2.17 MG/DL (0.50-1.00)
[2017-04-16] MEDS: VANCOMYCIN 25 MG/ML SUSP 100 ML BOTTLE PO SCH ×4 (08:59→20:01)
[2017-04-16] MEDS: AMIODARONE 200 MG TAB PO SCH ×2 (09:00→20:01)
[2017-04-16] MEDS: DOCUSATE SODIUM 50 MG/SENNA 8.6 MG TAB PO SCH ×2 (09:00→20:01)
[2017-04-16] MEDS: HEPARIN SODIUM - SQ 10,000 UNITS/ML VIAL SQ SCH ×2 (09:01→20:00)
--- NOTE | 2017-04-16 09:56 | PD.CONS ---
History of Present Illness Service Infectious disease Consult Requested By Dr Murillo Reason for Consult Evaluate patient with UTI, Escherichia coli ESBL positive Primary Care Physician Unknown Diagnoses: History of Present Illness Patient seen and examined. Records reviewed. Patient is not a good historian, and has known history of dementia. She is a 76-year-old female, resident of a [facility], brought into the hospital was found to have fever and leukocytosis, hypotension, and tachycardia. She was found to be in atrial fibrillation with RVR. She also had significant hypotension, and received IV fluids, loss she was started on pressors. Her WBC was elevated. She had some fevers. Her creatinine was quite elevated. Calles catheter was placed, and her urinalysis showed significant hypotension. While in the hospital she had diarrhea, and stool for C. difficile came back positive. Her urinalysis showed significant pyuria, and the urine culture has Escherichia coli ESBL positive. Patient currently is off pressors. Her creatinine is slowly improving. Her white count remains elevated. She is afebrile. She has watery stools. Infectious disease consultation has been requested to evaluate the patient. Review of Systems ROS Limitations: Clinical Condition, Poor Historian (Hx end dstage dementia) Past Family Social History Allergies: Coded Allergies: Sulfa (Sulfonamide Antibiotics) (Unverified Allergy, Severe, DISTURBS KIDNEY FUNCTION, 10/17/16) aripiprazole (Unverified Allergy, Severe, 10/17/16) aspirin (Unverified Allergy, Severe, 10/17/16) diclofenac (Unverified Allergy, Severe, 10/17/16) doxycycline (Unverified Allergy, Severe, NAUSEA & VOMITING, 10/17/16) etodolac (Unverified Allergy, Severe, 10/17/16) flurbiprofen (Unverified Allergy, Severe, 10/17/16) ibuprofen (Unverified Allergy, Severe, 10/17/16) indomethacin (Unverified Allergy, Severe, 10/17/16) ketoprofen (Unverified Allergy, Severe, 10/17/16) ketorolac (Unverified Allergy, Severe, 10/17/16) meclizine (Unverified Allergy, Severe, 10/17/16) metronidazole (Unverified Allergy, Severe, Diarrhea, 10/17/16) minocycline (Unverified Allergy, Severe, NAUSEA & VOMITING, 10/17/16) naproxen (Unverified Allergy, Severe, 10/17/16) oxaprozin (Unverified Allergy, Severe, 10/17/16) penicillin G (Unverified Allergy, Severe, REDNESS, SWELLING, 10/17/16) saccharin (Unverified Allergy, Severe, 10/17/16) tigecycline (Unverified Allergy, Severe, NAUSEA & VOMITING, 10/17/16) Past Medical History History is obtained from current medical records Anxiety Depression Dementia: prior psychiatric notes reference with behavioral component. right ear diminished hearing hypertension prior notes indicated ESBL organisms, but I cannot find any documented micro report detailing organism and sensitivities. osteoarthritis PTSD Schizophrenia Past Surgical History History is obtained from current medical record appendectomy bilateral total knee arthroplasty tonsillectomy Active Ordered Medications Current Medications Medications (Trade) Dose Ordered Sig/Monica Route Start Time Stop Time Status Last Admin Metronidazole 100 ml @ 100 mls/hr Q6H IV 04/13/17 08:00 04/16/17 08:59 (D50w (Vial) Inj) 25 ml UNSCH PRN IV PUSH 04/13/17 07:00 (NovoLIN R SUPPLEMENTAL SCALE) 1 Q6HR SQ 04/13/17 12:00 04/14/17 06:00 (Duoneb Neb) 1 ampule Q6HR NEB INH 04/13/17 10:00 04/16/17 08:34 (Duoneb Neb) 1 ampule Q2HR NEB PRN INH 04/13/17 07:00 Sodium Chloride 1,000 ml @ 75 mls/hr [id number] IV 04/13/17 06:49 04/16/17 05:50 (Zofran Inj) 4 mg Q6H PRN IV PUSH 04/13/17 07:00 (Heparin Inj) 5,000 units Q12H SQ 04/13/17 09:00 04/16/17 09:01 Miscellaneous Information 1 [id number] XX 04/13/17 07:00 04/13/17 07:00 (Chlorhexidine 2% Cloth) 3 pack Taper DAILY@04 TOP 04/14/17 04:00 04/10/18 03:59 (Chlorhexidine 2% Cloth) 3 pack UNSCH PRN TOP 04/13/17 07:00 (Aileen-Colace) 1 tab BID PO 04/13/17 09:00 04/16/17 09:00 (Milk Of Magnesia Liq) 30 ml Q12H PRN PO 04/13/17 07:00 ([facility] Pharm[facility]) 1 ea UNSCH OTHER 04/13/17 07:30 Phenylephrine HCl 40 mg/Dextrose 500 ml @ 30 mls/hr TITRATE PRN IV 04/13/17 09:00 04/14/17 19:19 (Brethine Inj) 1 mg UNSCH PRN SQ 04/13/17 08:15 (Morphine Inj) 2 mg Q2H PRN IV PUSH 04/13/17 13:15 (Morphine Inj) 4 mg Q2H PRN IV PUSH 04/13/17 13:15 (Ativan Inj) 1 mg Q2H PRN IV PUSH 04/13/17 13:15 (Vancomycin 25 Mg/ml Liq) 125 mg QID PO 04/14/17 06:15 04/16/17 08:59 (SoluCORTEF INJ) 50 mg Q6HR IV PUSH 04/14/17 12:00 04/16/17 05:35 (Proamatine) 10 mg Q8H PO 04/14/17 10:00 04/16/17 01:42 (Cardizem) 30 mg Q6HR PO 04/14/17 12:00 04/16/17 05:35 (Cordarone) 400 mg Q12HR PO 04/14/17 21:00 04/16/17 09:00 Ertapenem 1000 mg/ Sodium Chloride 100 ml @ 200 mls/hr Q24H IV 04/15/17 14:00 04/28/17 14:29 04/15/17 14:00 Family History Unobtainable Social History History from the records [facility] in the [facility] Previous history of smoking No alcohol abuse No illicit drugs Physical Exam Vital Signs Vital Signs Date Time Temp Pulse Resp B/P (MAP) Pulse Ox O2 Delivery O2 Flow Rate FiO2 04/16/17 08:36 97 Nasal Cannula 21 04/16/17 07:00 97 Room Air 04/16/17 06:00 130 04/16/17 04:00 98.4 114 22 120/96 (104) 96 04/16/17 04:00 114 04/16/17 02:00 137 04/16/17 00:00 132 04/16/17 00:00 98.2 132 28 142/65 (90) 96 04/15/17 22:00 145 04/15/17 20:00 98.2 126 27 139/67 (91) 100 04/15/17 20:00 126 04/15/17 19:53 96 04/15/17 19:00 99 Room Air 04/15/17 18:00 128 04/15/17 16:00 98.4 131 30 123/60 (81) 99 04/15/17 16:00 118 04/15/17 14:00 118 04/15/17 12:00 98.2 126 29 120/60 (80) 96 04/15/17 12:00 126 04/15/17 10:00 134 Physical Exam GENERAL: Patient is a well-nourished, well-developed female, confused, awake and alert, not in respiratory distress. She is not on any supplemental oxygen SKIN: Warm , edematous and dry. No generalized rash, no ecchymoses and no evidence of embolic lesions. HEAD: Atraumatic. Normocephalic. No temporal wasting, or tenderness. EYES: [place] conjunctiva. No petechia or hemorrhage. Pupils equal, round and reactive to light. Extraocular movements full and intact. No scleral icterus. No injection or drainage. EARS, NOSE AND THROAT: Nose without bleeding or purulent nasal discharge. No sinus tenderness. Dry oral mucosa. No oral lesions noted. No exudate. No oral thrush. NECK: Trachea midline. Supple and not tender, no meningeal signs CARDIOVASCULAR: Irregular S1 and S2, tachycardic, no murmurs, rubs or gallops heard RESPIRATORY: Clear to auscultation. Breath sounds equal bilaterally. No rales , wheezing or rhonchi. Decreased breath sounds at the bases. ABDOMEN: Mildly distended abdomen, soft, with mild diffuse tenderness, no guarding or rebound. Bowel sounds present and normoactive. No organomegaly. EXTREMITIES: No clubbing, cyanosis. Has bilateral pitting pedal edema. There is some mild erythema on her right big toe. Scars in the knee compatible with her surgical history. No limitation or pain in range of motion. No calf tenderness. Well perfused and warm. NEUROLOGICAL: Awake and alert. Cranial nerves seem grossly intact. Motor grossly within normal limits. PSYCHIATRIC: calm and cooperative. LINE: No evidence of infection : Has calles in place, urine looks clear Has dignishield, with yellow brown liquid stool Laboratory Laboratory Tests Test 04/16/17 05:45 White Blood Count 48.4 Red Blood Count 4.43 Hemoglobin 13.4 Hematocrit 39.7 Mean Corpuscular Volume 89.7 Mean Corpuscular Hemoglobin 30.2 Mean Corpuscular Hemoglobin Concent 33.7 Red Cell Distribution Width 14.3 Platelet Count 291 Mean Platelet Volume 8.9 Blood Urea Nitrogen 74 Creatinine 2.17 Random Glucose 121 Calcium Level 7.8 Sodium Level 137 Potassium Level 4.0 Chloride Level 111 Carbon Dioxide Level 15.4 Anion Gap 11 Estimat Glomerular Filtration Rate 22 Date/Time Source Procedure Growth Status 04/13/17 05:25 Blood Peripheral Aerobic Blood Culture - Preliminary NO GROWTH IN 2 DAYS Resulted 04/13/17 05:25 Blood Peripheral Anaerobic Blood Culture - Preliminary NO GROWTH IN 2 DAYS Resulted 04/13/17 05:32 Nasal Washing Influenza Types A,B Antigen (JUAN) - Final NEGATIVE FOR FLU A AND B ANTIGEN.... Complete 04/13/17 05:40 Urine Catheterized Urine Urine Culture - Final Escherichia Coli Esbl Positive Multi-Drug Resistant Complete Result Diagram: 04/16/17 0545 04/16/17 0545 Imaging RADIOLOGY STUDIES/FILMS REVIEWED Chest X-Ray 04/13/17 0515 Signed Impressions: Service Date/Time: Thursday, April 13, 2017 05:47 - CONCLUSION: 1. Mild basilar opacity, probably dependent in basilar atelectasis. Cardiomegaly is stable. Derrick Mattson MD Renal Ultrasound 04/13/17 0000 Signed Impressions: Service Date/Time: Thursday, April 13, 2017 07:52 - CONCLUSION: Negative for obstruction. Bladder decompressed by Calles. Jayson Cain MD FACR Assessment and Plan Assessment and Plan IMPRESSION Sepsis on presentation with shock - due to E coli ESBL (+) - also with C difficilie colitis (no hx of diarrhea given prior to admission ) - BP better off pressors Persistent leukocytosis - just started on ESBL Rx 04/15 C difficile colitis, still acidotic Renal insufficiency improving Atrial fib with RVR Hx dementia and schizophrenia RECOMMENDATION Continue Flagyl Continue Vanco, increase dose Continue Invanz give 14 days Follow CBC Monitor progress Will determine course of Rx depending on clinical course I will follow along with you Thank you for this consultation Discussed Condition With D/W RN Willieuga,Ines G MD Apr 16, 2017 09:56
--- NOTE | 2017-04-16 11:45 | HHI.CCPN ---
Subjective Remarks/Hospital Course Hospital Course: this is a 76yF with history of end-stage dementia with behavioral component who presented from SNF with fever, leukocytosis, hypotension and tachycardia. On my evaluation, she is unable to provide a history. It is unclear to me what her baseline mental status is. In the ER, she is febrile to 101.3, wbc 32k, Cr 5.23 / BUN 95. trop 0.17, ck 691. She was found to be in atrial fibrillation with rapid ventricular response and was initially started on diltiazem infusion, but she became significantly hypotensive with sbp 60s. She has received 5L NS iv bolus. she is oligoanuric. u/a is significant for large LE, +wbc, many bacteria. I performed bedside critical care echocardiography which demonstrated hyperdynamic LV function, completely collapsed IVC and severely underfilled LV with an LV cavity that almost completely obliterated in systole. no pericardial effusion. subjective: 04/14: clinically not much improvement. wbc still uptrending. c. diff +. added PO vanc this AM. still tachycardic, afib RVR. remains on vasopressors. family wishes the patient to be DNR. 04/15: wbc still uptrending. still on vasopressors. still afib rvr. 04/16: on room air. clinically stable, though wbc continues to rise. tachycardia under better control and BP better, but still tachycardic. will increase diltiazem po. Objective Vital Signs Date Time Temp Pulse Resp B/P (MAP) Pulse Ox O2 Delivery O2 Flow Rate FiO2 04/16/17 08:36 97 Nasal Cannula 21 04/16/17 06:00 130 04/16/17 04:00 98.4 22 120/96 (104) 04/14/17 08:10 1.00 Intake and Output 04/16/17 04/16/17 04/17/17 08:00 16:00 00:00 Intake Total 150 ml Output Total 500 ml Balance -500 ml 150 ml Result Diagram: 04/16/17 0545 04/16/17 0545 Imaging Last Impressions Chest X-Ray 04/13/17 0515 Signed Impressions: Service Date/Time: Thursday, April 13, 2017 05:47 - CONCLUSION: 1. Mild basilar opacity, probably dependent in basilar atelectasis. Cardiomegaly is stable. Derrick Mattson MD Renal Ultrasound 04/13/17 0000 Signed Impressions: Service Date/Time: Thursday, April 13, 2017 07:52 - CONCLUSION: Negative for obstruction. Bladder decompressed by Calles. Jayson Cain MD FACR Objective Remarks gen: frail elderly female, lying in bed, tracks with eyes, does not follow commands. heent: perrl. mucous membranes moist neck: flat neck veins. trachea midline. chest: equal chest rise. room air. clear to auscultation cv: tachycardic rate, irregularly irregular rhythm. afib by tele. abd: soft, nontender, nondistended. no guarding. extr: no peripheral edema. distal pulses 1+. warm and well perfused. neuro: RASS -1. tracks with eyes. does not follow commands. moves all extremities spontaneously. withdraws to pain. does not answer questions. A/P Assessment and Plan Assessment: 76yF with end-stage dementia with behavioral features and possible other [place] 1 psych disorders who presents with septic shock secondary to c. diff colitis, urinary tract infection. GLORIA improving. afib remains a problem. out of shock today. will increase diltiazem PO. stable for transfer out of ICU. DNR status continues and family interested in transitioning to outpatient hospice when she discharges. If she clinically declines, would strongly recommend inpatient hospice services. Neuro: metabolic encephalopathy uremia end-stage dementia ?schizophrenia - neuro checks - avoid long-acting sedatives resp: - wean o2 by nc for goal spo2 > 90%, currently on room air. - aggressive pulmonary toilet cv: Septic Shock - resolved elevated troponin/Type II NSTEMI secondary to demand ischemia Atrial fibrillation with rapid ventricular response Intravascular volume depletion- resolved. - increase diltiazem to 60mg po q6h - midodrine 10mg po q8h - hydrocortisone 50mg iv q6h for presumed adrenal insufficiency - continue mivf to 75 cc/hr. - thyroid function tests wnl. - po amiodarone 400mg bid. Renal: Acute Kidney Injury- improving. Uremia Urinary Tract Infection - FENa consistent with pre-renal from septic shock. improving. - renal ultrasound without evidence of hydronephrosis - d/c calles. FEN/GI: acute protein calorie malnutrition - moderate hyperkalemia hypocalcemia - speech eval, advance diet per their recommendations. - replace calcium - daily bmp Heme/ID: Septic Shock Urinary Tract Infection C. Diff colitis - pcn allergy noted. risk/benefit of carbapenem vs. aminoglycoside for ESBL e.coli is in favor of carbapenem. received cephalosporin (ancef) in 2006 without adverse reaction. - PO vancomycin and IV flagyl for c. diff. - ertapenem iv for e. coli. - daily cbc Endocrine: hyperglycemia of critical illness - q6h ssi, med scale Prophylaxis - SCDs - SQH Lines: - piv's - d/c calles. Dispo: transfer out of ICU. consult hospitalist service. palliative care involved: plan for no escalation of care, DNR status, and likely hospice upon hospital discharge or sooner if clinical course declines. Jean Murillo MD Apr 16, 2017 11:45
--- NOTE | 2017-04-16 13:34 | HHI.HCPN ---
Reason for visit a. To assist with evaluation and management of symptoms including: Dyspnea , pain b. To assist medical decision maker(s) with: better understanding of current medical conditions; weighing benefits/burdens of medical treatment options; making medical treatment decisions. . Subjective/Interval History Pt is confused on restraints. Leukocytosis continue to increase. Cr monitored. Infectious Disease consulted. Pt ask for more water, and is eating and drinking. Family/friend interactions Spoke with Mr. Dalton. Discussed challenges she faces, including but not limited her infection, her multiple allergies, and her renal failure. Family for now want to see if she can rebound more with recommendations of Infectious Disease. If it she does not improve, or clinically decline or needs "to be on life support" they would not want that. They are open to hospice if pt does not improve, for now they want pt to have a few more days. They want to continue antibiotics. Advance Directives Living Will: Copy in medical record Health Care Surrogate: Copy in medical record Advance Directive Specifics Date completed: 2013 . Health Care Surrogate(s): Primary is Bhavik Dalton - her half-brother - and secondary is Benjamin Dalton . Documented care wishes: The patient has a living will from 2013 with typical language regarding terminality and end-stage conditions. . Objective Vital Signs Date Time Temp Pulse Resp B/P (MAP) Pulse Ox O2 Delivery O2 Flow Rate FiO2 04/16/17 12:00 98.1 127 26 151/92 (111) 96 04/16/17 08:36 97 Nasal Cannula 21 04/16/17 08:00 98.6 123 24 123/62 (82) 94 04/16/17 07:00 97 Room Air 04/16/17 06:00 130 04/16/17 04:00 98.4 114 22 120/96 (104) 96 04/16/17 04:00 114 04/16/17 02:00 137 04/16/17 00:00 132 04/16/17 00:00 98.2 132 28 142/65 (90) 96 04/15/17 22:00 145 04/15/17 20:00 98.2 126 27 139/67 (91) 100 04/15/17 20:00 126 04/15/17 19:53 96 04/15/17 19:00 99 Room Air 04/15/17 18:00 128 04/15/17 16:00 98.4 131 30 123/60 (81) 99 04/15/17 16:00 118 04/15/17 14:00 118 Intake & Output 04/16/17 04/16/17 07:00 19:00 Intake Total 1350 ml Output Total 500 ml Balance -500 ml 1350 ml Intake Oral 1200 ml IV Total 150 ml Output Urine Total 400 ml Stool Total 100 ml Physical Exam CONSTITUTIONAL/GENERAL: This is an elderly, weak, obese patient, in no apparent distress. Mumbles occasionally, on restraints. TUBES/LINES/DRAINS: Peripheral IV, SCDs, nasal oxygen SKIN: No jaundice, rashes, or lesions. Ecchymoses on upper extremities. No wounds seen anteriorly. Skin temperature appropriate. Not diaphoretic. HEAD: Atraumatic. Normocephalic. EYES: Pupils equal and round. No scleral icterus. No injection or drainage. Fundi not examined. ENT: Hearing grossly normal. Nose without bleeding or purulent drainage. NECK: Trachea midline. Supple, nontender. No palpable thyroid enlargement or nodularity. CARDIOVASCULAR: Regular rate and rhythm without murmurs, gallops, or rubs. No JVD. Peripheral pulses symmetric. RESPIRATORY/CHEST: Symmetric, unlabored respirations. Scattered rhonchi, and a couple rales at the bases. GASTROINTESTINAL: Abdomen soft, non-tender, nondistended. No hepato-splenomegaly , or palpable masses. No guarding. Bowel sounds present. GENITOURINARY: Without palpable bladder distension. Meraz catheter in place. MUSCULOSKELETAL: Extremities without clubbing, cyanosis, or edema. No joint tenderness or effusion noted. No calf tenderness. No mottling or clubbing. LYMPHATICS: No palpable cervical or supraclavicular adenopathy. NEUROLOGICAL: Appears awake, tracks me intermittently, does not follow simple commands, moves arms occasionally PSYCHIATRIC: No obvious anxiety/depression. no apparent hallucinations or other psychotic thought process. . Diagnostic Tests Laboratory Laboratory Tests Test 04/13/17 13:54 04/13/17 19:45 04/13/17 20:38 04/14/17 02:43 Blood Urea Nitrogen 94 MG/DL (7-18) 80 MG/DL (7-18) Creatinine 4.46 MG/DL (0.50-1.00) 2.97 MG/DL (0.50-1.00) Random Glucose 218 MG/DL (74-106) 177 MG/DL (74-106) Calcium Level 7.9 MG/DL (8.5-10.1) 7.2 MG/DL (8.5-10.1) Sodium Level 141 MEQ/L (136-145) 140 MEQ/L (136-145) Potassium Level 4.7 MEQ/L (3.5-5.1) 4.1 MEQ/L (3.5-5.1) Chloride Level 110 MEQ/L (98-107) 113 MEQ/L (98-107) Carbon Dioxide Level 15.2 MEQ/L (21.0-32.0) 15.2 MEQ/L (21.0-32.0) Anion Gap 16 MEQ/L (5-15) 12 MEQ/L (5-15) Estimat Glomerular Filtration Rate 10 ML/MIN (>89) 15 ML/MIN (>89) Total Creatine Kinase 754 U/L (26-192) 686 U/L (26-192) 466 U/L (26-192) Creatine Kinase MB 8.6 NG/ML (0.5-3.6) 8.7 NG/ML (0.5-3.6) 8.6 NG/ML (0.5-3.6) Creatine Kinase MB % 1.1 % (0.0-4.0) 1.3 % (0.0-4.0) 1.8 % (0.0-4.0) Troponin I 0.08 NG/ML (0.02-0.05) 0.03 NG/ML (0.02-0.05) 0.03 NG/ML (0.02-0.05) Stool C. difficile Toxin (PCR) POSITIVE (NEGATIVE) Stl C. difficile Toxin Epiderm 027 PRESUMPTIVE POSITIVE Phosphorus Level 4.2 MG/DL (2.5-4.9) Free Thyroxine 1.11 NG/DL (0.76-1.46) Thyroid Stimulating Hormone 3rd Gen 1.560 uIU/ML (0.358-3.740) White Blood Count 35.9 TH/MM3 (4.0-11.0) Red Blood Count 4.31 MIL/MM3 (4.00-5.30) Hemoglobin 13.3 GM/DL (11.6-15.3) Hematocrit 39.0 % (35.0-46.0) Mean Corpuscular Volume 90.4 FL (80.0-100.0) Mean Corpuscular Hemoglobin 30.8 PG (27.0-34.0) Mean Corpuscular Hemoglobin Concent 34.1 % (32.0-36.0) Red Cell Distribution Width 13.9 % (11.6-17.2) Platelet Count 266 TH/MM3 (150-450) Mean Platelet Volume 9.0 FL (7.0-11.0) Total Protein 5.2 GM/DL (6.4-8.2) Protein Corrected Calcium 8.2 MG/DL (8.5-10.1) Test 04/15/17 04:15 04/16/17 05:45 White Blood Count 43.3 TH/MM3 (4.0-11.0) 48.4 TH/MM3 (4.0-11.0) Red Blood Count 4.44 MIL/MM3 (4.00-5.30) 4.43 MIL/MM3 (4.00-5.30) Hemoglobin 13.3 GM/DL (11.6-15.3) 13.4 GM/DL (11.6-15.3) Hematocrit 40.2 % (35.0-46.0) 39.7 % (35.0-46.0) Mean Corpuscular Volume 90.4 FL (80.0-100.0) 89.7 FL (80.0-100.0) Mean Corpuscular Hemoglobin 30.0 PG (27.0-34.0) 30.2 PG (27.0-34.0) Mean Corpuscular Hemoglobin Concent 33.2 % (32.0-36.0) 33.7 % (32.0-36.0) Red Cell Distribution Width 14.3 % (11.6-17.2) 14.3 % (11.6-17.2) Platelet Count 296 TH/MM3 (150-450) 291 TH/MM3 (150-450) Mean Platelet Volume 9.2 FL (7.0-11.0) 8.9 FL (7.0-11.0) Blood Urea Nitrogen 70 MG/DL (7-18) 74 MG/DL (7-18) Creatinine 2.32 MG/DL (0.50-1.00) 2.17 MG/DL (0.50-1.00) Random Glucose 149 MG/DL (74-106) 121 MG/DL (74-106) Calcium Level 7.6 MG/DL (8.5-10.1) 7.8 MG/DL (8.5-10.1) Sodium Level 138 MEQ/L (136-145) 137 MEQ/L (136-145) Potassium Level 3.8 MEQ/L (3.5-5.1) 4.0 MEQ/L (3.5-5.1) Chloride Level 108 MEQ/L (98-107) 111 MEQ/L (98-107) Carbon Dioxide Level 13.3 MEQ/L (21.0-32.0) 15.4 MEQ/L (21.0-32.0) Anion Gap 17 MEQ/L (5-15) 11 MEQ/L (5-15) Estimat Glomerular Filtration Rate 21 ML/MIN (>89) 22 ML/MIN (>89) Random Vancomycin Level 7.3 COMMENT Result Diagram: 04/16/17 0545 04/16/17 0545 Imaging Last Impressions Chest X-Ray 04/13/17 0515 Signed Impressions: Service Date/Time: Thursday, April 13, 2017 05:47 - CONCLUSION: 1. Mild basilar opacity, probably dependent in basilar atelectasis. Cardiomegaly is stable. Derrick Mattson MD Renal Ultrasound 04/13/17 0000 Signed Impressions: Service Date/Time: Thursday, April 13, 2017 07:52 - CONCLUSION: Negative for obstruction. Bladder decompressed by Meraz. Jayson Cain MD FACR Assessment and Plan Disease Oriented Problem List: (1) sepsis, septic shock, UTI (2) psychiatric illness, PTSD, schizophrenia (3) chronic knee pain (4) morbid obesity (5) anemia (6) depression (7) type 2 diabetes (8) hearing loss (9) hypertension (10) degenerative joint disease Symptom Scale: (1) pain 0-10 Scale: Unable to quantify (bedbound status likely has musculoskeletal pain , history of chronic pain) (2) encephalopathy 0-10 Scale: Unable to quantify Pertinent Non-Medical Issues Psychosocial: Originally from was constant, never , no children. 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 She has designated her brother Bhavik as primary and also Benjamin Dalton as secondary HCS. Ethical issues impacting care: None . Important Contacts Brother: Bhavik Dalton [phone] Secondary HCS: Benjamin Dalton [phone] . Prognosis The patient's prognosis is quite poor. She has end-stage dementia and now septic shock. She is appropriate for hospice services if the goals become completely comfort oriented. . Code Status: No Code Plan * DO NOT RESUSCITATE * GOALS: The patient's HCS/brother Bhavik reports that he had had discussions with the patient many times in past years and that she would not want to be "kept alive on machines" or to have her life prolonged when she had an advanced or end-stage condition. He requests DNR status and no escalation of care.Spoke with Mr. Dalton today 04/16. Discussed challenges she faces, including but not limited her infection, her multiple allergies, and her renal failure. Family for now want to see if she can rebound more with recommendations of Infectious Disease. If it she does not improve, or clinically decline or needs "to be on life support" they would not want that. They are open to hospice if pt does not improve but for now they want pt to have a few more days. They want to continue antibiotics. * No escalation of care per request of healthcare surrogate. * DECISION-MAKING: Patient lacks capacity for decision-making, and she will not regain that capacity. She has designated her brother Bhavik as primary and also Benjamin Dalton as secondary HCS. * SYMPTOMS: Comfort medication orders have been entered to manage dyspnea and/ or pain as they arise. * The patient is appropriate for hospice services if she survives this hospitalization to return to her fdc. * Palliative Care will continue to follow the patient during this hospitalization. . Attestation To help prompt me to consider important information that might be impacting today's encounter and assessment, information from prior notes written by myself or my colleagues may have been "brought forward" into today's note. My signature on this note, however, is an attestation that I personally performed the exam, history, and/or decision-making noted today, and, unless otherwise indicated, the interactions with patient, family, and staff as well as the review of records all occurred today. I also attest that the listed assessment and stated plan reflect my best clinical judgment today based on the combination of historical information, prior notes, and today's exam/ interactions. When time spent is documented, it refers only to time spent today by the signer, or if indicated, combined time spent today by collaborating physician/nurse practitioner. Tobias Rankin MD Apr 16, 2017 13:34
[2017-04-16] MEDS: ERTAPENEM 1,000 MG/NS 100 ML IV SCH ×2 (14:58)
[2017-04-17] VITALS (13 sets, daily range): BP systolic 104–144; BP diastolic 56–89; PULSE 87–116; RESP 15–32; TEMP 97.3–98.4; O2SAT 92–96
[2017-04-17] MEDS: metroNIDAZOLE 500 MG INJ 100 ML IV SCH ×4 (02:00→20:50)
[2017-04-17] MEDS: MIDODRINE 5 MG TAB PO SCH ×3 (02:00→16:54)
[2017-04-17] MEDS: CHLORHEXIDINE GLUCONATE 2 % 1 PACK (2 CLOTHS) TOP SCH (02:13)
[2017-04-17] MEDS: RESP: ALBUTEROL 2.5 MG/IPRATROPIUM 0.5 MG NEB (SCH) INH ×4 (02:52→22:11)
[2017-04-17] MEDS: SODIUM CHLOR 0.9% 1000 ML INJ 1,000 ML IV SCH ×2 (03:24→18:00)
[2017-04-17] MEDS: DILTIAZEM HCL 30 MG TAB PO SCH ×3 (05:20→16:54)
[2017-04-17] MEDS: HYDROCORTISONE SOD SUCCINATE 100 MG VIAL IV PUSH SCH ×3 (05:20→16:54)
[2017-04-17] MEDS: INSULIN NovoLIN REGULAR SUPPLEMENTAL SCALE SQ SCH ×3 (05:41→18:00)
[2017-04-17] MEDS: AMIODARONE 200 MG TAB PO SCH ×2 (08:10→20:50)
[2017-04-17] MEDS: VANCOMYCIN 25 MG/ML SUSP 100 ML BOTTLE PO SCH ×4 (08:11→21:06)
[2017-04-17] MEDS: HEPARIN SODIUM - SQ 10,000 UNITS/ML VIAL SQ SCH ×2 (08:11→20:50)
[2017-04-17] MEDS: DOCUSATE SODIUM 50 MG/SENNA 8.6 MG TAB PO SCH ×2 (09:00→20:50)
--- NOTE | 2017-04-17 11:20 | HHI.IDPN ---
Subjective Subjective Remarks She is a 76-year-old female, resident of a shelter, brought into the hospital was found to have fever and leukocytosis, hypotension, and tachycardia. She was found to be in atrial fibrillation with RVR. She also had significant hypotension, and received IV fluids, loss she was started on pressors. Her WBC was elevated. She had some fevers. Her creatinine was quite elevated. Calles catheter was placed, and her urinalysis showed significant hypotension. While in the hospital she had diarrhea, and stool for C. difficile came back positive. Her urinalysis showed significant pyuria, and the urine culture has Escherichia coli ESBL positive. Patient currently is off pressors. Her creatinine is slowly improving. Her white count remains elevated. She is afebrile. She has watery stools. Infectious disease consultation has been requested to evaluate the patient. Notes reviewed Temps ok Stool volume less overnight UO has been decreasing Blood work not done yet BP ok Still in AF, rate slower Palliative medicine notes reviewed Antibiotics Current Medications IV Invanz IV Flagyl PO Vancomycin Medications (Trade) Dose Ordered Sig/Monica Route Start Time Stop Time Status Last Admin Metronidazole 100 ml @ 100 mls/hr Q6H IV 04/13/17 08:00 04/17/17 08:10 (D50w (Vial) Inj) 25 ml UNSCH PRN IV PUSH 04/13/17 07:00 (NovoLIN R SUPPLEMENTAL SCALE) 1 Q6HR SQ 04/13/17 12:00 04/16/17 23:24 (Duoneb Neb) 1 ampule Q2HR NEB PRN INH 04/13/17 07:00 Sodium Chloride 1,000 ml @ 75 mls/hr [id number] IV 04/13/17 06:49 04/17/17 03:24 (Zofran Inj) 4 mg Q6H PRN IV PUSH 04/13/17 07:00 (Heparin Inj) 5,000 units Q12H SQ 04/13/17 09:00 04/17/17 08:11 Miscellaneous Information 1 Q361D XX 04/13/17 07:00 04/13/17 07:00 (Chlorhexidine 2% Cloth) 3 pack Taper DAILY@04 TOP 04/14/17 04:00 04/10/18 03:59 (Chlorhexidine 2% Cloth) 3 pack UNSCH PRN TOP 04/13/17 07:00 (Aileen-Colace) 1 tab BID PO 04/13/17 09:00 04/16/17 09:00 (Milk Of Magnesia Liq) 30 ml Q12H PRN PO 04/13/17 07:00 (Morphine Inj) 2 mg Q2H PRN IV PUSH 04/13/17 13:15 (Morphine Inj) 4 mg Q2H PRN IV PUSH 04/13/17 13:15 (Ativan Inj) 1 mg Q2H PRN IV PUSH 04/13/17 13:15 (SoluCORTEF INJ) 50 mg Q6HR IV PUSH 04/14/17 12:00 04/17/17 11:01 (Proamatine) 10 mg Q8H PO 04/14/17 10:00 04/17/17 11:01 (Cordarone) 400 mg Q12HR PO 04/14/17 21:00 04/17/17 08:10 Ertapenem 1000 mg/ Sodium Chloride 100 ml @ 200 mls/hr Q24H IV 04/15/17 14:00 04/28/17 14:29 04/16/17 14:58 (Vancomycin 25 Mg/ml Liq) 500 mg QID PO 04/16/17 13:00 04/17/17 08:11 (Duoneb Neb) 1 ampule Q6HR NEB INH 04/16/17 16:00 04/17/17 02:52 (Cardizem) 90 mg Q6HR PO 04/16/17 12:00 04/17/17 11:01 Lines PIV Past Medical History History is obtained from current medical records Anxiety Depression Dementia: prior psychiatric notes reference with behavioral component. right ear diminished hearing hypertension prior notes indicated ESBL organisms, but I cannot find any documented micro report detailing organism and sensitivities. osteoarthritis PTSD Schizophrenia Past Surgical History History is obtained from current medical record appendectomy bilateral total knee arthroplasty tonsillectomy Allergies: Coded Allergies: Sulfa (Sulfonamide Antibiotics) (Unverified Allergy, Severe, DISTURBS KIDNEY FUNCTION, 10/17/16) aripiprazole (Unverified Allergy, Severe, 10/17/16) aspirin (Unverified Allergy, Severe, 10/17/16) diclofenac (Unverified Allergy, Severe, 10/17/16) doxycycline (Unverified Allergy, Severe, NAUSEA & VOMITING, 10/17/16) etodolac (Unverified Allergy, Severe, 10/17/16) flurbiprofen (Unverified Allergy, Severe, 10/17/16) ibuprofen (Unverified Allergy, Severe, 10/17/16) indomethacin (Unverified Allergy, Severe, 10/17/16) ketoprofen (Unverified Allergy, Severe, 10/17/16) ketorolac (Unverified Allergy, Severe, 10/17/16) meclizine (Unverified Allergy, Severe, 10/17/16) metronidazole (Unverified Allergy, Severe, Diarrhea, 10/17/16) minocycline (Unverified Allergy, Severe, NAUSEA & VOMITING, 10/17/16) naproxen (Unverified Allergy, Severe, 10/17/16) oxaprozin (Unverified Allergy, Severe, 10/17/16) penicillin G (Unverified Allergy, Severe, REDNESS, SWELLING, 10/17/16) saccharin (Unverified Allergy, Severe, 10/17/16) tigecycline (Unverified Allergy, Severe, NAUSEA & VOMITING, 10/17/16) Objective . Vital Signs Date Time Temp Pulse Resp B/P (MAP) Pulse Ox O2 Delivery O2 Flow Rate FiO2 04/17/17 08:00 97.5 106 30 144/83 (103) 96 04/17/17 08:00 106 04/17/17 07:00 96 Room Air 04/17/17 06:00 106 04/17/17 04:00 93 04/17/17 04:00 98.1 93 15 126/57 (80) 94 04/17/17 02:00 87 04/17/17 00:00 99 04/17/17 00:00 98.1 99 24 119/56 (77) 92 04/16/17 22:00 115 04/16/17 21:20 94 04/16/17 20:00 110 04/16/17 20:00 98.1 110 25 119/68 (85) 95 04/16/17 20:00 94 Room Air 04/16/17 18:00 118 04/16/17 16:00 108 04/16/17 16:00 97.7 108 24 142/70 (94) 97 04/16/17 14:00 120 04/16/17 12:00 98.1 127 26 151/92 (111) 96 04/16/17 12:00 121 . Laboratory Tests Test 04/16/17 05:45 White Blood Count 48.4 TH/MM3 Red Blood Count 4.43 MIL/MM3 Hemoglobin 13.4 GM/DL Hematocrit 39.7 % Mean Corpuscular Volume 89.7 FL Mean Corpuscular Hemoglobin 30.2 PG Mean Corpuscular Hemoglobin Concent 33.7 % Red Cell Distribution Width 14.3 % Platelet Count 291 TH/MM3 Mean Platelet Volume 8.9 FL Laboratory Tests Test 04/16/17 05:45 Blood Urea Nitrogen 74 MG/DL Creatinine 2.17 MG/DL Random Glucose 121 MG/DL Calcium Level 7.8 MG/DL Sodium Level 137 MEQ/L Potassium Level 4.0 MEQ/L Chloride Level 111 MEQ/L Carbon Dioxide Level 15.4 MEQ/L Anion Gap 11 MEQ/L Estimat Glomerular Filtration Rate 22 ML/MIN Imaging Last Impressions Chest X-Ray 04/13/17 0515 Signed Impressions: Service Date/Time: Thursday, April 13, 2017 05:47 - CONCLUSION: 1. Mild basilar opacity, probably dependent in basilar atelectasis. Cardiomegaly is stable. Derrick Mattson MD Renal Ultrasound 04/13/17 0000 Signed Impressions: Service Date/Time: Thursday, April 13, 2017 07:52 - CONCLUSION: Negative for obstruction. Bladder decompressed by Calles. Jayson Cain MD FACR Physical Exam GENERAL: confused, awake and alert, not in respiratory distress. She is not on any supplemental oxygen SKIN: Warm , edematous and dry. No generalized rash, no ecchymoses and no evidence of embolic lesions. HEAD: Atraumatic. Normocephalic. No temporal wasting, or tenderness. EYES: [place] conjunctiva. No petechia or hemorrhage. Pupils equal, round and reactive to light. Extraocular movements full and intact. No scleral icterus. No injection or drainage. EARS, NOSE AND THROAT: Nose without bleeding or purulent nasal discharge. No sinus tenderness. Dry oral mucosa. No oral lesions noted. NECK: Trachea midline. Supple and not tender, no meningeal signs CARDIOVASCULAR: Irregular S1 and S2, tachycardic, no murmurs, rubs or gallops heard RESPIRATORY: Clear to auscultation. Breath sounds equal bilaterally. No rales , wheezing or rhonchi. Decreased breath sounds at the bases. ABDOMEN: Mildly distended abdomen, soft, with mild diffuse tenderness, no guarding or rebound. Bowel sounds present and normoactive. No organomegaly. EXTREMITIES: No clubbing, cyanosis. Has bilateral pitting pedal edema. There is some mild erythema on her right big toe. Scars in the knee compatible with her surgical history. No limitation or pain in range of motion. No calf tenderness. Well perfused and warm. NEUROLOGICAL: Awake and alert. Cranial nerves seem grossly intact. Motor grossly within normal limits. PSYCHIATRIC: calm and cooperative. LINE: No evidence of infection : Has calles in place, urine looks clear Has dign[place], with yellow brown liquid stool Assessment & Plan Remarks IMPRESSION Sepsis on presentation with shock - due to E coli ESBL (+) - also with C difficilie colitis (no hx of diarrhea given prior to admission ) - BP better off pressors Persistent leukocytosis - just started on ESBL Rx 04/15 C difficile colitis, still acidotic Renal insufficiency improving Atrial fib with RVR Hx dementia and schizophrenia RECOMMENDATION Continue Flagyl Continue Vanco, increase dose Continue Invanz give 14 days Follow CBC Monitor progress Palliative medicine following D/W Ines Doan MD Apr 17, 2017 11:20
[2017-04-17] MEDS: ERTAPENEM 1,000 MG/NS 100 ML IV SCH ×2 (13:00)
[2017-04-17 13:02] LABS: HEMOGLOBIN 13.4 GM/DL (11.6-15.3); MEAN CELL VOLUME 90.4 FL (80.0-100.0); MEAN CORPUSCULAR HEMOGLOBIN 30.2 PG (27.0-34.0); MEAN CORPUSCULAR HGB CONC 33.4 % (32.0-36.0); MEAN PLATELET VOLUME 8.7 FL (7.0-11.0); PLATELET COUNT 334 TH/MM3 (150-450); RED BLOOD COUNT 4.43 MIL/MM3 (4.00-5.30); RED CELL DISTRIBUTION WIDTH 14.3 % (11.6-17.2)
[2017-04-17 13:42] LABS: BICARBONATE 14.1 MEQ/L (21.0-32.0); CALCIUM 7.4 MG/DL (8.5-10.1); CREATININE 2.05 MG/DL (0.50-1.00)
[2017-04-17 14:13] LABS: CALCIUM-PROTEIN CORRECTED 8.8 MG/DL (8.5-10.1); TOTAL PROTEIN 4.7 GM/DL (6.4-8.2)
--- NOTE | 2017-04-17 14:33 | HHI.PR ---
Subjective Remarks Follow up for C. Diff colitis, UTI in a patient with end stage dementia. Patient is resting in bed, tries to say a few words. Incoherent speech. No fever. Objective Vitals Vital Signs Date Time Temp Pulse Resp B/P (MAP) Pulse Ox O2 Delivery O2 Flow Rate FiO2 04/17/17 12:00 97.9 116 32 127/89 (102) 94 04/17/17 12:00 113 04/17/17 11:40 94 21 04/17/17 10:00 112 04/17/17 08:00 97.5 106 30 144/83 (103) 96 04/17/17 08:00 106 04/17/17 07:00 96 Room Air 04/17/17 06:00 106 04/17/17 04:00 93 04/17/17 04:00 98.1 93 15 126/57 (80) 94 04/17/17 02:00 87 04/17/17 00:00 99 04/17/17 00:00 98.1 99 24 119/56 (77) 92 04/16/17 22:00 115 04/16/17 21:20 94 04/16/17 20:00 110 04/16/17 20:00 98.1 110 25 119/68 (85) 95 04/16/17 20:00 94 Room Air 04/16/17 18:00 118 04/16/17 16:00 108 04/16/17 16:00 97.7 108 24 142/70 (94) 97 I/O 04/16/17 04/16/17 04/16/17 04/17/17 04/17/17 04/17/17 07:00 15:00 23:00 07:00 15:00 23:00 Intake Total 1350 ml 1455 ml 1844 ml Output Total 500 ml 425 ml 350 ml Balance -500 ml 1350 ml 1030 ml 1494 ml Intake Oral 1200 ml 550 ml 720 ml IV Total 150 ml 905 ml 1124 ml Output Urine Total 400 ml 375 ml 350 ml Stool Total 100 ml 50 ml 0 ml Result Diagram: 04/17/17 1235 04/17/17 1235 Imaging Last Impressions Chest X-Ray 04/13/17 0515 Signed Impressions: Service Date/Time: Thursday, April 13, 2017 05:47 - CONCLUSION: 1. Mild basilar opacity, probably dependent in basilar atelectasis. Cardiomegaly is stable. Derrick Mattson MD Renal Ultrasound 04/13/17 0000 Signed Impressions: Service Date/Time: Thursday, April 13, 2017 07:52 - CONCLUSION: Negative for obstruction. Bladder decompressed by Meraz. Jayson Cain MD FACR Objective Remarks GENERAL: Alert, incoherent speech, NAD. SKIN: Warm and dry. HEAD: Normocephalic. EYES: No scleral icterus. No injection or drainage. NECK: Supple, trachea midline. No JVD or lymphadenopathy. CARDIOVASCULAR: Regular rate and rhythm without murmurs, gallops, or rubs. RESPIRATORY: Breath sounds equal bilaterally. Using abdominal accessory muscle. Tachypneic. GASTROINTESTINAL: Abdomen soft, non-tender, nondistended. MUSCULOSKELETAL: No cyanosis. 1+ lower ext edema. BACK: Nontender without obvious deformity. No CVA tenderness. Procedures None. A/P Problem List: (1) C. difficile colitis ICD Code: A04.72 - Enterocolitis due to Clostridium difficile, not specified as recurrent (2) UTI (urinary tract infection) ICD Code: N39.0 - Urinary tract infection, site not specified Status: Acute (3) Dementia of Alzheimer's type with behavioral disturbance ICD Code: G30.8 - Other Alzheimer's disease; F02.81 - Dementia in other diseases classified elsewhere with behavioral disturbance Status: Acute Assessment and Plan 76yF with end-stage dementia with behavioral features and possible other [place] 1 psych disorders who presents with septic shock secondary to c. diff colitis, urinary tract infection. DNR status continues and family interested in transitioning to outpatient hospice when she discharges. - Metabolic encephalopathy - End stage Dementia - Avoid long acting sedatives. - Septic shock - likely due to UTI, C. Diff colitis - Patient was managed by Critical care team. Septic shock resolved. - C. Diff colitis - Urinary tract infection - ID is following. Currently on Vancomycin, Flagyl and Invanz - Atrial fibrillation with RVR - Currently on Amiodarone 400mg Q12hrs. We can likely discontinue this in the next day or so. - Continue Diltiazem 90mg Q6hrs. We will consider switching to long acting Diltiazem. DNR. Heparin SQ. Discharge plan: Patient's clinical condition is not improving. She will likely be a good candidate for hospice care center. Enrique Castanon DO Apr 17, 2017 14:33
[2017-04-18] VITALS (9 sets, daily range): BP systolic 96–140; BP diastolic 55–74; PULSE 86–112; RESP 20–32; TEMP 97.5–98.8; O2SAT 93–97
[2017-04-18] MEDS: INSULIN NovoLIN REGULAR SUPPLEMENTAL SCALE SQ SCH ×3 (00:50→11:47)
[2017-04-18] MEDS: HYDROCORTISONE SOD SUCCINATE 100 MG VIAL IV PUSH SCH ×4 (00:51→16:49)
[2017-04-18] MEDS: DILTIAZEM HCL 30 MG TAB PO SCH ×4 (00:53→16:51)
[2017-04-18] MEDS: metroNIDAZOLE 500 MG INJ 100 ML IV SCH ×4 (02:31→20:23)
[2017-04-18] MEDS: MIDODRINE 5 MG TAB PO SCH ×3 (02:31→16:51)
[2017-04-18] MEDS: CHLORHEXIDINE GLUCONATE 2 % 1 PACK (2 CLOTHS) TOP SCH (03:07)
[2017-04-18] MEDS: RESP: ALBUTEROL 2.5 MG/IPRATROPIUM 0.5 MG NEB (SCH) INH ×4 (04:19→21:36)
[2017-04-18 06:58] LABS: HEMATOCRIT 40.3 % (35.0-46.0); HEMOGLOBIN 13.1 GM/DL (11.6-15.3); MEAN CELL VOLUME 90.7 FL (80.0-100.0); MEAN CORPUSCULAR HEMOGLOBIN 29.6 PG (27.0-34.0); MEAN CORPUSCULAR HGB CONC 32.6 % (32.0-36.0); MEAN PLATELET VOLUME 8.4 FL (7.0-11.0); PLATELET COUNT 281 TH/MM3 (150-450); RED BLOOD COUNT 4.44 MIL/MM3 (4.00-5.30); WHITE BLOOD COUNT 62.1 TH/MM3 (4.0-11.0)
[2017-04-18 07:16] LABS: BICARBONATE 15.1 MEQ/L (21.0-32.0); CALCIUM 7.8 MG/DL (8.5-10.1); CREATININE 2.36 MG/DL (0.50-1.00)
[2017-04-18] MEDS: AMIODARONE 200 MG TAB PO SCH ×2 (08:43→20:27)
[2017-04-18] MEDS: SODIUM CHLOR 0.9% 1000 ML INJ 1,000 ML IV SCH (08:43)
[2017-04-18] MEDS: DOCUSATE SODIUM 50 MG/SENNA 8.6 MG TAB PO SCH ×2 (08:44→20:27)
[2017-04-18] MEDS: HEPARIN SODIUM - SQ 10,000 UNITS/ML VIAL SQ SCH ×2 (08:44→20:25)
[2017-04-18] MEDS: VANCOMYCIN 25 MG/ML SUSP 100 ML BOTTLE PO SCH ×4 (08:44→20:27)
--- NOTE | 2017-04-18 10:19 | HHI.IDPN ---
Subjective Subjective Remarks She is a 76-year-old female, [facility], brought into the hospital was found to have fever and leukocytosis, hypotension, and tachycardia. She was found to be in atrial fibrillation with RVR. She also had significant hypotension, and received IV fluids, loss she was started on pressors. Her WBC was elevated. She had some fevers. Her creatinine was quite elevated. Calles catheter was placed, and her urinalysis showed significant hypotension. While in the hospital she had diarrhea, and stool for C. difficile came back positive. Her urinalysis showed significant pyuria, and the urine culture has Escherichia coli ESBL positive. Patient currently is off pressors. Her creatinine is slowly improving. Her white count remains elevated. She is afebrile. She has watery stools. Infectious disease consultation has been requested to evaluate the patient. Notes reviewed Temps ok Stool volume less UO has been decreasing Creatinine rising again Her WBC continues to increase BP ok Still in AF, rate slower Palliative medicine notes reviewed Antibiotics Current Medications IV Invanz IV Flagyl PO Vancomycin Medications (Trade) Dose Ordered Sig/Monica Route Start Time Stop Time Status Last Admin Metronidazole 100 ml @ 100 mls/hr Q6H IV 04/13/17 08:00 04/18/17 08:42 (D50w (Vial) Inj) 25 ml UNSCH PRN IV PUSH 04/13/17 07:00 (NovoLIN R SUPPLEMENTAL SCALE) 1 Q6HR SQ 04/13/17 12:00 04/18/17 00:50 (Duoneb Neb) 1 ampule Q2HR NEB PRN INH 04/13/17 07:00 Sodium Chloride 1,000 ml @ 75 mls/hr [id number] IV 04/13/17 06:49 04/18/17 08:43 (Zofran Inj) 4 mg Q6H PRN IV PUSH 04/13/17 07:00 (Heparin Inj) 5,000 units Q12H SQ 04/13/17 09:00 04/18/17 08:44 Miscellaneous Information 1 [id number] XX 04/13/17 07:00 04/13/17 07:00 (Chlorhexidine 2% Cloth) 3 pack Taper DAILY@04 TOP 04/14/17 04:00 04/10/18 03:59 (Chlorhexidine 2% Cloth) 3 pack UNSCH PRN TOP 04/13/17 07:00 (Aileen-Colace) 1 tab BID PO 04/13/17 09:00 04/18/17 08:44 (Milk Of Magnesia Liq) 30 ml Q12H PRN PO 04/13/17 07:00 (Morphine Inj) 2 mg Q2H PRN IV PUSH 04/13/17 13:15 (Morphine Inj) 4 mg Q2H PRN IV PUSH 04/13/17 13:15 (Ativan Inj) 1 mg Q2H PRN IV PUSH 04/13/17 13:15 (SoluCORTEF INJ) 50 mg Q6HR IV PUSH 04/14/17 12:00 04/18/17 06:02 (Proamatine) 10 mg Q8H PO 04/14/17 10:00 04/18/17 08:50 (Cordarone) 400 mg Q12HR PO 04/14/17 21:00 04/18/17 08:43 Ertapenem 1000 mg/ Sodium Chloride 100 ml @ 200 mls/hr Q24H IV 04/15/17 14:00 04/28/17 14:29 04/17/17 13:00 (Vancomycin 25 Mg/ml Liq) 500 mg QID PO 04/16/17 13:00 04/18/17 08:44 (Duoneb Neb) 1 ampule Q6HR NEB INH 04/16/17 16:00 04/18/17 04:19 (Cardizem) 90 mg Q6HR PO 04/16/17 12:00 04/18/17 06:03 Lines PIV Past Medical History History is obtained from current medical records Anxiety Depression Dementia: prior psychiatric notes reference with behavioral component. right ear diminished hearing hypertension prior notes indicated ESBL organisms, but I cannot find any documented micro report detailing organism and sensitivities. osteoarthritis PTSD Schizophrenia Past Surgical History History is obtained from current medical record appendectomy bilateral total knee arthroplasty tonsillectomy Allergies: Coded Allergies: Sulfa (Sulfonamide Antibiotics) (Unverified Allergy, Severe, DISTURBS KIDNEY FUNCTION, 10/17/16) aripiprazole (Unverified Allergy, Severe, 10/17/16) aspirin (Unverified Allergy, Severe, 10/17/16) diclofenac (Unverified Allergy, Severe, 10/17/16) doxycycline (Unverified Allergy, Severe, NAUSEA & VOMITING, 10/17/16) etodolac (Unverified Allergy, Severe, 10/17/16) flurbiprofen (Unverified Allergy, Severe, 10/17/16) ibuprofen (Unverified Allergy, Severe, 10/17/16) indomethacin (Unverified Allergy, Severe, 10/17/16) ketoprofen (Unverified Allergy, Severe, 10/17/16) ketorolac (Unverified Allergy, Severe, 10/17/16) meclizine (Unverified Allergy, Severe, 10/17/16) metronidazole (Unverified Allergy, Severe, Diarrhea, 10/17/16) minocycline (Unverified Allergy, Severe, NAUSEA & VOMITING, 10/17/16) naproxen (Unverified Allergy, Severe, 10/17/16) oxaprozin (Unverified Allergy, Severe, 10/17/16) penicillin G (Unverified Allergy, Severe, REDNESS, SWELLING, 10/17/16) saccharin (Unverified Allergy, Severe, 10/17/16) tigecycline (Unverified Allergy, Severe, NAUSEA & VOMITING, 10/17/16) Objective . Vital Signs Date Time Temp Pulse Resp B/P (MAP) Pulse Ox O2 Delivery O2 Flow Rate FiO2 04/18/17 08:00 112 22 103/58 (73) 93 04/18/17 00:00 98.3 98 22 125/72 (89) 95 04/17/17 22:14 92 04/17/17 20:00 108 04/17/17 20:00 97.3 104 22 132/63 (86) 95 04/17/17 18:00 92 04/17/17 16:00 92 04/17/17 16:00 98.4 92 25 104/59 (74) 93 04/17/17 14:00 113 04/17/17 12:00 97.9 116 32 127/89 (102) 94 04/17/17 12:00 113 04/17/17 11:40 94 21 04/18/17 04/18/17 04/19/17 15:00 23:00 07:00 Output Total 100 ml Balance -100 ml Stool Total 100 ml . Laboratory Tests Test 04/17/17 12:35 04/18/17 06:11 White Blood Count 59.0 TH/MM3 62.1 TH/MM3 Red Blood Count 4.43 MIL/MM3 4.44 MIL/MM3 Hemoglobin 13.4 GM/DL 13.1 GM/DL Hematocrit 40.0 % 40.3 % Mean Corpuscular Volume 90.4 FL 90.7 FL Mean Corpuscular Hemoglobin 30.2 PG 29.6 PG Mean Corpuscular Hemoglobin Concent 33.4 % 32.6 % Red Cell Distribution Width 14.3 % 14.0 % Platelet Count 334 TH/MM3 281 TH/MM3 Mean Platelet Volume 8.7 FL 8.4 FL Laboratory Tests Test 04/17/17 12:35 04/18/17 06:11 Blood Urea Nitrogen 79 MG/DL 90 MG/DL Creatinine 2.05 MG/DL 2.36 MG/DL Random Glucose 188 MG/DL 165 MG/DL Total Protein 4.7 GM/DL Calcium Level 7.4 MG/DL 7.8 MG/DL Sodium Level 133 MEQ/L 133 MEQ/L Potassium Level 4.6 MEQ/L 4.9 MEQ/L Chloride Level 108 MEQ/L 106 MEQ/L Carbon Dioxide Level 14.1 MEQ/L 15.1 MEQ/L Anion Gap 11 MEQ/L 12 MEQ/L Estimat Glomerular Filtration Rate 24 ML/MIN 20 ML/MIN Protein Corrected Calcium 8.8 MG/DL Imaging Last Impressions Chest X-Ray 04/13/17 0515 Signed Impressions: Service Date/Time: Thursday, April 13, 2017 05:47 - CONCLUSION: 1. Mild basilar opacity, probably dependent in basilar atelectasis. Cardiomegaly is stable. Derrick Mattson MD Renal Ultrasound 04/13/17 0000 Signed Impressions: Service Date/Time: Thursday, April 13, 2017 07:52 - CONCLUSION: Negative for obstruction. Bladder decompressed by Calles. Jayson Cain MD FACR Physical Exam GENERAL: awakens when stimulated, NAD SKIN: Warm , edematous and dry. No generalized rash, no ecchymoses and no evidence of embolic lesions. HEAD: Atraumatic. Normocephalic. No temporal wasting, or tenderness. EYES: [place] conjunctiva. No petechia or hemorrhage. Pupils equal, round and reactive to light. Extraocular movements full and intact. No scleral icterus. No injection or drainage. EARS, NOSE AND THROAT: Nose without bleeding or purulent nasal discharge. No sinus tenderness. Dry oral mucosa. No oral lesions noted. NECK: Trachea midline. Supple and not tender, no meningeal signs CARDIOVASCULAR: Irregular S1 and S2, tachycardic, no murmurs, rubs or gallops heard RESPIRATORY: Clear to auscultation. Breath sounds equal bilaterally. No rales , wheezing or rhonchi. Decreased breath sounds at the bases. ABDOMEN: Looks more distended, with diffuse tenderness, no guarding or rebound. Bowel sounds present and normoactive. No organomegaly. EXTREMITIES: No clubbing, cyanosis. Has bilateral pitting pedal edema. There is some mild erythema on her right big toe. Scars in the knee compatible with her surgical history. No limitation or pain in range of motion. No calf tenderness. Well perfused and warm. NEUROLOGICAL: Awake and alert. Cranial nerves seem grossly intact. Motor grossly within normal limits. PSYCHIATRIC: calm and cooperative. LINE: No evidence of infection : Has calles in place, urine looks clear Has dignishield, with yellow brown liquid stool Assessment & Plan Remarks IMPRESSION Sepsis on presentation with shock - due to E coli ESBL (+) - also with C difficilie colitis (no hx of diarrhea given prior to admission ) - BP better off pressors Worsening leukocytosis - etiology? C difficile colitis, still acidotic Renal insufficiency improving Atrial fib with RVR Hx dementia and schizophrenia RECOMMENDATION Repeat UA and C/S CT A/P Continue Flagyl Continue Vanco Continue Invanz give 14 days Add Diflucan Follow CBC Monitor progress Palliative medicine following Ines Mead MD Apr 18, 2017 10:19
[2017-04-18] MEDS: FLUCONAZOLE 100 MG TAB PO SCH (11:50)
[2017-04-18 11:52] LABS: BACTERIA, URINE OCC /hpf; BILIRUBIN, URINE NEG (NEG); BLOOD, URINE NEG (NEG); GLUCOSE,URINE NEG (NEG); HYALINE CAST, URINE 8 /lpf (RARE); KETONE, URINE NEG (NEG); MUCUS URINE FEW /lpf (OCC); NITRITE,URINE NEG (NEG); RENAL EPITHELIAL CELLS <1 /hpf; SQUAMOUS EPITHELIAL CELL URINE <1 /hpf (0-5); URINE LEUKOCYTE ESTERASE LARGE (NEG); WHITE BLOOD CELL CLUMPS FEW
[2017-04-18 11:53] LABS: URINE COLOR DARK-BROWN (YELLW/STRAW)
[2017-04-18] MEDS ORDERED: DIATRIZOATE MEGLUM/DIATRIZOATE SOD 9 ML CUP PO ONE (12:00)
[2017-04-18] MEDS: ERTAPENEM 1,000 MG/NS 100 ML IV SCH ×2 (13:33)
--- NOTE | 2017-04-18 15:24 | HHI.PR ---
Subjective Remarks Follow up for C. Diff colitis, UTI in a patient with end stage dementia. Patient remains largely unresponsive. Afebrile. Later in the afternoon, patient' s O2 saturation went down below 90%. RT performed suction. Objective Vitals Vital Signs Date Time Temp Pulse Resp B/P (MAP) Pulse Ox O2 Delivery O2 Flow Rate FiO2 04/18/17 11:33 98.8 96 20 140/74 (96) 93 04/18/17 10:57 Room Air 04/18/17 08:00 112 22 103/58 (73) 93 04/18/17 07:10 97 21 04/18/17 00:00 98.3 98 22 125/72 (89) 95 04/17/17 22:14 92 04/17/17 20:00 108 04/17/17 20:00 97.3 104 22 132/63 (86) 95 04/17/17 18:00 92 04/17/17 16:00 92 04/17/17 16:00 98.4 92 25 104/59 (74) 93 I/O 04/17/17 04/17/17 04/17/17 04/18/17 04/18/17 04/18/17 07:00 15:00 23:00 07:00 15:00 23:00 Intake Total 1844 ml 1300 ml 900 ml 200 ml Output Total 350 ml 400 ml 200 ml 425 ml Balance 1494 ml 900 ml 700 ml -225 ml Intake Oral 720 ml 1200 ml 800 ml IV Total 1124 ml 100 ml 100 ml 200 ml Output Urine Total 350 ml 200 ml 200 ml 325 ml Stool Total 0 ml 200 ml 100 ml # Bowel Movements 0 Result Diagram: 04/18/17 0611 04/18/17 0611 Imaging Last Impressions Chest X-Ray 04/18/17 0000 Signed Impressions: Service Date/Time: Tuesday, April 18, 2017 18:17 - CONCLUSION: Left basilar opacity is present may be due to a combination of consolidation and or pleural effusion.Slight pulmonary edema is also suspected on the additional atelectasis and/or infiltrate in both lungs not present previously. Roque Hunt MD Abdomen/Pelvis CT 04/18/17 0000 Signed Impressions: Service Date/Time: Tuesday, April 18, 2017 18:07 - CONCLUSION: 1. There is extensive anasarca with slight ascites not present previously. 2. Distended stomach and is also distended loops of large bowel and possibility of gastric outlet obstruction is not excluded. 3. Small bilateral pleural effusions and bibasilar consolidation. 4. Cholelithiasis. Roque Hunt MD Renal Ultrasound 04/13/17 0000 Signed Impressions: Service Date/Time: Thursday, April 13, 2017 07:52 - CONCLUSION: Negative for obstruction. Bladder decompressed by Meraz. Jayson Cain MD FACR Objective Remarks GENERAL: Alert, incoherent speech, NAD. SKIN: Warm and dry. HEAD: Normocephalic. EYES: No scleral icterus. No injection or drainage. NECK: Supple, trachea midline. No JVD or lymphadenopathy. CARDIOVASCULAR: Regular rate and rhythm without murmurs, gallops, or rubs. RESPIRATORY: Breath sounds equal bilaterally. Using abdominal accessory muscle. Tachypneic. GASTROINTESTINAL: Abdomen soft, non-tender, nondistended. MUSCULOSKELETAL: No cyanosis. 1+ lower ext edema. BACK: Nontender without obvious deformity. No CVA tenderness. Procedures None. A/P Problem List: (1) C. difficile colitis ICD Code: A04.72 - Enterocolitis due to Clostridium difficile, not specified as recurrent (2) UTI (urinary tract infection) ICD Code: N39.0 - Urinary tract infection, site not specified Status: Acute (3) Dementia of Alzheimer's type with behavioral disturbance ICD Code: G30.8 - Other Alzheimer's disease; F02.81 - Dementia in other diseases classified elsewhere with behavioral disturbance Status: Acute Assessment and Plan 76yF with end-stage dementia with behavioral features and possible other [place] 1 psych disorders who presents with septic shock secondary to c. diff colitis, urinary tract infection. DNR status continues and family interested in transitioning to outpatient hospice when she discharges. - Metabolic encephalopathy - End stage Dementia - Avoid long acting sedatives. - Septic shock - likely due to UTI, C. Diff colitis - Patient was managed by Critical care team. Septic shock resolved. - Possible pneumonia - Acute respiratory failure (O2 sat went down to 86%, resp rate 32, 28) - We obtained CXR and ID ordered CT abd/pelvis. Images reviewed by me. CXR shows significant consolidation and/or atelectasis. - Pneumonia is possibly aspiration vs. hospital acquired. Will discuss with ID regarding widening coverage. - C. Diff colitis - Urinary tract infection - ID is following. Currently on Vancomycin, Flagyl and Invanz - Atrial fibrillation with RVR - Discontinue Amiodarone 400mg Q12hrs. - Continue Diltiazem 90mg Q6hrs. We will consider switching to long acting Diltiazem. DNR. Heparin SQ. Discharge plan: Patient's clinical condition is not improving. She will likely be a good candidate for hospice care center. Enrique Castanon DO Apr 18, 2017 15:24
[2017-04-18] MEDS ORDERED: GLUCAGON 1 MG/ML VIAL OTHER PRN (17:30)
[2017-04-18] MEDS ORDERED: DEXTROSE 50% IN WATER 50 ML VIAL(D50) IV PUSH PRN (17:30)
--- NOTE | 2017-04-18 18:46 | RADRPT ---
EXAM DATE/TIME: 04/18/2017 18:07 [facility] COMPARISON: CT ABDOMEN & PELVIS W/O CONTRAST, June 28, 2015, 18:41. INDICATIONS : Worsening leukocytosis. C. Diff. ORAL CONTRAST: Prescribed oral contrast ingested. RADIATION DOSE: 30.34 CTDIvol (mGy) ; Patient body habitus MEDICAL HISTORY : Hypertension. SURGICAL HISTORY : Appendectomy. ENCOUNTER: Initial ACUITY: 1 day PAIN SCALE: Non-responsive LOCATION: anterior TECHNIQUE: Volumetric scanning of the abdomen and pelvis was performed. Using automated exposure control and ad justment of the mA and/or kV according to patient size, radiation dose was kept as low as reasonably achievable to obtain optimal diagnostic quality images. DICOM format image data is available electro nically for review and comparison. FINDINGS: CT Abdomen: The liver, spleen, pancreas, kidneys, adrenals are unremarkable. There is mild prominence of the left adrenal gland probably due to benign adenoma. The stomach is distended and measures 19.2 cm in oblique AP diameter and there is also distention of loops of large bowel the most pronounced a tristan transverse and measures 6.7 cm in size. The small bowel loops are not particularly dilated. The e tiology for the distended stomach is not certain. There is no evidence for any appreciable pathologic al adenopathy, free fluid. There are old healed rib fractures bilaterally. Chronic vascular calcific ations are present involving the aorta, iliac arteries without any significant stenosis or aneurysmal dilatations for technique. Small bilateral pleural effusions are present with bibasilar consolidatio n. The gallbladder demonstrates multiple stones without gallbladder wall thickening, or pericholecyst ic fluid. CT pelvis: There is no evidence for mass, abscess formation, or any significant adenopathy within the pelvis. There are old bilateral inferior pubic rami fractures and there is sclerosis of the midporti on of the sacrum may be due to old healed fracture as well. There is diffuse anasarca with slight flu id within the peritoneal cavity mainly in the pelvis and omental packing is present. CONCLUSION: 1. There is extensive anasarca with slight ascites not present previously. 2. Distended stomach and is also distended loops of large bowel and possibility of gastric outlet obs truction is not excluded. 3. Small bilateral pleural effusions and bibasilar consolidation. 4. Cholelithiasis. Roque Hunt MD on April 18, 2017 at 18:38 Board Certified Radiologist. This report was verified electronically.
--- NOTE | 2017-04-18 19:31 | RADRPT ---
EXAM DATE/TIME: 04/18/2017 18:17 [facility] COMPARISON: CHEST SINGLE AP, April 13, 2017, 5:47. INDICATIONS : Short of breath. Congestion. MEDICAL HISTORY : Hearing loss. Dementia. Hypertension. Schizophrenia. Depression. Anxiety. Arthritis. PTSD. SURGICAL HISTORY : Tonsillectomy. Bilateral knee replacements. ENCOUNTER: Initial ACUITY: 1 day PAIN SCORE: Non-responsive. LOCATION: Bilateral chest FINDINGS: Left basilar opacity is present may be due to a combination of consolidation and or pleural effusion. There is also right lung base atelectasis and/or infiltrate not present previously with left midlung atelectasis as well. Slight degree of perivascular pulmonary edema may also be present. CONCLUSION: Left basilar opacity is present may be due to a combination of consolidation and or p leural effusion.Slight pulmonary edema is also suspected on the additional atelectasis and/or infiltr ate in both lungs not present previously. Roque Hunt MD on April 18, 2017 at 19:29 Board Certified Radiologist. This report was verified electronically.
[2017-04-18] MEDS: MORPHINE SULFATE 2 MG/ML INJ IV PUSH PRN (20:22)
[2017-04-18] MEDS: INSULIN ASPART SUPPLEMENTAL SCALE SQ SCH (20:36)
[2017-04-19] VITALS (9 sets, daily range): BP systolic 109–136; BP diastolic 56–69; PULSE 95–114; RESP 20–24; TEMP 97.7–98.7; O2SAT 93–98
[2017-04-19] MEDS: HYDROCORTISONE SOD SUCCINATE 100 MG VIAL IV PUSH SCH ×4 (00:25→18:08)
[2017-04-19] MEDS: SODIUM CHLOR 0.9% 1000 ML INJ 1,000 ML IV SCH ×2 (00:26→14:12)
[2017-04-19] MEDS: metroNIDAZOLE 500 MG INJ 100 ML IV SCH ×5 (01:59→22:05)
[2017-04-19] MEDS: MIDODRINE 5 MG TAB PO SCH ×3 (01:59→16:27)
[2017-04-19] MEDS: CHLORHEXIDINE GLUCONATE 2 % 1 PACK (2 CLOTHS) TOP SCH (03:13)
[2017-04-19] MEDS: RESP: ALBUTEROL 2.5 MG/IPRATROPIUM 0.5 MG NEB (SCH) INH ×4 (04:38→22:03)
[2017-04-19] MEDS: MORPHINE SULFATE 2 MG/ML INJ IV PUSH PRN ×3 (05:01→23:01)
[2017-04-19] MEDS: DILTIAZEM HCL 30 MG TAB PO SCH ×5 (05:25→23:24)
[2017-04-19 06:03] LABS: HEMATOCRIT 38.2 % (35.0-46.0); HEMOGLOBIN 12.5 GM/DL (11.6-15.3); MEAN CELL VOLUME 90.2 FL (80.0-100.0); MEAN CORPUSCULAR HEMOGLOBIN 29.6 PG (27.0-34.0); MEAN CORPUSCULAR HGB CONC 32.8 % (32.0-36.0); MEAN PLATELET VOLUME 8.2 FL (7.0-11.0); PLATELET COUNT 269 TH/MM3 (150-450); RED BLOOD COUNT 4.23 MIL/MM3 (4.00-5.30); RED CELL DISTRIBUTION WIDTH 14.5 % (11.6-17.2); WHITE BLOOD COUNT 64.3 TH/MM3 (4.0-11.0)
[2017-04-19 06:58] LABS: BICARBONATE 13.9 MEQ/L (21.0-32.0); CALCIUM 7.7 MG/DL (8.5-10.1); CREATININE 2.52 MG/DL (0.50-1.00)
[2017-04-19] MEDS: INSULIN ASPART SUPPLEMENTAL SCALE SQ SCH ×4 (08:00→21:00)
[2017-04-19] MEDS: VANCOMYCIN 25 MG/ML SUSP 100 ML BOTTLE PO SCH ×4 (09:00→21:00)
[2017-04-19] MEDS: DOCUSATE SODIUM 50 MG/SENNA 8.6 MG TAB PO SCH ×2 (09:00→21:00)
[2017-04-19] MEDS: FLUCONAZOLE 100 MG TAB PO SCH (09:00)
[2017-04-19] MEDS: HEPARIN SODIUM - SQ 10,000 UNITS/ML VIAL SQ SCH ×2 (09:00→22:05)
--- NOTE | 2017-04-19 13:18 | HHI.HCPN ---
Reason for visit a. To assist with evaluation and management of symptoms including: Dyspnea , pain b. To assist medical decision maker(s) with: better understanding of current medical conditions; weighing benefits/burdens of medical treatment options; making medical treatment decisions. . Subjective/Interval History Leukocytosis increasing, episodes of tachynea and desaturations. Cr is worsening. Overall lethargic. no grimacing to indicate pain on my visit. Family/friend interactions I spoke with pt's health care surrogate/brother. Updated him on her clinical condition. He is amenable to comfort measures and no further aggressive measures. He wants whatever remaining days she have left to be comfortable. No further hospitalization or antibiotics. Called Benjamin Dalton who is 2nd [facility] surrgate, left message has not schultz back. Advance Directives Living Will: Copy in medical record Health Care Surrogate: Copy in medical record Advance Directive Specifics Date completed: 2013 . Health Care Surrogate(s): Primary is Bhavik Dalton - her half-brother - and secondary is Benjamin Dalton . Documented care wishes: The patient has a living will from 2013 with typical language regarding terminality and end-stage conditions. . Objective Vital Signs Date Time Temp Pulse Resp B/P (MAP) Pulse Ox O2 Delivery O2 Flow Rate FiO2 04/19/17 12:02 102 20 109/56 (73) 96 04/19/17 08:21 98 Nasal Cannula 3.00 04/19/17 07:40 97.7 99 20 122/59 (80) 96 04/19/17 05:25 24 04/19/17 04:04 98.2 101 24 121/58 (79) 93 04/19/17 00:03 97.9 95 20 119/57 (77) 97 04/18/17 21:37 97 Nasal Cannula 3.00 04/18/17 20:23 97.5 86 32 126/65 (85) 97 04/18/17 20:00 100 04/18/17 20:00 95 Nasal Cannula 4.00 04/18/17 17:30 96 Nasal Cannula 4.00 04/18/17 17:01 97 04/18/17 15:59 98.2 95 21 113/62 (79) 95 Intake & Output 04/19/17 04/19/17 07:00 19:00 Intake Total 1075 ml Output Total 350 ml 200 ml Balance 725 ml -200 ml IV Total 1075 ml Output Urine Total 350 ml 200 ml Physical Exam CONSTITUTIONAL/GENERAL: This is an elderly, weak, obese patient, in no apparent distress. Mumbles occasionally, on restraints. TUBES/LINES/DRAINS: Peripheral IV, SCDs, nasal oxygen SKIN: No jaundice, rashes, or lesions. Ecchymoses on upper extremities. No wounds seen anteriorly. Skin temperature appropriate. Not diaphoretic. HEAD: Atraumatic. Normocephalic. EYES: Pupils equal and round. No scleral icterus. No injection or drainage. Fundi not examined. ENT: Hearing grossly normal. Nose without bleeding or purulent drainage. NECK: Trachea midline. Supple, nontender. No palpable thyroid enlargement or nodularity. CARDIOVASCULAR: Regular rate and rhythm without murmurs, gallops, or rubs. No JVD. Peripheral pulses symmetric. RESPIRATORY/CHEST: Symmetric, unlabored respirations. Scattered rhonchi, and a couple rales at the bases. GASTROINTESTINAL: Abdomen soft, non-tender, nondistended. No hepato-splenomegaly , or palpable masses. No guarding. Bowel sounds present. GENITOURINARY: Without palpable bladder distension. Meraz catheter in place. MUSCULOSKELETAL: Extremities without clubbing, cyanosis, or edema. No joint tenderness or effusion noted. No calf tenderness. No mottling or clubbing. LYMPHATICS: No palpable cervical or supraclavicular adenopathy. NEUROLOGICAL: Appears awake, tracks me intermittently, does not follow simple commands, moves arms occasionally PSYCHIATRIC: No obvious anxiety/depression. no apparent hallucinations or other psychotic thought process. . Diagnostic Tests Laboratory Laboratory Tests Test 04/17/17 12:35 04/18/17 06:11 04/18/17 11:10 04/19/17 04:37 White Blood Count 59.0 TH/MM3 (4.0-11.0) 62.1 TH/MM3 (4.0-11.0) 64.3 TH/MM3 (4.0-11.0) Red Blood Count 4.43 MIL/MM3 (4.00-5.30) 4.44 MIL/MM3 (4.00-5.30) 4.23 MIL/MM3 (4.00-5.30) Hemoglobin 13.4 GM/DL (11.6-15.3) 13.1 GM/DL (11.6-15.3) 12.5 GM/DL (11.6-15.3) Hematocrit 40.0 % (35.0-46.0) 40.3 % (35.0-46.0) 38.2 % (35.0-46.0) Mean Corpuscular Volume 90.4 FL (80.0-100.0) 90.7 FL (80.0-100.0) 90.2 FL (80.0-100.0) Mean Corpuscular Hemoglobin 30.2 PG (27.0-34.0) 29.6 PG (27.0-34.0) 29.6 PG (27.0-34.0) Mean Corpuscular Hemoglobin Concent 33.4 % (32.0-36.0) 32.6 % (32.0-36.0) 32.8 % (32.0-36.0) Red Cell Distribution Width 14.3 % (11.6-17.2) 14.0 % (11.6-17.2) 14.5 % (11.6-17.2) Platelet Count 334 TH/MM3 (150-450) 281 TH/MM3 (150-450) 269 TH/MM3 (150-450) Mean Platelet Volume 8.7 FL (7.0-11.0) 8.4 FL (7.0-11.0) 8.2 FL (7.0-11.0) Blood Urea Nitrogen 79 MG/DL (7-18) 90 MG/DL (7-18) 107 MG/DL (7-18) Creatinine 2.05 MG/DL (0.50-1.00) 2.36 MG/DL (0.50-1.00) 2.52 MG/DL (0.50-1.00) Random Glucose 188 MG/DL (74-106) 165 MG/DL (74-106) 154 MG/DL (74-106) Total Protein 4.7 GM/DL (6.4-8.2) Calcium Level 7.4 MG/DL (8.5-10.1) 7.8 MG/DL (8.5-10.1) 7.7 MG/DL (8.5-10.1) Sodium Level 133 MEQ/L (136-145) 133 MEQ/L (136-145) 133 MEQ/L (136-145) Potassium Level 4.6 MEQ/L (3.5-5.1) 4.9 MEQ/L (3.5-5.1) 5.0 MEQ/L (3.5-5.1) Chloride Level 108 MEQ/L (98-107) 106 MEQ/L (98-107) 107 MEQ/L (98-107) Carbon Dioxide Level 14.1 MEQ/L (21.0-32.0) 15.1 MEQ/L (21.0-32.0) 13.9 MEQ/L (21.0-32.0) Anion Gap 11 MEQ/L (5-15) 12 MEQ/L (5-15) 12 MEQ/L (5-15) Estimat Glomerular Filtration Rate 24 ML/MIN (>89) 20 ML/MIN (>89) 19 ML/MIN (>89) Protein Corrected Calcium 8.8 MG/DL (8.5-10.1) Urine Color DARK-BROWN (YELLW/STRAW) Urine Turbidity HAZY (CLEAR) Urine pH 6.0 (5.0-8.5) Urine Specific [place] 1.022 (1.002-1.035) Urine Protein 30 mg/dL (NEG-TRACE) Urine Glucose (UA) NEG mg/dL (NEG) Urine Ketones NEG mg/dL (NEG) Urine Occult Blood NEG (NEG) Urine Nitrite NEG (NEG) Urine Bilirubin NEG (NEG) Urine Urobilinogen 2.0 MG/DL (LESS THAN Urine Leukocyte Esterase LARGE (NEG) Urine RBC 7 /hpf (0-3) Urine WBC 54 /hpf (0-5) Urine WBC Clumps FEW (NONE) Urine Squamous Epithelial Cells <1 /hpf (0-5) Urine Renal Epithelial Cells <1 /hpf (NONE) Urine Bacteria OCC /hpf (NONE) Urine Hyaline Casts 8 /lpf (RARE) Urine Mucus FEW /lpf (OCC) Urine Yeast (Budding) FEW (NONE) Microscopic Urinalysis Comment CATH-CULTURE IND Result Diagram: 04/19/17 0437 04/19/17 0437 Microbiology Microbiology Date/Time Source Procedure Growth Status 04/18/17 11:10 Urine Catheterized Urine Urine Culture Pending Received Assessment and Plan Disease Oriented Problem List: (1) sepsis, septic shock, UTI (2) psychiatric illness, PTSD, schizophrenia (3) chronic knee pain (4) morbid obesity (5) anemia (6) depression (7) type 2 diabetes (8) hearing loss (9) hypertension (10) degenerative joint disease Symptom Scale: (1) pain 0-10 Scale: Unable to quantify (bedbound status likely has musculoskeletal pain , history of chronic pain) (2) encephalopathy 0-10 Scale: Unable to quantify Pertinent Non-Medical Issues Psychosocial: Originally from was [place], never , no children. 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 She has designated her brother Bhavik as primary and also Benjamin Dalton as secondary HCS. Ethical issues impacting care: None . Important Contacts Brother: Bhavik Dalton [phone] Secondary HCS: Benjamin Dalton [phone] . Prognosis The patient's prognosis is quite poor. She has end-stage dementia , continue decline despite antibiotics. She is appropriate for hospice services if the goals become completely comfort oriented. . Code Status: No Code Plan * DO NOT RESUSCITATE * GOALS: Brother /HCS is amenable to hospice for comfort measures. * DECISION-MAKING: Patient lacks capacity for decision-making, and she will not regain that capacity. She has designated her brother Bhavik as primary and also Benjamin Dalton as secondary HCS. * SYMPTOMS: Comfort medication orders have been entered to manage dyspnea and/ or pain as they arise. * The patient is appropriate for hospice services if she survives this hospitalization to return to her retirement. * Palliative Care will continue to follow the patient during this hospitalization. . Attestation To help prompt me to consider important information that might be impacting today's encounter and assessment, information from prior notes written by myself or my colleagues may have been "brought forward" into today's note. My signature on this note, however, is an attestation that I personally performed the exam, history, and/or decision-making noted today, and, unless otherwise indicated, the interactions with patient, family, and staff as well as the review of records all occurred today. I also attest that the listed assessment and stated plan reflect my best clinical judgment today based on the combination of historical information, prior notes, and today's exam/ interactions. When time spent is documented, it refers only to time spent today by the signer, or if indicated, combined time spent today by collaborating physician/nurse practitioner. Tobias Rankin MD Apr 19, 2017 13:18
--- NOTE | 2017-04-19 13:20 | HHI.PR ---
Subjective Remarks Follow up for C. Diff colitis, UTI in a patient with end stage dementia. Patient remains unresponsive. Afebrile. Objective Vitals Vital Signs Date Time Temp Pulse Resp B/P (MAP) Pulse Ox O2 Delivery O2 Flow Rate FiO2 04/19/17 12:02 102 20 109/56 (73) 96 04/19/17 08:21 98 Nasal Cannula 3.00 04/19/17 07:40 97.7 99 20 122/59 (80) 96 04/19/17 05:25 24 04/19/17 04:04 98.2 101 24 121/58 (79) 93 04/19/17 00:03 97.9 95 20 119/57 (77) 97 04/18/17 21:37 97 Nasal Cannula 3.00 04/18/17 20:23 97.5 86 32 126/65 (85) 97 04/18/17 20:00 100 04/18/17 20:00 95 Nasal Cannula 4.00 04/18/17 17:30 96 Nasal Cannula 4.00 04/18/17 17:01 97 04/18/17 15:59 98.2 95 21 113/62 (79) 95 I/O 04/18/17 04/18/17 04/18/17 04/19/17 04/19/17 04/19/17 07:00 15:00 23:00 07:00 15:00 23:00 Intake Total 900 ml 200 ml 920 ml 975 ml Output Total 200 ml 425 ml 350 ml 200 ml Balance 700 ml -225 ml 920 ml 625 ml -200 ml Intake Oral 800 ml 720 ml IV Total 100 ml 200 ml 200 ml 975 ml Output Urine Total 200 ml 325 ml 350 ml 200 ml Stool Total 100 ml # Bowel Movements 0 Result Diagram: 04/19/17 0437 04/19/17 0437 Imaging Last Impressions Chest X-Ray 04/18/17 0000 Signed Impressions: Service Date/Time: Tuesday, April 18, 2017 18:17 - CONCLUSION: Left basilar opacity is present may be due to a combination of consolidation and or pleural effusion.Slight pulmonary edema is also suspected on the additional atelectasis and/or infiltrate in both lungs not present previously. Roque Hunt MD Abdomen/Pelvis CT 04/18/17 0000 Signed Impressions: Service Date/Time: Tuesday, April 18, 2017 18:07 - CONCLUSION: 1. There is extensive anasarca with slight ascites not present previously. 2. Distended stomach and is also distended loops of large bowel and possibility of gastric outlet obstruction is not excluded. 3. Small bilateral pleural effusions and bibasilar consolidation. 4. Cholelithiasis. Roque Hunt MD Renal Ultrasound 04/13/17 0000 Signed Impressions: Service Date/Time: Thursday, April 13, 2017 07:52 - CONCLUSION: Negative for obstruction. Bladder decompressed by Meraz. Jayson Cain MD FACR Objective Remarks GENERAL: sleeping, largely unresponsive. SKIN: Warm and dry. HEAD: Normocephalic. EYES: No scleral icterus. No injection or drainage. NECK: Supple, trachea midline. No JVD or lymphadenopathy. CARDIOVASCULAR: Tachycardic without murmurs, gallops, or rubs. RESPIRATORY: Breath sounds equal bilaterally. Using abdominal accessory muscle. Tachypneic. GASTROINTESTINAL: Abdomen soft, non-tender, nondistended. MUSCULOSKELETAL: No cyanosis. 1+ lower ext edema. BACK: Nontender without obvious deformity. No CVA tenderness. Procedures None. A/P Problem List: (1) C. difficile colitis ICD Code: A04.72 - Enterocolitis due to Clostridium difficile, not specified as recurrent (2) UTI (urinary tract infection) ICD Code: N39.0 - Urinary tract infection, site not specified Status: Acute (3) Dementia of Alzheimer's type with behavioral disturbance ICD Code: G30.8 - Other Alzheimer's disease; F02.81 - Dementia in other diseases classified elsewhere with behavioral disturbance Status: Acute Assessment and Plan 76yF with end-stage dementia with behavioral features and possible other [place] 1 psych disorders who presents with septic shock secondary to c. diff colitis, urinary tract infection. DNR status continues and family interested in transitioning to outpatient hospice when she discharges. - Metabolic encephalopathy - End stage Dementia - Avoid long acting sedatives. - Septic shock - likely due to UTI, C. Diff colitis - Patient was managed by Critical care team. Septic shock resolved. - Possible pneumonia - Acute respiratory failure (O2 sat went down to 86%, resp rate 32, 28) - We obtained CXR and ID ordered CT abd/pelvis. Images reviewed by me on 04/18. CXR shows significant consolidation and/or atelectasis. - Pneumonia is possibly aspiration vs. hospital acquired. Contacted ID to see if we need to widen anti-bacterial coverage. - C. Diff colitis - Urinary tract infection - ID is following. Currently on Vancomycin, Flagyl and Invanz - Atrial fibrillation with RVR - Discontinued Amiodarone 400mg Q12hrs. - Continue Diltiazem 90mg Q6hrs. We will consider switching to long acting Diltiazem. DNR. Heparin SQ. Patient is hospice appropriate. Palliative care team following. Discussed with Enrique Hussein DO Apr 19, 2017 1:20 pm
[2017-04-19] MEDS: ERTAPENEM 1,000 MG/NS 100 ML IV SCH ×2 (14:13)
[2017-04-19] MEDS ORDERED: FUROSEMIDE 20 MG/2 ML VIAL IV PUSH ONE (18:00)
[2017-04-20] VITALS: BP 124/54; PULSE 90; RESP 16; TEMP 97.6; O2SAT 97
[2017-04-20] MEDS: HYDROCORTISONE SOD SUCCINATE 100 MG VIAL IV PUSH SCH ×4 (00:39→17:52)
[2017-04-20] MEDS: MIDODRINE 5 MG TAB PO SCH ×3 (00:42→17:53)
[2017-04-20] MEDS: CHLORHEXIDINE GLUCONATE 2 % 1 PACK (2 CLOTHS) TOP SCH (01:15)
[2017-04-20] MEDS: DILTIAZEM HCL 30 MG TAB PO SCH ×3 (03:32→17:52)
[2017-04-20 03:36] VITALS: BP 138/64; PULSE 111; RESP 22; TEMP 97.6; O2SAT 97
[2017-04-20] MEDS: RESP: ALBUTEROL 2.5 MG/IPRATROPIUM 0.5 MG NEB (SCH) INH ×2 (03:46→09:37)
[2017-04-20 03:53] VITALS: O2SAT 99
[2017-04-20 05:32] LABS: HEMATOCRIT 38.2 % (35.0-46.0); HEMOGLOBIN 12.6 GM/DL (11.6-15.3); MEAN CELL VOLUME 91.3 FL (80.0-100.0); MEAN CORPUSCULAR HGB CONC 32.9 % (32.0-36.0); MEAN PLATELET VOLUME 7.9 FL (7.0-11.0); PLATELET COUNT 235 TH/MM3 (150-450); RED BLOOD COUNT 4.19 MIL/MM3 (4.00-5.30); RED CELL DISTRIBUTION WIDTH 14.6 % (11.6-17.2); WHITE BLOOD COUNT 66.1 TH/MM3 (4.0-11.0)
[2017-04-20 06:02] LABS: BICARBONATE 16.5 MEQ/L (21.0-32.0); CALCIUM 7.4 MG/DL (8.5-10.1); CREATININE 2.59 MG/DL (0.50-1.00)
[2017-04-20 06:16] LABS: TOTAL PROTEIN 4.3 GM/DL (6.4-8.2)
[2017-04-20 08:00] VITALS: BP 104/65; PULSE 106; RESP 23; TEMP 98; O2SAT 96
[2017-04-20] MEDS: INSULIN ASPART SUPPLEMENTAL SCALE SQ SCH ×3 (08:00→17:00)
[2017-04-20] MEDS: DOCUSATE SODIUM 50 MG/SENNA 8.6 MG TAB PO SCH (09:00)
--- NOTE | 2017-04-20 09:28 | HHI.PR ---
Subjective Remarks Pt complains of pain in her left groin. When I palpate the area she says "wait " and when I asked her if it hurts she says no. Then when I ask her if she has pain in the abdomen she says "yes". Patient seems to be answering yes to most of my questions. When I asked her if she is nauseous he says yes. She does tell me she does not feel too well Objective Vitals Vital Signs Date Time Temp Pulse Resp B/P (MAP) Pulse Ox O2 Delivery O2 Flow Rate FiO2 04/20/17 08:00 98.0 106 23 104/65 (78) 96 04/20/17 03:53 99 Nasal Cannula 3.00 04/20/17 03:36 97.6 111 22 138/64 (88) 97 04/20/17 00:00 97.6 90 16 124/54 (77) 97 04/19/17 22:18 98 Nasal Cannula 3.00 04/19/17 20:00 114 04/19/17 20:00 98.7 114 20 136/69 (91) 96 04/19/17 20:00 96 Nasal Cannula 3.00 04/19/17 15:52 98.4 97 20 128/58 (81) 96 04/19/17 12:02 102 20 109/56 (73) 96 I/O 04/19/17 04/19/17 04/19/17 04/20/17 04/20/17 04/20/17 06:59 14:59 22:59 06:59 14:59 22:59 Intake Total 975 ml 1100 ml 500 ml Output Total 350 ml 200 ml 150 ml Balance 625 ml 900 ml 350 ml IV Total 975 ml 1100 ml 500 ml Output Urine Total 350 ml 200 ml 150 ml Stool Total 0 ml Result Diagram: 04/20/17 0429 04/20/17 0429 Imaging Last Impressions Chest X-Ray 04/18/17 0000 Signed Impressions: Service Date/Time: Tuesday, April 18, 2017 18:17 - CONCLUSION: Left basilar opacity is present may be due to a combination of consolidation and or pleural effusion.Slight pulmonary edema is also suspected on the additional atelectasis and/or infiltrate in both lungs not present previously. Roque Hunt MD Abdomen/Pelvis CT 04/18/17 0000 Signed Impressions: Service Date/Time: Tuesday, April 18, 2017 18:07 - CONCLUSION: 1. There is extensive anasarca with slight ascites not present previously. 2. Distended stomach and is also distended loops of large bowel and possibility of gastric outlet obstruction is not excluded. 3. Small bilateral pleural effusions and bibasilar consolidation. 4. Cholelithiasis. Roque Hunt MD Renal Ultrasound 04/13/17 0000 Signed Impressions: Service Date/Time: Thursday, April 13, 2017 07:52 - CONCLUSION: Negative for obstruction. Bladder decompressed by Meraz. Jayson Cain MD FACR Objective Remarks GENERAL: Awake and is alert. Answers mainly with yes SKIN: Warm and dry. HEAD: Normocephalic. EYES: Extraocular motion appear intact NECK:trachea midline. No JVD or lymphadenopathy. CARDIOVASCULAR: Tachycardic without murmurs RESPIRATORY: Breath sounds equal bilaterally. No wheezing on exam GASTROINTESTINAL: Abdomen soft, tender to deep palpation in the left lower quadrant. No guarding or rebound MUSCULOSKELETAL: 1+ lower ext edema. Procedures None. A/P Problem List: (1) C. difficile colitis ICD Code: A04.72 - Enterocolitis due to Clostridium difficile, not specified as recurrent (2) UTI (urinary tract infection) ICD Code: N39.0 - Urinary tract infection, site not specified Status: Acute (3) Dementia of Alzheimer's type with behavioral disturbance ICD Code: G30.8 - Other Alzheimer's disease; F02.81 - Dementia in other diseases classified elsewhere with behavioral disturbance Status: Acute Assessment and Plan 76yF with end-stage dementia with behavioral features and possible other [place] 1 psych disorders who presents with septic shock secondary to c. diff colitis, urinary tract infection. DNR status continues and family interested in transitioning to outpatient hospice when she discharges. - Metabolic encephalopathy - End stage Dementia - Avoid long acting sedatives. - Septic shock - likely due to UTI, C. Diff colitis - Patient was managed by Critical care team. Septic shock resolved. BP's stable continue to monitor closely. - Possible pneumonia - Acute respiratory failure (O2 sat went down to 86%, resp rate 32, 28) - We obtained CXR and ID ordered CT abd/pelvis. Images reviewed by me on 04/18. CXR shows significant consolidation and/or atelectasis. - Pneumonia is possibly aspiration vs. hospital acquired. ID following - C. Diff colitis - Urinary tract infection - ID is following. Currently on Vancomycin, Flagyl, diflucan and Invanz - Atrial fibrillation with RVR - off Amiodarone 400mg Q12hrs. - Continue Diltiazem 90mg Q6hrs. We will consider switching to long acting Diltiazem. DNR. Heparin SQ. Patient is hospice appropriate. Palliative care team following and assisting w goals of care. Discussed with RN. Discharge Planning Speech re-eval to make sure she can tolerate po as she is currently NPO. continue current management Hospice consult was placed yesterday. Awaiting final recs from hospice/ palliative care Per hospice notes: they were not able to get a hold of family. Linda Jarrett MD Apr 20, 2017 09:28
[2017-04-20] MEDS: metroNIDAZOLE 500 MG INJ 100 ML IV SCH ×2 (10:04→13:56)
[2017-04-20] MEDS: VANCOMYCIN 25 MG/ML SUSP 100 ML BOTTLE PO SCH ×3 (10:05→17:53)
[2017-04-20] MEDS: HEPARIN SODIUM - SQ 10,000 UNITS/ML VIAL SQ SCH (10:05)
[2017-04-20] MEDS: FLUCONAZOLE 100 MG TAB PO SCH (10:06)
--- NOTE | 2017-04-20 10:32 | HHI.IDPN ---
Subjective Subjective Remarks She is a 76-year-old female, resident of a alf, brought into the hospital was found to have fever and leukocytosis, hypotension, and tachycardia. She was found to be in atrial fibrillation with RVR. She also had significant hypotension, and received IV fluids, loss she was started on pressors. Her WBC was elevated. She had some fevers. Her creatinine was quite elevated. Calles catheter was placed, and her urinalysis showed significant hypotension. While in the hospital she had diarrhea, and stool for C. difficile came back positive. Her urinalysis showed significant pyuria, and the urine culture has Escherichia coli ESBL positive. Patient currently is off pressors. Her creatinine is slowly improving. Her white count remains elevated. She is afebrile. She has watery stools. Infectious disease consultation has been requested to evaluate the patient. Notes reviewed Temps ok Stool volume less UO has been decreasing Creatinine rising again Her WBC continues to increase BP ok Still in AF, rate slower Palliative medicine notes reviewed - brother looking at comfort measures Hospice evaluation in place, waiting to speak with brother - I spoke with set up mechanic crown assembly machine Patient is C/O abdominal pain Antibiotics Current Medications IV Invanz IV Flagyl PO Vancomycin Medications (Trade) Dose Ordered Sig/Monica Route Start Time Stop Time Status Last Admin Metronidazole 100 ml @ 100 mls/hr Q6H IV 04/13/17 08:00 04/20/17 10:04 (Duoneb Neb) 1 ampule Q2HR NEB PRN INH 04/13/17 07:00 (Zofran Inj) 4 mg Q6H PRN IV PUSH 04/13/17 07:00 (Heparin Inj) 5,000 units Q12H SQ 04/13/17 09:00 04/20/17 10:05 Miscellaneous Information 1 Q361D XX 04/13/17 07:00 04/13/17 07:00 (Chlorhexidine 2% Cloth) Taper DAILY@04 TOP 04/14/17 04:00 04/10/18 03:59 (Chlorhexidine 2% Cloth) 3 pack UNSCH PRN TOP 04/13/17 07:00 (Aileen-Colace) 1 tab BID PO 04/13/17 09:00 04/18/17 08:44 (Milk Of Magnesia Liq) 30 ml Q12H PRN PO 04/13/17 07:00 (Morphine Inj) 2 mg Q2H PRN IV PUSH 04/13/17 13:15 04/19/17 23:01 (Morphine Inj) 4 mg Q2H PRN IV PUSH 04/13/17 13:15 (Ativan Inj) 1 mg Q2H PRN IV PUSH 04/13/17 13:15 (SoluCORTEF INJ) 50 mg Q6HR IV PUSH 04/14/17 12:00 04/20/17 05:40 (Proamatine) 10 mg Q8H PO 04/14/17 10:00 04/20/17 10:06 (Vancomycin 25 Mg/ml Liq) 500 mg QID PO 04/16/17 13:00 04/20/17 10:05 (Duoneb Neb) 1 ampule Q6HR NEB INH 04/16/17 16:00 04/20/17 09:37 (Cardizem) 90 mg Q6HR PO 04/16/17 12:00 04/18/17 16:51 (Diflucan) 100 mg DAILY PO 04/18/17 11:45 04/20/17 10:06 (D50w (Vial) Inj) 50 ml UNSCH PRN IV PUSH 04/18/17 17:30 (Glucagon Inj) 1 mg UNSCH PRN OTHER 04/18/17 17:30 (NovoLOG SUPPLEMENTAL SCALE) 1 ACHS SLIDING SCALE SQ 04/18/17 21:00 Ertapenem 500 mg/ Sodium Chloride 50 ml @ 100 mls/hr Q24H IV 04/20/17 14:00 04/28/17 15:00 Lines PIV Past Medical History History is obtained from current medical records Anxiety Depression Dementia: prior psychiatric notes reference with behavioral component. right ear diminished hearing hypertension prior notes indicated ESBL organisms, but I cannot find any documented micro report detailing organism and sensitivities. osteoarthritis PTSD Schizophrenia Past Surgical History History is obtained from current medical record appendectomy bilateral total knee arthroplasty tonsillectomy Allergies: Coded Allergies: Sulfa (Sulfonamide Antibiotics) (Unverified Allergy, Severe, DISTURBS KIDNEY FUNCTION, 10/17/16) aripiprazole (Unverified Allergy, Severe, 10/17/16) aspirin (Unverified Allergy, Severe, 10/17/16) diclofenac (Unverified Allergy, Severe, 10/17/16) doxycycline (Unverified Allergy, Severe, NAUSEA & VOMITING, 10/17/16) etodolac (Unverified Allergy, Severe, 10/17/16) flurbiprofen (Unverified Allergy, Severe, 10/17/16) ibuprofen (Unverified Allergy, Severe, 10/17/16) indomethacin (Unverified Allergy, Severe, 10/17/16) ketoprofen (Unverified Allergy, Severe, 10/17/16) ketorolac (Unverified Allergy, Severe, 10/17/16) meclizine (Unverified Allergy, Severe, 10/17/16) metronidazole (Unverified Allergy, Severe, Diarrhea, 10/17/16) minocycline (Unverified Allergy, Severe, NAUSEA & VOMITING, 10/17/16) naproxen (Unverified Allergy, Severe, 10/17/16) oxaprozin (Unverified Allergy, Severe, 10/17/16) penicillin G (Unverified Allergy, Severe, REDNESS, SWELLING, 10/17/16) saccharin (Unverified Allergy, Severe, 10/17/16) tigecycline (Unverified Allergy, Severe, NAUSEA & VOMITING, 10/17/16) Objective . Vital Signs Date Time Temp Pulse Resp B/P (MAP) Pulse Ox O2 Delivery O2 Flow Rate FiO2 04/20/17 09:40 Nasal Cannula 3.00 04/20/17 08:00 98.0 106 23 104/65 (78) 96 04/20/17 03:53 99 Nasal Cannula 3.00 04/20/17 03:36 97.6 111 22 138/64 (88) 97 04/20/17 00:00 97.6 90 16 124/54 (77) 97 04/19/17 22:18 98 Nasal Cannula 3.00 04/19/17 20:00 114 04/19/17 20:00 98.7 114 20 136/69 (91) 96 04/19/17 20:00 96 Nasal Cannula 3.00 04/19/17 15:52 98.4 97 20 128/58 (81) 96 04/19/17 12:02 102 20 109/56 (73) 96 . Laboratory Tests Test 04/19/17 04:37 04/20/17 04:29 White Blood Count 64.3 TH/MM3 66.1 TH/MM3 Red Blood Count 4.23 MIL/MM3 4.19 MIL/MM3 Hemoglobin 12.5 GM/DL 12.6 GM/DL Hematocrit 38.2 % 38.2 % Mean Corpuscular Volume 90.2 FL 91.3 FL Mean Corpuscular Hemoglobin 29.6 PG 30.0 PG Mean Corpuscular Hemoglobin Concent 32.8 % 32.9 % Red Cell Distribution Width 14.5 % 14.6 % Platelet Count 269 TH/MM3 235 TH/MM3 Mean Platelet Volume 8.2 FL 7.9 FL Laboratory Tests Test 04/19/17 04:37 04/20/17 04:29 Blood Urea Nitrogen 107 MG/DL 114 MG/DL Creatinine 2.52 MG/DL 2.59 MG/DL Random Glucose 154 MG/DL 162 MG/DL Calcium Level 7.7 MG/DL 7.4 MG/DL Sodium Level 133 MEQ/L 136 MEQ/L Potassium Level 5.0 MEQ/L 5.2 MEQ/L Chloride Level 107 MEQ/L 110 MEQ/L Carbon Dioxide Level 13.9 MEQ/L 16.5 MEQ/L Anion Gap 12 MEQ/L 10 MEQ/L Estimat Glomerular Filtration Rate 19 ML/MIN 18 ML/MIN Total Protein 4.3 GM/DL Protein Corrected Calcium 9.0 MG/DL Microbiology Date/Time Source Procedure Growth Status 04/18/17 11:10 Urine Catheterized Urine Urine Culture - Preliminary Yeast-Id To Follow Resulted Imaging Last Impressions Chest X-Ray 04/13/17 0515 Signed Impressions: Service Date/Time: Thursday, April 13, 2017 05:47 - CONCLUSION: 1. Mild basilar opacity, probably dependent in basilar atelectasis. Cardiomegaly is stable. Derrick Mattson MD Renal Ultrasound 04/13/17 0000 Signed Impressions: Service Date/Time: Thursday, April 13, 2017 07:52 - CONCLUSION: Negative for obstruction. Bladder decompressed by Calles. Jayson Cain MD FACR Physical Exam GENERAL: awake and interactive, NAD SKIN: Warm , edematous and dry. No generalized rash, no ecchymoses and no evidence of embolic lesions. HEAD: Atraumatic. Normocephalic. No temporal wasting, or tenderness. EYES: [place] conjunctiva. No petechia or hemorrhage. Pupils equal, round and reactive to light. Extraocular movements full and intact. No scleral icterus. No injection or drainage. EARS, NOSE AND THROAT: Nose without bleeding or purulent nasal discharge. No sinus tenderness. Dry oral mucosa. No oral lesions noted. NECK: Trachea midline. Supple and not tender, no meningeal signs CARDIOVASCULAR: Irregular S1 and S2, tachycardic, no murmurs, rubs or gallops heard RESPIRATORY: Clear to auscultation. Breath sounds equal bilaterally. No rales , wheezing or rhonchi. Decreased breath sounds at the bases. ABDOMEN: Looks more distended, with diffuse tenderness, no guarding or rebound. Bowel sounds present and normoactive. No organomegaly. EXTREMITIES: No clubbing, cyanosis. Has bilateral pitting pedal edema. Scars in the knee compatible with her surgical history. No calf tenderness. Well perfused and warm. NEUROLOGICAL: Awake and alert. Cranial nerves seem grossly intact. Motor grossly within normal limits. PSYCHIATRIC: calm and cooperative. LINE: No evidence of infection : Has calles in place, urine looks clear Has dignishield, with yellow brown liquid stool Assessment & Plan Remarks IMPRESSION Sepsis on presentation with shock - due to E coli ESBL (+) - also with C difficilie colitis (no hx of diarrhea given prior to admission ) - BP better off pressors Worsening leukocytosis - etiology? C difficile colitis, still acidotic Renal insufficiency improving Atrial fib with RVR Hx dementia and schizophrenia RECOMMENDATION Continue all Abx until Hospice speaks with brother Being evaluated by Hospice - possible stop abx and comfort measures only Palliative medicine following D/W set up mechanic crown assembly machineInes Doan MD Apr 20, 2017 10:32
[2017-04-20] MEDS: MORPHINE SULFATE 2 MG/ML INJ IV PUSH PRN (10:50)
[2017-04-20 12:00] VITALS: BP 115/64; PULSE 102; RESP 17; TEMP 97.4; O2SAT 98
[2017-04-20] MEDS ORDERED: ERTAPENEM 500 MG/NS 50 ML IV SCH ×2 (14:00)
[2017-04-20 16:00] VITALS: BP 135/74; PULSE 112; RESP 27; TEMP 98.5; O2SAT 99
--- NOTE | 2017-04-20 17:00 | HHI.DS ---
Discharge Summary Admission Date Apr 13, 2017 at 06:41 Discharge Date: Apr 20, 2017 Admitting Diagnosis Sepsis (1) C. difficile colitis ICD Code: A04.72 - Enterocolitis due to Clostridium difficile, not specified as recurrent (2) UTI (urinary tract infection) ICD Code: N39.0 - Urinary tract infection, site not specified Status: Acute (3) Dementia of Alzheimer's type with behavioral disturbance ICD Code: G30.8 - Other Alzheimer's disease; F02.81 - Dementia in other diseases classified elsewhere with behavioral disturbance Status: Acute Procedures None. Brief History - From Admission this is a 76yF with history of end-stage dementia with behavioral component who presented from SNF with fever, leukocytosis, hypotension and tachycardia. On my evaluation, she is unable to provide a history. It is unclear to me what her baseline mental status is. In the ER, she is febrile to 101.3, wbc 32k, Cr 5.23 / BUN 95. trop 0.17, ck 691. She was found to be in atrial fibrillation with rapid ventricular response and was initially started on diltiazem infusion, but she became significantly hypotensive with sbp 60s. She has received 5L NS iv bolus. she is oligoanuric. u/a is significant for large LE, +wbc, many bacteria. I performed bedside critical care echocardiography which demonstrated hyperdynamic LV function, completely collapsed IVC and severely underfilled LV with an LV cavity that almost completely obliterated in systole. no pericardial effusion. CBC/BMP: 04/20/17 0429 04/20/17 0429 Significant Findings Laboratory Tests Test 04/18/17 06:11 04/18/17 11:10 04/19/17 04:37 04/20/17 04:29 White Blood Count 62.1 TH/MM3 (4.0-11.0) 64.3 TH/MM3 (4.0-11.0) 66.1 TH/MM3 (4.0-11.0) Blood Urea Nitrogen 90 MG/DL (7-18) 107 MG/DL (7-18) 114 MG/DL (7-18) Creatinine 2.36 MG/DL (0.50-1.00) 2.52 MG/DL (0.50-1.00) 2.59 MG/DL (0.50-1.00) Random Glucose 165 MG/DL (74-106) 154 MG/DL (74-106) 162 MG/DL (74-106) Calcium Level 7.8 MG/DL (8.5-10.1) 7.7 MG/DL (8.5-10.1) 7.4 MG/DL (8.5-10.1) Sodium Level 133 MEQ/L (136-145) 133 MEQ/L (136-145) Carbon Dioxide Level 15.1 MEQ/L (21.0-32.0) 13.9 MEQ/L (21.0-32.0) 16.5 MEQ/L (21.0-32.0) Estimat Glomerular Filtration Rate 20 ML/MIN (>89) 19 ML/MIN (>89) 18 ML/MIN (>89) Urine Color DARK-BROWN (YELLW/STRAW) Urine Turbidity HAZY (CLEAR) Urine Protein 30 mg/dL (NEG-TRACE) Urine Leukocyte Esterase LARGE (NEG) Urine RBC 7 /hpf (0-3) Urine WBC 54 /hpf (0-5) Urine WBC Clumps FEW (NONE) Urine Bacteria OCC /hpf (NONE) Urine Mucus FEW /lpf (OCC) Urine Yeast (Budding) FEW (NONE) Total Protein 4.3 GM/DL (6.4-8.2) Potassium Level 5.2 MEQ/L (3.5-5.1) Chloride Level 110 MEQ/L (98-107) Imaging Last Impressions Chest X-Ray 04/18/17 0000 Signed Impressions: Service Date/Time: Tuesday, April 18, 2017 18:17 - CONCLUSION: Left basilar opacity is present may be due to a combination of consolidation and or pleural effusion.Slight pulmonary edema is also suspected on the additional atelectasis and/or infiltrate in both lungs not present previously. Roque Hunt MD Abdomen/Pelvis CT 04/18/17 0000 Signed Impressions: Service Date/Time: Tuesday, April 18, 2017 18:07 - CONCLUSION: 1. There is extensive anasarca with slight ascites not present previously. 2. Distended stomach and is also distended loops of large bowel and possibility of gastric outlet obstruction is not excluded. 3. Small bilateral pleural effusions and bibasilar consolidation. 4. Cholelithiasis. Roque Hunt MD Renal Ultrasound 04/13/17 0000 Signed Impressions: Service Date/Time: Thursday, April 13, 2017 07:52 - CONCLUSION: Negative for obstruction. Bladder decompressed by Meraz. Jayson Cain MD FACR PE at Discharge GENERAL: Awake and is alert. Answers mainly with yes SKIN: Warm and dry. HEAD: Normocephalic. EYES: Extraocular motion appear intact NECK:trachea midline. No JVD or lymphadenopathy. CARDIOVASCULAR: Tachycardic without murmurs RESPIRATORY: Breath sounds equal bilaterally. No wheezing on exam GASTROINTESTINAL: Abdomen soft, tender to deep palpation in the left lower quadrant. No guarding or rebound MUSCULOSKELETAL: 1+ lower ext edema. Hospital Course 76yF with end-stage dementia with behavioral features presented with septic shock secondary to c. diff colitis, urinary tract infection and PNA. DNR status continues and family interested in transitioning to hospice services upon discharge Patient was managed by Critical care team. Septic shock resolved. BP's stable. CXR shows significant consolidation and/or atelectasis. Pneumonia was due possibly aspiration vs. hospital acquired. ID followed the pt while in the hospital and pt was treated w Vancomycin, Flagyl, diflucan and Invanz Palliative care team evaluated the patient and met w pt's family who chose hospice. Pt was discharged to the hospice care center. Pt Condition on Discharge: Deteriorating Discharge Disposition: Hospice/Med Facility Discharge Time: > 30 minutes Discharge Instructions DIET: Follow Instructions for: As Tolerated, No Restrictions Speech Therapy-Diet Recommends: Pureed, [place] Thickened Liquids Activities you can perform: Regular-No Restrictions Linda Jarrett MD Apr 20, 2017 17:00
== END 2017-04-20 20:53 | disposition hospice, inpatient (51) | DRG 871 ==
LOC: NEPE 05:11 → NEDA 06:41 → N03B 08:16
PROVIDERS: ADMIT Internal Medicine Critical Care Medicine; ATTEND Hospitalist
DX: A41.9 Sepsis, unspecified organism (principal); R65.21 Severe sepsis with septic shock; I21.A1 Myocardial infarction type 2; J96.00 Acute respiratory failure, unspecified whether with hypoxia or hypercapnia; N17.9 Acute kidney failure, unspecified; G93.41 Metabolic encephalopathy; A04.72 Enterocolitis due to Clostridium difficile, not specified as recurrent; J18.9 Pneumonia, unspecified organism; E44.0 Moderate protein-calorie malnutrition; E87.2 Acidosis; F02.81 Dementia in other diseases classified elsewhere, unspecified severity, with behavioral disturbance; N39.0 Urinary tract infection, site not specified; E87.5 Hyperkalemia; G30.9 Alzheimer's disease, unspecified; I48.91 Unspecified atrial fibrillation; E83.51 Hypocalcemia; B96.20 Unspecified Escherichia coli [E. coli] as the cause of diseases classified elsewhere; Z16.12 Extended spectrum beta lactamase (ESBL) resistance; E86.9 Volume depletion, unspecified; Z51.5 Encounter for palliative care; E66.01 Morbid (severe) obesity due to excess calories; F20.9 Schizophrenia, unspecified; I10 Essential (primary) hypertension; G89.29 Other chronic pain; Z68.38 Body mass index [BMI] 38.0-38.9, adult; R73.9 Hyperglycemia, unspecified; Z66 Do not resuscitate; Z88.1 Allergy status to other antibiotic agents; Z88.2 Allergy status to sulfonamides; Z87.891 Personal history of nicotine dependence; Z88.8 Allergy status to other drugs, medicaments and biological substances; Z88.0 Allergy status to penicillin
CPT/HCPCS: 36600; 51702; 71045; 74176; 76775; 80048; 80053; 80202; 81001; 82550; 82552; 82570; 82805; 82948; 83605; 83735; 83880; 84100; 84155; 84300; 84439; 84443; 84484; 85007; 85027; 85610; 85730; 87040; 87077; 87086; 87106; 87186; 87205; 87493; 87641; 87804; 93005; 94150; 94640; 94664; 94667; 94668; 96365; 96368; 96375; J0282; J0610; J1160; J1335; J1644; J1720; J1815; J1940; J1956; J2270; J2370; J2930; J3370; J3475; J7030; J7040; J7050; J7060; P9045; Q9963